=== PATIENT | female | born 1940 | race Caucasian/White ===

== ENCOUNTER 2021-05-15 14:46 | Inpatient (IN) | payer MEDICARE, OTHER ==
[~2021-05-15] VITALS: Ht 170.2 cm; Wt 70.4 kg
[2021-05-15] MEDS ORDERED: BISACODYL 10 MG SUPP (DULCOLAX) PR PRN (16:00)
[2021-05-15] MEDS ORDERED: LOPERAMIDE 2 MG (IMODIUM) TABLET PO PRN (16:00)
[2021-05-15] MEDS ORDERED: ACETAMINOPHEN 325 MG TABLET PO PRN ×2 (16:00→22:30)
[2021-05-15] MEDS ORDERED: LACTULOSE SYRUP 10GM/15ML (ENULOSE) 30ML UDC PO PRN (16:00)
[2021-05-15] MEDS ORDERED: guaiFENesin/CODEINE (ROBITUSSIN AC) 10ML UDC PO PRN (16:00)
[2021-05-15] MEDS ORDERED: DOCUSATE SODIUM 100 MG (COLACE) CAP PO PRN (16:00)
[2021-05-15] MEDS ORDERED: FLEET ENEMA ADULT 1 EA BTL PR PRN (16:00)
[2021-05-15] MEDS ORDERED: ONDANSETRON 4 MG (ZOFRAN) ORAL DISSOLVE TAB PO PRN (16:00)
[2021-05-15] MEDS ORDERED: CALCIUM CARBONATE 500 MG (TUMS) TAB.CHEW PO PRN (16:00)
[2021-05-15] MEDS ORDERED: diphenhydrAMINE 25 MG TAB (BENADRYL) PO PRN (16:00)
[2021-05-15] MEDS ORDERED: DIVA-21 PO (16:16)
[2021-05-15] MEDS ORDERED: PHEN30SP4 NS (16:16)
[2021-05-15] MEDS ORDERED: ASPI-1238 PO (16:16)
[2021-05-15] MEDS ORDERED: SODI30SP2 NSEACH (16:16)
[2021-05-15] MEDS ORDERED: HYDR100T27 PO (16:16)
[2021-05-15] MEDS ORDERED: BACI28.4 TP (16:16)
[2021-05-15] MEDS ORDERED: FOLI0.4T6 PO (16:16)
[2021-05-15] MEDS ORDERED: SODI1PAC NS (16:16)
[2021-05-15] MEDS ORDERED: OXYC-473 PO (16:16)
[2021-05-15] MEDS ORDERED: UBID100C17 PO (16:16)
[2021-05-15] MEDS ORDERED: ATOR20TA66 PO (16:16)
[2021-05-15] MEDS ORDERED: ACET325C7 PO (16:16)
[2021-05-15 20:00] VITALS: BP 149/68
--- OUTSIDE RECORDS SUMMARY | 2021-05-15 20:19 | XMS REPORT | Clinical Summary ---
Author Author [facility] Organization [facility] Address Unknown Phone Unavailable Care Team Providers Care Oncology Social Work Name Role Phone Ralf Moon MS PCP Unavailable Source Comments Some departments are not documenting in the electronic medical record. If you d o not see the information that you expected, contact Release of Information in [facility] [employer] Information Management department at [phone] for further assistan ce in locating additional records.[facility] Allergies No known active allergies Medications End Date Status Medication Sig Dispensed Refills Start Date Active aspirin EC 81 mg tablet Take 81 mg by 0 mouth daily. Active atorvastatin (LIPITOR) 20 Take 20 mg by 0 08/13 mg tablet mouth daily. 0 Active divalproex (DEPAKOTE ER) Take 500 mg 0 01/15 500 mg ER tablet by mouth 1 daily. Active folic acid 400 mcg tablet Take 400 mcg 0 01/13 by mouth 3 daily. Active hydrALAZINE (APRESOLINE) Take 100 mg 0 12/10 100 mg tablet by mouth 8 three times daily. Active coQ10 (ubiquinol) 100 mg Take 1 0 cap capsule by mouth daily. Active acetaminophen (TYLENOL) Take two 30 tablet 0 325 mg tablet tablets by 2 mouth every 4 hours as needed. Active sodium chloride (SEA Apply two 44 mL 05/15 MIST) 0.65 % nasal spray sprays to 2 each nostril as directed every 3 hours while awake. Active sinus rinse (NASAL RELIEF Apply one 1 each SINUS WASH-BOTTLE) kit packet into 2 nose as directed twice daily. Active oxyCODONE (ROXICODONE) 5 Take one 10 tablet 0 0 mg tablet tablet by 2 mouth every 4 hours as needed Active bacitracin 500 unit/g Apply 28 g 0 04/17 topical ointment topically to 2 affected area twice daily. 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 Encounters Care Team Description Date Type Specialty Reina Aguila MD SEPTOPLASTY 05/12/2021 Surgery Lucy Andersen MD Easum, Jamie L, INTERTYPE OPERATOR-PIPE INSULATOR 05/12/2021 Anesthesia Event Reina Aguila MD CSF leak 05/12/2021 Hospital - Encounter 05/15/2021 05/12/2021 Travel Reina Aguila MD Preop testing (Primary Dx) 05/08/2021 PAC Office Pre-Admission Testi ng Visit Jenna Sierra RN Navigation Assessment 05/08/2021 Telephone Oncology 05/08/2021 Stacy Turner RN Other (pre op COVID swab) 05/08/2021 Telephone Otolaryngology Stacy Clarke RN Other (pre op COVID test) 05/08/2021 Telephone Otolaryngology 04/06/2021 Hospital Radiology Encounter Reina Aguila MD 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 (Primary Dx); Seizure (HCC); Nasal septal deviation 03/31/2021 Office Visit Otolaryngology Reina Aguila MD 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 (Primary Dx); Encounter for screening laboratory testing for COVID-19 virus in asymptomatic patient 03/31/2021 Prep for Case Otolaryngology 03/31/2021 Stacy Turner, EDITH Appointment 03/24/2021 Telephone Otolaryngology Vlad Kenny MD Results 03/24/2021 Telephone Neurosurgery José Mead MD 03/23/2021 Hospital Radiology Encounter José Mead MD 03/23/2021 Emergency Emergency Medicine - 03/24/2021 Vlad Kenny MD Canceled (Patient-Rescheduled) 03/23/2021 Hospital Radiology Encounter Vlad Kenny MD Caylor, Jessica, RN Baltz, Hayder, RT(R)(),LRT Tony Rivers MD 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 OR SINUS ENDOSCOPY 05/12/2021 Nose/Left ENDOSCOPY NASA L/ SINUS WITH REPAIR CEREBROSPINAL FLUID LEAK - SPHENOID REGION performed by Reina Aguila MD at 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 Never 03/03/2021 How many drinks containing alcohol do you have on No t asked a typical day when you are drinking? How often do you have six or more drinks on one Not asked occasion? Comment: Not asked Sex Assigned at Date Recorded Female 04/28/2021 12:27 PM MULTIGRAPH OPERATOR Date Recorded COVID-19 Exposure Response 05/12/2021 9:01 AM MULTIGRAPH OPERATOR In the last month, have you been in contact with No / Unsure someone who was confirmed or suspected to have Coronavirus / COVID-19? Last Filed Vital Signs Reading Time Taken Comments Vital Sign 133/48 05/15/2021 2:01 PM MULTIGRAPH OPERATOR Blood Pressure 84 05/15/2021 2:01 PM MULTIGRAPH OPERATOR Pulse 37.4 C (99.4 F) 05/15/2021 2:01 PM MULTIGRAPH OPERATOR Temperature - - Respiratory Rate 97% 05/15/2021 2:01 PM MULTIGRAPH OPERATOR Oxygen Saturation - - Inhaled Oxygen Concentration 68.5 kg (151 lb) 05/12/2021 9:10 AM MULTIGRAPH OPERATOR Weight 170.2 cm (5' 7") 05/12/2021 9:10 AM MULTIGRAPH OPERATOR Height 23.65 05/12/2021 9:10 AM MULTIGRAPH OPERATOR Body Mass Index Plan of Treatment Health Maintenance Due Date Last Done Comments MEDICARE ANNUAL WELLNESS 1942 VISIT PNEUMONIA (PPSV23) 1948 VACCINE (1 of 2 - PPSV23) DTAP/TDAP VACCINES (1 - 1960 Tdap) HEPATITIS C SCREENING 1960 PHYSICAL (COMPREHENSIVE) 1960 EXAM SHINGLES RECOMBINANT 1992 VACCINE (1 of 2) OSTEOPOROSIS 2007 SCREENING/MONITORING INFLUENZA VACCINE 11/13/2020 04/01/2009 COVID-19 VACCINE Completed 02/08/2021, 06/09/2020, 05/09/2020 Goals Goal Patient Associated Recent Progress Patient-Stat Aut hor Goal Type Problems ed? Recover from illness Hospital On track (05/12/2021 Yes Yani Duarte, 3:01 PM MULTIGRAPH OPERATOR) RN Note: And be able to walk better Procedures Comments Procedure Name Priority Date/Time Associated Diag nosis POC GLUCOSE 05/15/2021 11:38 AM MULTIGRAPH OPERATOR BASIC METABOLIC PANEL Routine 05/15/2021 7:27 AM MULTIGRAPH OPERATOR POC GLUCOSE 05/15/2021 7:16 AM MULTIGRAPH OPERATOR POC GLUCOSE 05/14/2021 8:57 PM MULTIGRAPH OPERATOR POC GLUCOSE 05/14/2021 4:49 PM MULTIGRAPH OPERATOR POC GLUCOSE 05/14/2021 12:46 PM MULTIGRAPH OPERATOR POC GLUCOSE 05/14/2021 7:41 AM MULTIGRAPH OPERATOR POC GLUCOSE 05/14/2021 7:29 AM MULTIGRAPH OPERATOR POC GLUCOSE 05/13/2021 8:58 PM MULTIGRAPH OPERATOR POC GLUCOSE 05/13/2021 6:33 PM MULTIGRAPH OPERATOR POC GLUCOSE 05/13/2021 4:38 PM MULTIGRAPH OPERATOR HC TP/CR RATIO, RANDOM Routine 05/13/2021 3:44 PM MULTIGRAPH OPERATOR URINALYSIS, MICROSCOPIC Routine 05/13/2021 3:44 PM MULTIGRAPH OPERATOR HC URINALYSIS, AUTO W Routine 05/13/2021 MICRO 3:44 PM MULTIGRAPH OPERATOR POC GLUCOSE 05/13/2021 11:53 AM MULTIGRAPH OPERATOR POC GLUCOSE 05/13/2021 7:55 AM MULTIGRAPH OPERATOR HC CBC,AUTOMATED Routine 05/13/2021 7:21 AM MULTIGRAPH OPERATOR HC BASIC METABOLIC PANEL Routine 05/13/2021 7:21 AM MULTIGRAPH OPERATOR POC GLUCOSE 05/12/2021 10:44 PM MULTIGRAPH OPERATOR HC ANTI-NEUTROPHIL CYTO Routine 05/12/2021 CIRILO (ANCA 6:01 PM MULTIGRAPH OPERATOR HC ELECTROPHORESIS-SERUM Routine 05/12/2021 6:01 PM MULTIGRAPH OPERATOR HC KAPPA QNT FLC(KLFLC) Routine 05/12/2021 6:01 PM MULTIGRAPH OPERATOR HC IMMUNO FIX SERUM Routine 05/12/2021 (IFES) 6:01 PM MULTIGRAPH OPERATOR C4 COMPLEMENT 4 Routine 05/12/2021 6:01 PM MULTIGRAPH OPERATOR HC C3(COMPLEMENT 3) Routine 05/12/2021 6:01 PM MULTIGRAPH OPERATOR HC ANTI-DNA KOBUK Routine 05/12/2021 6:01 PM MULTIGRAPH OPERATOR HC SERINE PROTEASE 3 AB Routine 05/12/2021 6:01 PM MULTIGRAPH OPERATOR POC GLUCOSE 05/12/2021 5:10 PM MULTIGRAPH OPERATOR US RENAL BLADDER COMPLETE Routine 05/12/2021 4:48 PM MULTIGRAPH OPERATOR POC GLUCOSE 05/12/2021 12:19 PM MULTIGRAPH OPERATOR HC CBC W/ AUTOMATED DIFF STAT 05/12/2021 11:33 AM MULTIGRAPH OPERATOR STEREOTACTIC 05/12/2021 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 COMPUTER-ASSISTED CRANIAL 9:39 AM MULTIGRAPH OPERATOR PROCEDURE - EXTRADURAL Special Needs 12 Marked return to clinic, no open time available, [place] [address]/25 PCM: ALSO, MOVE 2ND ROOM CASE (ROSALIA) INTO ITS PLACE SO ALL HER CASES ARE IN ONE ROOM. THANKS. - BP 0938 ENDOSCOPY NASAL/ SINUS 05/12/2021 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 WITH REPAIR CEREBROSPINAL 9:39 AM MULTIGRAPH OPERATOR FLUID LEAK - SPHENOID REGION Special Needs 12 Marked return to clinic, no open time available, [place] [address]/25 PCM: ALSO, MOVE 2ND ROOM CASE (ROSALIA) INTO ITS PLACE SO ALL HER CASES ARE IN ONE ROOM. THANKS. - BP 0938 SEPTOPLASTY 05/12/2021 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 9:39 AM MULTIGRAPH OPERATOR Special Needs 12 Marked return to clinic, no open [place] available, [place] [address]/25 PCM: ALSO, MOVE 2ND ROOM CASE (ROSALIA) INTO ITS PLACE SO ALL HER CASES ARE IN ONE ROOM. THANKS. - BP 0938 HC BLOOD TYPING, ABO STAT 05/12/2021 CONFIRM 91 9:22 AM MULTIGRAPH OPERATOR TYPE & CROSSMATCH STAT 05/12/2021 Preop testin g 9:10 AM MULTIGRAPH OPERATOR HC VALPROIC ACID 05/12/2021 9:10 AM MULTIGRAPH OPERATOR HC BASIC METABOLIC PANEL STAT 05/12/2021 Preop testing 9:[address] CHEST EXTERNAL IMAGING Routine 04/06/2021 12:00 AM MULTIGRAPH OPERATOR COVID-19 (SARS-COV-2) PCR STAT 03/23/2021 7:[address] MAXIFACIAL/SINUS WO STAT 03/23/2021 CONTRAST 6:[address] HEAD WO CONTRAST STAT 03/23/2021 6:16 PM MULTIGRAPH OPERATOR HC TROPONIN I, POC 03/23/2021 2:38 PM MULTIGRAPH OPERATOR HC VALPROIC ACID STAT 03/23/2021 2:35 PM MULTIGRAPH OPERATOR HC COMPREHENSIVE STAT 03/23/2021 METABOLIC PANEL 2:35 PM MULTIGRAPH OPERATOR HC MAGNESIUM STAT 03/23/2021 2:35 PM MULTIGRAPH OPERATOR HC CBC W/ AUTOMATED DIFF STAT 03/23/2021 2:35 PM MULTIGRAPH OPERATOR CHEST SINGLE VIEW STAT 03/23/2021 2:05 PM MULTIGRAPH OPERATOR ECG 12-LEAD STAT 03/23/2021 1:47 PM MULTIGRAPH OPERATOR POC GLUCOSE 03/23/2021 12:19 PM MULTIGRAPH OPERATOR IR CISTERNOGRAM Routine 03/23/2021 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 12:17 PM MULTIGRAPH OPERATOR ECG-SCAN 03/23/2021 12:00 AM MULTIGRAPH OPERATOR ECG-SCAN 03/23/2021 12:00 AM MULTIGRAPH OPERATOR from Last 3 Months Results * (ABNORMAL) POC GLUCOSE (05/15/2021 11:38 AM MULTIGRAPH OPERATOR) Only the most recent of 16 results within the time period is included. Pathologist [facility] Glucose, POC 173 (H) 70 - 100 MG/DL [facility] Specimen Performing Organization Address City/State/ZIP Code P melissa Number [facility] [address] [place] [address] * (ABNORMAL) BASIC METABOLIC PANEL (05/15/2021 7:27 AM MULTIGRAPH OPERATOR) Only the most recent of 3 results within the time period is included. Pathologist [facility] Sodium 136 (L) 137 - 147 MMOL/L [facility] Potassium 4.7 3.5 - 5.1 MMOL/L [facility] Chloride 100 98 - 110 MMOL/L [facility] CO2 26 21 - 30 MMOL/L [facility] Anion Gap 10 3 - 12 [facility] Glucose 132 (H) 70 - 100 MG/DL [facility] Blood Urea 37 (H) 7 - 25 MG/DL [facility] Nitrogen Creatinine 2.05 (H) 0.4 - 1.00 MG/DL [facility] Calcium 9.5 8.5 - 10.6 MG/DL [facility] eGFR 24 (L)Comment: eGFR calculated >60 mL/min [facility] using the CKD-EPIcr_R equation Specimen Blood (substance) Performing Organization Address [facility] P melissa Number [facility] [address] [place] [phone] * PROTEIN/CR RATIO,UR RAN (05/13/2021 3:44 PM MULTIGRAPH OPERATOR) Protein, Random 40 MG/DL [facility] Creatinine, 70 MG/DL [facility] Random Protein/CR 0.6 [facility] ratio Specimen Urine - Urine specimen (specimen) Performing Organization Address [facility] P melissa Number [facility] [address] [place] [address] * URINALYSIS, MICROSCOPIC (05/13/2021 3:44 PM MULTIGRAPH OPERATOR) WBCs,UA 10-20 0 - 2 /HPF [facility] RBCs,UA 20-50 0 - 3 /HPF [facility] MucousUA TRACE [facility] Squamous 2-5 0 - 5 [facility] Epithelial Cells Specimen Urine - Urine specimen (specimen) Performing Organization Address [facility] P melissa Number [facility] [address] [place] [address] * (ABNORMAL) URINALYSIS DIPSTICK (05/13/2021 3:44 PM MULTIGRAPH OPERATOR) Color,UA YELLOW [facility] Turbidity,UA CLEAR CLEAR-CLEAR [facility] Specific 1.016Comment: NOTE NEW 1.005 - 1.030 [facility] [place]-Urine REFERENCE RANGES pH,UA 6.0 5.0 - 8.0 [facility] Protein,UA 1+ (A) NEG-NEG [facility] Glucose,UA NEG NEG-NEG [facility] Ketones,UA NEG NEG-NEG [facility] Bilirubin,UA NEG NEG-NEG [facility] Blood,UA 1+ (A) NEG-NEG [facility] Urobilinogen,UA NORMAL NORM-NORMAL [facility] Nitrite,UA NEG NEG-NEG [facility] Leukocytes,UA 1+ (A) NEG-NEG [facility] Urine Ascorbic NEG NEG-NEG [facility] Acid, UA Specimen Urine - Urine specimen (specimen) Performing Organization Address [facility] P melissa Number [facility] [address] [place] [address] * (ABNORMAL) CBC (05/13/2021 7:21 AM MULTIGRAPH OPERATOR) White Blood 3.5 (L) 4.5 - 11.0 K/UL [facility] Cells RBC 3.01 (L) 4.0 - 5.0 M/UL [facility] Hemoglobin 7.5 (L) 12.0 - 15.0 GM/DL [facility] Hematocrit 23.1 (L) 36 - 45 % [facility] MCV 76.7 (L) 80 - 100 FL [facility] MCH 24.8 (L) 26 - 34 PG [facility] MCHC 32.4 32.0 - 36.0 G/DL [facility] RDW 18.9 (H) 11 - 15 % [facility] Platelet Count 286 150 - 400 K/UL [facility] MPV 8.0 7 - 11 FL [facility] Specimen Blood (substance) Performing Organization Address [facility] P melissa Number [facility] [address] [place] [address] * (ABNORMAL) MPO/PR3 W REFLEX TO ANCA (05/12/2021 6:01 PM MULTIGRAPH OPERATOR) Myeloperoxidase 1.7 (H)Comment: <1.0 AI [facility] AB Interpretation: Positive Serine <0.2Comment: Interpretation: <1.0 AI [facility] Protease3 AB Negative Specimen Blood (substance) Performing Organization Address [facility]/ZIP Code P melissa Number [facility] [address] [place] [address] * IMMUNOFIXATION, SERUM (IFES) (05/12/2021 6:01 PM MULTIGRAPH OPERATOR) Immuno NO PARAPROTEIN SEEN [facility] Fix-Serum Pathologist INTERPRETED BY HALLIE MORALES M.D. [facility] Signature By the PATH SIGNATURE ABOVE , I attest that I have personally formulated the final interpretation expressed in this report and that the above diagnosis is based upon my examination of the slides and/or other material indicated in this report. Specimen Blood (substance) Performing Organization Address [facility] Code P melissa Number [facility] [address] [place] [address] * (ABNORMAL) KAPPA/LAMBDA FREE LIGHT CHAINS (05/12/2021 6:01 PM MULTIGRAPH OPERATOR) [place], FLC 7.84 (H) 0.33 - 1.94 MG/DL [facility] Lambda, FLC 9.44 (H) 0.57 - 2.63 MG/DL [facility] [place]/Lambda 0.83 0.26 - 1.65 [facility] FLC Specimen Blood (substance) Performing Organization Address [facility] P melissa Number [facility] [address] [place] [address] * ANTI-NEUT CYTO AB (ANCA/PANCA) (05/12/2021 6:01 PM MULTIGRAPH OPERATOR) C-ANCA <20,NEGATIVE TITER [facility] P-ANCA >AZ=[id number],POSITIVE TITER [facility] Specimen Performing Organization Address [facility] P melissa Number [facility] [address] [place] [address] * ANTI-DNA DOUBLE STRAND (05/12/2021 6:01 PM MULTIGRAPH OPERATOR) DNA Double <10 <10 TITER [facility] Strand AB Specimen Blood (substance) Performing Organization Address [facility] P emlissa Number [facility] [address] [place] [address] * C3 COMPLEMENT 3 (05/12/2021 6:01 PM MULTIGRAPH OPERATOR) Complemnt C3 109.0 88 - 200 MG/DL [facility] Specimen Blood (substance) Performing Organization Address [facility] P melissa Number [facility] [address] [place] [address] * C4 COMPLEMENT 4 (05/12/2021 6:01 PM MULTIGRAPH OPERATOR) Complemnt C4 21.0 10 - 49 MG/DL [facility] Specimen Blood (substance) Performing Organization Address [facility] P melissa Number [facility] [address] [place] [address] * (ABNORMAL) ELECTROPHORESIS-SERUM PROTEIN (05/12/2021 6:01 PM MULTIGRAPH OPERATOR) Total 7.2 6.0 - 8.0 G/DL [facility] Protein-SEP Albumin % 44.7 (L) 48 - 68 % [facility] Alpha 1 % 6.3 (H) 2 - 6 % [facility] Alpha 2 % 14.6 5 - 15 % [facility] Beta %,Serum 13.0 9 - 17 % [facility] Gamma % 21.4 (H) 9 - 21 % [facility] Interpretation Acute phase reaction. [facility] - SEP Pathologist INTERPRETED BY HALLIE MORALES M.D. [facility] Signature By the PATH SIGNATURE ABOVE , I attest that I have personally formulated the final interpretation expressed in this report and that the above diagnosis is based upon my examination of the slides and/or other material indicated in this report. Specimen Blood (substance) Performing Organization Address City/State/ZIP Code P melissa Number [facility] [address] [place] [address] * US RENAL BLADDER COMPLETE (05/12/2021 4:48 PM MULTIGRAPH OPERATOR) Modality Anatomical Region Laterality Ultrasound Pelvis Specimen Impressions [facility] RESULTS - 05/12/2021 4:54 PM MULTIGRAPH OPERATOR 1. The kidneys are normal in size. No hy dronephrosis. 2. 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 3. Small minimally complicated cyst in t he inferior pole of the right kidney with complexity likely related to intracystic hemorrhage. Finalized by Brigette Jones M.D. on 05/12/2021 4:54 PM. Dictated by Brigette Jones M.D. on 05/12/2021 4:48 PM. Narrative [facility] RESULTS - 05/12/2021 4:54 PM MULTIGRAPH OPERATOR RENAL ULTRASOUND CLINICAL INDICATION: Von Hippel-Lindau syndrome, CKD 3. Evaluate for renal masses. TECHNIQUE: Multiple grayscale ultrasound images were obtained through the kidneys and urinary bladder. COMPARISON: Outside CT abdomen 12/14/2020, outside MRI abdomen 11/18/2020 FINDINGS: Right kidney: Measures 10.5 x 4.3 cm. Hyperechoic lesion in the superior pole of the kidney measuring up to 1.0 cm corresponds to a benign angiomyolipoma on comparison imaging. Minimally complicated cyst in the inferior pole of the kidney measures up to 1.4 cm. No hydronephrosis. Left kidney: Measures 10.2 x 4.4 cm. Hyperechoic lesion in the superior pole of the kidney measuring up to 2.1 cm corresponds to a benign angiomyolipoma on comparison imaging. No hydronephrosis. Urinary bladder: Mildly distended and normal in appearance. Procedure Note Brigette Jones MD - 05/12/2021 RENAL ULTRASOUND CLINICAL INDICATION: Von Hippel-Lindau syndrome, CKD 3. Evaluate for renal masses. TECHNIQUE: Multiple grayscale ultrasound images were obtained through the kidneys and urinary bladder. COMPARISON: Outside CT abdomen 12/14/2020, outside MRI abdomen 11/18/2020 FINDINGS: Right kidney: Measures 10.5 x 4.3 cm. Hyperechoic lesion in the superior pole of the kidney measuring up to 1.0 cm corresponds to a benign angiomyolipoma on comparison imaging. Minimally complicated cyst in the inferior pole of the kidney measures up to 1.4 cm. No hydronephrosis. Left kidney: Measures 10.2 x 4.4 cm. Hyperechoic lesion in the superior pole of the kidney measuring up to 2.1 cm corresponds to a benign angiomyolipoma on comparison imaging. No hydronephrosis. Urinary bladder: Mildly distended and normal in appearance. IMPRESSION 1. The kidneys are normal in size. No hy dronephrosis. 2. 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 3. Small minimally complicated cyst in t he inferior pole of the right kidney with complexity likely related to intracystic hemorrhage. Finalized by Brigette Jones M.D. on 05/12/2021 4:54 PM. Dictated by Brigette Jones M.D. on 05/12/2021 4:48 PM. Performing Organization Address City/State/ZIP Code P melissa Number [facility] * (ABNORMAL) CBC AND DIFF (05/12/2021 11:33 AM MULTIGRAPH OPERATOR) Only the most recent of 2 results within the time period is included. White Blood 5.1 4.5 - 11.0 K/UL [facility] Cells RBC 2.86 (L) 4.0 - 5.0 M/UL [facility] Hemoglobin 7.2 (L) 12.0 - 15.0 GM/DL [facility] Hematocrit 21.9 (L) 36 - 45 % [facility] MCV 76.7 (L) 80 - 100 FL [facility] MCH 25.2 (L) 26 - 34 PG [facility] MCHC 32.8 32.0 - 36.0 G/DL [facility] RDW 18.6 (H) 11 - 15 % [facility] Platelet Count 239 150 - 400 K/UL [facility] MPV 8.2 7 - 11 FL [facility] Neutrophils 85 (H) 41 - 77 % [facility] Lymphocytes 8 (L) 24 - 44 % [facility] Monocytes 4 4 - 12 % [facility] Eosinophils 2 0 - 5 % [facility] Basophils 1 0 - 2 % [facility] Absolute 4.38 1.8 - 7.0 K/UL [facility] Neutrophil Count Absolute Lymph 0.39 (L) 1.0 - 4.8 K/UL [facility] Count Absolute 0.21 0 - 0.80 K/UL [facility] Monocyte Count Absolute 0.12 0 - 0.45 K/UL [facility] Eosinophil Count Absolute 0.03 0 - 0.20 K/UL [facility] Basophil Count Specimen Blood (substance) Performing Organization Address City/[facility] P melissa Number [facility] [address] [place] [address] * BLOOD TYPE CONFIRMATION - ORDER ONLY IF REQUESTED BY LAB (05/12/2021 9:22 AM MULTIGRAPH OPERATOR) ABO/RH(D) O POS [facility] LAB Specimen Performing Organization Address City/[facility] P melissa Number [facility] [address] [place] [phone] * TYPE & CROSSMATCH (05/12/2021 9:10 AM MULTIGRAPH OPERATOR) Units Ordered 0 [facility] Crossmatch 05/15/2021,2359 [facility] Expires Record Check 2ND TYPE REQUIRED [facility] ABO/RH(D) O POS [facility]IN LAB Antibody Screen NEG [facility] Electronic YES [facility] Crossmatch Specimen Blood (substance) Performing Organization Address [facility]/ZIP Code P melissa Number [facility] [address] [place] [phone] * (ABNORMAL) VALPROIC ACID LEVEL (05/12/2021 9:10 AM MULTIGRAPH OPERATOR) Only the most recent of 2 results within the time period is included. Valproic Acid <10.0 (L) 50.0 - 100.0 MCG/ML MAIN LA B Specimen Performing Organization Address City/[facility]/ZIP Code P melissa Number [facility] [address] [place] [address] * CT CHEST EXTERNAL IMAGING (04/06/2021 12:00 AM MULTIGRAPH OPERATOR) Modality Anatomical Region Laterality Computed Radiography Specimen Narrative Scheduling, Silent - 05/11/2021 10:08 AM MULTIGRAPH OPERATOR This order has been auto finalized and does not contain a result. * COVID-19 (SARS-COV-2) PCR (03/23/2021 7:48 PM MULTIGRAPH OPERATOR) COVID-19 FLOCKED SWAB [facility] (SARS-CoV-2) NASOPHARYNGEAL PCR Source COVID-19 NOT DETECTED DN-NOT DETECTED [facility] (SARS-CoV-2) Comment: PCR This assay is designed to detect the S and/or ORF1ab genes of SARS-CoV-2 using nucleic acid amplification. A "Not Detected" result does not preclude the possibility of SARS-CoV-2 infection since the adequacy of sample collection and/or low viral burden may result in the presence of viral nucleic acids below the analytical sensitivity of this test method. Test results should be used along with other clinical and laboratory data in making the diagnosis. Test parameters have not been validated for screening in asymptomatic patients.This test has not been FDA cleared or approved. This test is authorized for use under the FDA Emergency Use Authorization and performance characteristics have been verified by the [facility]. Fact sheet for providers: https://www.fda.gov/media/4122 85/download Fact sheet for patients: https://www.fda.gov/media/1659 87/download Specimen Flocked Swab - Nasopharyngeal structure (body structure) Performing Organization Address City/State/ZIP Code P melissa Number [facility] [address] [place] [address] * CT HEAD WO CONTRAST (03/23/2021 6:16 PM MULTIGRAPH OPERATOR) Modality Anatomical Region Laterality Computed Tomography Head Specimen Impressions [facility] RESULTS - 03/23/2021 8:05 PM MULTIGRAPH OPERATOR Head: 1. Evaluation of the parenchyma and celeste barachnoid spaces is mildly limited due to dense contrast material from prior cisternogram. 2. Prior bilateral occipital craniecto my with stable large area of right cerebellar encephalomalacia and more mild medial left occipital lobe encephalomalacia. 3. Small stable area of gliosis at the anterolateral right frontal lobe, likely corresponding to prior EVD tract. Additional very small area of encephalomalacia/gliosis at the superior left frontal lobe. 4. No extra-axial fluid collection lida ntified. 5. Persistent generalized cerebral vol ume loss with asymmetrically greater dilatation of the left temporal horn and some adjacent left temporal lobe encephalomalacia anteriorly redemonstrated. Maxillofacial: 1. CSF leak identified through the hea d defect at the lateral wall of the left sphenoid sinus, as described above. 2. Some additional minimal probable co ntrast accounts for high density material collecting within the hypopharyngeal mucosal surface. 3. No acute maxillofacial fracture lida ntified. By my electronic signature, I attest that I have personally reviewed the images for this examination and formulated the interpretations and opinions expressed in this report Finalized by Nilay Hayes M.D. on 03/23/2021 8:05 PM. Dictated by Tutu Johnson M.D. on 03/23/2021 7:16 PM. Narrative [facility] RESULTS - 03/23/2021 8:05 PM MULTIGRAPH OPERATOR EXAM: CT HEAD AND MAXILLOFACIAL HISTORY: SEIZURE, hx multiple resections TECHNIQUE: Multiple contiguous axial images were obtained of the brain and facial bones without intravenous contrast. Sagittal and coronal reformations were obtained of the facial bones, with coronal reformatted images of the head. The facial CT was obtained in supine and prone positions. Comparison: IR cisternogram March 23, 2021, external MRI head December 20, 2020 FINDINGS: Head: Dense contrast material fills the ventricles and subarachnoid spaces from cisternogram procedure earlier the same day. Evaluation of the parenchyma is mildly limited due to dense contrast material. Prior bilateral occipital craniectomy is redemonstrated along with large area of cystic encephalomalacia in the right cerebellum and mild encephalomalacia the posterior medial left cerebellum. Contrast fills these areas of bilateral cerebellar encephalomalacia. There is also contrast filling the asymmetric the asymmetrically dilated left temporal horn, with redemonstration of some encephalomalacia at the anterior left temporal lobe. 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 Stable, likely benign small hypodense lesion in the overlying calvarium. Stable small area of gliosis involving the white matter at the anterolateral right frontal lobe, with a small linear overlying right frontal calvarial defect, suggesting this is gliosis along a prior EVD tract. There is also very small focal area of encephalomalacia/gliosis at the superior left frontal lobe (series 303, image 58). Becker-white matter interfaces are otherwise maintained. Evaluation for subarachnoid hemorrhage is limited due to the presence of contrast within the subarachnoid spaces. No extra-axial fluid collection identified. Mild generalized cerebral volume loss with concordant prominence of the ventricles. There is no midline shift or mass effect. The basal cisterns are patent. Maxillofacial: Contrast is seen near completely filling the left sphenoid sinus, with additional minimal left sphenoid mucosal thickening. There is a focal bony defect in the lateral wall of the left sphenoid sinus with contrast extending through the defect (series 3, image 102). The contrast appears to extend from the medial aspect of the asymmetrically dilated temporal horn and the left sphenoid sinus. No significant contrast is present within the nasal cavity, nasopharynx, oral cavity or oropharynx. There is some minimal high density along the mucosal surface of the hypopharynx (series 3, image 254), suggestive of contrast. Moderate sized left maxillary sinus retention cyst or polyp. Remaining paranasal sinuses are clear (except for the left sphenoid sinus as previously described). There is a moderate left mastoid effusion without associated bone destruction or high density contrast. Right mastoid air cells are clear. The globes and orbits are normal in appearance without CT evidence of orbital hemorrhage. The extraocular muscles are intact. No acute facial, mandibular, or orbital wall fracture is identified. The left and right temporal mandibular joints are slightly displaced anteriorly on prior imaging, consistent with a transient finding as there is normal alignment at TMJ bilaterally on the supine imaging. Moderate degenerative changes in the visualized upper and mid cervical spine with areas of mild central canal and up to moderate neural foraminal narrowing, greatest at C4-5. Procedure Note Nilay Hayes MD - 03/23/2021 EXAM: CT HEAD AND MAXILLOFACIAL HISTORY: SEIZURE, hx multiple resections TECHNIQUE: Multiple contiguous axial images were obtained of the brain and facial bones without intravenous contrast. Sagittal and coronal reformations were obtained of the facial bones, with coronal reformatted images of the head. The facial CT was obtained in supine and prone positions. Comparison: IR cisternogram March 23, 2021, external MRI head December 20, 2020 FINDINGS: Head: Dense contrast material fills the ventricles and subarachnoid spaces from cisternogram procedure earlier the same day. Evaluation of the parenchyma is mildly limited due to dense contrast material. Prior bilateral occipital craniectomy is redemonstrated along with large area of cystic encephalomalacia in the right cerebellum and mild encephalomalacia the posterior medial left cerebellum. Contrast fills these areas of bilateral cerebellar encephalomalacia. There is also contrast filling the asymmetric the asymmetrically dilated left temporal horn, with redemonstration of some encephalomalacia at the anterior left temporal lobe. 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 Stable, likely benign small hypodense lesion in the overlying calvarium. Stable small area of gliosis involving the white matter at the anterolateral right frontal lobe, with a small linear overlying right frontal calvarial defect, suggesting this is gliosis along a prior EVD tract. There is also very small focal area of encephalomalacia/gliosis at the superior left frontal lobe (series 303, image 58). Becker-white matter interfaces are otherwise maintained. Evaluation for subarachnoid hemorrhage is limited due to the presence of contrast within the subarachnoid spaces. No extra-axial fluid collection identified. Mild generalized cerebral volume loss with concordant prominence of the ventricles. There is no midline shift or mass effect. The basal cisterns are patent. Maxillofacial: Contrast is seen near completely filling the left sphenoid sinus, with additional minimal left sphenoid mucosal thickening. There is a focal bony defect in the lateral wall of the left sphenoid sinus with contrast extending through the defect (series 3, image 102). The contrast appears to extend from the medial aspect of the asymmetrically dilated temporal horn and the left sphenoid sinus. No significant contrast is present within the nasal cavity, nasopharynx, oral cavity or oropharynx. There is some minimal high density along the mucosal surface of the hypopharynx (series 3, image 254), suggestive of contrast. Moderate sized left maxillary sinus retention cyst or polyp. Remaining paranasal sinuses are clear (except for the left sphenoid sinus as previously described). There is a moderate left mastoid effusion without associated bone destruction or high density contrast. Right mastoid air cells are clear. The globes and orbits are normal in appearance without CT evidence of orbital hemorrhage. The extraocular muscles are intact. No acute facial, mandibular, or orbital wall fracture is identified. The left and right temporal mandibular joints are slightly displaced anteriorly on prior imaging, consistent with a transient finding as there is normal alignment at TMJ bilaterally on the supine imaging. Moderate degenerative changes in the visualized upper and mid cervical spine with areas of mild central canal and up to moderate neural foraminal narrowing, greatest at C4-5. IMPRESSION Head: 1. Evaluation of the parenchyma and sub arachnoid spaces is mildly limited due to dense contrast material from prior cisternogram. 2. Prior bilateral occipital craniectom y with stable large area of right cerebellar encephalomalacia and more mild medial left occipital lobe encephalomalacia. 3. Small stable area of gliosis at the anterolateral right frontal lobe, likely corresponding to prior EVD tract. Additional very small area of encephalomalacia/gliosis at the superior left frontal lobe. 4. No extra-axial fluid collection iden tified. 5. Persistent generalized cerebral volu me loss with asymmetrically greater dilatation of the left temporal horn and some adjacent left temporal lobe encephalomalacia anteriorly redemonstrated. Maxillofacial: 1. CSF leak identified through the head defect at the lateral wall of the left sphenoid sinus, as described above. 2. Some additional minimal probable con trast accounts for high density material collecting within the hypopharyngeal mucosal surface. 3. No acute maxillofacial fracture iden tified. By my electronic signature, I attest that I have personally reviewed the images for this examination and formulated the interpretations and opinions expressed in this report Finalized by Nilay Hayes M.D. on 03/23/2021 8:05 PM. Dictated by Tutu Johnson M.D. on 03/23/2021 7:16 PM. Performing Organization Address City/State/ZIP Code P melissa Number [facility] * CT MAXIFACIAL/SINUS WO CONTRAST (03/23/2021 6:16 PM MULTIGRAPH OPERATOR) Modality Anatomical Region Laterality Computed Tomography Head Specimen Impressions [facility] RESULTS - 03/23/2021 8:05 PM MULTIGRAPH OPERATOR Head: 1. Evaluation of the parenchyma and celeste barachnoid spaces is mildly limited due to dense contrast material from prior cisternogram. 2. Prior bilateral occipital craniecto my with stable large area of right cerebellar encephalomalacia and more mild medial left occipital lobe encephalomalacia. 3. Small stable area of gliosis at the anterolateral right frontal lobe, likely corresponding to prior EVD tract. Additional very small area of encephalomalacia/gliosis at the superior left frontal lobe. 4. No extra-axial fluid collection lida ntified. 5. Persistent generalized cerebral vol ume loss with asymmetrically greater dilatation of the left temporal horn and some adjacent left temporal lobe encephalomalacia anteriorly redemonstrated. Maxillofacial: 1. CSF leak identified through the hea d defect at the lateral wall of the left sphenoid sinus, as described above. 2. Some additional minimal probable co ntrast accounts for high density material collecting within the hypopharyngeal mucosal surface. 3. No acute maxillofacial fracture lida ntified. By my electronic signature, I attest that I have personally reviewed the images for this examination and formulated the interpretations and opinions expressed in this report Finalized by Nilay Hayes M.D. on 03/23/2021 8:05 PM. Dictated by Tutu Johnson M.D. on 03/23/2021 7:16 PM. Narrative [facility] RESULTS - 03/23/2021 8:05 PM MULTIGRAPH OPERATOR EXAM: CT HEAD AND MAXILLOFACIAL HISTORY: SEIZURE, hx multiple resections TECHNIQUE: Multiple contiguous axial images were obtained of the brain and facial bones without intravenous contrast. Sagittal and coronal reformations were obtained of the facial bones, with coronal reformatted images of the head. The facial CT was obtained in supine and prone positions. Comparison: IR cisternogram March 23, 2021, external MRI head December 20, 2020 FINDINGS: Head: Dense contrast material fills the ventricles and subarachnoid spaces from cisternogram procedure earlier the same day. Evaluation of the parenchyma is mildly limited due to dense contrast material. Prior bilateral occipital craniectomy is redemonstrated along with large area of cystic encephalomalacia in the right cerebellum and mild encephalomalacia the posterior medial left cerebellum. Contrast fills these areas of bilateral cerebellar encephalomalacia. There is also contrast filling the asymmetric the asymmetrically dilated left temporal horn, with redemonstration of some encephalomalacia at the anterior left temporal lobe. 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 Stable, likely benign small hypodense lesion in the overlying calvarium. Stable small area of gliosis involving the white matter at the anterolateral right frontal lobe, with a small linear overlying right frontal calvarial defect, suggesting this is gliosis along a prior EVD tract. There is also very small focal area of encephalomalacia/gliosis at the superior left frontal lobe (series 303, image 58). Becker-white matter interfaces are otherwise maintained. Evaluation for subarachnoid hemorrhage is limited due to the presence of contrast within the subarachnoid spaces. No extra-axial fluid collection identified. Mild generalized cerebral volume loss with concordant prominence of the ventricles. There is no midline shift or mass effect. The basal cisterns are patent. Maxillofacial: Contrast is seen near completely filling the left sphenoid sinus, with additional minimal left sphenoid mucosal thickening. There is a focal bony defect in the lateral wall of the left sphenoid sinus with contrast extending through the defect (series 3, image 102). The contrast appears to extend from the medial aspect of the asymmetrically dilated temporal horn and the left sphenoid sinus. No significant contrast is present within the nasal cavity, nasopharynx, oral cavity or oropharynx. There is some minimal high density along the mucosal surface of the hypopharynx (series 3, image 254), suggestive of contrast. Moderate sized left maxillary sinus retention cyst or polyp. Remaining paranasal sinuses are clear (except for the left sphenoid sinus as previously described). There is a moderate left mastoid effusion without associated bone destruction or high density contrast. Right mastoid air cells are clear. The globes and orbits are normal in appearance without CT evidence of orbital hemorrhage. The extraocular muscles are intact. No acute facial, mandibular, or orbital wall fracture is identified. The left and right temporal mandibular joints are slightly displaced anteriorly on prior imaging, consistent with a transient finding as there is normal alignment at TMJ bilaterally on the supine imaging. Moderate degenerative changes in the visualized upper and mid cervical spine with areas of mild central canal and up to moderate neural foraminal narrowing, greatest at C4-5. Procedure Note Nilay Hayes MD - 03/23/2021 EXAM: CT HEAD AND MAXILLOFACIAL HISTORY: SEIZURE, hx multiple resections TECHNIQUE: Multiple contiguous axial images were obtained of the brain and facial bones without intravenous contrast. Sagittal and coronal reformations were obtained of the facial bones, with coronal reformatted images of the head. The facial CT was obtained in supine and prone positions. Comparison: IR cisternogram March 23, 2021, external MRI head December 20, 2020 FINDINGS: Head: Dense contrast material fills the ventricles and subarachnoid spaces from cisternogram procedure earlier the same day. Evaluation of the parenchyma is mildly limited due to dense contrast material. Prior bilateral occipital craniectomy is redemonstrated along with large area of cystic encephalomalacia in the right cerebellum and mild encephalomalacia the posterior medial left cerebellum. Contrast fills these areas of bilateral cerebellar encephalomalacia. There is also contrast filling the asymmetric the asymmetrically dilated left temporal horn, with redemonstration of some encephalomalacia at the anterior left temporal lobe. 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 Stable, likely benign small hypodense lesion in the overlying calvarium. Stable small area of gliosis involving the white matter at the anterolateral right frontal lobe, with a small linear overlying right frontal calvarial defect, suggesting this is gliosis along a prior EVD tract. There is also very small focal area of encephalomalacia/gliosis at the superior left frontal lobe (series 303, image 58). Becker-white matter interfaces are otherwise maintained. Evaluation for subarachnoid hemorrhage is limited due to the presence of contrast within the subarachnoid spaces. No extra-axial fluid collection identified. Mild generalized cerebral volume loss with concordant prominence of the ventricles. There is no midline shift or mass effect. The basal cisterns are patent. Maxillofacial: Contrast is seen near completely filling the left sphenoid sinus, with additional minimal left sphenoid mucosal thickening. There is a focal bony defect in the lateral wall of the left sphenoid sinus with contrast extending through the defect (series 3, image 102). The contrast appears to extend from the medial aspect of the asymmetrically dilated temporal horn and the left sphenoid sinus. No significant contrast is present within the nasal cavity, nasopharynx, oral cavity or oropharynx. There is some minimal high density along the mucosal surface of the hypopharynx (series 3, image 254), suggestive of contrast. Moderate sized left maxillary sinus retention cyst or polyp. Remaining paranasal sinuses are clear (except for the left sphenoid sinus as previously described). There is a moderate left mastoid effusion without associated bone destruction or high density contrast. Right mastoid air cells are clear. The globes and orbits are normal in appearance without CT evidence of orbital hemorrhage. The extraocular muscles are intact. No acute facial, mandibular, or orbital wall fracture is identified. The left and right temporal mandibular joints are slightly displaced anteriorly on prior imaging, consistent with a transient finding as there is normal alignment at TMJ bilaterally on the supine imaging. Moderate degenerative changes in the visualized upper and mid cervical spine with areas of mild central canal and up to moderate neural foraminal narrowing, greatest at C4-5. IMPRESSION Head: 1. Evaluation of the parenchyma and sub arachnoid spaces is mildly limited due to dense contrast material from prior cisternogram. 2. Prior bilateral occipital craniectom y with stable large area of right cerebellar encephalomalacia and more mild medial left occipital lobe encephalomalacia. 3. Small stable area of gliosis at the anterolateral right frontal lobe, likely corresponding to prior EVD tract. Additional very small area of encephalomalacia/gliosis at the superior left frontal lobe. 4. No extra-axial fluid collection iden tified. 5. Persistent generalized cerebral volu me loss with asymmetrically greater dilatation of the left temporal horn and some adjacent left temporal lobe encephalomalacia anteriorly redemonstrated. Maxillofacial: 1. CSF leak identified through the head defect at the lateral wall of the left sphenoid sinus, as described above. 2. Some additional minimal probable con trast accounts for high density material collecting within the hypopharyngeal mucosal surface. 3. No acute maxillofacial fracture iden tified. By my electronic signature, I attest that I have personally reviewed the images for this examination and formulated the interpretations and opinions expressed in this report Finalized by Nilay Hayes M.D. on 03/23/2021 8:05 PM. Dictated by Tutu Johnson M.D. on 03/23/2021 7:16 PM. Performing Organization Address City/State/ZIP Code P melissa Number RAD RESULTS * POC TROPONIN (03/23/2021 2:38 PM MULTIGRAPH OPERATOR) [facility] [id number] 0.01 0.00 - 0.05 NG/ML MAIN LAB Specimen Performing Organization Address City/State/ZIP Code P melissa Number MA[facility] LAB [address] [place] [address] * MAGNESIUM (03/23/2021 2:35 PM MULTIGRAPH OPERATOR) Pathologist [facility] Magnesium 2.0 1.6 - 2.6 mg/dL [facility] Specimen Blood (substance) Performing Organization Address City/[facility]/ZIP Code P melissa Number [facility] [address] [place] [address] * (ABNORMAL) COMPREHENSIVE METABOLIC PANEL (03/23/2021 2:35 PM MULTIGRAPH OPERATOR) Pathologist [facility] Sodium 135 (L) 137 - 147 MMOL/L [facility] Potassium 4.6 3.5 - 5.1 MMOL/L [facility] Chloride 100 98 - 110 MMOL/L [facility] Glucose 118 (H) 70 - 100 MG/DL [facility] Blood Urea 36 (H) 7 - 25 MG/DL [facility] Nitrogen Creatinine 1.51 (H) 0.4 - 1.00 MG/DL [facility] Calcium 9.0 8.5 - 10.6 MG/DL [facility] Total Protein 7.4 6.0 - 8.0 G/DL [facility] Total Bilirubin 0.3 0.3 - 1.2 MG/DL [facility] Albumin 3.3 (L) 3.5 - 5.0 G/DL [facility] Alk Phosphatase 56 25 - 110 U/L [facility] AST (SGOT) 10 7 - 40 U/L [facility] CO2 25 21 - 30 MMOL/L [facility] ALT (SGPT) 6 (L) 7 - 56 U/L [facility] Anion Gap 10 3 - 12 [facility] eGFR Non 33 (L) >60 mL/min [facility] Comment: [place] The eGFR is not validated f or use in drug dosing adjustments. Continue to use estimated creatinine clearance per dosing reference text. Please contact the Clinical Pharmacist for questions. eGFR 40 (L) >60 mL/min [facility] [place] Comment: The eGFR is not validated for use in drug dosing adjustments. Continue to use estimated creatinine clearance per dosing reference text. Please contact the Clinical Pharmacist for questions. Specimen Blood (substance) Performing Organization Address City/[facility] P melissa Number [facility] [address] [place] [address] * CHEST SINGLE VIEW (03/23/2021 2:05 PM MULTIGRAPH OPERATOR) Modality Anatomical Region Laterality Computed Radiography Chest Specimen Impressions [facility] RESULTS - 03/23/2021 2:45 PM MULTIGRAPH OPERATOR Mild cardiomegaly with mild interstitial prominence which may represent edema. Pneumonia or underlying fibrosis could also be present. Finalized by Bruno Rivers M.D. on 03/23/2021 2:45 PM. Dictated by Bruno Rivers M.D. on 03/23/2021 2:44 PM. Narrative [facility] RESULTS - 03/23/2021 2:45 PM MULTIGRAPH OPERATOR Single view INDICATION: Seizure COMPARISON CHEST FILM: None available FINDINGS: Devices: None Heart And Pulmonary Vasculature: The heart size is mildly enlarged without pulmonary vascular congestion. Lungs and Pleura: Mild interstitial prominence is seen in both lungs. There is no pleural effusion or pneumothorax. Procedure Note Bruno Rivers MD - 03/23/2021 Single view INDICATION: Seizure COMPARISON CHEST FILM: None available FINDINGS: Devices: None Heart And Pulmonary Vasculature: The heart size is mildly enlarged without pulmonary vascular congestion. Lungs and Pleura: Mild interstitial prominence is seen in both lungs. There is no pleural effusion or pneumothorax. IMPRESSION Mild cardiomegaly with mild interstitial prominence which may represent edema. Pneumonia or underlying fibrosis could also be present. Finalized by Bruno Rivers M.D. on 03/23/2021 2:45 PM. Dictated by Bruno Rivers M.D. on 03/23/2021 2:44 PM. Performing Organization Address City/State/ZIP Code P melissa Number [facility] RESULTS * IR CISTERNOGRAM (03/23/2021 12:17 PM MULTIGRAPH OPERATOR) Modality Anatomical Region Laterality X-Ray Angiography Specimen Impressions [facility] RESULTS - 03/23/2021 3:07 PM MULTIGRAPH OPERATOR 1. CSF/contrast was demonstrated leaking from the left nare on fluoroscopic imaging. We were unable to obtain a CT due to patient having seizures both times they were placed prone for the scan. 2. As we were able to confirm the CSF le ak arising from the left skull base with fluoroscopic imaging, we evaluated the prior head CT October 14, 2020. The most suspicious site for CSF leak appears to be from the left sphenoid sinus roof where there is bony thinning and fluid within the left sphenoid sinus. By my electronic signature, I attest that I have personally reviewed the images for this examination and formulated the interpretations and opinions expressed in this report Finalized by Tony Rivers M.D. on 03/23/2021 3:07 PM. Dictated by Librado Michaels M.D. on 03/23/2021 2:24 PM. Narrative [facility] - 03/23/2021 3:07 PM MULTIGRAPH OPERATOR Exam: Fluoroscopically guided intrathecal instillation of contrast and attempted maxillofacial CT scan. History: Headache. Possible CSF leak. Comparison studies: CT head October 14, 2020 Technique: After obtaining informed written consent the patient was placed prone on the procedure table. The lower back was prepped and draped in a sterile fashion. The L2-L3 space was localized with direct fluoroscopic visualization. Lidocaine was used for local anesthesia. A 25-gauge pencil tip spinal needle was advanced into the intrathecal space, and return of clear CSF was confirmed. Approximately 15 mL of Isovue-300 was instilled. The patient was then tilted in a head down position for several minutes. A fluoroscopic stored image series was obtained which demonstrated contrast dripping from the left nare. Spine imaging findings: Fluoroscopic stored image series were obtained which demonstrated contrast dripping from the left nare. Localization of leak site was unable to be done on fluoroscopic imaging. CT findings: Immediately after placing the patient prone for the CT scan the patient had a seizure and Ativan was administered. After stabilization we attempted to perform the scan again on the way to the emergency room in order to localize the CSF leak and the patient again seized when placed prone. The patient was taken to the emergency room at this time. Evaluation of the previous head CT October 14, 2020 in conjunction with the known left nare CSF leak the most suspicious site for a leak is the roof of the left sphenoid sinus as there is bony thinning (series 601 image 20) with debris/fluid in the left sphenoid sinus. Procedure Note Tony Rivers MD - 03/23/2021 Exam: Fluoroscopically guided intrathecal instillation of contrast and attempted maxillofacial CT scan. History: Headache. Possible CSF leak. Comparison studies: CT head October 14, 2020 Technique: After obtaining informed written consent the patient was placed prone on the procedure table. The lower back was prepped and draped in a sterile fashion. The L2-L3 space was localized with direct fluoroscopic visualization. Lidocaine was used for local anesthesia. A 25-gauge pencil tip spinal needle was advanced into the intrathecal space, and return of clear CSF was confirmed. Approximately 15 mL of Isovue-300 was instilled. The patient was then tilted in a head down position for several minutes. A fluoroscopic stored image series was obtained which demonstrated contrast dripping from the left nare. Spine imaging findings: Fluoroscopic stored image series were obtained which demonstrated contrast dripping from the left nare. Localization of leak site was unable to be done on fluoroscopic imaging. CT findings: Immediately after placing the patient prone for the CT scan the patient had a seizure and Ativan was administered. After stabilization we attempted to perform the scan again on the way to the emergency room in order to localize the CSF leak and the patient again seized when placed prone. The patient was taken to the emergency room at this time. Evaluation of the previous head CT October 14, 2020 in conjunction with the known left nare CSF leak the most suspicious site for a leak is the roof of the left sphenoid sinus as there is bony thinning (series 601 image 20) with debris/fluid in the left sphenoid sinus. IMPRESSION 1. CSF/contrast was demonstrated leaking from the left nare on fluoroscopic imaging. We were unable to obtain a CT due to patient having seizures both times they were placed prone for the scan. 2. As we were able to confirm the CSF le ak arising from the left skull base with fluoroscopic imaging, we evaluated the prior head CT October 14, 2020. The most suspicious site for CSF leak appears to be from the left sphenoid sinus roof where there is bony thinning and fluid within the left sphenoid sinus. By my electronic signature, I attest that I have personally reviewed the images for this examination and formulated the interpretations and opinions expressed in this report Finalized by Tony Rivers M.D. on 03/23/2021 3:07 PM. Dictated by Librado Michaels M.D. on 03/23/2021 2:24 PM. Performing Organization Address City/State/ZIP Code P melissa Number [facility] * ECG-SCAN (03/23/2021 12:00 AM MULTIGRAPH OPERATOR) Narrative 03/23/2021 12:00 AM MULTIGRAPH OPERATOR Ordered by an unspecified provider. * ECG-SCAN (03/23/2021 12:00 AM MULTIGRAPH OPERATOR) Narrative 03/23/2021 12:00 AM MULTIGRAPH OPERATOR Ordered by an unspecified provider. 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 necessary based on Dx Care Teams Start Date End Date Oncology Social Work Relationship Specialty 03/03/21 Ralf Moon, MS PCP - General
--- OUTSIDE RECORDS SUMMARY | 2021-05-15 20:20 | XMS REPORT | Encounter Summary ---
Author Author [facility] Organization [facility] Address Unknown Phone Unavailable Care Team Providers Care Retail Cosmetics Sales Counter Manager Name Role Phone Ralf Moon MS PCP Unavailable Encounter Details Care Team Description Date Type Department 03/31/2021 Travel Social History Date Tobacco Use Types Packs/Day [...] at Date Recorded Female 04/28/2021 12:27 PM REPAIR DEPARTMENT MANAGER Date Recorded COVID-19 Exposure Response 03/31/2021 12:03 PM REPAIR DEPARTMENT MANAGER In the last month, have you been in contact with No / Unsure someone who was confirmed or suspected to have Coronavirus / COVID-19? documented as of this encounter Functional Status Date of Assessment Functional Status Response 03/23/2021 Does the patient have a hearing impairment: No documented as of this encounter Plan of Treatment Not on filedocumented as of this encounter Visit Diagnoses Not on filedocumented in this encounter Additional Health Concerns Noted Time Assessment 03/23/2021 10:50 AM REPAIR DEPARTMENT MANAGER A fall risk assessment has been complet ed for the patient documented as of this encounter Care Teams Start Date End Date Retail Cosmetics Sales Counter Manager Relationship Specialty 03/03/21 Ralf Moon, MS PCP - General documented as of this encounter
--- OUTSIDE RECORDS SUMMARY | 2021-05-15 20:20 | XMS REPORT | Encounter Summary ---
Author Author [facility] Organization [facility] Address Unknown Phone Unavailable Care Team Providers Care Admitting Representative Name Role Phone Ralf Moon MS PCP Unavailable Reason for Referral * Consult, Test & Treat (Routine) - Authorized Diagnoses / Procedures Referred By Contact Referred To Conta ct Specialty Diagnoses 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 Vlad Kenny MD [address] [facility] [address] [place] [address] Reina Aguila MD [address] [place] [address] Otolaryngology Referral ID Status Reason Start Date Expiration Visits Vi sits Date Requested Authorized [id number] Authorized Specialty Services 03/24/2021 03/24/2022 1 1 Required Scheduling Instructions For scheduling, please fax requisition to the Otolaryngology (ENT) Department front end assistant at . Answer Question CSF leak from left lateral wall of sphenoid sinus Referral LIANCE CONSULTANT Reason for Visit * Reason Onset Date Comments Results 03/24/2021 Encounter Details Care Team Description Date Type Department Vlad Kenny MD [address] [facility] [address] [place] [address] Results 03/24/2021 Telephone Neurosurgery: [facility] [address] [place] [id number] Social History Date Tobacco Use Types Packs/Day [...] at Date Recorded Female 04/28/2021 12:27 PM COMPLIANCE CONSULTANT Date Recorded COVID-19 Exposure Response 03/23/2021 1:06 PM COMPLIANCE CONSULTANT In the last month, have you been in contact with Yes someone who was confirmed or suspected to have Coronavirus / COVID-19? documented as of this encounter Functional Status Date of Assessment Functional Status Response 03/23/2021 Does the patient have a hearing impairment: No documented as of this encounter Miscellaneous Notes * Telephone Encounter - Vlad Kenny MD - 03/24/2021 1:43 PM COMPLIANCE CONSULTANT Neurosurgery I have reviewed the cisternogram results. There appears to be drainage into the left sphenoid sinus from the lateral wall. I have reviewed this and recommend evaluation with Dr. Reina Aguila from ENT for possible repair. I discussed this with the patient via telephone. She understands. Vlad Kenny MD LIANCE CONSULTANT documented in this encounter Plan of Treatment Order Schedule Name Type Priority Associated Diag noses Ordered: 03/24/2021 AMB REFERRAL TO ENT Outpatient Routine CSF leak f rom nose Referral documented as of this encounter Visit Diagnoses Diagnosis 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 - Primary Cerebrospinal fluid rhinorrhea documented in this encounter Additional Health Concerns Noted Time Assessment 03/23/2021 10:50 AM COMPLIANCE CONSULTANT A fall risk assessment has been complet ed for the patient documented as of this encounter Care Teams Start Date End Date Admitting Representative Relationship Specialty 03/03/21 Ralf Moon MS PCP - General documented as of this encounter
--- OUTSIDE RECORDS SUMMARY | 2021-05-15 20:20 | XMS REPORT | Encounter Summary ---
Author Author [facility] Organization [facility] Address Unknown Phone Unavailable Care Team Providers Care Professional Volleyball Player Name Role Phone Ralf Moon MS PCP Unavailable Reason for Visit * Reason Comments New Patient Zoya ref * Consult, Test & Treat (Routine) - Authorized Diagnoses / Procedures Referred By Contact Referred To Conta ct Specialty Diagnoses 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 Vlad Kenny MD [address] [facility] [address] [place] [address] Reina Aguila MD [address] [place] [address] Otolaryngology Referral ID Status Reason Start Date Expiration Visits Vi sits Date Requested Authorized [id number] Authorized Specialty Services 03/24/2021 03/24/2022 1 1 Required Encounter Details Care Team Description Date Type Department Reina Aguila MD [address] [place] [address] 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 (Primary Dx); Seizure (HCC); Nasal septal deviation 03/31/2021 Office Visit Otolaryngology: [facility] [address] [place] [address] [address] [place] [address] Social History Date Tobacco Use Types Packs/Day [...] at Date Recorded Female 04/28/2021 12:27 PM MANAGER RETENTION Date Recorded COVID-19 Exposure Response 03/31/2021 12:03 PM MANAGER RETENTION In the last month, have you been in contact with No / Unsure someone who was confirmed or suspected to have Coronavirus / COVID-19? documented as of this encounter Last Filed Vital Signs Reading Time Taken Comments Vital Sign 155/79 03/31/2021 12:09 PM MANAGER RETENTION Blood Pressure 90 03/31/2021 12:09 PM MANAGER RETENTION Pulse - - Temperature - - Respiratory Rate - - Oxygen Saturation - - Inhaled Oxygen Concentration 70.3 kg (155 lb) 03/31/2021 12:09 PM MANAGER RETENTION Weight 170.2 cm (5' 7.01") 03/31/2021 12:09 PM MANAGER RETENTION Height 24.27 03/31/2021 12:09 PM MANAGER RETENTION Body Mass Index documented in this encounter Functional Status Date of Assessment Functional Status Response 03/23/2021 Does the patient have a hearing impairment: No documented as of this encounter Progress Notes * Reina Aguila MD - 03/31/2021 11:00 AM MANAGER RETENTION Chief Complaint: CSF Leak HPI: Nathaly is a 81 y.o. female who I was asked to see in consultation for evaluatio n of chronic CSF leak. This has been ongoing for the past 7 months. She has already been seen by my neurosurgical colleague Dr. Vlad Kenny, who ref ers her to me. Per his report, she has had previous beta-2 transferrin testing which is positive. She is also had CT cisternogram, which shows a leak and defi cit in the left sphenoid sinus. Of note, she had seizure at the time of this im aging/procedure. At that point in time, she was seen by neurology in the emerge ncy room and noted to be subtherapeutic on her Depakote. Her Depakote dose has since been increased. She continues to follow with neurology. In terms of the CSF leak, she does have chronic, intermittent, nasal drainage pr imarily from the left. No postural headache. Her nose has been less drippy today . She was recently at her local hospital for low oxygen saturations. They set her up with home oxygen and two new medications. They are not sure which. She and he r note that she has also been told her kidneys are not functioning well (they think they were told about 40% of normal). She takes a baby aspirin, repor tedly for her high blood pressure. No history of significant head trauma. No prior sinonasal surgery. She does hav e a significant history of prior neurosurgical intervention. 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 Additionally, for the last year, she is at significant balance impairment, walki ng difficulties, and feels the need to hold onto something all the time. Other medical comorbidities include: von Hippel-Lindau disease, type 2 diabetes, HTN, HLD. Review of Previous imaging: I did personally review her CT maxillofacial as well as CT cisternogram. I agree that there is fluid within the left sphenoid sinus, with defect of the lateral/superior sphenoid wall most likely site. There is no lateral recess present. Pertinent findings from the radiology report are also copied and pasted below: Contrast is seen near completely filling the [...] (series 3, image 254), suggestive of contrast. 1. CSF/contrast was demonstrated leaking from the left nare on fluoroscopic imaging. We were unable to obtain a CT due to patient having seizures both times they were placed prone for the scan. 2. As we were able to confirm the CSF leak arising from the left skull base with fluoroscopic imaging, we evaluated the prior head CT October 14, 2020. The most suspicious site for CSF leak appears to be from the left sphenoid sinus roof where there is bony thinning and fluid within the left sphenoid sinus. The following portions of the patient's history were reviewed and updated as thomas ropriate: allergies, current medications, past family history, past medical hist ory, past social history, past surgical history and problem list. Review of Systems Review of Systems Constitutional: Negative. HENT: Positive for rhinorrhea. Eyes: Negative. Respiratory: Negative. Cardiovascular: Negative. Gastrointestinal: Negative. Endocrine: Negative. Genitourinary: Negative. Musculoskeletal: Negative. Skin: Negative. Allergic/Immunologic: Negative. Neurological: Negative. Hematological: Negative. Psychiatric/Behavioral: Negative. All other systems reviewed and are negative. SNOT-22 Need to blow nose: 5 Nasal Blockage: 3 Sneezin Runny nose: 5 Cough: 2 Post-nasal discharge: 2 Thick nasal discharge: 2 Ear fullness: 3 Dizziness: 0 Ear pain: 0 Facial pain/pressure: 0 Decreased Sense of Smell/Taste: 0 Difficulty falling asleep: 0 Wake up at night: 3 Lack of a good night's sleep: 0 Wake up tired: 0 Fatigue: 2 Reduced productivity: 5 Reduced concentration: 0 Frustrated/restless/irritable: 3 Sad: 0 Embarrassed: 0 SNOT 22 Score Total Total Score: 35 General Vitals: 03/31/21 1209 BP: (!) 155/79 Pulse: 90 General: Well-developed, well-nourished Communication and Voice: Clear pitch and clarity, age appropriate Head and Face Inspection: Normocephalic and atraumatic without masses or lesions Palpation: Facial skeleton intact without bony stepoffs, no sinus tenderness Salivary Glands: No masses or tenderness Facial Strength: Facial motility symmetric and full bilaterally Left - House-Brackman Grade 1/6 Right - House-Brackman Grade 1/6 ENT External nose: No scar or anatomic deformity Internal Nose: Septum intact and midline. No edema, polyps, or rhinorrhea Lips, Teeth, and gums: Mucosa and teeth intact and viable Oral cavity/oropharynx: No erythema or exudate. Excess saliva. No oral incompet ence. Neck Neck and Trachea: Midline trachea without mass or lesion Respiratory Respiratory effort: Equal inspiration & expiration without use of accessory muscles. No stridor Cardiovascular Peripheral Vascular: Warm extremities with equal pulses Eyes Nystagmus: None EOM: Equal extraocular motion bilaterally Neuro/Psych/Balance Orientation: Patient oriented to person, place, and time Affect: Appropriate mood and affect Gait: Intact with no imbalance Cranial nerves: II-XII are intact Ear External canal: Left - Canal is patent with intact skin Right - Canal is patent with intact skin Tympanic Membranes: Left - Clear and mobile Right - Clear and mobile Middle Ears: Left - Aerated, no effusion, no masses Right - Aerated, no effusion, no masses Office Procedure Nasal Endoscopy Indications: Was performed due to history of left CSF leak After topical anesthesia and decongestion had been obtained using aerosolized 1% lidocaine and oxymetazoline, a 30 degree rigid endoscope was placed into both n renato with the patient in a sitting position. The following was observed: Left Nasal Cavity and Paranasal Sinuses: No significant inferior turbinate hype rtrophy. Middle turbinate vertical and upright, no purulence in the middle meatu s. Septum is significantly deviated. Septoplasty will be required. Unable to vis ualize SE recess. Other: Clear secretions within the nasal cavity. No evidence of active leak. The patient tolerated the procedure well. Impression/Plan: Thank you for allowing me to see your patient in consultation. Based on my exam and review of the patients records, the following is my impression and plan: Encounter Diagnoses Name Primary? 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 Yes Seizure (HCC) Nasal septal deviation Ms. Matos is a 81-year-old woman who presents for evaluation for chronic CSF le ak which is been present for 6-7 months. Leak is confirmed by beta-2 transferri n as well as imaging, with site from the lateral left sphenoid sinus. We discus sed that this is something that is amenable to transnasal endoscopic repair. Ri sks of the procedure would include persistent CSF leak and need for repeat proce dure, injury to the skull base, injury to the orbit, injury to nearby vascular s tructures such as an intracranial portion of the internal carotid artery. The b enefit would be to stop the leak and reduce risk of sequelae such as meningitis. Signs and symptoms of meningitis discussed. If they occur, she should report for evaluation at emergency room and notify providers of symptoms and the fact that she has a confirmed CSF leak. The procedure can be scheduled on an elective b asis with subsequent inpatient admission. We would also like to make sure that she is optimized from a seizure standpoint and we will touch base with her neuro logist and other health care team members to determine what may be needed to min imize perioperative seizure and other risks, especially given recent low oxygen saturations, new medications, and ongoing an existing health issues such as HTN, DM2, HLD, and kidney issues. Appreciate the help of [facility] pre-anesthesia testing in terms of optimization her for surgery. We will attempt to get surgery schedu led early in the new year. Ms. Matos is agreeable with this plan. GER RETENTION documented in this encounter Miscellaneous Notes * Patient Instructions - Stacy Clarke RN - 03/31/2021 11:00 AM MANAGER RETENTION Please call [phone] with the fax number to send the order for your pre-op C OVID-19 PCR test. It is highly recommended that you hand-carry a hard copy of yo ur results in with you on the day of surgery. General Instructions for Surgery Patients Your Surgery is scheduled for 05/12/[address] Reina Aguila Preparing for Surgery ? You will get a call from a member of our preregistration team to complete you r registration. If you have any insurance changes prior to your surgery please call [phone] to provide the updated insurance information. ? Hold Vitamin E, Vitamin A, Fish oil, multivitamin, and herbal supplements for 14 days prior to surgery. Hold Ibuprofen (Advil, Motrin), Naproxen (Aleve), and any other Non-Steroidal Anti-inflammatory medications for 7 days prior to surgery. If you take aspirin or any blood thinners, please contact the prescribing physici an for recommendation regarding holding these medications prior to surgery. Do not stop taking any heart medications or aspirin without seeking the Approval of your Telecommunications Analyst. ? Refrain from smoking two weeks before and two weeks after surgery. Nicotine and tobacco smoke delays healing and can result in scarring. This is the perfe ct time to give up the habit. ? Do not eat or drink anything, including water, after midnight the night befor e your surgery. ? Arrange for someone to take you home from the hospital. ? Surgery is scheduled at [facility]. The address is [address] [place] [address], [place] [address]. [facility] is on the main hospital campus at the northwest corner of [address] [place] [address] [address] Park in the P5 parking garage off of [facility]. Enter the [facility] through the 1st floor main entrance. Check in with admitting on 1st floor. (If you are pre-registered you will go directly to either 2nd floor if going to IR, or 3rd floor to surgery). Check in with surgical entry level receptionist center (Waiting Returns Clerk) after being registered. You will be escorted by staff up to OR. Family will need to expect to wait on 1st level in common areas except [facility] certain points in the visit when they can accompany you. You will be contacted between 2:30 and 4:00 on the last business day before your procedure. If you do not hear from the Preoperative Assessment Clinic to co nfirm your arrival time call [phone] before 4:30 p.m. The Day of Surgery ? Do not eat or drink anything, including water, after midnight the morning of surgery. Essential medication may be taken with a sip of water. ? Wear loose-fitting clothes that fasten in front or back. Avoid clothing that pulls over your head. ? Leave all valuables at home; do not wear jewelry. ? Do not wear any facial or eye make-up. Avoid nail japanese. ? You may wear glasses but do not wear contact lenses. ? If you wear dentures, keep them in. ? Bring ID and insurance card with you. Restrictions -- No strenuous activity or lifting over 10 pounds for two (2) wee ks following your Surgery. If you are concerned about anything you consider significant, call us at [phone] business hours, ask for your nurse, Satcy, or the on-call nurse . After hours ask to speak to the ENT doctor vocational ed instructor. Please call our office if the following should develop after surgery: a) Cold or sinus infection b) Foul smelling or excessive drainage from the incision site c) Temperature greater than 101 d) Excessive swelling or bleeding e) Persistent nausea or vomiting GER RETENTION documented in this encounter Plan of Treatment Not on filedocumented as of this encounter Visit Diagnoses Diagnosis 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 - Primary Cerebrospinal fluid rhinorrhea Seizure (HCC) Other convulsions Nasal septal deviation Deviated nasal septum documented in this encounter Orders First Ordered Date Nursing Count Last Ordered Date NURSE COMMUNICATION 1 03/31/2021 documented in this encounter Additional Health Concerns Noted Time Assessment 03/23/2021 10:50 AM MANAGER RETENTION A fall risk assessment has been complet ed for the patient documented as of this encounter Care Teams Start Date End Date Professional Volleyball Player Relationship Specialty 03/03/21 Ralf Moon MS PCP - General documented as of this encounter
--- OUTSIDE RECORDS SUMMARY | 2021-05-15 20:20 | XMS REPORT | Encounter Summary ---
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 [G96.01] Procedures SD SEPTOPLASTY/SUBMUCOUS RESECJ W/WO CARTILAGE GRF SD NASAL/SINUS NDSC RPR CEREBRSP FLUID LEAK ETHMOID SD STRTCTC CPTR ASSTD PX EXTRADURAL CRANIAL SEPTOPLASTY ENDOSCOPY NASAL/ SINUS WITH REPAIR CEREBROSPINAL FLUID LEAK - ETHMOID REGION STEREOTACTIC COMPUTER-ASSISTED CRANIAL PROCEDURE - EXTRADURAL Referral ID Status Reason Start Date Expiration Visits Vi sits Date Requested Authorized [id number] 1 1 Encounter Details Care Team Description Date Type Department Reina Aguila MD [address] [place] [address] SEPTOPLASTY 05/12/2021 Surgery Operating Room: [address] [place] [id number] Surgery Details Trauma Case? Date/Time Status Location OR Service Patient Class Case Class Case Type 05/12/21 Posted CA3 OR CA3 OR09 Otolaryngo Planned Electiv e - 10:20 AM logy Inpatient Treating conditions that are not life or limb threatenin g Panel 1 Procedure LRB Anes Op Region Wound Class Com ments SEPTOPLASTY N/A General Nose Clean 2 hrs Contaminated ENDOSCOPY NASAL/ SINUS Left General Nose Carlos an WITH REPAIR CEREBROSPINAL Contaminated FLUID LEAK - SPHENOID REGION STEREOTACTIC N/A Defer to Nose NA COMPUTER-ASSISTED CRANIAL Anesthesia PROCEDURE - EXTRADURAL Panel Surgeon Surgeon Role Service 1 Reina Aguila MD Primary Otolaryngolog y 1 Keith Lambert MD Resident - Assisting Otolaryngolog y Special Needs 04/03 Marked return to clinic, no open time available, [place] [address] PCM: ALSO, MOVE 2ND ROOM CASE (ROSALIA) INTO ITS PLACE SO ALL HER CASES ARE IN ONE ROOM. THANKS. - BP 0913 Social History Date Tobacco Use Types Packs/Day [...] at Date Recorded Female 04/28/2021 12:27 PM RED HAT ENGINEER Date Recorded COVID-19 Exposure Response 05/12/2021 9:01 AM RED HAT ENGINEER In the last month, have you been in contact with No / Unsure someone who was confirmed or suspected to have Coronavirus / COVID-19? documented as of this encounter Last Filed Vital Signs Reading Time Taken Comments Vital Sign 157/78 05/12/2021 1:00 PM RED HAT ENGINEER Blood Pressure 68 05/12/2021 1:00 PM RED HAT ENGINEER Pulse 36.8 C (98.2 F) 05/12/2021 1:00 PM RED HAT ENGINEER Temperature - - Respiratory Rate 99% 05/12/2021 1:00 PM RED HAT ENGINEER Oxygen Saturation - - Inhaled Oxygen Concentration 68.5 kg (151 lb) 05/12/2021 9:10 AM RED HAT ENGINEER Weight 170.2 cm (5' 7") 05/12/2021 9:10 AM RED HAT ENGINEER Height 23.65 05/12/2021 9:10 AM RED HAT ENGINEER Body Mass Index documented in this encounter Functional Status Date of Assessment Functional Status Response 05/12/2021 Does the patient have a hearing impairment: No documented as of this encounter Discharge Summaries * Jerrica Dimas LMSW - 05/15/2021 1:36 PM RED HAT ENGINEER Case Management Progress Note NAME:Nathaly Matos :[birth year] AGE: 81 y.o. ADMISSION DATE: 05/12/2021 DAYS ADMITTED: LOS: 3 days Todays Date: 05/15/2021 Plan [facility] in private vehicle on 05-15-21 Interventions Support Support: No needs identified Info or Referral Information or Referral to Community Resources: No Needs Identified Discharge Planning Discharge Planning: Inpatient Rehabilitation [facility] notified by team that pt is medically stable for d/c today. [facility] met with patient and her spouse to discuss inpt recs. Pt is agreeable t o referral to [facility]. [facility] sent referral to [facility] - they can accept and can take the pt t alban - 05-15. [facility] updated team and asked for orders to be completed. [facility] reached out to PT - pt is okay to be transported by private vehicle to [facility]. [facility] updated pt's bedside nurse on d/c plan - nurse report [phone] [facility] printed and delivered transfer packet and instructions for the pt and he r spouse to be admitted to [facility]. Pt's spouse to drive the pt directly to the [facility]. D/C orders faxed to [facility]. Medication Needs Medication Needs: No Needs Identified Financial Financial: No Needs Identified Legal Legal: No Needs Identified Other Other/None: No needs identified Disposition Expected Discharge Date 05/16/2021 2:00 PM Transportation Does the Patient Need Case Management to Arrange Discharge Transport? (ex: faci lity, ambulance, wheelchair/stretcher, Medicaid, cab, other): No Will the Patient Use Family Transport?: Yes Transportation Name, Phone and Availability #1: [facility] - [phone] Next Level of Care (Acute Psych discharges only) Discharge Disposition Selected Continued Care - Admitted Since 05/12/2021 No services have been selected for the patient. Jerrica Dimas LMSW [facility] - [phone] HAT ENGINEER * Jerrica Dimas LMSW - 05/15/2021 12:55 PM RED HAT ENGINEER Case Management Admission Assessment NAME:Nathaly Matos :1939 AGE: 81 y.o. ADMISSION DATE: 05/12/2021 DAYS ADMITTED: LOS: 3 days Todays Date: 05/15/2021 Source of Information: Patient and EMR and her spouse, [facility] Plan Plan: Assist PRN with SW/NCM Services Most recent therapy recommendations: PT: Inpatient OT: No recs at this time ST: not consulted CM needs are not fully known, but may include IP Placement. Pt is amenable t o placement if needed. Would like [facility] I[facility] if possible. NCM/SW team to continue to follow patient's plan of care via EMR and team hud dle; will assist with discharge planning needs as indicated. Assessment Notes Patient and spouse are agreeable to completing assessment at this time. SWCM provided contact information, explanation of CM roles, and general revie w of Preparing for Discharge, [facility] Preferred Provider Network handouts. Patient encouraged to contact case management with questions and jorge rns during hospitalization. Patient lives with her spouse in a one story home. The home accomodates [employer] living. The patient receives home care services five days per week - fou r hours per day. The patient receives assistance with her ADL's from her spouse and home health agency. Pt utilizes a walker at all times in her home. Home support is assessed to be intermittent. 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 Patient's previous HH, LTACH, SNF, IPR, DME, [facility]: HH through [facility] Patient Address/Phone [address] [phone] (home) Emergency Contact Extended Emergency Contact Information Primary Emergency Contact: [facility] Matos Mobile Relation: Spouse Secondary Emergency Contact: Juan Matos Mobile Relation: Son Healthcare Directive Healthcare Directive: No, patient does not have a healthcare directive Would patient like to fill out a (a new) Healthcare Directive?: No, patient decl ined Psych Advance Directive (Psych unit only): No, patient does not have a Psych Adv ance Directive Transportation Does the Patient Need Case Management to Arrange Discharge Transport? (ex: facil ity, ambulance, wheelchair/stretcher, Medicaid, cab, other): No Will the Patient Use Family Transport?: Yes Transportation Name, Phone and Availability #1: [facility] - [phone] Expected Discharge Date Expected discharge date, 05-15-21, pending patient's medical stability Living Situation Prior to Admission Living Arrangements Type of Residence: Home, with Home Health or other assistance Living Arrangements: Spouse/significant other Bathroom Shower / Tub: Walk-in Shower How many levels in the residence?: 1 Can patient live on one level if needed?: N/A Assistance needed prior to admit or anticipated on discharge: Yes Who provides assistance or could if needed?: Spouse - [facility] Are they in good health?: Yes Can support system provide 24/7 care if needed?: Yes Level of Function Prior level of function: Needs assist with ADLs Which ADLs require assistance?: bathing, house keeping, meals Who assists with ADLs?: spouse and [facility] Cognitive Abilities Cognitive Abilities: Continue to Assess (Pt appears to be confused at times) Financial Resources Coverage Primary Insurance: Medicare Secondary Insurance: [employer] Additional Coverage: RX Payor: MEDICARE / Plan: MEDICARE PART A AND B / Product Type: Medicare / Source of Income Source Of Income: Other usp income Financial Assistance Needed? Patient is affording her medications/healthcare at this time. Psychosocial Needs Mental Health Mental Health History: No Noted to be taking the following psychoactive medication/s: none Substance Use History Denies substance use issues. Current/Previous Services PCP Ralf Moon, None, None Patient is current with PCP; has been seen within the past year. [facility] [address] [address] [facility] [phone] Durable Medical Equipment Durable Medical Equipment at home: Walker, Shower Chair, Wheelchair (manual) Home Health Receiving home health: Yes Agency name: [facility] Would patient use this agency again?: Yes Hemodialysis or Peritoneal Dialysis Undergoing hemodialysis or peritoneal dialysis: No Tube/Enteral Feeds Receive tube/enteral feeds: No Infusion Receive infusions: No Private Duty Private duty help used: No Home and Community Based Services Home and community based services: No Jerry White Jerry White: No Hospice Hospice: No Outpatient Therapy PT: No OT: No DOUBLE BASS PLAYER: No [facility] Facility/Alf SNF: No NH: No Inpatient Rehab IPR: No Long-Term Acute [facility] Hospital LTACH: No Acute Hospital Stay Acute Hospital Stay: No Jerrica Dimas LMSW [facility] - [phone] HAT ENGINEER documented in this encounter Medications at Time of Discharge Start Date End Date Medication Sig Dispensed Refills 05/15/2021 acetaminophen (TYLENOL) Take two 30 tablet 0 325 mg tablet tablets by mouth every 4 hours as needed. aspirin EC 81 mg tablet Take 81 mg by 0 mouth daily. 08/25/2019 atorvastatin (LIPITOR) 20 Take 20 mg by 0 mg tablet mouth daily. 05/15/2021 bacitracin 500 unit/g Apply 28 g 0 topical ointment topically to affected area twice daily. coQ10 (ubiquinol) 100 mg Take 1 0 cap capsule by mouth daily. 01/15/2021 divalproex (DEPAKOTE ER) Take 500 mg 0 500 mg ER tablet by mouth daily. 01/27/2013 folic acid 400 mcg tablet Take 400 mcg 0 by mouth daily. 12/10/2017 hydrALAZINE (APRESOLINE) Take 100 mg 0 100 mg tablet by mouth three times daily. 05/15/2021 oxyCODONE (ROXICODONE) 5 Take one 10 tablet 0 mg tablet tablet by mouth every 4 hours as needed 05/15/2021 sinus rinse (NASAL RELIEF Apply one 1 each 1 SINUS WASH-BOTTLE) kit packet into nose as directed twice daily. 05/15/2021 sodium chloride (SEA Apply two 44 mL 1 MIST) 0.65 % nasal spray sprays to each nostril as directed every 3 hours while awake. documented as of this encounter Ordered Prescriptions Start Date End Date Prescription Sig Dispensed Refills 05/15/2021 bacitracin 500 unit/g Apply 28 g 0 topical ointment topically to affected area twice daily. 05/15/2021 oxyCODONE (ROXICODONE) 5 Take one 10 tablet 0 mg tablet tablet by mouth every 4 hours as needed 05/15/2021 sinus rinse (NASAL RELIEF Apply one 1 each 1 SINUS WASH-BOTTLE) kit packet into nose as directed twice daily. 05/15/2021 sodium chloride (SEA Apply two 44 mL 1 MIST) 0.65 % nasal spray sprays to each nostril as directed every 3 hours while awake. 05/15/2021 acetaminophen (TYLENOL) Take two 30 tablet 0 325 mg tablet tablets by mouth every 4 hours as needed. documented in this encounter Discharge Disposition Code Departure Means Destination Disposition Wheelchair Rehab Facility (Not [facility]) documented in this encounter Progress Notes * Reinaldo Ochoa MD - 05/15/2021 3:29 PM RED HAT ENGINEER Renal Progress Note Admission Date: 05/12/2021 LOS: 3 days Principal Problem: CSF leak ASSESSMENT Nathaly Matos is a 81 y.o. female with H CKD stage III baseline creatinine li sully 1.5-1.8, type 2 diabetes, hypertension, von Hippel-Lindau syndrome, Seizure disorder who was admitted for CSF leak status post repair on 05/12/2021. Renal consulted for possible JORJE on CKD. Acute kidney injury -Patient follows with outside buffing wheel former automatic Dr. Francisco with [facility] in [facility] -She has underlying CKD with concerns about rapid progression over the last one year -Proteinuria on UA since October 2020 -Main risk factor for CKD is long hx of diabetes. Pt reports poorly controlled d iabetes. -No NSAIDs. Use. -Possible prerenal etiology contributing to the current JORJE, The underlying CKD is possibly secondary to diabetic nephropathy but would rule out other possibili ties given rapid progression. Von Hippel-Lindau syndrome -Concrns about Type 2 diabetes Hypertension Seizure disorder CSF leak status post repair 05/12/2021 RECOMMENDATIONS -The etiology of rapidly progressing kidney disease over the last year is not cl ear but might be related to diabetic nephropathy. However the rate of decline in kidney function seems too fast. -Only low grade proteinuria -P-ANCA/MPO positive -We will examine urine sediment -It is reasonable to consider renal biopsy but patient and are eager to lore ve today. They will discuss the subject with her local buffing wheel former automatic in [place]. Reinaldo Ochoa MD Pager [phone] __ Interval History: No acute events, controlled pain. Medications: Vital Signs: Last Filed in 24 hours Vital Signs: 24 hour Range BP: 133/48 (05/15 1401) Temp: 37.4 C (99.4 F) (05/15 1401) Pulse: 84 (05/15 1401) Respirations: 16 PER MINUTE (05/15 1401) SpO2: 97 % (05/15 1401) BP: (133-160)/(48-73) Temp: [36.8 C (98.3 F)-37.4 C (99.4 F)] Pulse: [84-97] Respirations: [16 PER MINUTE-22 PER MINUTE] SpO2: [94 %-97 %] Intake/Output Summary (Last 24 hours) at 05/15/2021 1827 Last data filed at 05/14/2021 2104 Gross per 24 hour Intake 400 ml Output Net 400 ml Vitals: 05/12/21 0910 Weight: 68.5 kg (151 lb) Physical Exam: GENERAL: Not in pain or distress HEAD: Normocephalic, atraumatic OP: MMM, not icteric LUNGS: CTA carlitos CVP: RRR, no murmur ABD: Soft, NT, + BS LE: No edema SKIN: No rash Lab/Radiology/Other Diagnostic Tests: Results for orders placed or performed during the hospital encounter of 05/12/21 (from the past 48 hour(s)) POC GLUCOSE Collection Time: 05/13/21 6:33 PM # # Low-High Glucose, POC 159 (H) 70 - 100 MG/DL POC GLUCOSE Collection Time: 05/13/21 8:58 PM # # Low-High Glucose, POC 141 (H) 70 - 100 MG/DL POC GLUCOSE Collection Time: 05/14/21 7:29 AM # # Low-High Glucose, POC 119 (H) 70 - 100 MG/DL POC GLUCOSE Collection Time: 05/14/21 7:41 AM # # Low-High Glucose, POC 99 70 - 100 MG/DL POC GLUCOSE Collection Time: 05/14/21 12:46 PM # # Low-High Glucose, POC 97 70 - 100 MG/DL POC GLUCOSE Collection Time: 05/14/21 4:49 PM # # Low-High Glucose, POC 181 (H) 70 - 100 MG/DL POC GLUCOSE Collection Time: 05/14/21 8:57 PM # # Low-High Glucose, POC 151 (H) 70 - 100 MG/DL POC GLUCOSE Collection Time: 05/15/21 7:16 AM # # Low-High Glucose, POC 147 (H) 70 - 100 MG/DL BASIC METABOLIC PANEL Collection Time: 05/15/21 7:27 AM # # Low-High Sodium 136 (L) 137 - 147 MMOL/L Potassium 4.7 3.5 - 5.1 MMOL/L Chloride 100 98 - 110 MMOL/L CO2 26 21 - 30 MMOL/L Anion Gap 10 3 - 12 Glucose 132 (H) 70 - 100 MG/DL Blood Urea Nitrogen 37 (H) 7 - 25 MG/DL Creatinine 2.05 (H) 0.4 - 1.00 MG/DL Calcium 9.5 8.5 - 10.6 MG/DL eGFR 24 (L) >60 mL/min POC GLUCOSE Collection Time: 05/15/21 11:38 AM # # Low-High Glucose, POC 173 (H) 70 - 100 MG/DL HAT ENGINEER * Blanca Bueno OT - 05/15/2021 2:02 PM RED HAT ENGINEER OCCUPATIONAL THERAPY PROGRESS NOTE Name: Nathaly Matos : 1940 Age: 81 y.o. Admission Date: 05/12/2021 LOS: 3 days Mobility Patient Turn/Position: Weight shifted (Bed) Progressive Mobility Level: Walk in room Distance Walked (feet): 50 ft (30+20) Level of Assistance: Assist X1 Assistive Device: Walker Activity Limited By: Weakness Subjective Pertinent Dx per Physician: 81 y.o. female w/ hx of CSF leak now s/p CSF leak re pair on 05/12 Precautions: Standard;Falls (Sinus precautions) Pain / Complaints: Patient agrees to participate in therapy;Patient has no c/o p ain Comments: RN cleared patient for therapy. Patient supine upon OT arrival/departu re with alarm on, call light in reach and all needs met. Objective Psychosocial Status: Willing and Cooperative to Participate Persons Present: Spouse Home Living Type of Home: House Home Layout: One Level Bathroom Shower / Tub: Walk-in Shower Bathroom Toilet: Standard Bathroom Equipment: Shower Chair;Grab Bars in Shower Home Equipment: Walker;Wheelchair-manual Prior Function Level Of [place]: Needed assistance with ADLs;Needed assistance with homema diamond;Needed assistance with functional transfers Lives With: Spouse Receives Help From: Rd Lab Technician Other Function Comments: Patient's spouse reports that they have a HH RN come to the house for 4 hours 5x/week to assist with all I/ADLs, patient's spouse works on farm and is not available to help 05/11. Vision Comment: Appears patient has visual deficits in R visual field. ADL's Where Assessed: In Bathroom Toileting Assist: Minimal Assist Toileting Deficits: Supervision/Safety;Verbal Cueing Comment: Patient requiring multiple verbal cues for positioning of RW in bathroo m and to sequence clothing management after completing toileting. ADL Mobility Bed Mobility: Supine to Sit: Minimal assist Bed Mobility: Sit to Supine: Minimal assist Bed Mobility Comments: HOB elevated Transfer Type: Sit to/from stand Transfer: Assistance Level: To/from;Bed;Toilet;Moderate assist Transfer: Assistive Device: Roller walker Transfer: Type of Assistance: For safety considerations;For strength deficit;For balance;Verbal cues End of Activity Status: In bed;Instructed patient to request assist with mobilit y;Instructed patient to use call light;Nursing notified Sitting Balance: Minimal assist Standing Balance: Minimal assist Gait Distance: 50 feet (30+20) Gait: Assistance Level: Minimal assist Gait: Assistive Device: Roller walker Gait Comments: Patient requiring multiple verbal cues for safe positioning of RW , verbal cues to direct attention to objects in R visual field as patient often running into objects and requiring redirection. Activity Tolerance Endurance: 2/5 Tolerates 10-20 Minutes Exercise w/Multiple Rests Cognition Overall Cognitive Status: WFL to Adequately Complete Self Care Tasks Safely Problem Solving: Cueing to Sequence Task;Direction Following Assist Orientation: Alert & Oriented x4 Attention: Awake/Alert UE AROM Comment: BUE AROM WFL Sensory Overall Sensory: Pt Perceives Pressure in Both UEs in Gross Exam UE Strength / Tone Overall Strength / Tone: WFL Able to Perform ADL Tasks Education Persons Educated: Patient/Family Barriers To Learning: None Noted Interventions: Repetition of Instructions Teaching Methods: Verbal Instruction Patient Response: Verbalized and Demo Understanding Topics: Role of OT, Goals for Therapy;Home safety Goal Formulation: With Patient/Family Assessment Assessment: Decreased ADL Status;Decreased Endurance;Decreased Self-Care Trans;D ecreased High-Level ADLs Prognosis: Good;w/Cont OT s/p Acute Discharge Goal Formulation: Patient Comments: Patient limited this date by weakness and decreased endurance. Patient will benefit from skilled OT to increase safety and independence with ADLs and functional mobility. AM-PAC 6 Clicks Daily Activity Inpatient Putting on and taking off regular lower body clothes?: A Lot Bathing (Including washing, rinsing, drying): A Lot Toileting, which includes using toilet, bedpan, or urinal: A Little Putting on and taking off regular upper body clothing: A Little Taking care of personal grooming such as brushing teeth: A Little Eating meals?: None Daily Activity Raw Score: 17 Standardized (t-scale) score: 37.26 CMS 0-100% Score: 50.11 CMS G Code Modifier: CK Plan OT Frequency: 5x/week OT Plan for Next Visit: Progress mobility (chair follow), standing ADLs ADL Goals Patient Will Perform All ADL's: w/ Stand By Assist Functional Transfer Goals Pt Will Perform All Functional Transfers: w/ Stand By Assist OT Discharge Recommendations Recommendation: Inpatient setting Patient Currently Requires Physical Assist With: All mobility;All personal care ADLs;All home functioning ADLs Therapist: CARLINE [place] [id number] Date: 05/15/2021 HAT ENGINEER * JonnysandraJazmin acevedo, PT - 05/15/2021 11:19 AM RED HAT ENGINEER PHYSICAL THERAPY PROGRESS NOTE Name: Nathaly Matos : 1940 Age: 81 y.o. Admission Date: 05/12/2021 LOS: 3 days Mobility Patient Turn/Position: Chair Progressive Mobility Level: Walk in room Distance Walked (feet): 20 ft Level of Assistance: Assist X2 (2nd for chair follow only) Assistive Device: Walker Subjective Significant hospital events: 81 y.o. female w/ hx of CSF leak now s/p CSF leak r epair on 05/12 Persons Present: RehabTechnician Pain: Patient has no complaint of pain Pain Interventions: Patient agrees to participate in therapy;Patient assisted in to position of comfort Ambulation Assist: Assist Needed with Mobility-Related ADL's/Ambulation Patient Owned Equipment: Roller Walker;Manual Wheelchair (Reports primarily usin g RW + walking household distances) Home Situation: Lives with Family Type of Home: House Entry Stairs: 3-5 Stairs In-Home Stairs: Able to Live on One Level Comments: Previously needed assist with ADLs and functional mobility. [facility] house 4 hours per day, 5 days a week. Denies fall hi story, but does report a significant fear of falling. Does not have / assist secondary to spouse having to care for horses on their farm. Bed Mobility/Transfer Transfer Type: Stand Pivot Transfer: Assistance Level: From;Bed;To;Bed Side Chair;Maximal Assist Transfer: Assistive Device: Hand Hold Assist Other Transfer Type: Sit to/from Stand Other Transfer: Assistance Level: To/From;Bed Side Chair;Moderate Assist (3 atte mpts to achieve stance) Other Transfer: Assistive Device: Roller Walker Balance Sitting Balance: Standby Assist (Pt sitting on EOB upon arrival of PT) Gait Gait Distance: 20 feet Gait: Assistance Level: Moderate Assist Gait: Assistive Device: Roller Walker Assessment/Progress Impaired Mobility Due To: Decreased Strength;Impaired Balance;Safety Concerns;De creased Activity Tolerance;Medical Status Limitation Assessment/Progress: Should Improve w/ Continued PT Goals Goal Formulation: With Patient/Family Time For Goal Achievement: 5 days Patient Will Go Supine To/From Sit: Independently Patient Will Transfer Bed/Chair: w/ Stand By Assist Patient Will Transfer Sit to Stand: w/ Stand By Assist Patient Will Ambulate: Greater than 200 Feet, w/ Walker, w/ Stand By Assist Patient Will Go Up / Down Stairs: 3-5 Stairs, w/ Stand By Assist Plan Treatment Interventions: Mobility Training;Strengthening;Balance Activities;Endu gonzalo Training Plan Frequency: 5 Days per Week PT Plan for Next Visit: Gait distance/quality (uses RW at baseline). Work towar ds mod I PT Discharge Recommendations Recommendation: Inpatient setting Therapist: Jazmin Rojo, PT Date: 05/15/2021 HAT ENGINEER * Keith Lambert MD - 05/15/2021 6:42 AM RED HAT ENGINEER RICHARD/HNS PROGRESS NOTE Today's Date: 05/15/2021 Admission Date: 05/12/2021 LOS: 3 days Subjective No acute events overnight. Nephrology considering renal biopsy depending on the ability to coordinate care with nephrology at [place]. Required 2L O2 overnight, that she uses at home. We will switch her to humidified o2. No drainage from nos e, no metallic taste. Objective Vital Signs: Last Filed Vital Signs: 24 Stevenson r Range BP: 160/54 (05/15 551) Temp: 36.8 C (98.3 F) (05/15 551) Pulse: 97 (05/15 551) Respirations: 20 PER MINUTE (05/15 551) SpO2: 97 % (05/15 551) BP: (111-160)/(54-73) Temp: [36.6 C (97.9 F)-37.1 C (98.7 F)] Pulse: [69-97] Respirations: [18 PER MINUTE-22 PER MINUTE] SpO2: [94 %-100 %] Vitals: 05/12/21 0910 Weight: 68.5 kg (151 lb) Intake/Output Summary: (Last 24 hours) Intake/Output Summary (Last 24 hours) at 05/15/2021 0730 Last data filed at 05/14/2021 2104 Gross per 24 hour Intake 400 ml Output Net 400 ml Stool Occurrence: 0 Physical Exam Alert, NAD NC/AT EOM grossly I CNVII intact, symmetric Hearing grossly intact No stridor or stertor, voice strong Respirations regular and unlabored Lab Review Comprehensive Metabolic Profile Lab Results Component Value Date/Time NA 137 05/13/2021 07:21 AM K 4.1 05/13/2021 07:21 AM CL 102 05/13/2021 07:21 AM CO2 26 05/13/2021 07:21 AM GAP 9 05/13/2021 07:21 AM BUN 37 (H) 05/13/2021 07:21 AM CR 2.11 (H) 05/13/2021 07:21 AM GLU 141 (H) 05/13/2021 07:21 AM Lab Results Component Value Date/Time CA 8.9 05/13/2021 07:21 AM ALBUMIN 3.3 (L) 03/23/2021 02:35 PM TOTPROT 7.4 03/23/2021 02:35 PM ALKPHOS 56 03/23/2021 02:35 PM AST 10 03/23/2021 02:35 PM ALT 6 (L) 03/23/2021 02:35 PM TOTBILI 0.3 03/23/2021 02:35 PM GFR 33 (L) 03/23/2021 02:35 PM GFRAA 40 (L) 03/23/2021 02:35 PM CBC w/Diff Lab Results Component Value Date/Time WBC 3.5 (L) 05/13/2021 07:21 AM RBC 3.01 (L) 05/13/2021 07:21 AM HGB 7.5 (L) 05/13/2021 07:21 AM HCT 23.1 (L) 05/13/2021 07:21 AM MCV 76.7 (L) 05/13/2021 07:21 AM MCH 24.8 (L) 05/13/2021 07:21 AM MCHC 32.4 05/13/2021 07:21 AM RDW 18.9 (H) 05/13/2021 07:21 AM PLTCT 286 05/13/2021 07:21 AM MPV 8.0 05/13/2021 07:21 AM Lab Results Component Value Date/Time NEUT 85 (H) 05/12/2021 11:33 AM ANC 4.38 05/12/2021 11:33 AM LYMA 8 (L) 05/12/2021 11:33 AM ALC 0.39 (L) 05/12/2021 11:33 AM DANIEL 4 05/12/2021 11:33 AM AMC 0.21 05/12/2021 11:33 AM EOSA 2 05/12/2021 11:33 AM AEC 0.12 05/12/2021 11:33 AM BASA 1 05/12/2021 11:33 AM ABC 0.03 05/12/2021 11:33 AM Point of Care Testing (Last 24 hours) POC Glucose (Download): (!) 147 (05/15/21 0716) Radiology and other Diagnostics Review: Problem List: Patient Active Problem List Diagnosis Date Noted HTN (hypertension) 03/31/2021 CSF leak 03/03/2021 Meningioma (HCC) 03/03/2021 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 female w/ hx of CSF leak now s/p CSF leak repair on 05/12 - Will CTM, no signs of CSF leak on exam - Saline sprays and irrigations, Bactroban to nares - Urology team consulted, recommended out patient follow up - Nephrology team consult, appreciate recs, considering renal biopsy, coordinati ng care, patient currently NPO - Encourage pt to be OOB and walking around - PT consulted, may need H/H - Pain control adequate, continue current regimen - Dispo: continue inpt care, poss d/c today vs tomorrow pending consult recs and pt activity level Patient seen with staff. Keith Lambert M.D. Resident, Otolaryngology Head & Neck Surgery Available on Voalte Pager [phone] HAT ENGINEER * Bere Johnson MD - 05/14/2021 4:22 PM RED HAT ENGINEER Renal Progress Note Admission Date: 05/12/2021 LOS: 2 days Principal Problem: CSF leak ASSESSMENT Nathaly Matos is a 81 y.o. female with PMH CKD stage III baseline creatinine li sully 1.5-1.8, type 2 diabetes, hypertension, von Hippel-Lindau syndrome, Seizure disorder who was admitted for CSF leak status post repair on 05/12/2021. Renal consulted for possible JORJE on CKD. Acute kidney injury -Patient follows with outside buffing wheel former automatic [facility] -She has underlying CKD with concerns about rapid progression over the last one year -Proteinuria on UA since October 2020 -Main risk factor for CKD is long hx of diabetes. Pt reports poorly controlled d iabetes. -No NSAIDs. Use. -Possible prerenal etiology contributing to the current JORJE, The underlying CKD is possibly secondary to diabetic nephropathy but would rule out other possibili ties given rapid progression. Von Hippel-Lindau syndrome -Concrns about Type 2 diabetes Hypertension Seizure disorder CSF leak status post repair 05/12/2021 Recommendations -I had opportunity to discuss about kidney dysfunction with very delightful coup le Ms. Krause and her . We discussed that she does have history of diabe toyin which would explain some of the underlying chronicity of the kidney disease, however rapid progression of her kidney disease in last 3-6 months is not entir lai explained by either typical uncontrolled diabetes or the diagnosis of VHL sh e carries. 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 We further discussed that given borderline positive serologic work-up with MPO ANCA (and positive urine sediment exam for dysmorphic RBCs ) indicate alternative etiology and can potentially explain the recent worsening of kidney Dysfunction, she would need a kidney biopsy. She alr keo follows up with a local nephrology, and was hoping to seek a second nephrol ogy opinion. has stated yesterday, that he has some commitment for uphi andres Saturday and it would be preferable to be discharged prior to that. Mauro er after today's discussion he stated that his 's priority takes precedence over his commitment and if needed he would rather stay here. Acknowledging this discussion I have emphasized that she certainly would need a kidney biopsy to h ave a clear diagnosis and to further dictate plan of treatment, however this is not an urgent procedure to be performed on current admission. indicated that if she is able to get a kidney biopsy locally, they would rather prefer dariel t, however they do not want to delay the diagnosis if she is unable to get kidne y biopsy sooner (I.e couple of weeks as per ). since it is a holiday and he will not be able to contact her local nephrology, we have come to the conclu babatunde that he would try to get hold of the local nephrology tomorrow morning and try to determine that when it would be possible to get the earliest kidney biop sy, and depending on that he would decide if he would like to get a kidney biops y performed here at or locally. This needs to be determined tomorrow morning . I have suggested to stay n.p.o. past midnight, in case they decide to proceed with a kidney biopsy while admitted. They appreciated deeply our discussion to day. -Continue to hold ASA for now. Should they decide to proceed with kidney biopsy while on current admission, I marbella obrien discussed the risk, benefits, complication including bleeding requiring prol onged stay. They verbalized understanding of her discussion, plan to be finaliz ed tomorrow. Bere Johnson MD Nephrology fellow Pager #[phone] Available on Voalte/AMS __ Interval History: No acute events, controlled pain. I saw her this morning bedside. She has no complaints. Her is present bedside. Medications: atorvastatin, 20 mg, Oral, QDAY bacitracin, , Topical, BID divalproex, 500 mg, Oral, QDAY docusate sodium, 100 mg, Oral, BID heparin (porcine), 5,000 Units, Subcutaneous, Q8H hydrALAZINE, 100 mg, Oral, TID insulin aspart (U-100), 0-6 Units, Subcutaneous, ACHS (22) milk of magnesia (CONC), 10 mL, Oral, QHS sinus rinse, 1 packet, Nasal, BID sodium chloride, 2 spray, Each Nostril, Q3H while awake Vital Signs: Last Filed in 24 hours Vital Signs: 24 hour Range BP: 140/64 (05/14 1400) Temp: 36.6 C (97.9 F) (05/14 1048) Pulse: 69 (05/14 1048) Respirations: 18 PER MINUTE (05/14 1048) SpO2: 98 % (05/14 104) SpO2 Pulse: 65 (05/14 0329) BP: (111-171)/(55-71) Temp: [36.5 C (97.7 F)-36.8 C (98.3 F)] Pulse: [65-90] Respirations: [18 PER MINUTE-20 PER MINUTE] SpO2: [98 %-99 %] No intake or output data in the 24 hours ending 05/14/21 1622 Vitals: 05/12/21 0910 Weight: 68.5 kg (151 lb) Physical Exam: GENERAL: Not in pain or distress HEAD: Normocephalic, atraumatic OP: MMM, not icteric LUNGS: CTA carlitos CVP: RRR, no murmur ABD: Soft, NT, + BS LE: No edema SKIN: No rash on exposed skin. Lab/Radiology/Other Diagnostic Tests: Results for orders placed or performed during the hospital encounter of 05/12/21 (from the past 48 hour(s)) POC GLUCOSE Collection Time: 05/12/21 5:10 PM # # Low-High Glucose, POC 190 (H) 70 - 100 MG/DL MPO/PR3 W REFLEX TO ANCA Collection Time: 05/12/21 6:01 PM # # Low-High Myeloperoxidase AB 1.7 (H) <1.0 AI Serine Protease3 AB <0.2 <1.0 AI C3 COMPLEMENT 3 Collection Time: 05/12/21 6:01 PM # # Low-High Complemnt C3 109.0 88 - 200 MG/DL C4 COMPLEMENT 4 Collection Time: 05/12/21 6:01 PM # # Low-High Complemnt C4 21.0 10 - 49 MG/DL ELECTROPHORESIS-SERUM PROTEIN Collection Time: 05/12/21 6:01 PM # # Low-High Total Protein-SEP 7.2 6.0 - 8.0 G/DL Albumin % 48 - 68 % Alpha 1 % 2 - 6 % Alpha 2 % 5 - 15 % Beta %,Serum 9 - 17 % Gamma % 9 - 21 % Paraprotein G/DL Interpretation - SEP Pathologist Signature POC GLUCOSE Collection Time: 05/12/21 10:44 PM # # Low-High Glucose, POC 163 (H) 70 - 100 MG/DL BASIC METABOLIC PANEL Collection Time: 05/13/21 7:21 AM # # Low-High Sodium 137 137 - 147 MMOL/L Potassium 4.1 3.5 - 5.1 MMOL/L Chloride 102 98 - 110 MMOL/L CO2 26 21 - 30 MMOL/L Anion Gap 9 3 - 12 Glucose 141 (H) 70 - 100 MG/DL Blood Urea Nitrogen 37 (H) 7 - 25 MG/DL Creatinine 2.11 (H) 0.4 - 1.00 MG/DL Calcium 8.9 8.5 - 10.6 MG/DL eGFR 23 (L) >60 mL/min CBC Collection Time: 05/13/21 7:21 AM # # Low-High White Blood Cells 3.5 (L) 4.5 - 11.0 K/UL RBC 3.01 (L) 4.0 - 5.0 M/UL Hemoglobin 7.5 (L) 12.0 - 15.0 GM/DL Hematocrit 23.1 (L) 36 - 45 % MCV 76.7 (L) 80 - 100 FL MCH 24.8 (L) 26 - 34 PG MCHC 32.4 32.0 - 36.0 G/DL RDW 18.9 (H) 11 - 15 % Platelet Count 286 150 - 400 K/UL MPV 8.0 7 - 11 FL POC GLUCOSE Collection Time: 05/13/21 7:55 AM # # Low-High Glucose, POC 120 (H) 70 - 100 MG/DL POC GLUCOSE Collection Time: 05/13/21 11:53 AM # # Low-High Glucose, POC 138 (H) 70 - 100 MG/DL URINALYSIS DIPSTICK Collection Time: 05/13/21 3:44 PM # # Low-High Color,UA YELLOW Turbidity,UA CLEAR CLEAR-CLEAR Specific [place]-Urine 1.016 1.005 - 1.030 pH,UA 6.0 5.0 - 8.0 Protein,UA 1+ (A) NEG-NEG Glucose,UA NEG NEG-NEG Ketones,UA NEG NEG-NEG Bilirubin,UA NEG NEG-NEG Blood,UA 1+ (A) NEG-NEG Urobilinogen,UA NORMAL NORM-NORMAL Nitrite,UA NEG NEG-NEG Leukocytes,UA 1+ (A) NEG-NEG Urine Ascorbic Acid, UA NEG NEG-NEG URINALYSIS, MICROSCOPIC Collection Time: 05/13/21 3:44 PM # # Low-High WBCs,UA 10-20 0 - 2 /HPF RBCs,UA 20-50 0 - 3 /HPF MucousUA TRACE Squamous Epithelial Cells 2-5 0 - 5 PROTEIN/CR RATIO,UR RAN Collection Time: 05/13/21 3:44 PM # # Low-High Protein, Random 40 MG/DL Creatinine, Random 70 MG/DL Protein/CR ratio 0.6 POC GLUCOSE Collection Time: 05/13/21 4:38 PM # # Low-High Glucose, POC 141 (H) 70 - 100 MG/DL POC GLUCOSE Collection Time: 05/13/21 6:33 PM # # Low-High Glucose, POC 159 (H) 70 - 100 MG/DL POC GLUCOSE Collection Time: 05/13/21 8:58 PM # # Low-High Glucose, POC 141 (H) 70 - 100 MG/DL POC GLUCOSE Collection Time: 05/14/21 7:29 AM # # Low-High Glucose, POC 119 (H) 70 - 100 MG/DL POC GLUCOSE Collection Time: 05/14/21 7:41 AM # # Low-High Glucose, POC 99 70 - 100 MG/DL POC GLUCOSE Collection Time: 05/14/21 12:46 PM # # Low-High Glucose, POC 97 70 - 100 MG/DL HAT ENGINEER Associated attestation - Cari Pete MD - 05/14/2021 5:18 PM RED HAT ENGINEER ATTESTATION I personally performed the history and the physical examination of the patient a nd discussed his management with the fellow (resident). I reviewed the fellow's (residents) note and agree with the documented findings and plan of care. Staff name: Cari Pete Date: 05/14/2021 * Mehnaz Malloy PT - 05/14/2021 2:29 PM RED HAT ENGINEER PHYSICAL THERAPY ASSESSMENT Name: Nathaly Matos : 1940 Age: 81 y.o. Admission Date: 05/12/2021 LOS: 2 days Mobility Progressive Mobility Level: Active transfer to chair Level of Assistance: Assist X1 Assistive Device: Hand Held Activity Limited By: Weakness Subjective Significant hospital events: 81 y.o. female w/ hx of CSF leak now s/p CSF leak r epair on 05/12 Mental / Cognitive Status: Alert;Cooperative;Follows Commands Persons Present: Spouse Pain: Patient has no complaint of pain Pain Interventions: Patient agrees to participate in therapy;Patient assisted in to position of comfort Comments: 2L O2 via NC Ambulation Assist: Assist Needed with Mobility-Related ADL's/Ambulation Patient Owned Equipment: Roller Walker;Manual Wheelchair Home Situation: Lives with Family Type of Home: House Entry Stairs: 3-5 Stairs In-Home Stairs: Able to Live on One Level Comments: Previously needed assist with ADLs and functional mobility. Has home [facility] nursing that comes to house 4 hours per day, 5 days a week. Denies fall hi story, but does report a significant fear of falling. Does not have 05/11 assist secondary to spouse having to care for horses on their farm. ROM UE ROM: WFL LE ROM: WFL Strength Overall Strength: Generalized Weakness Posture/Neurological Head Control: Independent Posture: No Postural Deviations Bed Mobility/Transfer Bed Mobility: Supine to Sit: Minimal Assist Transfer Type: Sit to Stand Transfer: Assistance Level: From;Bed;To;Bed Side Chair;Moderate Assist Transfer: Assistive Device: Hand Hold Assist Transfers: Type Of Assistance: Verbal Cues;For Balance;For Strength Deficit;For Safety Considerations End Of Activity Status: Up in Chair;Nursing Notified;Instructed Patient to Reque st Assist with Mobility;Instructed Patient to Use Call Light (TABs alarm set) Balance Sitting Balance: Static Sitting Balance;Dynamic Sitting Balance;Standby Assist Standing Balance: Static Standing Balance;Dynamic Standing Balance;Minimal Chi t Gait Gait Distance: 3 feet Gait: Assistance Level: Moderate Assist Gait: Assistive Device: Hand Hold Assist Gait: Descriptors: Pace: Slow;Decreased foot clearance RLE;Decreased foot cleara nce LLE;Decreased step length Activity Limited By: Weakness;Complaint of Fatigue Education Persons Educated: Patient Patient Barriers To Learning: None Noted Teaching Methods: Verbal Instruction Patient Response: Verbalized Understanding Topics: Plan/Goals of PT Interventions;Mobility Progression;Safety Awareness;Up with Assist Only;Importance of Increasing Activity;Ambulate With Nursing;Recomme nd Continued Therapy Assessment/Progress Impaired Mobility Due To: Decreased Strength;Impaired Balance;Safety Concerns;De creased Activity Tolerance;Medical Status Limitation Assessment/Progress: Should Improve w/ Continued PT Goals Goal Formulation: With Patient/Family Time For Goal Achievement: 5 days Patient Will Go Supine To/From Sit: Independently Patient Will Transfer Bed/Chair: w/ Stand By Assist Patient Will Transfer Sit to Stand: w/ Stand By Assist Patient Will Ambulate: Greater than 200 Feet, w/ Walker, w/ Stand By Assist Patient Will Go Up / Down Stairs: 3-5 Stairs, w/ Stand By Assist Plan Treatment Interventions: Mobility Training;Strengthening;Balance Activities;Endu gonzalo Training Plan Frequency: 5 Days per Week PT Plan for Next Visit: Progress independence with bed mobility, sit to stand tr ansfer training, increase gait distance PT Discharge Recommendations Recommendation: Inpatient setting;Recommend rehab medicine consult vs. home with consistent assist and home health PT/OT Recommendation for Therapy Post Discharge: Home health PT Patient Currently Requires Equipment: Too early to be determined Unsure if patient is currently functioning at her baseline mobility. If this is her baseline, she could discharge home with continued assistance and the additio n of home health PT and OT. Would recommend 24/7 assist initially secondary to c urrent level of assistance needed for all out of bed mobility. If patient does n ot have this level of assistance available, would recommend patient discharge to an inpatient setting in order to address the above deficits and maximize safety with ADLs/mobility. PT will continue to follow and update recommendations as in dicated. Therapist Mehnaz Malloy PT, DPT Date 05/14/2021 HAT ENGINEER * Keith Lambert MD - 05/14/2021 6:41 AM RED HAT ENGINEER RICHARD/HNS PROGRESS NOTE Today's Date: 05/14/2021 Admission Date: 05/12/2021 LOS: 2 days Subjective No acute events overnight. Had very minimal drainage yesterday late afternoon af ter using nasal saline spray but no rhinorrhea or epistaxis otherwise. Pain is c ontrolled. Denies any changes in vision Objective Vital Signs: Last Filed Vital Signs: 24 Stevenson r Range BP: 161/59 (05/14 050) Temp: 36.7 C (98.1 F) (05/14 050) Pulse: 66 (05/14 050) Respirations: 20 PER MINUTE (05/14 050) SpO2: 99 % (05/14 050) SpO2 Pulse: 65 (05/14 0329) BP: (111-171)/(48-71) Temp: [36.3 C (97.3 F)-36.8 C (98.3 F)] Pulse: [57-90] Respirations: [18 PER MINUTE-20 PER MINUTE] SpO2: [97 %-100 %] Vitals: 05/12/21 0910 Weight: 68.5 kg (151 lb) Intake/Output Summary: (Last 24 hours) No intake or output data in the 24 hours ending 05/14/21 0641 Stool Occurrence: 0 Physical Exam Alert, NAD NC/AT PERRL, EOM grossly CNVII intact, symmetric Hearing grossly intact No rhinorrhea or epistaxis, some crusting along bilateral nasal ala No stridor or stertor, voice strong Respirations regular and unlabored Lab Review Comprehensive Metabolic Profile Lab Results Component Value Date/Time NA 137 05/13/2021 07:21 AM K 4.1 05/13/2021 07:21 AM CL 102 05/13/2021 07:21 AM CO2 26 05/13/2021 07:21 AM GAP 9 05/13/2021 07:21 AM BUN 37 (H) 05/13/2021 07:21 AM CR 2.11 (H) 05/13/2021 07:21 AM GLU 141 (H) 05/13/2021 07:21 AM Lab Results Component Value Date/Time CA 8.9 05/13/2021 07:21 AM ALBUMIN 3.3 (L) 03/23/2021 02:35 PM TOTPROT 7.4 03/23/2021 02:35 PM ALKPHOS 56 03/23/2021 02:35 PM AST 10 03/23/2021 02:35 PM ALT 6 (L) 03/23/2021 02:35 PM TOTBILI 0.3 03/23/2021 02:35 PM GFR 33 (L) 03/23/2021 02:35 PM GFRAA 40 (L) 03/23/2021 02:35 PM CBC w/Diff Lab Results Component Value Date/Time WBC 3.5 (L) 05/13/2021 07:21 AM RBC 3.01 (L) 05/13/2021 07:21 AM HGB 7.5 (L) 05/13/2021 07:21 AM HCT 23.1 (L) 05/13/2021 07:21 AM MCV 76.7 (L) 05/13/2021 07:21 AM MCH 24.8 (L) 05/13/2021 07:21 AM MCHC 32.4 05/13/2021 07:21 AM RDW 18.9 (H) 05/13/2021 07:21 AM PLTCT 286 05/13/2021 07:21 AM MPV 8.0 05/13/2021 07:21 AM Lab Results Component Value Date/Time NEUT 85 (H) 05/12/2021 11:33 AM ANC 4.38 05/12/2021 11:33 AM LYMA 8 (L) 05/12/2021 11:33 AM ALC 0.39 (L) 05/12/2021 11:33 AM DANIEL 4 05/12/2021 11:33 AM AMC 0.21 05/12/2021 11:33 AM EOSA 2 05/12/2021 11:33 AM AEC 0.12 05/12/2021 11:33 AM BASA 1 05/12/2021 11:33 AM ABC 0.03 05/12/2021 11:33 AM Point of Care Testing (Last 24 hours) Glucose: (!) 141 (05/13/21720) POC Glucose (Download): (!) 141 (05/13/212057) Radiology and other Diagnostics Review: Problem List: Patient Active Problem List Diagnosis Date Noted HTN (hypertension) 03/31/2021 CSF leak 03/03/2021 Meningioma (HCC) 03/03/2021 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 female w/ hx of CSF leak now s/p CSF leak repair on 05/12. With findings of CKD stage 4 - Will CTM, no signs of CSF leak on exam - Urology team consulted, rec outpatient follow up - Nephrology team consult, labs/work up still pending - appreciate recs - Encourage pt to be OOB and walking around - PT/OT consult placed for deconditi oning eval, pt/ report her having difficulty with ADLs - Will discuss starting saline irrigations today with Dr. Aguila - Pain control adequate, continue current regimen - Stable on RA, HDS - Tolerating PO - Afebrile, no leukocytosis - SCD's, SQH, PPI/pepcid - Dispo: continue inpt care. D/c pending PT/OT eval and nephrology work up Will discuss with Dr. Mingo Orellana MD Otolaryngology Resident [phone] HAT ENGINEER * Alice Rodriguez RN - 05/13/2021 2:41 PM RED HAT ENGINEER Rn talked with pt and at bedside in regards to pts unsteadiness. Per hus band, pt has been at a rehab facility many times and does great and then as soon as she gets back home she stops doing what she is supposed to and becomes way w eaker again. mentioned that for the past 11 years they have had a member ship for daily exercise at a place and she will no longer go. He said that he he lps her as much as he can but he isnt home 24-7. Pt said she needs a walker to g et around, agreed about not doing her exercises to maintain strength and said th e exercise classes do not work with her schedule. Both agreed that if they can g et a therapy type service to come to the house and work with her at couple times a week continuously and not just for a short period of time, that it would help a lot and they would gladly pay for it. RN notified team to possibly consult PT/OT for this matter. HAT ENGINEER * Cari Pete MD - 05/13/2021 12:36 PM RED HAT ENGINEER Renal Progress Note Admission Date: 05/12/2021 LOS: 1 day Principal Problem: CSF leak ASSESSMENT Nathaly Matos is a 81 y.o. female with H CKD stage III baseline creatinine opal virk 1.5-1.8, type 2 diabetes, hypertension, von Hippel-Lindau syndrome, Seizure disorder who was admitted for CSF leak status post repair on 05/12/2021. Renal consulted for possible JORJE on CKD. Acute kidney injury -Patient follows with outside buffing wheel former automatic [facility] -She has underlying CKD with concerns about rapid progression over the last one year -Proteinuria on UA since October 2020 -Main risk factor for CKD is long hx of diabetes. Pt reports poorly controlled d iabetes. -No NSAIDs. Use. -Possible prerenal etiology contributing to the current JORJE, The underlying CKD is possibly secondary to diabetic nephropathy but would rule out other possibili ties given rapid progression. Von Hippel-Lindau syndrome -Concrns about Type 2 diabetes Hypertension Seizure disorder CSF leak status post repair 05/12/2021 RECOMMENDATIONS -The etiology of rapidly progressing kidney disease over the last year is not cl ear but might be related to diabetic nephropathy. However the rate of decline in kidney function seems too fast. -Await UA and urine protein/Cr -Await immune serologies and dysproteinemia work up -We will examine urine sediment -Kidney biopsy might need to be considered based on the work up above. Continue to hold ASA for now. -Renal US reviewed. Small angiomyolipomas in the upper poles of both kidneys, th e larger measuring up to 2.1 cm along with small minimally complicated cyst in t he inferior pole of the right kidney. Cari Pete MD Pager [phone] Interval History: No acute events, controlled pain. Medications: atorvastatin, 20 mg, Oral, QDAY bacitracin, , Topical, BID divalproex, 500 mg, Oral, QDAY docusate sodium, 100 mg, Oral, BID heparin (porcine), 5,000 Units, Subcutaneous, Q8H hydrALAZINE, 100 mg, Oral, TID insulin aspart (U-100), 0-6 Units, Subcutaneous, ACHS (22) milk of magnesia (CONC), 10 mL, Oral, QHS sodium chloride, 2 spray, Each Nostril, Q3H while awake Vital Signs: Last Filed in 24 hours Vital Signs: 24 hour Range BP: 111/48 (05/13 941) Temp: 36.3 C (97.3 F) (05/13 941) Pulse: 57 (05/13 941) Respirations: 18 PER MINUTE (05/13 941) SpO2: 99 % (05/13 941) SpO2 Pulse: 68 (05/12 1300) BP: (111-157)/(48-78) Temp: [36.3 C (97.3 F)-36.9 C (98.5 F)] Pulse: [57-72] Respirations: [15 PER MINUTE-22 PER MINUTE] SpO2: [96 %-99 %] Intake/Output Summary (Last 24 hours) at 05/13/2021 1256 Last data filed at 05/12/20212000 Gross per 24 hour Intake 0 ml Output 0 ml Net 0 ml Vitals: 05/12/21 0910 Weight: 68.5 kg (151 lb) Physical Exam: GENERAL: Not in pain or distress HEAD: Normocephalic, atraumatic OP: MMM, not icteric LUNGS: CTA carlitos CVP: RRR, no murmur ABD: Soft, NT, + BS LE: No edema SKIN: No rash Lab/Radiology/Other Diagnostic Tests: Results for orders placed or performed during the hospital encounter of 05/12/21 (from the past 48 hour(s)) BASIC METABOLIC PANEL Collection Time: 05/12/21 9:10 AM # # Low-High Sodium 137 137 - 147 MMOL/L Potassium 4.9 3.5 - 5.1 MMOL/L Chloride 102 98 - 110 MMOL/L CO2 26 21 - 30 MMOL/L Anion Gap 9 3 - 12 Glucose 139 (H) 70 - 100 MG/DL Blood Urea Nitrogen 36 (H) 7 - 25 MG/DL Creatinine 2.12 (H) 0.4 - 1.00 MG/DL Calcium 9.5 8.5 - 10.6 MG/DL eGFR 23 (L) >60 mL/min TYPE & CROSSMATCH Collection Time: 05/12/21 9:10 AM # # Low-High Units Ordered 0 Crossmatch Expires 05/15/2021,2359 Record Check 2ND TYPE REQUIRED ABO/RH(D) O POS Antibody Screen NEG Electronic Crossmatch YES VALPROIC ACID LEVEL Collection Time: 05/12/21 9:10 AM # # Low-High Valproic Acid <10.0 (L) 50.0 - 100.0 MCG/ML BLOOD TYPE CONFIRMATION - ORDER ONLY IF REQUESTED BY LAB Collection Time: 05/12/21 9:22 AM # # Low-High ABO/RH(D) O POS CBC AND DIFF Collection Time: 05/12/21 11:33 AM # # Low-High White Blood Cells 5.1 4.5 - 11.0 K/UL RBC 2.86 (L) 4.0 - 5.0 M/UL Hemoglobin 7.2 (L) 12.0 - 15.0 GM/DL Hematocrit 21.9 (L) 36 - 45 % MCV 76.7 (L) 80 - 100 FL MCH 25.2 (L) 26 - 34 PG MCHC 32.8 32.0 - 36.0 G/DL RDW 18.6 (H) 11 - 15 % Platelet Count 239 150 - 400 K/UL MPV 8.2 7 - 11 FL Neutrophils 85 (H) 41 - 77 % Lymphocytes 8 (L) 24 - 44 % Monocytes 4 4 - 12 % Eosinophils 2 0 - 5 % Basophils 1 0 - 2 % Absolute Neutrophil Count 4.38 1.8 - 7.0 K/UL Absolute Lymph Count 0.39 (L) 1.0 - 4.8 K/UL Absolute Monocyte Count 0.21 0 - 0.80 K/UL Absolute Eosinophil Count 0.12 0 - 0.45 K/UL Absolute Basophil Count 0.03 0 - 0.20 K/UL POC GLUCOSE Collection Time: 05/12/21 12:19 PM # # Low-High Glucose, POC 179 (H) 70 - 100 MG/DL POC GLUCOSE Collection Time: 05/12/21 5:10 PM # # Low-High Glucose, POC 190 (H) 70 - 100 MG/DL MPO/PR3 W REFLEX TO ANCA Collection Time: 05/12/21 6:01 PM # # Low-High Myeloperoxidase AB 1.7 (H) <1.0 AI Serine Protease3 AB <0.2 <1.0 AI C3 COMPLEMENT 3 Collection Time: 05/12/21 6:01 PM # # Low-High Complemnt C3 109.0 88 - 200 MG/DL C4 COMPLEMENT 4 Collection Time: 05/12/21 6:01 PM # # Low-High Complemnt C4 21.0 10 - 49 MG/DL ELECTROPHORESIS-SERUM PROTEIN Collection Time: 05/12/21 6:01 PM # # Low-High Total Protein-SEP 7.2 6.0 - 8.0 G/DL Albumin % 48 - 68 % Alpha 1 % 2 - 6 % Alpha 2 % 5 - 15 % Beta %,Serum 9 - 17 % Gamma % 9 - 21 % Paraprotein G/DL Interpretation - SEP Pathologist Signature POC GLUCOSE Collection Time: 05/12/21 10:44 PM # # Low-High Glucose, POC 163 (H) 70 - 100 MG/DL BASIC METABOLIC PANEL Collection Time: 05/13/21 7:21 AM # # Low-High Sodium 137 137 - 147 MMOL/L Potassium 4.1 3.5 - 5.1 MMOL/L Chloride 102 98 - 110 MMOL/L CO2 26 21 - 30 MMOL/L Anion Gap 9 3 - 12 Glucose 141 (H) 70 - 100 MG/DL Blood Urea Nitrogen 37 (H) 7 - 25 MG/DL Creatinine 2.11 (H) 0.4 - 1.00 MG/DL Calcium 8.9 8.5 - 10.6 MG/DL eGFR 23 (L) >60 mL/min CBC Collection Time: 05/13/21 7:21 AM # # Low-High White Blood Cells 3.5 (L) 4.5 - 11.0 K/UL RBC 3.01 (L) 4.0 - 5.0 M/UL Hemoglobin 7.5 (L) 12.0 - 15.0 GM/DL Hematocrit 23.1 (L) 36 - 45 % MCV 76.7 (L) 80 - 100 FL MCH 24.8 (L) 26 - 34 PG MCHC 32.4 32.0 - 36.0 G/DL RDW 18.9 (H) 11 - 15 % Platelet Count 286 150 - 400 K/UL MPV 8.0 7 - 11 FL POC GLUCOSE Collection Time: 05/13/21 7:55 AM # # Low-High Glucose, POC 120 (H) 70 - 100 MG/DL POC GLUCOSE Collection Time: 05/13/21 11:53 AM # # Low-High Glucose, POC 138 (H) 70 - 100 MG/DL HAT ENGINEER * Maranda Orellana MD - 05/13/2021 9:12 AM RED HAT ENGINEER RICHARD/HNS PROGRESS NOTE Today's Date: 05/13/2021 Admission Date: 05/12/2021 LOS: 1 day Subjective No acute events overnight. Has some very mild right nasal drainage where packing is but not consistent drainage out of nose or in the back of her throat. Pain is controlled. Objective Vital Signs: Last Filed Vital Signs: 24 Stevenson r Range BP: 134/55 (05/13 451) Temp: 36.9 C (98.5 F) (05/13 045) Pulse: 70 (05/13 829) Respirations: 18 PER MINUTE (05/13 08) SpO2: 97 % (05/13 829) SpO2 Pulse: 68 (05/12 1300) BP: (133-157)/(55-83) Temp: [36.4 C (97.6 F)-37.1 C (98.8 F)] Pulse: [62-77] Respirations: [15 PER MINUTE-24 PER MINUTE] SpO2: [96 %-100 %] Vitals: 01/28/22 0910 Weight: 68.5 kg (151 lb) Intake/Output Summary: (Last 24 hours) Intake/Output Summary (Last 24 hours) at 05/13/2021 0912 Last data filed at 05/12/20212000 Gross per 24 hour Intake 905 ml Output 0 ml Net 905 ml Physical Exam Alert, NAD NC/AT PERRL, EOMI CNVII intact, symmetric Hearing grossly intact Mild intermittent right sided thicker clear drainage likely due to nasal packing breaking down, no left sided rhinorrhea No stridor or stertor, voice strong Respirations regular and unlabored Lab Review Comprehensive Metabolic Profile Lab Results Component Value Date/Time NA 137 05/13/2021 07:21 AM K 4.1 05/13/2021 07:21 AM CL 102 05/13/2021 07:21 AM CO2 26 05/13/2021 07:21 AM GAP 9 05/13/2021 07:21 AM BUN 37 (H) 05/13/2021 07:21 AM CR 2.11 (H) 05/13/2021 07:21 AM GLU 141 (H) 05/13/2021 07:21 AM Lab Results Component Value Date/Time CA 8.9 05/13/2021 07:21 AM ALBUMIN 3.3 (L) 03/23/2021 02:35 PM TOTPROT 7.4 03/23/2021 02:35 PM ALKPHOS 56 03/23/2021 02:35 PM AST 10 03/23/2021 02:35 PM ALT 6 (L) 03/23/2021 02:35 PM TOTBILI 0.3 03/23/2021 02:35 PM GFR 33 (L) 03/23/2021 02:35 PM GFRAA 40 (L) 03/23/2021 02:35 PM CBC w/Diff Lab Results Component Value Date/Time WBC 3.5 (L) 05/13/2021 07:21 AM RBC 3.01 (L) 05/13/2021 07:21 AM HGB 7.5 (L) 05/13/2021 07:21 AM HCT 23.1 (L) 05/13/2021 07:21 AM MCV 76.7 (L) 05/13/2021 07:21 AM MCH 24.8 (L) 05/13/2021 07:21 AM MCHC 32.4 05/13/2021 07:21 AM RDW 18.9 (H) 05/13/2021 07:21 AM PLTCT 286 05/13/2021 07:21 AM MPV 8.0 05/13/2021 07:21 AM Lab Results Component Value Date/Time NEUT 85 (H) 05/12/2021 11:33 AM ANC 4.38 05/12/2021 11:33 AM LYMA 8 (L) 05/12/2021 11:33 AM ALC 0.39 (L) 05/12/2021 11:33 AM DANIEL 4 05/12/2021 11:33 AM AMC 0.21 05/12/2021 11:33 AM EOSA 2 05/12/2021 11:33 AM AEC 0.12 05/12/2021 11:33 AM BASA 1 05/12/2021 11:33 AM ABC 0.03 05/12/2021 11:33 AM Point of Care Testing (Last 24 hours) Glucose: (!) 141 (05/13/21 0721) POC Glucose (Download): (!) 120 (05/13/21 6845) Radiology and other Diagnostics Review: Problem List: Patient Active Problem List Diagnosis Date Noted HTN (hypertension) 03/31/2021 CSF leak 03/03/2021 Meningioma (HCC) 03/03/2021 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 female w/ hx of CSF leak now s/p CSF leak repair on 05/12 - Will CTM, no signs of CSF leak on exam - Urology team consulted, appreciate recs - Nephrology team consult, appreciate recs - Encourage pt to be OOB and walking around - Pain control adequate, continue current regimen - Stable on RA, HDS - Tolerating PO - Afebrile, no leukocytosis - SCD's, SQH, PPI/pepcid - Dispo: continue inpt care, poss d/c today vs tomorrow pending consult recs and pt activity level Patient seen with staff. Maranda Orellana MD Otolaryngology Resident [phone] HAT ENGINEER Associated attestation - Reina Aguila MD - 05/13/2021 8:08 PM RED HAT ENGINEER ATTESTATION Mild right-sided nasal drainage, likely capillary action from nasal mucous and p acking in inferior meatus. No pain issues. thinks her chronic cough is i mproved. No active anterior nasal drainage or subjective posterior drainage duri ng the 5-10 minutes of our talk this am. Agree with other recommendations and pl an in Dr. Orellana's note. Staff name: Reina Aguila MD Date: 05/13/2021 * Leonora Kim SRNA - 05/13/2021 9:10 AM RED HAT ENGINEER Anesthesia Follow-Up Evaluation: Post-Procedure Day One Name: Nathaly Matos : 1940 Age: 81 y.o. S ex: female Procedure Date: 05/12/2021 Procedure: Procedure(s) with comments: SEPTOPLASTY - 2 hrs ENDOSCOPY NASAL/ SINUS WITH REPAIR CEREBROSPINAL FLUID LEAK - SPHENOID REGION STEREOTACTIC COMPUTER-ASSISTED CRANIAL PROCEDURE - EXTRADURAL Physical Assessment Height: 170.2 cm (67") Weight: 68.5 kg (151 lb) Vital Signs (Last Filed in 24 hours) BP: 111/48 (05/13 941) Temp: 36.3 C (97.3 F) (05/13 941) Pulse: 57 (05/13 941) Respirations: 18 PER MINUTE (05/13 941) SpO2: 99 % (05/13 941) SpO2 Pulse: 68 (05/12 1300) Patient History Allergies No Known Allergies Medications Scheduled Meds:atorvastatin (LIPITOR) tablet 20 mg, 20 mg, Oral, QDAY bacitracin topical ointment, , Topical, BID divalproex (DEPAKOTE ER) ER tablet 500 mg, 500 mg, Oral, QDAY docusate sodium (COLACE) oral solution 100 mg, 100 mg, Oral, BID heparin (porcine) PF syringe 5,000 Units, 5,000 Units, Subcutaneous, Q8H hydrALAZINE (APRESOLINE) tablet 100 mg, 100 mg, Oral, TID insulin aspart (U-100) (NOVOLOG FLEXPEN U-100 INSULIN) injection PEN 0-6 Units, 0-6 Units, Subcutaneous, ACHS (22) milk of magnesia (CONC) oral suspension 10 mL, 10 mL, Oral, QHS sodium chloride (SEA MIST) 0.65 % nasal spray 2 spray, 2 spray, Each Nostril, Q3 H while awake Continuous Infusions: PRN and Respiratory Meds:acetaminophen Q4H PRN, ondansetron (ZOFRAN) IV Q6H PRN, oxyCODONE Q4H PRN Diagnostic Tests Hematology: Lab Results Component Value Date HGB 7.5 05/13/2021 HCT 23.1 05/13/2021 PLTCT 286 05/13/2021 WBC 3.5 05/13/2021 NEUT 85 05/12/2021 ANC 4.38 05/12/2021 ALC 0.39 05/12/2021 DANIEL 4 05/12/2021 AMC 0.21 05/12/2021 EOSA 2 05/12/2021 ABC 0.03 05/12/2021 MCV 76.7 05/13/2021 MCH 24.8 05/13/2021 MCHC 32.4 05/13/2021 MPV 8.0 05/13/2021 RDW 18.9 05/13/2021 General Chemistry: Lab Results Component Value Date NA 137 05/13/2021 K 4.1 05/13/2021 CL 102 05/13/2021 CO2 26 05/13/2021 GAP 9 05/13/2021 BUN 37 05/13/2021 CR 2.11 05/13/2021 GLU 141 05/13/2021 CA 8.9 05/13/2021 ALBUMIN 3.3 03/23/2021 MG 2.0 03/23/2021 TOTBILI 0.3 03/23/2021 Coagulation: No results found for: PT, PTT, INR Follow-Up Assessment Patient location during evaluation: floor Anesthetic Complications: Anesthetic complications: The patient did not experience any anesthestic complic ations. Pain: Score: 0 Management:adequate Level of Consciousness: awake and alert Hydration:acceptable Airway Patency: patent Respiratory Status: acceptable, room air and spontaneous ventilation Cardiovascular Status:acceptable Regional/Neuroaxial: HAT ENGINEER * Leonid Hilton RT - 05/12/2021 2:54 PM RED HAT ENGINEER RT Adult Assessment Note NAME:Nathaly Matos :1940 AGE: 81 y.o. ADMISSION DATE: 05/12/2021 DAYS ADMITTED: LOS: 0 days RT Treatment Plan: Protocol Plan: Procedures Oxygen/Humidity: O2 to keep SpO2 > 92%, if not on any RT modality, D/C protocol if greater than 24 hours on room air SpO2: BID & PRN Comment: Pt wears 2 lpm at baseline Additional Comments: Impressions of the patient: Intervention(s)/outcome(s): Patient education that was completed: Recommendations to the care team: Vital Signs: Pulse: 72 RR: 22 PER MINUTE SpO2: 98 % O2 Device: Liter Flow: 2 Lpm O2%: Breath Sounds: Clear (Implies normal) Respiratory Effort: Non-Labored HAT ENGINEER * Lilly Stephens RN - 05/12/2021 9:23 AM RED HAT ENGINEER Dr. Aguila is at pre-op bedside with pt. HAT ENGINEER * Ashley Reno RN - 05/05/2021 9:56 AM RED HAT ENGINEER After discussion with Dr Boyd, ok to proceed with telephone visit. PAC phone visit 0800 on 05/08/21. she was having procedure in IR here 03/23 and ended up transfer ED for rapdi resp ond for seziure upon contrast for scan. 81-year-old female with past medical his tory of von Hippel-Lindau disease, diabetes, hypertension, hyperlipidemia, seizu res on Depakote, meningioma status post resection. During this time she desat in to [address] place on oxygen. She was recently at her local hospital for low oxygen sa turations. They set her up with home oxygen and two new medications. They are no t sure which. She and her note that she has also been told her kidneys a re not functioning well (they think they were told about 40% of normal). They li ve 2-3 hours away and arent able to come to . They dont have camera or anythin g to do a telehealth visit. HAT ENGINEER documented in this encounter H&P Notes * Keith Lambert MD - 05/12/2021 9:26 AM RED HAT ENGINEER Admission History and Physical Examination Name: Nathaly Matos Admission Date: 05/12/2021 Assessment/Plan: Active Problems: * No active hospital problems. * Patient presents for surgery with Dr. Aguila. Plan to proceed with surgery. Co nsent signed at bedside. R/B/A discussed. All questions answered. Nutrition: No Dietitian Consult Wound: No Wound Consult __ Primary Care Physician: Ralf Moon Verified Chief Complaint: surgery History of Present Illness: Nathaly Matos is a 81 y.o. female who was seen by Kaila Aguila for evaluation for chronic CSF leak which is been present for 6-7 mo nths. Leak is confirmed by beta-2 transferrin as well as imaging, with site fro m the lateral left sphenoid sinus. Risks of the procedure would include persist ent CSF leak and need for repeat procedure, injury to the skull base, injury to the orbit, injury to nearby vascular structures such as an intracranial portion of the internal carotid artery. The benefit would be to stop the leak and reduc e risk of sequelae such as meningitis. Denies any new changes since last clinic visit. Medical History: Diagnosis Date Cerebrospinal fluid leak 03/2021 DM (diabetes mellitus) (HCC) T2 High cholesterol Hypertension On home oxygen therapy Seizure (HCC) 03/23/2021 Von Hippel-Lindau syndrome (HCC) Surgical History: Procedure Laterality Date BRAIN MENINGIOMA EXCISION 1992 HX BRAIN SURGERY 2010 hemiangioblastoma History reviewed. No pertinent family history. Social History Socioeconomic History Marital status: Spouse name: Not on file Number of children: Not on file Years of education: Not on file Highest education level: Not on file Occupational History Not on file Tobacco Use Smoking status: Never Smoker Smokeless tobacco: Never Used Vaping Use Vaping Use: Never used Substance and Sexual Activity Alcohol use: Never Drug use: Never Sexual activity: Not on file Other Topics Concern Not on file Social History Narrative Not on file Social Determinants of Health Financial Resource Strain: Not on file Food Insecurity: Not on file Transportation Needs: Not on file Physical Activity: Not on file Stress: Not on file Social Connections: Not on file Intimate Partner Violence: Not on file Vaping/E-liquid Use Vaping Use Never User Immunizations (includes history and patient reported): Immunization History Administered Date(s) Administered COVID-19 (MODERNA), mRNA vacc, 100 mcg/0.5 mL (PF) 05/09/2020, 06/09/2020, 1 Allergies: Patient has no known allergies. Medications: Medications Prior to Admission Medication Sig aspirin EC 81 mg tablet Take 81 mg by mouth daily. atorvastatin (LIPITOR) 20 mg tablet Take 20 mg by mouth daily. coQ10 (ubiquinol) 100 mg cap Take 1 capsule by mouth daily. divalproex (DEPAKOTE ER) 500 mg ER tablet Take 500 mg by mouth daily. folic acid 400 mcg tablet Take 400 mcg by mouth daily. hydrALAZINE (APRESOLINE) 100 mg tablet Take 100 mg by mouth three times kavin y. Review of Systems: noted in HPI Physical Exam: Vital Signs: Last Filed In 24 Hours Vital Signs: 24 Hour Range BP: 154/67 (05/12 909) Temp: 37.1 C (98.7 F) (05/12 909) Pulse: 74 (05/12 909) Respirations: 24 PER MINUTE (05/12 909) SpO2: 96 % (05/12 909) Height: 170.2 cm (67") (05/12 909) BP: (154)/(67) Temp: [37.1 C (98.7 F)] Pulse: [74] Respirations: [24 PER MINUTE] SpO2: [96 %] General: Awake, alert, NAD Head: Normocephalic, atraumatic Eyes: EOM intact bilaterally, vision grossly intact, conjunctivae clear Ears: Auricles without lesions, hearing grossly intact Nose: Nares patent, no drainage, Oral Cavity/Oropharynx: MMM, pink and clear, no masses or lesions visualized or palpated Neck: Supple, flat, trachea midline, Neuro: materials and processes manager II-XII grossly intact bilaterally, voice strong Lab/Radiology/Other Diagnostic Tests: 24-hour labs: No results found for this visit on 05/12/21 (from the past 24 stevenson r(s)). Pertinent radiology reviewed. Keith Lambert MD Pager HAT ENGINEER documented in this encounter Procedure Notes * Keith Lambert MD - 05/12/2021 12:16 PM RED HAT ENGINEER Brief Operative Note Name: Nathaly Matos is a 81 y.o. female : 1940 MRN#: [id number] DATE OF OPERATION: 05/12/2021 Date: 05/12/2021 Preoperative Dx: 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 [G96.01] Post-op Diagnosis * 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 [G96.01] Procedure(s) (LRB): SEPTOPLASTY ENDOSCOPY NASAL/ SINUS WITH REPAIR CEREBROSPINAL FLUID LEAK - ETHMOID REGION (Bi lateral) STEREOTACTIC COMPUTER-ASSISTED CRANIAL PROCEDURE - EXTRADURAL Surgeon(s) and Role: * Reina Aguila MD - Primary * Keith Lambert MD - Resident - Assisting Findings: Left sided sphenoid sinus CSF leak, repaired with free mucosal graft harvested from right sided nasal floor, dura seal applied, floseal, and nasopore . Estimated Blood Loss: No blood loss documented. Specimen(s) Removed/Disposition: * No specimens in log * Complications: None Implants: See operative report Drains: None Disposition: PACU - stable Keith Lambert MD Pager [phone] HAT ENGINEER documented in this encounter Consult Notes * Haily Lyle MD - 05/13/2021 3:12 PM RED HAT ENGINEER Associated Order(s): CONSULT UROLOGY PHYSICIAN [facility] Urology Consult 05/13/2021 Patient: Nathaly Matos Admission Date: 05/12/2021, LOS: 1 day Admission Diagnosis: 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 [G96.01] CSF leak [G96.00] Date of Service: May 13, 2021 Reason for Consult: "Renal Mass, VHL" Referring Provider: Reina Aguila MD Attending Surgeon: Dr. Nilay Reed MD Consult Performed by: Haily Lyle MD ASSESSMENT: 81 y.o. female with history of CKD (baseline Cr 1.8), type 2 DM, HTN , possible von-Hippel Lindau syndrome who presented for repair of a CSK leak (). Urology is consulted for renal masses in the setting of VHL. The patient has bilateral AML's and a 2 cm bosniak 4 cystic mass. Per her , the mandeep ent's renal mass has been stable, and continues to be less than <3cm. Considering her age, co-morbidities, and size of her renal mass, active debra veillance is an appropriate strategy. We will schedule the patient to be seen as an outpatient to further discuss her renal masses. PLAN: - No acute urological intervention - Will schedule the patient to be seen in clinic to further discuss active surve illance vs other treatment options - All else per primary team Urology will sign off. Please page with any questions Discussed plan of care with staff surgeon, Dr. Reed, who directed plan of care . Haily Lyle MD PGY-2 Resident Please page Urology data processing systems consultant with questions. __ HPI: Nathaly Matos is a 81 y.o. female with history of CKD (baseline Cr 1.8), t ype 2 DM, HTN, possible von-Hippel Lindau syndrome with previous meningioma and hemiangioblastoma excisions who presented for repair of a CSK leak (05/12/21). Ur ology is consulted for concern of renal masses in the setting of VHL. According to the patient and her , the patient was doing well until in the late she began having seizures and was noted to have a brain tumor that needed t o be excised. This again occurred in 2010. During her imaging for her brain mass , the patient was noted to have renal masses. Her most recent CT scan from 1 demonstrates a 2 cm Bosniak 4 cystic mass at the inferior pole of the right ki dney and small bilateral angiomyolipomas. Per the patient's , this mass has remained stable. The patient denies any other urological history. She denies any fevers, chills, nausea, vomiting, hematuria, flank pain. She has had a 15 p ound weight loss over the last few months. She recently saw Dr. Burton at [facility], who felt that active surveillance was appropriate for this patient. The patient today voices interest in transitioning her urological care to [facility] f or continued active surveillance of her cystic mass. ROS: 14 point ROS performed. Pertinent items listed in HPI and PMH. Otherwise negativ e. Medical History: Diagnosis Date Cerebrospinal fluid leak 03/2021 DM (diabetes mellitus) (HCC) T2 High cholesterol Hypertension On home oxygen therapy Seizure (HCC) 03/23/2021 Von Hippel-Lindau syndrome (HCC) Surgical History: Procedure Laterality Date BRAIN MENINGIOMA EXCISION 1992 HX BRAIN SURGERY 2010 hemiangioblastoma Medications: No current facility-administered medications on file prior to encounter. Current Outpatient Medications on File Prior to Encounter Medication Sig Dispense Refill aspirin EC 81 mg tablet Take 81 mg by mouth daily. atorvastatin (LIPITOR) 20 mg tablet Take 20 mg by mouth daily. coQ10 (ubiquinol) 100 mg cap Take 1 capsule by mouth daily. divalproex (DEPAKOTE ER) 500 mg ER tablet Take 500 mg by mouth daily. folic acid 400 mcg tablet Take 400 mcg by mouth daily. hydrALAZINE (APRESOLINE) 100 mg tablet Take 100 mg by mouth three times kavin y. Allergies: Patient has no known allergies. Social History Socioeconomic History Marital status: Spouse name: Not on file Number of children: Not on file Years of education: Not on file Highest education level: Not on file Occupational History Not on file Tobacco Use Smoking status: Never Smoker Smokeless tobacco: Never Used Vaping Use Vaping Use: Never used Substance and Sexual Activity Alcohol use: Never Drug use: Never Sexual activity: Not on file Other Topics Concern Not on file Social History Narrative Not on file History reviewed. No pertinent family history. Vitals: Vital Signs: Last Filed In 24 Hours Vital Signs: 24 Hour Range BP: 137/57 (05/13 1423) Temp: 36.3 C (97.4 F) (05/13 142) Pulse: 59 (05/13 142) Respirations: 18 PER MINUTE (05/13 142) SpO2: 100 % (05/13 1422) BP: (111-146)/(48-62) Temp: [36.3 C (97.3 F)-36.9 C (98.5 F)] Pulse: [57-70] Respirations: [15 PER MINUTE-20 PER MINUTE] SpO2: [96 %-100 %] Physical Exam: General: well nourished, alert and oriented, no acute distress Chest: non-labored on RA Cardiovascular: regular rate/rhythm, palpable symmetric radial pulses Abdomen: soft, nontender, nondistended. Genito-urinary: Voiding volitionally Extremities: no clubbing, cyanosis, edema Neuro: cranial nerves III-XII grossly intact, no focal deficits, moves all extre mities Psych: normal mood, affect, and thought process Intake/Output: Intake/Output Summary (Last 24 hours) at 05/13/2021 1512 Last data filed at 05/12/20212000 Gross per 24 hour Intake 0 ml Output 0 ml Net 0 ml Lab/Radiology/Other Diagnostic Tests: Recent Labs 05/12/21 0910 05/12/21 1133 05/13/21 0721 HGB -- 7.2* 7.5* HCT -- 21.9* 23.1* WBC -- 5.1 3.5* PLTCT -- 239 286 NA 137 -- 137 K 4.9 -- 4.1 CL 102 -- 102 CO2 26 -- 26 BUN 36* -- 37* CR 2.12* -- 2.11* GLU 139* -- 141* CA 9.5 -- 8.9 Glucose: (!) 141 (05/13/21 0721) POC Glucose (Download): (!) 138 (05/13/21 1153) HAT ENGINEER Associated attestation - Nilay Reed III, MD - 05/14/2021 1:40 PM RED HAT ENGINEER I have seen and reviewed all relevant records. I agree with findings and plans as noted. * Stan Hall DO - 05/12/2021 2:51 PM RED HAT ENGINEER Associated Order(s): CONSULT NEPHROLOGY PHYSICIAN Renal Consult Note Name: Nathaly Matos Today's Date: 05/12/2021 Admission Date: 05/12/2021 LOS: 0 days Reason for consult: hx of von hippel lindau, post op from csf leak repair, eleva vinnie cr from baseline. Appreciate assitance in management and work up Assessment and Plan Principal Problem: CSF leak Nathaly Matos is a 81 y.o. female with H CKD stage III baseline creatinine li sully 1.5-1.8, type 2 diabetes, hypertension, von Hippel-Lindau syndrome, Seizure disorder who was admitted for CSF leak status post repair on 05/12/2021. Renal consulted for possible JOREJ on CKD. Acute kidney injury -Patient follows with outside buffing wheel former automatic [facility] -She has underlying CKD with concerns about rapid progression over the last one year -Proteinuria on UA since October 2020 -Main risk factor for CKD is long hx of diabetes. Pt reports poorly controlled d iabetes. -No NSAIDs. Use. -Possible prerenal etiology contributing to the current JORJE, The underlying CKD is possibly secondary to diabetic nephropathy but would rule out other possibili ties given rapid progression. Von Hippel-Lindau syndrome -Concrns about Type 2 diabetes Hypertension Seizure disorder CSF leak status post repair 05/12/2021 Plan -Check UA, urine Na, urine Cr and urine protein/Cr -Obtain MPO/PR3, C3, C4, DsDNA -Check SPEP, free light chain and serum immunofixation. -Obtain renal US. -We will need to obtain outside images including CT abdomen done in Dec 2020 -Urology input will likely be needed for further evaluation of renal masses. -Would obtain UA as well as a urine protein to creatinine ratio random -Plan IVF with NS 100 ml/hr for total of 500 ml. -Diabetic management per primary team -Obtain daily BMPs. -Renal will continue to follow -Please page with questions The patient was assessed and the appropriate management was discussed with Dr. Nito Hall D.O. Nephrology Fellow Pager #: Available on Voalte or AMS This note was composed with Dragon Dictation. As such, there may be transcriptio nal errors. For questions, please contact Dr. Hall. HPI Nathaly Matos is a 81 y.o. female with PMH of type 2 diabetes, hypertension, vo n Hippel-Lindau syndrome, Seizure disorder and CKD who was admitted for CSF leak status post repair on 05/12/2021. Renal consulted for possible JORJE on CKD. Unf ortunately, most of the history is obtained by family member at bedside. Accord ing to family member, patient has had type 2 diabetes for approximately 30 years now. He reports this has been uncontrolled. Never requiring insulin therapy. Does see an outside buffing wheel former automatic Dr. Hull at [facility] in [facility]. Reports her baseline kidney function is 30 to 40% by GFR. Addit ionally, family member reports patient has a questionable kidney mass although I cannot find any imaging in care everywhere regarding a kidney mass. Denies use of NSAIDs prior to admission. Has been n.p.o. for procedure today. ROS: General: Denies fever, chills Neuro: Reports headache E/N: Denies lightheadness Cardio: Denies CP, SOB Resp: Denies cough GI: Denies abd pain : Denies hematuria, dysuria, MSK: Denies arthralgia, myalgia Medications Medications MEDSatorvastatin, 20 mg, Oral, QDAY bacitracin, , Topical, BID divalproex, 500 mg, Oral, QDAY docusate sodium, 100 mg, Oral, BID [START ON 05/13/2021] heparin (porcine), 5,000 Units, Subcutaneous, Q8H hydrALAZINE, 100 mg, Oral, TID insulin aspart (U-100), 0-6 Units, Subcutaneous, ACHS (22) milk of magnesia (CONC), 10 mL, Oral, QHS sodium chloride, 2 spray, Each Nostril, Q3H while awake IV MEDS Prn acetaminophen Q4H PRN, ondansetron (ZOFRAN) IV Q6H PRN, oxyCODONE Q4H PRN Family History: Multiple family members with stroke at an early age No reported FHx of kidney disease Surgical History: Procedure Laterality Date BRAIN MENINGIOMA EXCISION 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6 F) (05/12 1335) Pulse: 68 (05/12 1335) Respirations: 20 PER MINUTE (05/12 1335) SpO2: 96 % (05/12 1335) SpO2 Pulse: 68 (05/12 1300) Height: 170.2 cm (67") (05/12 0910) BP: (142-157)/(67-83) Temp: [36.4 C (97.6 F)-37.1 C (98.8 F)] Pulse: [68-77] Respirations: [20 PER MINUTE-24 PER MINUTE] SpO2: [96 %-100 %] Intake/Output Summary (Last 24 hours) at 05/12/2021 1451 Last data filed at 05/12/2021 1207 Gross per 24 hour Intake 905 ml Output -- Net 905 ml Vitals: 05/12/21 0910 Weight: 68.5 kg (151 lb) Gen: Alert and Oriented, No Acute Distress HEENT: Sclera normal; MMM CV: no JVD, S1 and S2 normal, no rubs, murmurs or gallops Pulm: Clear to Auscultation bilateral GI: BS+ x4, non-tender to palpation Neuro: Grossly normal, moving all extremities, speech intact Psych: appropriate affect Ext: no edema, clubbing or cyanosis MSK: Atraumatic, no joint deformity Skin: no rash Labs: Recent Labs 05/12/21 0910 NA 137 K 4.9 CL 102 CO2 26 GAP 9 BUN 36* CR 2.12* GLU 139* CA 9.5 Recent Labs 05/12/21 1133 WBC 5.1 HGB 7.2* HCT 21.9* PLTCT 239 Estimated Creatinine Clearance: 23.3 mL/min (A) (based on SCr of 2.12 mg/dL (H)) . Vitals: 05/12/21 0910 Weight: 68.5 kg (151 lb) No results for input(s): PHART, PO2ART in the last 72 hours. Invalid input(s): PC02A HAT ENGINEER Associated attestation - Cari Pete MD - 05/12/2021 4:57 PM RED HAT ENGINEER ATTESTATION I personally performed the history and the physical examination of the patient a nd discussed his management with the fellow (resident). I reviewed the fellow's (residents) note and agree with the documented findings and plan of care. 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 She has no history of diabetes. She reportedly has been noted to have a moe al mass with concern about RCC. She likely has underlying CKD in the setting of diabetic nephropathy. Would rul e out other possibilities in the setting of progressive decline in kidney functi on. Plan to obtain immune serologies and dysproteinemia work-up. We will revie w outside records including prior imaging. Would consider urology evaluation du e to concerns about renal mass and RCC. Plan IV fluid with 500 ml of normal laureano ine today. Staff name: Cari Pete Date: 05/12/2021 documented in this encounter OR Notes * Operative Report (Direct Entry) - Reina Aguila MD - 05/12/2021 10:15 AM RED HAT ENGINEER OPERATIVE REPORT Name: Nathaly Matos is a 81 y.o. 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 Left sphenoid sinus leak with leak originating from the central region infer iorly. 2. Following bipolaring the overlying mucosa, there was no active leak 3. Sphenoid sinus leak with free mucosal graft harvested from the right nasal f kyleigh. It was further bolstered in place with a layer of DuraSeal followed by na laureano pore packing. The patient was identified in the pre-operative holding area. Risks, benefits, a nd alternatives of the procedure were again reviewed and the patient did wish to proceed. The consent was signed. The patient was then taken electively to the o perating room where anesthesia was induced. The table was turned appropriately f or sinus surgery. Due to prior surgery and altered landmarks, image navigation w as needed. The [employer] system was placed, registered, and verified to be accur ate. A timeout was then performed and all who were present did agree. Bilateral pledgets were placed into the nose for decongestion. We proceeded with bilateral nasal endoscopy. Introducing the scope on the left- hand side, her septal deviation with significant and precluded access to the sph enoid region. As such we will proceed with septoplasty. The caudal edge of the septum was injected with approximately 2 mL of 1% lidocaine with 1 100,000 conc entration epinephrine. After allowing adequate monitoring pneumostasis, during which time pledgets were placed medial to the middle turbinates bilaterally, a h emitransfixion incision was made and carried down to the cartilage. The edward elevator was then used to elevate anteriorly a submucoperichondrial flap. We th en introduced the 0 degree scope and proceeded to dissect off the mucoperichondr ial/ostial layer from the underlying bone and cartilage of the nasal septum. Th e bony cartilaginous junction was identified and fractured. An anterior incisio n was made with a 15 blade through the cartilaginous septum. We then dissected on the other side releasing the contralateral mucoperichondrial layer. The inte rvening cartilage was then removed. A combination of cutting instruments includ ing the Mendoza forceps were used to remove posterior bony deviation. We then confirmed that we had adequate visualization intranasally to proceed wit h the procedure. This did conclude the septoplasty. Of note, there was a linea r horizontally oriented tear of the flap on the left-hand side. There is no opp osing tear. We then proceeded with a left-sided sphenoidotomy. Using the 0 degree endoscope , the middle turbinate axillary injection was then done using approximately 1 cc of local. The middle turbinate was then gently manipulated laterally. The sup erior turbinate was then visualized. The inferior one third was removed with th rough-cutting forcep. I was unable to easily introduce the edward elevator to t he natural sphenoid os. A combination of through-cutting instruments including the mushroom punch as well as a 2 mm Kerrisons was used to circumferentially wid en the sphenoid office and remove the intervening tissue. We did encounter also the intrasinus septum and this was removed with a straight through cut. Immedi ately upon entering into the sphenoid sinus, we saw a egress of clear fluid cons istent with cerebrospinal fluid. Once we were satisfied with the extent of our sphenoidotomy, we turned our attention to finding the CSF leak. Inferiorly with in the sinus there is a bubble of mucosa with fluid underneath consistent with C SF. This area was bipolared to reduce the mucosa and expose the bone underneath . We did identify an active CSF leak. We carefully examined the rest of the sp henoid cavity and did not note any other areas of active leak. As such, we deci ded to proceed with our repair of the CSF leak. The surrounding mucosa was agai n bipolared and/or removed with the grasping instruments in order to provide a n ice denuded area to lay our eventual graft. Some blood pooled clotted in this a jasvir there was no further CSF leak at that time a pledget was placed. We then proceeded with harvesting our right free mucosal graft from the nasal fl oor. The nasal floor itself was injected with 2 cc of 1% lidocaine with 100,000 epinephrine. After allowing some time for adequate hemostasis, a needle tip Abbe vie was then used to incise along all 4 edges of the free mucosal graft. The Co ttle elevator was then used to elevate of the mucosa was then grasped with a Alexys kesley and removed from the nose. The mucosal side was marked with a marking pe n. FloSeal was then placed as well as a nasal pore to help with hemostasis of t he harvest site. The previously placed pledget within the sphenoid was removed. We still did not see any residual active leak. The mucosal graft was then placed into the sphen oid sinus. It was maneuvered and manipulated such that it was flush against the bony backwall of the sphenoid. Again no leak was seen. Once we were satisfied positioning, we proceeded with placing a layer of DuraSeal glue. Subsequent to this, additional nasal pore packing was placed within the sphenoid to further o f this in place. This did conclude the procedure. All sponge and instrument counts were correct a t the end of the case. The patient was then turned back over to the care of tenzin umana, who did successfully awaken and extubate the patient in the OR. The mandeep ent was then transferred to the PACU in stable condition. Estimated Blood Loss: 20 mL Specimen(s) Removed/Disposition: * No specimens in log * Attestation: I performed this procedure with a resident., I was present for the entire procedure. and I personally performaned all critical potions of this case . Complications: None Implants: None Drains: None Disposition: PACU - stable Reina Aguila MD Pager HAT ENGINEER documented in this encounter Miscellaneous Notes * Care Plan - Ashley Dailey RN - 05/15/2021 3:06 PM RED HAT ENGINEER Problem: Discharge Planning Goal: Participation in plan of care Outcome: Goal Achieved Goal: Knowledge regarding plan of care Outcome: Goal Achieved Goal: Prepared for discharge Outcome: Goal Achieved Problem: High Fall Risk Goal: High Fall Risk Outcome: Goal Achieved Problem: Mobility/Activity Intolerance Goal: Maximize functional ADL's and mobility outcomes Outcome: Goal Achieved Problem: Self-Care Deficit Goal: Maximize ADL functioning Outcome: Goal Achieved HAT ENGINEER * Care Plan - Florin Aguilar RN - 05/12/2021 6:49 PM RED HAT ENGINEER Problem: Discharge Planning Goal: Participation in plan of care Flowsheets (Taken 05/12/20211847) Participation in Plan of Care: Involve patient/caregiver in care planning decisi on making Goal: Knowledge regarding plan of care Flowsheets (Taken 05/12/20211847) Knowledge regarding plan of care: Provide admission education to parent/caregiver Provide plan of care education Provide procedural and treatment education Provide fall prevention education Provide infection prevention education Provide medication management education Provide VTE signs and symptoms education Provide pre-operative teaching Goal: Prepared for discharge Flowsheets (Taken 05/12/20211847) Prepared for discharge: Complete ADL ability assessment Collaborate with multidisciplinary team for hospital discharge coordination Provide safe use medical equipment education Provide diet and oral health education Provide discharge activity restrictions education Provide discharge materials appropriate to patient condition Problem: High Fall Risk Goal: High Fall Risk Flowsheets (Taken 05/12/20211847) High Fall Risk: All patients will receive: High fall risk sign, yellow wristband, yellow socks, gait belt, and shower shoes Engage bed alarm - middle setting Engage chair alarm Stay with the patient while toileting/showering PT/OT consult for fall prevention assessment if scoring in Unsteady Gait or Vis ual or Auditory impairment Move patient near RN station if confused (if possible) Remove excess equipment/supplies Use shower shoes Educate patient to use call-light if tethered Use safe patient handling equipment as appropriate Maximize bed functionality (optimize bed height, firm/flat surface) Assess need for bedside commode with drop arm to be available in room Assess need for: quick release belt, PSM (video monitoring), assist x2 using cl inical staff/equipment HAT ENGINEER documented in this encounter Plan of Treatment Not on filedocumented as of this encounter Goals Goal Patient Associated Recent Progress Patient-Stat Aut hor Goal Type Problems ed? Recover from illness Hospital On track (05/12/2021 Yes Duarte, Yani, 3:01 PM RED HAT ENGINEER) RN Note: And be able to walk better documented as of this encounter Procedures Comments Procedure Name Priority Date/Time Associated Diag nosis POC GLUCOSE 05/15/2021 11:38 AM RED HAT ENGINEER BASIC METABOLIC PANEL Routine 05/15/2021 7:27 AM RED HAT ENGINEER POC GLUCOSE 05/15/2021 7:16 AM RED HAT ENGINEER POC GLUCOSE 05/14/2021 8:57 PM RED HAT ENGINEER POC GLUCOSE 05/14/2021 4:49 PM RED HAT ENGINEER POC GLUCOSE 05/14/2021 12:46 PM RED HAT ENGINEER POC GLUCOSE 05/14/2021 7:41 AM RED HAT ENGINEER POC GLUCOSE 05/14/2021 7:29 AM RED HAT ENGINEER POC GLUCOSE 05/13/2021 8:58 PM RED HAT ENGINEER POC GLUCOSE 05/13/2021 6:33 PM RED HAT ENGINEER POC GLUCOSE 05/13/2021 4:38 PM RED HAT ENGINEER HC TP/CR RATIO, RANDOM Routine 05/13/2021 3:44 PM RED HAT ENGINEER URINALYSIS, MICROSCOPIC Routine 05/13/2021 3:44 PM RED HAT ENGINEER HC URINALYSIS, AUTO W Routine 05/13/2021 MICRO 3:44 PM RED HAT ENGINEER POC GLUCOSE 05/13/2021 11:53 AM RED HAT ENGINEER POC GLUCOSE 05/13/2021 7:55 AM RED HAT ENGINEER HC CBC,AUTOMATED Routine 05/13/2021 7:21 AM RED HAT ENGINEER HC BASIC METABOLIC PANEL Routine 05/13/2021 7:21 AM RED HAT ENGINEER POC GLUCOSE 05/12/2021 10:44 PM RED HAT ENGINEER HC SERINE PROTEASE 3 AB Routine 05/12/2021 6:01 PM RED HAT ENGINEER HC IMMUNO FIX SERUM Routine 05/12/2021 (IFES) 6:01 PM RED HAT ENGINEER HC KAPPA QNT FLC(KLFLC) Routine 05/12/2021 6:01 PM RED HAT ENGINEER HC ANTI-NEUTROPHIL CYTO Routine 05/12/2021 CIRILO (ANCA 6:01 PM RED HAT ENGINEER HC ANTI-DNA KARLUK Routine 05/12/2021 6:01 PM RED HAT ENGINEER HC C3(COMPLEMENT 3) Routine 05/12/2021 6:01 PM RED HAT ENGINEER C4 COMPLEMENT 4 Routine 05/12/2021 6:01 PM RED HAT ENGINEER HC ELECTROPHORESIS-SERUM Routine 05/12/2021 6:01 PM RED HAT ENGINEER POC GLUCOSE 05/12/2021 5:10 PM RED HAT ENGINEER US RENAL BLADDER COMPLETE Routine 05/12/2021 4:48 PM RED HAT ENGINEER POC GLUCOSE 05/12/2021 12:19 PM RED HAT ENGINEER HC CBC W/ AUTOMATED DIFF STAT 05/12/2021 11:33 AM RED HAT ENGINEER STEREOTACTIC 05/12/2021 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 COMPUTER-ASSISTED CRANIAL 9:39 AM RED HAT ENGINEER PROCEDURE - EXTRADURAL Special Needs 04/03 Marked return to clinic, no [place] time available, [place] [address]/25 PCM: ALSO, MOVE 2ND ROOM CASE (ROSALIA) INTO ITS PLACE SO ALL HER CASES ARE IN ONE ROOM. THANKS. - BP 0997 ENDOSCOPY NASAL/ SINUS 05/12/2021 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 WITH REPAIR CEREBROSPINAL 9:39 AM RED HAT ENGINEER FLUID LEAK - SPHENOID REGION Special Needs 04/03 Marked return to clinic, no open time available, case message sent - BP PCM: ALSO, MOVE 2ND ROOM CASE (ROSALIA) INTO ITS PLACE SO ALL HER CASES ARE IN ONE ROOM. THANKS. - BP 0938 SEPTOPLASTY 05/12/2021 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 9:39 AM RED HAT ENGINEER Special Needs 04/03 Marked return to clinic, no open time available, case message sent - BP PCM: ALSO, MOVE 2ND ROOM CASE (ROSALIA) INTO ITS PLACE SO ALL HER CASES ARE IN ONE ROOM. THANKS. - BP 0938 HC BLOOD TYPING, ABO STAT 05/12/2021 CONFIRM 91 9:22 AM RED HAT ENGINEER TYPE & CROSSMATCH STAT 05/12/2021 Preop testin g 9:10 AM RED HAT ENGINEER HC VALPROIC ACID 05/12/2021 9:10 AM RED HAT ENGINEER HC BASIC METABOLIC PANEL STAT 05/12/2021 Preop testing 9:10 AM RED HAT ENGINEER documented in this encounter Results * (ABNORMAL) POC GLUCOSE (05/15/2021 11:38 AM RED HAT ENGINEER) Glucose, POC 173 (H) 70 - 100 MG/DL [facility] Specimen Performing Organization Address City/State/ZIP Code P melissa Number [facility] [address] [place] [address] * (ABNORMAL) BASIC METABOLIC PANEL (05/15/2021 7:27 AM RED HAT ENGINEER) Sodium 136 (L) 137 - 147 MMOL/L [...] eGFR 24 (L)Comment: eGFR calculated >60 mL/min MAIN LAB using the CKD-EPIcr_R equation Specimen Blood (substance) Performing Organization Address City/[facility] Code P melissa Number MAIN LAB [address] [place] [address] * (ABNORMAL) POC GLUCOSE (05/15/2021 7:16 AM RED HAT ENGINEER) Glucose, POC 147 (H) 70 - 100 MG/DL MAIN LAB Specimen Performing Organization Address [facility] Code P melissa Number [facility] [address] [place] [address] * (ABNORMAL) POC GLUCOSE (05/14/2021 8:57 PM RED HAT ENGINEER) Glucose, POC 151 (H) 70 - 100 MG/DL MAIN LAB Specimen Performing Organization Address [facility] P melissa Number MAIN LAB [address] [place] [id number] * (ABNORMAL) POC GLUCOSE (05/14/2021 4:49 PM RED HAT ENGINEER) Glucose, POC 181 (H) 70 - 100 MG/DL MAIN LAB Specimen Performing Organization Address [facility] P melissa Number MAIN LAB [address] [place] [id number] * POC GLUCOSE (05/14/2021 12:46 PM RED HAT ENGINEER) Glucose, POC 97 70 - 100 MG/DL MAIN LAB Specimen Performing Organization Address [facility] P melissa Number MAIN LAB [address] [place] [address] * POC GLUCOSE (05/14/2021 7:41 AM RED HAT ENGINEER) Glucose, POC 99 70 - 100 MG/DL MAIN LAB Specimen Performing Organization Address [facility] P melissa Number MAIN LAB [address] [place] [address] * (ABNORMAL) POC GLUCOSE (05/14/2021 7:29 AM RED HAT ENGINEER) Glucose, POC 119 (H) 70 - 100 MG/DL MAIN LAB Specimen Performing Organization Address [facility] Code P melissa Number MAIN LAB [address] [place] [address] * (ABNORMAL) POC GLUCOSE (05/13/2021 8:58 PM RED HAT ENGINEER) Glucose, POC 141 (H) 70 - 100 MG/DL [facility] Specimen Performing Organization Address [facility] Code P melissa Number [facility] [address] [place] [address] * (ABNORMAL) POC GLUCOSE (05/13/2021 6:33 PM RED HAT ENGINEER) Glucose, POC 159 (H) 70 - 100 MG/DL [facility] Specimen Performing Organization Address [facility] P melissa Number [facility] [address] [place] [address] * (ABNORMAL) POC GLUCOSE (05/13/2021 4:38 PM RED HAT ENGINEER) Glucose, POC 141 (H) 70 - 100 MG/DL [facility] Specimen Performing Organization Address [facility] P melissa Number [facility] [address] [place] [address] * PROTEIN/CR RATIO,UR RAN (05/13/2021 3:44 PM RED HAT ENGINEER) Protein, Random 40 MG/DL [facility] Creatinine, 70 MG/DL [facility] Random Protein/CR 0.6 [facility] ratio Specimen Urine - Urine specimen (specimen) Performing Organization Address [facility] P melissa Number [facility] [address] [place] [address] * URINALYSIS, MICROSCOPIC (05/13/2021 3:44 PM RED HAT ENGINEER) WBCs,UA 10-20 0 - 2 /HPF [facility] RBCs,UA 20-50 0 - 3 /HPF [facility] MucousUA TRACE [facility] Squamous 2-5 0 - 5 [facility] Epithelial Cells Specimen Urine - Urine specimen (specimen) Performing Organization Address [facility] Code P melissa Number [facility] [address] [place] [address] * (ABNORMAL) URINALYSIS DIPSTICK (05/13/2021 3:44 PM RED HAT ENGINEER) Color,UA YELLOW [facility] Turbidity,UA CLEAR CLEAR-CLEAR [facility] Specific 1.016Comment: NOTE NEW 1.005 - 1.030 [facility] [place]-Urine REFERENCE RANGES pH,UA 6.0 5.0 - 8.0 MAIN LAB Protein,UA 1+ (A) NEG-NEG [facility] Glucose,UA NEG NEG-NEG [facility] Ketones,UA NEG NEG-NEG [facility] Bilirubin,UA NEG NEG-NEG MAIN LAB Blood,UA 1+ (A) NEG-NEG MAIN LAB Urobilinogen,UA NORMAL NORM-NORMAL MAIN LAB Nitrite,UA NEG NEG-NEG [facility] Leukocytes,UA 1+ (A) NEG-NEG [facility] Urine Ascorbic NEG NEG-NEG MAIN LAB Acid, UA Specimen Urine - Urine specimen (specimen) Performing Organization Address [facility]/ZIP Code P melissa Number MAIN LAB [address] [place] [address] * (ABNORMAL) POC GLUCOSE (05/13/2021 11:53 AM RED HAT ENGINEER) Glucose, POC 138 (H) 70 - 100 MG/DL MAIN LAB Specimen Performing Organization Address [facility] P melissa Number MAIN LAB [address] [place] [address] * (ABNORMAL) POC GLUCOSE (05/13/2021 7:55 AM RED HAT ENGINEER) Glucose, POC 120 (H) 70 - 100 MG/DL MAIN LAB Specimen Performing Organization Address [facility] P melissa Number MAIN LAB [address] [place] [address] * (ABNORMAL) CBC (05/13/2021 7:21 AM RED HAT ENGINEER) White Blood 3.5 (L) 4.5 - 11.0 K/UL MAIN LAB Cells RBC 3.01 (L) 4.0 - 5.0 M/UL MAIN LAB Hemoglobin 7.5 (L) 12.0 - 15.0 GM/DL MAIN LAB Hematocrit 23.1 (L) 36 - 45 % MAIN LAB MCV 76.7 (L) 80 - 100 FL MAIN LAB MCH 24.8 (L) 26 - 34 PG MAIN LAB MCHC 32.4 32.0 - 36.0 G/DL MAIN LAB RDW 18.9 (H) 11 - 15 % MAIN LAB Platelet Count 286 150 - 400 K/UL MAIN LAB MPV 8.0 7 - 11 FL [facility] Specimen Blood (substance) Performing Organization Address [facility] P melissa Number [facility] [address] [place] [id number] * (ABNORMAL) BASIC METABOLIC PANEL (05/13/2021 7:21 AM RED HAT ENGINEER) Sodium 137 137 - 147 MMOL/L [facility] Potassium 4.1 3.5 - 5.1 MMOL/L [facility] Chloride 102 98 - 110 MMOL/L [facility] CO2 26 21 - 30 MMOL/L [facility] Anion Gap 9 3 - 12 [facility] Glucose 141 (H) 70 - 100 MG/DL [facility] Blood Urea 37 (H) 7 - 25 MG/DL [facility] Nitrogen Creatinine 2.11 (H) 0.4 - 1.00 MG/DL [facility] Calcium 8.9 8.5 - 10.6 MG/DL [facility] eGFR 23 (L)Comment: eGFR calculated >60 mL/min [facility] using the CKD-EPIcr_R equation Specimen Blood (substance) Performing Organization Address [facility] P melissa Number [facility] [address] [id number] * (ABNORMAL) POC GLUCOSE (05/12/2021 10:44 PM RED HAT ENGINEER) Pathologist [facility] Glucose, POC 163 (H) 70 - 100 MG/DL [facility] Specimen Performing Organization Address [facility] P melissa Number [facility] [address] [id number] * ANTI-NEUT CYTO AB (ANCA/PANCA) (05/12/2021 6:01 PM RED HAT ENGINEER) Pathologist [facility] C-ANCA <20,NEGATIVE TITER [facility] P-ANCA >XO=[id number],POSITIVE TITER [facility] Specimen Performing Organization Address [facility] P melissa Number [facility] [address] [id number] * (ABNORMAL) ELECTROPHORESIS-SERUM PROTEIN (05/12/2021 6:01 PM RED HAT ENGINEER) Pathologist [facility] Total 7.2 6.0 - 8.0 G/DL K[facility] [...] [facility] Interpretation Acute phase reaction. [facility] - SEP Pathologist INTERPRETED BY HALLIE MORALES M.D. [facility] Signature By the PATH SIGNATURE ABOVE , I attest that I have personally formulated the final interpretation expressed in this report and that the above diagnosis is based upon my examination of the slides and/or other material indicated in this report. Specimen Blood (substance) Performing Organization Address [facility] Code P melissa Number MAIN LAB [address] [place] [address] * (ABNORMAL) KAPPA/LAMBDA FREE LIGHT CHAINS (05/12/2021 6:01 PM RED HAT ENGINEER) Persia, FLC 7.84 (H) 0.33 - 1.94 MG/DL [facility] Lambda, FLC 9.44 (H) 0.57 - 2.63 MG/DL [facility] Persia/Lambda 0.83 0.26 - 1.65 [facility] FLC Specimen Blood (substance) Performing Organization Address [facility] P melissa Number MAIN LAB [address] [place] [address] * IMMUNOFIXATION, SERUM (IFES) (05/12/2021 6:01 PM RED HAT ENGINEER) Immuno NO PARAPROTEIN SEEN [facility] Fix-Serum Pathologist INTERPRETED BY HALLIE MORALES M.D. [facility] Signature By the PATH SIGNATURE ABOVE , I attest that I have personally formulated the final interpretation expressed in this report and that the above diagnosis is based upon my examination of the slides and/or other material indicated in this report. Specimen Blood (substance) Performing Organization Address [facility] Code P melissa Number MAIN LAB [address] [place] [address] * C4 COMPLEMENT 4 (05/12/2021 6:01 PM RED HAT ENGINEER) Complemnt C4 21.0 10 - 49 MG/DL [facility] Specimen Blood (substance) Performing Organization Address [facility] P melissa Number MAIN LAB [address] [place] [address] * C3 COMPLEMENT 3 (05/12/2021 6:01 PM RED HAT ENGINEER) Complemnt C3 109.0 88 - 200 MG/DL [facility] Specimen Blood (substance) Performing Organization Address [facility] P melissa Number [facility] [address] [place] [address] * ANTI-DNA DOUBLE STRAND (05/12/2021 6:01 PM RED HAT ENGINEER) DNA Double <10 <10 TITER [facility] Strand AB Specimen Blood (substance) Performing Organization Address [facility] P melissa Number [facility] [address] [place] [address] * (ABNORMAL) MPO/PR3 W REFLEX TO ANCA (05/12/2021 6:01 PM RED HAT ENGINEER) Myeloperoxidase 1.7 (H)Comment: <1.0 AI [facility] AB Interpretation: Positive Serine <0.2Comment: Interpretation: <1.0 AI [facility] Protease3 AB Negative Specimen Blood (substance) Performing Organization Address [facility] P melissa Number [facility] [address] [place] [address] * (ABNORMAL) POC GLUCOSE (05/12/2021 5:10 PM RED HAT ENGINEER) Glucose, POC 190 (H) 70 - 100 MG/DL [facility] Specimen Performing Organization Address [facility] P melissa Number [facility] [address] [place] [address] * US RENAL BLADDER COMPLETE (05/12/2021 4:48 PM RED HAT ENGINEER) Modality Anatomical Region Laterality Ultrasound Pelvis Specimen Impressions [facility] RESULTS - 05/12/2021 4:54 PM RED HAT ENGINEER 1. The kidneys are normal in size. [...] [facility] RESULTS - 05/12/2021 4:54 PM RED HAT ENGINEER RENAL ULTRASOUND CLINICAL INDICATION: Von Hippel-Lindau syndrome, [...] on 05/12/2021 4:48 PM. Performing Organization Address [facility] Code P melissa Number [facility] RAD RESULTS * (ABNORMAL) POC GLUCOSE (05/12/2021 12:19 PM RED HAT ENGINEER) [facility] Glucose, POC 179 (H) 70 - 100 MG/DL [facility] Specimen Performing Organization Address [facility] P melissa Number [facility] [address] [place] [address] * (ABNORMAL) CBC AND DIFF (05/12/2021 11:33 AM RED HAT ENGINEER) [facility] White Blood 5.1 4.5 - 11.0 K/UL [...] Count Specimen Blood (substance) Performing Organization Address [facility] P melissa Number [facility] [address] [place] [address] * BLOOD TYPE CONFIRMATION - ORDER ONLY IF REQUESTED BY LAB (05/12/2021 9:22 AM RED HAT ENGINEER) [facility] ABO/RH(D) O POS [facility] Specimen Performing Organization Address [facility] P melissa Number [facility] [address] [place] [address] * (ABNORMAL) VALPROIC ACID LEVEL (05/12/2021 9:10 AM RED HAT ENGINEER) Valproic Acid <10.0 (L) 50.0 - 100.0 MCG/ML [facility] B Specimen Performing Organization Address [facility] P melissa Number [facility] [address] [place] [address] * TYPE & CROSSMATCH (05/12/2021 9:10 AM RED HAT ENGINEER) Units Ordered 0 [facility] Crossmatch 05/15/2021,2359 [facility] Expires Record Check 2ND TYPE REQUIRED MAIN LAB ABO/RH(D) O POS [facility] Antibody Screen NEG [facility] Electronic YES [facility] Crossmatch Specimen Blood (substance) Performing Organization Address [facility] Code P melissa Number [facility] [address] [place] [address] * (ABNORMAL) BASIC METABOLIC PANEL (05/12/2021 9:10 AM RED HAT ENGINEER) Sodium 137 137 - 147 MMOL/L [facility] Potassium 4.9 3.5 - 5.1 MMOL/L [facility] Chloride 102 98 - 110 MMOL/L [facility] CO2 26 21 - 30 MMOL/L [facility] Anion Gap 9 3 - 12 [facility] Glucose 139 (H) 70 - 100 MG/DL [facility] Blood Urea 36 (H) 7 - 25 MG/DL [facility] Nitrogen Creatinine 2.12 (H) 0.4 - 1.00 MG/DL [facility] Calcium 9.5 8.5 - 10.6 MG/DL [facility] eGFR 23 (L)Comment: eGFR calculated >60 mL/min MAIN LAB using the CKD-EPIcr_R equation Specimen Blood (substance) Performing Organization Address [facility] P melissa Number MAIN LAB [address] [place] [address] documented in this encounter Visit Diagnoses Diagnosis CSF leak - Primary Other specified disorder of nervous sys tem Preop testing Preoperative examination, unspecified 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 Cerebrospinal fluid rhinorrhea documented in this encounter Admitting Diagnoses Diagnosis CSF leak Other specified disorder of nervous sys tem documented in this encounter Administered Medications Action Date Dose Rate Site Medication Order MAR Action 05/15/2021 10:07 AM RED HAT ENGINEER 20 mg atorvastatin (LIPITOR) tablet 20 mg Given 20 mg, Oral, DAILY, First dose on Sat05/12/21 at 1345, Until Discontinued 20 mg Given 05/14/2021 8:27 AM RED HAT ENGINEER 20 mg Given 05/13/2021 8:15 AM RED HAT ENGINEER 20 mg Given 05/12/2021 2:39 PM RED HAT ENGINEER 05/15/2021 10:08 AM RED HAT ENGINEER bacitracin topical ointment Given Topical, TWICE DAILY, First dose on Sat05/12/21 at 1345, Until Discontinued, Apply to bilateral nares. Given 05/14/2021 8:54 PM RED HAT ENGINEER Given 05/14/2021 8:28 AM RED HAT ENGINEER Given 05/13/2021 8:48 PM RED HAT ENGINEER Given 05/13/2021 8:17 AM RED HAT ENGINEER Given 05/12/2021 10:49 PM RED HAT ENGINEER Given 05/12/2021 2:40 PM RED HAT ENGINEER 05/15/2021 10:07 AM RED HAT ENGINEER 500 mg divalproex (DEPAKOTE ER) ER tablet 500 Given mg 500 mg, Oral, DAILY, First dose on Sat05/12/21 at 1345, Until Discontinued, Do NOT break or crush tablet 500 mg Given 05/14/2021 8:27 AM RED HAT ENGINEER 500 mg Given 05/13/2021 8:15 AM RED HAT ENGINEER 500 mg Given 05/12/2021 2:39 PM RED HAT ENGINEER 05/15/2021 10:08 AM RED HAT ENGINEER 100 mg docusate sodium (COLACE) oral solution Given 100 mg 100 mg, Oral, TWICE DAILY, First dose o n Sat05/12/21 at 1345, Until Discontinued , Hold for loose stools 100 mg Given 05/14/2021 8:52 PM RED HAT ENGINEER 100 mg Given 05/12/2021 10:44 PM RED HAT ENGINEER 100 mg Given 05/12/2021 2:40 PM RED HAT ENGINEER 05/12/2021 10:53 AM RED HAT ENGINEER 2 mL Other EPINEPHrine (ADRENALIN) injection Given INTRA-PROCEDURE MED, Starting on Sat05/12/21 at 1024, Until Sat05/12/21 at 1215, Intra-op 2 mL Other Given 05/12/2021 10:24 AM RED HAT ENGINEER 05/14/2021 9:01 PM RED HAT ENGINEER 5,000 Units Abdomina l Tissue heparin (porcine) PF syringe 5,000 Units Given 5,000 Units, Subcutaneous, EVERY 8 HOURS, First dose on Sat05/13/21 at 0600, Until Discontinued, NOTE: This is a HIGH ALERT Medication. 5,000 Units Abdominal Tissue Given 05/14/2021 2:56 PM RED HAT ENGINEER 5,000 Units Abdominal Tissue Given 05/14/2021 5:31 AM RED HAT ENGINEER 5,000 Units Abdominal Tissue Given 05/13/2021 9:01 PM RED HAT ENGINEER 5,000 Units Abdominal Tissue Given 05/13/2021 2:26 PM RED HAT ENGINEER 5,000 Units Arm, Left Given 05/13/2021 6:43 AM RED HAT ENGINEER 05/15/2021 3:23 PM RED HAT ENGINEER 100 mg hydrALAZINE (APRESOLINE) tablet 100 mg Given 100 mg, Oral, THREE TIMES DAILY, First dose on Sat05/12/21 at 1500, Until Discontinued 100 mg Given 05/15/2021 10:07 AM RED HAT ENGINEER 100 mg Given 05/14/2021 8:52 PM RED HAT ENGINEER 100 mg Given 05/14/2021 2:56 PM RED HAT ENGINEER 100 mg Given 05/14/2021 8:27 AM RED HAT ENGINEER 100 mg Given 05/13/2021 8:48 PM RED HAT ENGINEER 100 mg Given 05/13/2021 2:26 PM RED HAT ENGINEER 100 mg Given 05/13/2021 8:16 AM RED HAT ENGINEER 100 mg Given 05/12/2021 10:45 PM RED HAT ENGINEER 100 mg Given 05/12/2021 2:41 PM RED HAT ENGINEER 05/14/2021 6:08 PM RED HAT ENGINEER 1 Units Abdomina l Tissue insulin aspart (U-100) (NOVOLOG FLEXPEN Given U-100 INSULIN) injection PEN 0-6 Units 0-6 Units, Subcutaneous, BEFORE MEALS AND 2200, First dose on Sat05/12/21 at 1245, Until Discontinued, -POC glucose 181-220mg/dL at , , administer 1 unit insulin, at 22, 03* administer 0 units. -POC glucose 221-260mg/dL at , , administer 2 units insulin, at 22, 03* administer 1 unit. -POC glucose 261-300mg/dL at , , administer 3 units insulin, at 22, 03* administer 2 units. -POC glucose 301-350mg/dL at , administer 4 units insulin, at 22, 03* administer 3 units. -POC glucos e 351-400mg/dL at , , administer 5 units insulin, at 22, 03* administer 4 units. -POC glucose >400mg/dL at , , administer 6 units insulin, at 22, 03* administer 5 units. *only if ordered 5x's daily For POCT glucose >350mg/dL give correction bolus and recheck POCT glucose in 2 hours. If POC T glucose at 2 hours >300mg/dL call physician for further orders. For patients who are not eating meals, continue to administer the appropriate correction factor. NOTE: This is a HIGH ALERT Medication., Dispense pens manually with initial order and then upon request. DO NOT uncheck "Do not dispense" 1 Units Arm, Left Given 05/12/2021 5:16 PM RED HAT ENGINEER 05/12/2021 10:24 AM RED HAT ENGINEER 2.5 mL Other lidocaine 1%/EPINEPHrine 1:100,000 Given injection INTRA-PROCEDURE MED, Starting on Sat05/12/21 at 1024, Until Sat05/12/21 at 1215, Intra-op 05/14/2021 8:53 PM RED HAT ENGINEER 10 mL milk of magnesia (CONC) oral suspension Given 10 mL 10 mL, Oral, AT BEDTIME DAILY, First dose on Sat05/12/21 at 2100, Until Discontinued, Give until first BM. 10 mL Given 05/12/2021 10:44 PM RED HAT ENGINEER 05/12/2021 10:24 AM RED HAT ENGINEER 3 sprays Other oxymetazoline (AFRIN) 0.05 % nasal spray Given INTRA-PROCEDURE MED, Starting on Sat05/12/21 at 1024, Until Sat05/12/21 at 1215, Intra-op 05/15/2021 10:09 AM RED HAT ENGINEER 1 packet sinus rinse (NASAL RELIEF SINUS Given WASH-BOTTLE) kit 1 packet 1 packet, Nasal, TWICE DAILY, First dos e on Sat05/14/21 at 1000, Until Discontinued, Mix 1 packet with 240 mL of sterile water 1 packet Given 05/14/2021 1:24 PM RED HAT ENGINEER 05/15/2021 10:08 AM RED HAT ENGINEER 2 sprays sodium chloride (SEA MIST) 0.65 % nasal Given spray 2 spray 2 spray, Each Nostril, EVERY 3 HOURS WHILE AWAKE, First dose on Sat05/12/21 at 1800, Until Discontinued 2 sprays Given 05/15/2021 8:00 AM RED HAT ENGINEER 2 sprays Given 05/14/2021 6:08 PM RED HAT ENGINEER 2 sprays Given 05/14/2021 1:25 PM RED HAT ENGINEER 2 sprays Given 05/14/2021 10:30 AM RED HAT ENGINEER 2 sprays Given 05/14/2021 8:28 AM RED HAT ENGINEER 2 sprays Given 05/13/2021 8:48 PM RED HAT ENGINEER 2 sprays Given 05/13/2021 7:30 PM RED HAT ENGINEER 2 sprays Given 05/13/2021 2:26 PM RED HAT ENGINEER 2 sprays Given 05/13/2021 11:54 AM RED HAT ENGINEER 2 sprays Given 05/13/2021 8:16 AM RED HAT ENGINEER 2 sprays Given 05/12/2021 10:48 PM RED HAT ENGINEER 2 sprays Given 05/12/2021 5:10 PM RED HAT ENGINEER 05/12/2021 10:25 AM RED HAT ENGINEER 20 mL Other thrombin 5,000 unit 5,000 Units in Given sodium chloride PF 0.9% 20 mL irrigatio n 20 mL, INTRA-PROCEDURE MED, Starting on Sat05/12/21 at 1025, Until Sat05/12/21 at 1215, Intra-op documented in this encounter Active and Recently Administered Medications Times are shown in RED HAT ENGINEER. 05/14/2021 05/15/2021 Medication Order 05/13/2021 0827 (Given - Provider: Alice Rodriguez RN) 1007 (Given - Provider: Ashley Dailey RN ) atorvastatin (LIPITOR) tablet 20 mg 0815 (Given - 20 mg, Oral, DAILY, First dose on Sat Provider: Paul meléndez 05/12/21 at 1345, Until Discontinued EDITH Rodriguez) 0828 (Given - Provider: Alice Rodriguez RN)2053 (Given - Provider: Arabella Alexander RN) 100 (Given - Provider: Ashley Dailey RN ) bacitracin topical ointment 0817 (Given - Topical, TWICE DAILY, First dose on Sat Provider: Mackenzie tejeda 05/12/21 at 1345, Until Discontinued, EDITH Rodriguez)2047 ( Given Apply to bilateral nares. - Provider: Mora Hastings RN) 0827 (Given - Provider: Alice Rodriguez RN) 1007 (Given - Provider: Ashley Dailey RN ) divalproex (DEPAKOTE ER) ER tablet 500 0815 (Given - mg Provider: Alice 500 mg, Oral, DAILY, First dose on Sat EDITH Rodriguez) 05/12/21 at 1345, Until Discontinued, Do NOT break or crush tablet 0828 (Med Not Given - Provider: Brinda Rodriguez RN - Reason: Patient Refused)2051 (Given - Provider: Arabella Alexander RN) 1008 (Given - Provider: Ashley Dailey RN ) docusate sodium (COLACE) oral solution 0816 (Med Not Given 100 mg - Provider: 100 mg, Oral, TWICE DAILY, First dose on Alice lugo RN - Sat05/12/21 at 1345, Until Discontinued, Reason: Pat ient Hold for loose stools Refused)2214 (Med Not Given - Provider: Mora Hastings RN - Reason: Patient Refused) 0531 (Given - Provider: Mora Hastings RN)1 456 (Given - Provider: Alice Rodriguez RN)210 (Given - Provider: Arabella Alexander RN) 0557 (Planned Hold - Provider: Arabella butt RN - Comment: Procedure scheduled)1400 (Due) heparin (porcine) PF syringe 5,000 Units 0643 (Given - 5,000 Units, Subcutaneous, EVERY 8 Provider: Jenn BALBUENA, First dose on Sat05/13/21 at EDITH De León)1426 0600, Until Discontinued, NOTE: This is (Given - Pro vider: a HIGH ALERT Medication. Alice Rodriguez RN)210 (Given - Provider: Mora Hastings RN) 0827 (Given - Provider: Alice Rodriguez RN)1456 (Given - Provider: Alice Rodriguez RN)205 (Given - Provider: Arabella Alexander RN) 1007 (Given - Provider: Ashley Dailey, EDITH )1523 (Given - Provider: Ashley Dailey RN) hydrALAZINE (APRESOLINE) tablet 100 mg 0816 (Given - 100 mg, Oral, THREE TIMES DAILY, First Provider: Gallito adam dose on Sat05/12/21 at 1500, Until EDITH Rodriguez)1426 (Gi rusty Discontinued - Provider: Alice Rodriguez RN)2048 (Given - Provider: Mora Hastings RN) 0828 (Med Not Given - Provider: Brinda Rodriguez RN - Reason: Order parameters not met - Comment: 99)1300 (Med Not Given - Provider: Alice Rodriguez RN - Reason: Order parameters not met - Comment: 97)1808 (Given - Provider: Alice Rodriguez RN)2101 (Med Not Given - Provider: Arbaella Alexander RN - Reason: Order parameters not met - Comment: BG 151) 1008 (Med Not Given - Provider: Ashley scruggs RN - Reason: Order parameters not met)1203 (Med Not Given - Provider: Ashley Dailey RN - Reason: Order parameters not met) insulin aspart (U-100) (NOVOLOG FLEXPEN 0816 (Med No t Given U-100 INSULIN) injection PEN 0-6 Units - Provider: 0-6 Units, Subcutaneous, BEFORE MEALS Alice Rodriguez RN - AND 2200, First dose on Sat05/12/21 at Reason: Order 1245, Until Discontinued, -POC glucose parameters no t met - 181-220mg/dL at , , administer 1 Comment: 120 )1153 unit insulin, at , * administer 0 (Med Not Given - units. -POC glucose 221-260mg/dL at , Provider: Mackenzie tejeda administer 2 units insulin, at EDITH Rodriguez - Ettrick son: * administer 1 unit. -POC glucose Order parame ters not 261-300mg/dL at , , administer 3 met - Commen t: units insulin, at , * administer 2 138)1640 (Med Not units. -POC glucose 301-350mg/dL at , Given - Prov ider: administer 4 units insulin, at Alice Rodriguez RN - * administer 3 units. -POC glucose Reason: Ord er 351-400mg/dL at , , administer 5 parameters n ot met - units insulin, at , * administer 4 Comment: 141) 2101 units. -POC glucose >400mg/dL at , , (Med Not Gi rusty - administer 6 units insulin, at , Provider: Bouchra amezquita 03* administer 5 units. *only if EDITH Hastings - Reason: ordered 5x's daily For POCT glucose Order parameter s not >350mg/dL give correction bolus and met - Comment: 1 41) recheck POCT glucose in 2 hours. If POC T glucose at 2 hours >300mg/dL call physician for further orders. For patients who are not eating meals, continue to administer the appropriate correction factor. NOTE: This is a HIGH ALERT Medication., Dispense pens manually with initial order and then upon request. DO NOT uncheck "Do not dispense" 2052 (Given - Provider: Arabella Alexander RN) milk of magnesia (CONC) oral suspension 2215 (Med No t Given 10 mL - Provider: Mora 10 mL, Oral, AT BEDTIME DAILY, First Darling RN - Reas on: dose on Sat05/12/21 at 2100, Until Loose stools) Discontinued, Give until first BM. 1324 (Given - Provider: Alice Rodriguez RN)2143 (Planned Hold - Provider: Arabella Alexander RN - Comment: Pt with nasal packing in) 1009 (Given - Provider: Ashley Dailey RN ) sinus rinse (NASAL RELIEF SINUS WASH-BOTTLE) kit 1 packet 1 packet, Nasal, TWICE DAILY, First dos e on Sat05/14/21 at 1000, Until Discontinued, Mix 1 packet with 240 mL of sterile water 0828 (Given - Provider: Alice Rodriguez RN)1030 (Given - Provider: Alice Rodriguez RN)1325 (Given - Provider: Alice Rodriguez RN)1808 (Given - Provider: Alice Rodriguez RN)1937 (Planned Hold - Provider: Arabella Alexander RN - Comment: Pt has nasal packing) 0800 (Given - Provider: Ashley Dailey RN )1008 (Given - Provider: Ashley Dailey RN)1400 (Due) sodium chloride (SEA MIST) 0.65 % nasal 0816 (Given - spray 2 spray Provider: Alice 2 spray, Each Nostril, EVERY 3 HOURS EDITH Rodriguez)1154 (Given WHILE AWAKE, First dose on Sat05/12/21 - Provider: at 1800, Until Discontinued Alice Rodriguez RN)1426 (Given - Provider: Alice Rodriguez RN)1930 (Given - Provider: Alice Rodriguez RN)2048 (Given - Provider: oMra Hastings RN) 05/14/2021 05/15/2021 Medication Order 05/13/2021 acetaminophen (TYLENOL) tablet 650 mg 650 mg, Oral, EVERY 4 HOURS PRN, Starting on Sat05/12/21 at 1344, Until Sat05/15/21 at 1755, Pain non-opioid: may be used alone or in combination wit h opioid analgesia, TOTAL ACETAMINOPHEN DOSE NOT TO EXCEED 4GM DAILY ondansetron (ZOFRAN) injection 4 mg 4 mg, Intravenous, EVERY 6 HOURS PRN, Starting on Sat05/12/21 at 1344, Until Sat05/15/21 at 1755, Nausea/Vomiting Injectable oxyCODONE (ROXICODONE) tablet 5 mg 5 mg, Oral, EVERY 4 HOURS PRN, Startin g on Sat05/12/21 at 1344, Until Sat05/15/21 at 1755, Pain PO documented in this encounter Orders First Ordered Date Medications Ordered That Might Not Have Count Last Ordered Date Been Administered sinus rinse (NASAL RELIEF SINUS 1 2021 WASH-BOTTLE) kit 1 packet acetaminophen (TYLENOL) tablet 650 mg 1 05/12/2021 atorvastatin (LIPITOR) tablet 20 mg 1 bacitracin topical ointment 1 05/12/2021 divalproex (DEPAKOTE ER) ER tablet 500 1 05/12/2021 mg docusate sodium (COLACE) oral solution 1 05/12/2021 100 mg fentaNYL citrate PF (SUBLIMAZE) 1 2021 injection 25-50 mcg heparin (porcine) PF syringe 5,000 Units 1 05/12/2021 hydrALAZINE (APRESOLINE) tablet 100 mg 1 05/12/2021 HYDROmorphone injection (DILAUDID) 0.5 1 05/12/2021 mg insulin aspart (U-100) (NOVOLOG FLEXPEN 05/12/2021 U-100 INSULIN) injection PEN 0-6 Units lidocaine PF 1% (10 mg/mL) injection 0.2 1 05/12/2021 mL milk of magnesia (CONC) oral suspension 1 05/12/2021 10 mL ondansetron (ZOFRAN) injection 4 mg 1 oxyCODONE (ROXICODONE) tablet 5 mg 2 sodium chloride (SEA MIST) 0.65 % nasal 1 05/12/2021 spray 2 spray sodium chloride 0.9 % infusion 2 05/12 SODIUM CHLORIDE 0.9 % IV SOLP (Cabinet 1 05/12/2021 Override) valproic acid (DEPACON) 500 mg in sodium 1 05/12/2021 chloride 0.9% (NS) IVPB First Ordered Date Diet Count Last Ordered Date DISCHARGE DIET REGULAR 1 05/15/2021 First Ordered Date Nursing Count Last Ordered Date DISCHARGE ACTIVITY LIFTING 1 05/15/2021 DISCHARGE ACTIVITY STRENUOUS 1 2 DISCHARGE CONTACT 1 05/15/2021 DISCHARGE EDUCATION 1 05/15/2021 DISCHARGE SIGNS/SYMPTOMS 1 05/15/2021 First Ordered Date Consult Count Last Ordered Date CONSULT NEPHROLOGY PHYSICIAN 1 2 CONSULT UROLOGY PHYSICIAN 1 05/12/2021 First Ordered Date OT Count Last Ordered Date OT CONSULT OCCUPATIONAL THERAPY 1 2021 First Ordered Date PT Count Last Ordered Date PT CONSULT PHYSICAL THERAPY 1 05/13/2021 First Ordered Date Admission Count Last Ordered Date PLACE PATIENT OBSERVATION CLASS 1 CLARIFICATION ORDER - FOR ADT ADMIN USE 1 05/11/2021 ONLY First Ordered Date Discharge Count Last Ordered Date DISCHARGE PATIENT NOW 1 05/15/2021 First Ordered Date Equipment Count Last Ordered Date COMPRESSION DEVICE, LEG 1 05/12/2021 PUMP IV CONTROL UNIT W/MODULES 1 022 First Ordered Date Vital Signs Count Last Ordered Date VITAL SIGNS 1 05/12/2021 First Ordered Date Activity Count Last Ordered Date MOBILITY 1 05/12/2021 First Ordered Date SPECIALITY EQUIPMENT Count Last Ordered Date COMMODE STANDARD 300LBS MAX 1 05/13/[address] & Maintain Count Last Ordered Date PLACE AND MAINTAIN SCD 1 05/12/2021 First Ordered Date ADT Patient Update Count Last Ordered Date CHANGE PATIENT CLASS 1 05/12/2021 documented in this encounter Additional Health Concerns Noted Time Assessment 05/15/2021 10:07 AM RED HAT ENGINEER A fall risk assessment has been complet ed for the patient documented as of this encounter Care Teams Start Date End Date Plumber Cub Relationship Specialty 03/03/21 Ralf Moon MS PCP - General documented as of this encounter
--- OUTSIDE RECORDS SUMMARY | 2021-05-15 20:20 | XMS REPORT | Encounter Summary ---
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] Procedures MO SEPTOPLASTY/SUBMUCOUS RESECJ W/WO CARTILAGE GRF MO NASAL/SINUS NDSC RPR CEREBRSP FLUID LEAK ETHMOID MO STRTCTC CPTR ASSTD PX EXTRADURAL CRANIAL SEPTOPLASTY ENDOSCOPY NASAL/ SINUS WITH REPAIR CEREBROSPINAL FLUID LEAK - ETHMOID REGION STEREOTACTIC COMPUTER-ASSISTED CRANIAL PROCEDURE - EXTRADURAL Referral ID Status Reason Start Date Expiration Visits Vi sits Date Requested Authorized [id number] 1 1 Encounter Details Care Team Description Date Type Department Reina Aguila MD [address] [place] [address] CSF leak 05/12/2021 Hospital Patient Care Unit C A6: - Encounter [facility] A 05/15/2021 [address] [facility] [address] [place] [address] Social History Date Tobacco Use Types Packs/Day [...] at Date Recorded Female 04/28/2021 12:27 PM DEVELOPMENT ADMINISTRATOR Date Recorded COVID-19 Exposure Response 05/12/2021 9:01 AM DEVELOPMENT ADMINISTRATOR In the last month, have you been in contact with No / Unsure someone who was confirmed or suspected to have Coronavirus / COVID-19? documented as of this encounter Last Filed Vital Signs Reading Time Taken Comments Vital Sign 133/48 05/15/2021 2:01 PM DEVELOPMENT ADMINISTRATOR Blood Pressure 84 05/15/2021 2:01 PM DEVELOPMENT ADMINISTRATOR Pulse 37.4 C (99.4 F) 05/15/2021 2:01 PM DEVELOPMENT ADMINISTRATOR Temperature - - Respiratory Rate 97% 05/15/2021 2:01 PM DEVELOPMENT ADMINISTRATOR Oxygen Saturation - - Inhaled Oxygen Concentration 68.5 kg (151 lb) 05/12/2021 9:10 AM DEVELOPMENT ADMINISTRATOR Weight 170.2 cm (5' 7") 05/12/2021 9:10 AM DEVELOPMENT ADMINISTRATOR Height 23.65 05/12/2021 9:10 AM DEVELOPMENT ADMINISTRATOR Body Mass Index documented in this encounter Functional Status Date of Assessment Functional Status Response 05/12/2021 Does the patient have a hearing impairment: No documented as of this encounter Discharge Summaries * Jerrica Dimas LMSW - 05/15/2021 1:36 PM DEVELOPMENT ADMINISTRATOR Case Management Progress Note NAME:Nathaly Matos :[birth year] AGE: 81 y.o. ADMISSION DATE: 05/12/2021 DAYS ADMITTED: LOS: 3 days Todays Date: 05/15/2021 Plan [facility] in private vehicle on 05-15-21 Interventions Support Support: No needs identified Info or Referral Information or Referral to Community Resources: No Needs Identified Discharge Planning Discharge Planning: Inpatient Rehabilitation [facility] notified by team that pt is medically stable for d/c today. [facility] met with patient and her spouse to discuss inpt recs. Pt is agreeable t o referral to [facility]. [facility] sent referral to [facility] - they can accept and can take the pt t [place] - 05-15. [facility] updated team and asked for orders to be completed. [facility] reached out to PT - pt is okay to be transported by private vehicle to [place]. [facility] updated pt's bedside nurse on d/c plan - nurse report [phone] [facility] printed and delivered transfer packet and instructions for the pt and he r spouse to be admitted to [facility]. Pt's spouse to drive the pt directly to the [facility]. D/C orders faxed to [facility]. Medication Needs Medication Needs: No Needs [...] Name, Phone and Availability #1: [place] - [phone] Next Level of Care (Acute Psych discharges only) Discharge Disposition Selected Continued Care - Admitted Since 05/12/2021 No services have been selected for the patient. Jerrica Dimas LMSW [facility] - [phone] LOPMENT ADMINISTRATOR * Jerrica Dimas LMSW - 05/15/2021 12:55 PM DEVELOPMENT ADMINISTRATOR Case Management Admission Assessment NAME:Nathaly Matos :1939 [...] o placement if needed. Would like [facility] if possible. NCM/SW team to continue to follow patient's plan of care via EMR and team hud dle; will assist with discharge planning needs as indicated. Assessment Notes Patient and spouse are agreeable to completing assessment at this time. [facility] provided contact information, explanation of CM roles, and general revie w of Preparing for Discharge, [facility] Preferred Provider Network handouts. Patient encouraged to contact case management with questions and jorge rns during hospitalization. Patient lives with her spouse in a one story home. The home accomodates Amigos y Amigos e-level living. The patient receives home care services five days per week - fou r hours per day. The patient receives assistance with her ADL's from her spouse and home health agency. Pt utilizes a walker at all times in her home. Home support is assessed to be intermittent. 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 Patient's previous HH, LTACH, SNF, IPR, DME, outpatient therapy experience in [facility]: HH through [place] Patient Address/Phone [address] [address] (home) Emergency Contact Extended Emergency Contact Information Primary Emergency Contact: Matos,Tutu Mobile Relation: Spouse Secondary Emergency Contact: Juan [...] Name, Phone and Availability #1: [place] - [phone] Expected Discharge Date Expected discharge date, 05-15-21, [...] meals Who assists with ADLs?: spouse and [facility] Cognitive Abilities Cognitive Abilities: Continue to Assess (Pt appears to be confused at times) Financial Resources Coverage Primary Insurance: Medicare Secondary Insurance: [facility] Additional Coverage: RX Payor: MEDICARE / Plan: MEDICARE PART A AND B / Product Type: Medicare / Source of Income Source Of Income: Other longterm income Financial Assistance Needed? Patient is affording her medications/healthcare at this time. Psychosocial Needs Mental Health Mental Health History: No Noted to be taking the following psychoactive medication/s: none Substance Use History Denies substance use issues. Current/Previous Services PCP Ralf Moon, None, None Patient is current with PCP; has been seen within the past year. [facility] [address] [address] [facility] [phone] Durable Medical Equipment Durable Medical Equipment at home: Walker, Shower Chair, Wheelchair (manual) Home Health Receiving home health: Yes Agency name: [facility] Would patient use this agency again?: Yes Hemodialysis or Peritoneal Dialysis Undergoing hemodialysis or peritoneal dialysis: No Tube/Enteral Feeds Receive tube/enteral feeds: No Infusion Receive infusions: No Private Duty Private duty help used: No Home and Community Based Services Home and community based services: No Jerry White Jerry White: No Hospice Hospice: No Outpatient Therapy PT: No OT: No PROFESSOR OF FLORICULTURE: No Senior Care Facility/Custodial SNF: No NH: No Inpatient Rehab IPR: No Long-Term Acute Care Hospital LTACH: No Acute Hospital Stay Acute Hospital Stay: No Jerrica Dimas LMSW [facility] - [phone] LOPMENT ADMINISTRATOR documented in this encounter Medications at Time [...] Means Destination Disposition Wheelchair Rehab Facility (Not [facility]) documented in this encounter Progress Notes * Reinaldo Ochoa MD - 05/15/2021 3:29 PM DEVELOPMENT ADMINISTRATOR Renal Progress Note Admission Date: 05/12/2021 LOS: [...] Acute kidney injury -Patient follows with outside wind turbine blade repair technician Dr. Francisco with [facility] in [facility] -She has underlying CKD with [...] will discuss the subject with her local wind turbine blade repair technician in [place]. Reinaldo Ochoa MD Pager [phone] __ Interval History: No acute events, controlled pain. Medications: Vital Signs: Last Filed in 24 hours Vital Signs: 24 hour Range BP: 133/48 (01/31 1401) Temp: 37.4 C (99.4 F) (05/15 1400) Pulse: 84 (05/15 1400) Respirations: 16 PER MINUTE (05/15 1400) SpO2: 97 % (05/15 1400) BP: (133-160)/(48-73) Temp: [36.8 C (98.3 F)-37.4 C (99.4 F)] Pulse: [84-97] Respirations: [16 PER MINUTE-22 PER MINUTE] SpO2: [94 %-97 %] Intake/Output Summary (Last 24 hours) at 05/15/2021 182 Last data filed at 05/14/2021 2104 Gross [...] POC 173 (H) 70 - 100 MG/DL LOPMENT ADMINISTRATOR * Blanca Bueno, MAJOR - 05/15/2021 2:02 PM DEVELOPMENT ADMINISTRATOR OCCUPATIONAL THERAPY PROGRESS NOTE Name: Nathaly Matos [...] Home Equipment: Walker;Wheelchair-manual Prior Function Level Of [place]: Needed assistance with ADLs;Needed assistance with homema diamond;Needed assistance with functional transfers Lives With: Spouse Receives Help From: Manager Product Design Other Function Comments: Patient's spouse reports that [...] home functioning ADLs Therapist: CARLINE [place] [id number] Date: 05/15/2021 LOPMENT ADMINISTRATOR * Jazmin Rojo, PT - 05/15/2021 11:19 AM DEVELOPMENT ADMINISTRATOR PHYSICAL THERAPY PROGRESS NOTE Name: Nathaly Matos [...] ADLs and functional mobility. [facility] [...] setting Therapist: Jazmin Rojo, PT Date: 05/15/2021 LOPMENT ADMINISTRATOR * Keith Lambert MD - 05/15/2021 6:42 AM DEVELOPMENT ADMINISTRATOR RICHARD/HNS PROGRESS NOTE Today's Date: 05/15/2021 Admission Date: 05/12/2021 LOS: 3 days Subjective No acute events overnight. Nephrology considering renal biopsy depending on the ability to coordinate care with nephrology at [place]. Required 2L O2 overnight, that she uses [...] Otolaryngology Head & Neck Surgery Available on [employer] Pager [phone] LOPMENT ADMINISTRATOR * Bere Johnson MD - 05/14/2021 4:22 PM DEVELOPMENT ADMINISTRATOR Renal Progress Note Admission Date: 05/12/2021 LOS: [...] Acute kidney injury -Patient follows with outside wind turbine blade repair technician Dr. Francisco [facility] in [facility] -She has underlying CKD with [...] yesterday, that he has some commitment for upks andres Saturday and it would be preferable to be discharged prior to that. Howev er after today's discussion he stated that [...] a kidney biops y performed here at [facility] or locally. This needs to be determined [...] tomorrow. Bere Johnson MD Nephrology fellow Pager #[phone] Available on Voalte/AMS __ Interval History: No [...] MINUTE (05/14 1048) SpO2: 98 % (05/14 1048) SpO2 Pulse: 65 (05/14 0329) BP: (111-171)/(55-71) [...] Low-High Color,UA YELLOW Turbidity,UA CLEAR CLEAR-CLEAR Specific Mcleod-Urine 1.016 1.005 - 1.030 pH,UA 6.0 5.0 [...] Glucose, POC 97 70 - 100 MG/DL LOPMENT ADMINISTRATOR Associated attestation - Cari Pete MD - 05/14/2021 5:18 PM DEVELOPMENT ADMINISTRATOR ATTESTATION I personally performed the history and the physical examination of the patient a nd discussed his management with the fellow (resident). I reviewed the fellow's (residents) note and agree with the documented findings and plan of care. Staff name: Cari Pete Date: 05/14/2021 * Mehnaz Malloy PT - 05/14/2021 2:29 PM DEVELOPMENT ADMINISTRATOR PHYSICAL THERAPY ASSESSMENT Name: Nathaly Matos : [...] ADLs and functional mobility. Has home h ealth nursing that comes to house 4 hours [...] Therapist Mehnaz Malloy PT, DPT Date 05/14/2021 LOPMENT ADMINISTRATOR * Keith Lmabert MD - 05/14/2021 6:41 AM DEVELOPMENT ADMINISTRATOR RICHARD/HNS PROGRESS NOTE Today's Date: 05/14/2021 Admission Date: 05/12/2021 LOS: 2 days Subjective No acute events overnight. Had very minimal drainage yesterday late afternoon af ter using nasal saline spray but no rhinorrhea or epistaxis otherwise. Pain is c ontrolled. Denies any changes in vision Objective Vital Signs: Last Filed Vital Signs: 24 Stevenson r Range BP: 161/59 (05/14 0508) Temp: 36.7 C (98.1 F) (05/14 0508) Pulse: 66 (05/14 0508) Respirations: 20 PER MINUTE (05/14 0508) SpO2: 99 % (05/14 0508) SpO2 Pulse: 65 (05/14 0329) BP: (111-171)/(48-71) [...] with Dr. Mingo Orellana MD Otolaryngology Resident [phone] LOPMENT ADMINISTRATOR * Alice Rodriguez RN - 05/13/2021 2:41 PM DEVELOPMENT ADMINISTRATOR Rn talked with pt and at bedside in regards to pts unsteadiness. Per andrew westbrook, pt has been at a rehab facility [...] to possibly consult PT/OT for this matter. LOPMENT ADMINISTRATOR * Cari Pete MD - 05/13/2021 12:36 PM DEVELOPMENT ADMINISTRATOR Renal Progress Note Admission Date: 05/12/2021 LOS: [...] Acute kidney injury -Patient follows with outside wind turbine blade repair technician Dr. Francisco [facility] in [facility] -She has underlying CKD with [...] the right kidney. Cari Pete MD Pager [phone] __ Interval History: No acute events, controlled [...] (97.3 F) (05/13 941) Pulse: 57 (05/13 09) Respirations: 18 PER MINUTE (05/13 941) SpO2: [...] # Low-High Units Ordered 0 Crossmatch Expires 05/15/2021,8218 Record Check 2ND TYPE REQUIRED ABO/RH(D) O [...] POC 138 (H) 70 - 100 MG/DL LOPMENT ADMINISTRATOR * Maranda Orellana MD - 05/13/2021 9:12 AM DEVELOPMENT ADMINISTRATOR RICHARD/HNS PROGRESS NOTE Today's Date: 05/13/2021 Admission [...] 451) Temp: 36.9 C (98.5 F) (05/13 451) Pulse: 70 (05/13 08) Respirations: 18 PER MINUTE (05/13 829) SpO2: 97 % (05/13 08) SpO2 Pulse: 68 (05/12 1300) BP: (133-157)/(55-83) Temp: [36.4 C (97.6 F)-37.1 C (98.8 F)] Pulse: [62-77] Respirations: [15 PER MINUTE-24 PER MINUTE] SpO2: [96 %-100 %] Vitals: 05/12/21 0910 Weight: 68.5 [...] (Last 24 hours) Glucose: (!) 141 (05/13/21 0768) POC Glucose (Download): (!) 120 (05/13/21 1798) Radiology and other Diagnostics Review: Problem List: [...] with staff. Maranda Orellana MD Otolaryngology Resident [phone] LOPMENT ADMINISTRATOR Associated attestation - Reina Aguila MD - 05/13/2021 8:08 PM DEVELOPMENT ADMINISTRATOR ATTESTATION Mild right-sided nasal drainage, likely capillary [...] Leonora Kim SRNA - 05/13/2021 9:10 AM DEVELOPMENT ADMINISTRATOR Anesthesia Follow-Up Evaluation: Post-Procedure Day One Name: [...] air and spontaneous ventilation Cardiovascular Status:acceptable Regional/Neuroaxial: LOPMENT ADMINISTRATOR * Leonid Hilton RT - 05/12/2021 2:54 PM DEVELOPMENT ADMINISTRATOR RT Adult Assessment Note NAME:Nathaly Matos :1940 [...] Sounds: Clear (Implies normal) Respiratory Effort: Non-Labored LOPMENT ADMINISTRATOR * Lilly Stephens RN - 05/12/2021 9:[address]. Aguila is at pre-op bedside with pt. LOPMENT ADMINISTRATOR * Ashley Reno RN - 05/05/2021 9:56 AM DEVELOPMENT ADMINISTRATOR After discussion with Dr Boyd, ok to [...] anythin g to do a telehealth visit. LOPMENT ADMINISTRATOR documented in this encounter H&P Notes * Keith Lambert MD - 05/12/2021 9:26 AM DEVELOPMENT ADMINISTRATOR Admission History and Physical Examination Name: Nathlay Matos Admission Date: 05/12/2021 Assessment/Plan: Active Problems: * No active hospital problems. * Patient presents for surgery with Dr. Aguila. Plan to proceed with surgery. Co nsent signed at bedside. R/B/A discussed. All questions answered. 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 Pertinent radiology reviewed. Pompeyo Petra, MD Pager LOPMENT ADMINISTRATOR documented in this encounter Procedure Notes * Keith Lambert MD - 05/12/2021 12:16 PM DEVELOPMENT ADMINISTRATOR Brief Operative Note Name: Nathaly Matos is a 81 y.o. female : 1940 MRN#: [id number] DATE OF OPERATION: 05/12/2021 Date: 05/12/2021 Preoperative [...] PACU - stable Keith Lambert MD Pager [phone] LOPMENT ADMINISTRATOR documented in this encounter Consult Notes * Haily Lyle MD - 05/13/2021 3:12 PM DEVELOPMENT ADMINISTRATOR Associated Order(s): CONSULT UROLOGY PHYSICIAN [facility] [...] Lyle MD PGY-2 Resident Please page Urology correctional supervisor with questions. __ HPI: Nathaly Matos is [...] months. She recently saw Dr. Burton at [facility], who felt that active surveillance was appropriate for this patient. 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 I agree with findings and plans as noted. * Stan Hall DO - 05/12/2021 2:51 PM DEVELOPMENT ADMINISTRATOR Associated Order(s): CONSULT NEPHROLOGY PHYSICIAN Renal Consult [...] Acute kidney injury -Patient follows with outside wind turbine blade repair technician Dr. Francisco [facility] in [facility] -She has underlying CKD with [...] requiring insulin therapy. Does see an outside wind turbine blade repair technician Dr. Hull at [facility] in [facility]. Reports her baseline kidney function is 30 [...] the last 72 hours. Invalid input(s): PC02A LOPMENT ADMINISTRATOR Associated attestation - Cari Pete MD - 05/12/2021 4:57 PM DEVELOPMENT ADMINISTRATOR ATTESTATION I personally performed the history and [...] Reina Aguila MD - 05/12/2021 10:15 AM DEVELOPMENT ADMINISTRATOR OPERATIVE REPORT Name: Nathaly Matos is a 81 y.o. female : 1940 MRN#: [id number] DATE OF OPERATION: 05/12/2021 Surgeon(s) and Role: * Reina Aguila MD - Primary * Keith Labmert MD - Resident - Assisting Preoperative Diagnosis: [...] landmarks, image navigation w as needed. The Sales Rabbit system was placed, registered, and verified to [...] combination of cutting instruments includ ing the Navjot-Vasu forceps were used to remove posterior bony [...] Some blood pooled clotted in this a bridgette there was no further CSF leak at [...] mucosa was then grasped with a Alexys rogerssley and removed from the nose. The mucosal [...] None Drains: None Disposition: PACU - stable Reian Aguila MD Pager LOPMENT ADMINISTRATOR documented in this encounter Miscellaneous Notes * Care Plan - Ashley Dailey RN - 05/15/2021 3:06 PM DEVELOPMENT ADMINISTRATOR Problem: Discharge Planning Goal: Participation in plan of care Outcome: Goal Achieved Goal: Knowledge regarding plan of care Outcome: Goal Achieved Goal: Prepared for discharge Outcome: Goal Achieved Problem: High Fall Risk Goal: High Fall Risk Outcome: Goal Achieved Problem: Mobility/Activity Intolerance Goal: Maximize functional ADL's and mobility outcomes Outcome: Goal Achieved Problem: Self-Care Deficit Goal: Maximize ADL functioning Outcome: Goal Achieved LOPMENT ADMINISTRATOR * Care Plan - Florin Aguilar RN - 05/12/2021 6:49 PM DEVELOPMENT ADMINISTRATOR Problem: Discharge Planning Goal: Participation in plan of care Flowsheets (Taken 05/12/2021 7451) Participation in Plan of Care: Involve patient/caregiver in care planning decisi on making Goal: Knowledge regarding plan of care Flowsheets (Taken 05/12/2021 1848) Knowledge regarding plan of care: Provide admission education to parent/caregiver Provide plan of care education Provide procedural and treatment education Provide fall prevention education Provide infection prevention education Provide medication management education Provide VTE signs and symptoms education Provide pre-operative teaching Goal: Prepared for discharge Flowsheets (Taken 05/12/2021 1848) Prepared for discharge: Complete ADL ability assessment Collaborate with multidisciplinary team for hospital discharge coordination Provide safe use medical equipment education Provide diet and oral health education Provide discharge activity restrictions education Provide discharge materials appropriate to patient condition Problem: High Fall Risk Goal: High Fall Risk Flowsheets (Taken 05/12/2021 1848) High Fall Risk: All patients will receive: [...] monitoring), assist x2 using cl inical staff/equipment LOPMENT ADMINISTRATOR documented in this encounter Plan of Treatment Not on filedocumented as of this encounter Goals Goal Patient Associated Recent Progress Patient-Stat Aut hor Goal Type Problems ed? Recover from illness Hospital On track (05/12/2021 Yes Yani Duarte, 3:01 PM DEVELOPMENT ADMINISTRATOR) RN Note: And be able to walk better documented as of this encounter Procedures Comments Procedure Name Priority Date/Time Associated Diag nosis POC GLUCOSE 05/15/2021 11:38 AM DEVELOPMENT ADMINISTRATOR BASIC METABOLIC PANEL Routine 05/15/2021 7:27 AM DEVELOPMENT ADMINISTRATOR POC GLUCOSE 05/15/2021 7:16 AM DEVELOPMENT ADMINISTRATOR POC GLUCOSE 05/14/2021 8:57 PM DEVELOPMENT ADMINISTRATOR POC GLUCOSE 05/14/2021 4:49 PM DEVELOPMENT ADMINISTRATOR POC GLUCOSE 05/14/2021 12:46 PM DEVELOPMENT ADMINISTRATOR POC GLUCOSE 05/14/2021 7:41 AM DEVELOPMENT ADMINISTRATOR POC GLUCOSE 05/14/2021 7:29 AM DEVELOPMENT ADMINISTRATOR POC GLUCOSE 05/13/2021 8:58 PM DEVELOPMENT ADMINISTRATOR POC GLUCOSE 05/13/2021 6:33 PM DEVELOPMENT ADMINISTRATOR POC GLUCOSE 05/13/2021 4:38 PM DEVELOPMENT ADMINISTRATOR HC TP/CR RATIO, RANDOM Routine 05/13/2021 3:44 PM DEVELOPMENT ADMINISTRATOR URINALYSIS, MICROSCOPIC Routine 05/13/2021 3:44 PM DEVELOPMENT ADMINISTRATOR HC URINALYSIS, AUTO W Routine 05/13/2021 MICRO 3:44 PM DEVELOPMENT ADMINISTRATOR POC GLUCOSE 05/13/2021 11:53 AM DEVELOPMENT ADMINISTRATOR POC GLUCOSE 05/13/2021 7:55 AM DEVELOPMENT ADMINISTRATOR HC CBC,AUTOMATED Routine 05/13/2021 7:21 AM DEVELOPMENT ADMINISTRATOR HC BASIC METABOLIC PANEL Routine 05/13/2021 7:21 AM DEVELOPMENT ADMINISTRATOR POC GLUCOSE 05/12/2021 10:44 PM DEVELOPMENT ADMINISTRATOR HC SERINE PROTEASE 3 AB Routine 05/12/2021 6:01 PM DEVELOPMENT ADMINISTRATOR HC IMMUNO FIX SERUM Routine 05/12/2021 (IFES) 6:01 PM DEVELOPMENT ADMINISTRATOR HC KAPPA QNT FLC(KLFLC) Routine 05/12/2021 6:01 PM DEVELOPMENT ADMINISTRATOR HC ANTI-NEUTROPHIL CYTO Routine 05/12/2021 CIRILO (ANCA 6:01 PM DEVELOPMENT ADMINISTRATOR HC ANTI-DNA INUPIAT Routine 05/12/2021 6:01 PM DEVELOPMENT ADMINISTRATOR HC C3(COMPLEMENT 3) Routine 05/12/2021 6:01 PM DEVELOPMENT ADMINISTRATOR C4 COMPLEMENT 4 Routine 05/12/2021 6:01 PM DEVELOPMENT ADMINISTRATOR HC ELECTROPHORESIS-SERUM Routine 05/12/2021 6:01 PM DEVELOPMENT ADMINISTRATOR POC GLUCOSE 05/12/2021 5:10 PM DEVELOPMENT ADMINISTRATOR US RENAL BLADDER COMPLETE Routine 05/12/2021 4:48 PM DEVELOPMENT ADMINISTRATOR POC GLUCOSE 05/12/2021 12:19 PM DEVELOPMENT ADMINISTRATOR HC CBC W/ AUTOMATED DIFF STAT 05/12/2021 11:33 AM DEVELOPMENT ADMINISTRATOR STEREOTACTIC 05/12/2021 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 COMPUTER-ASSISTED CRANIAL 9:39 AM DEVELOPMENT ADMINISTRATOR PROCEDURE - EXTRADURAL Special Needs 12 Marked return to clinic, no open time available, [place] [address]/25 PCM: ALSO, MOVE 2ND ROOM CASE (ROSALIA) INTO ITS PLACE SO ALL HER CASES ARE IN ONE ROOM. THANKS. - BP 0938 ENDOSCOPY NASAL/ SINUS 05/12/2021 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 WITH REPAIR CEREBROSPINAL 9:39 AM DEVELOPMENT ADMINISTRATOR FLUID LEAK - SPHENOID REGION Special Needs 1220 Marked return to clinic, no open time available, [place] [address]/25 PCM: ALSO, MOVE 2ND ROOM CASE (ROSALIA) INTO ITS PLACE SO ALL HER CASES ARE IN ONE ROOM. THANKS. - BP 0938 SEPTOPLASTY 05/12/2021 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 9:39 AM DEVELOPMENT ADMINISTRATOR Special Needs 1220 Marked return to clinic, no open time available, [place] [address]/25 PCM: ALSO, MOVE 2ND ROOM CASE (ROSALIA) INTO ITS PLACE SO ALL HER CASES ARE IN ONE ROOM. THANKS. - BP 0938 HC BLOOD TYPING, ABO STAT 05/12/2021 CONFIRM 91 9:22 AM DEVELOPMENT ADMINISTRATOR TYPE & CROSSMATCH STAT 05/12/2021 Preop testin g 9:10 AM DEVELOPMENT ADMINISTRATOR HC VALPROIC ACID 05/12/2021 9:10 AM DEVELOPMENT ADMINISTRATOR HC BASIC METABOLIC PANEL STAT 05/12/2021 Preop testing 9:10 AM DEVELOPMENT ADMINISTRATOR documented in this encounter Results * (ABNORMAL) POC GLUCOSE (05/15/2021 11:38 AM DEVELOPMENT ADMINISTRATOR) Glucose, POC 173 (H) 70 - 100 MG/DL [facility] Specimen Performing Organization Address [facility] P melissa Number [facility] MAIN [facility] [address] [place] [address] * (ABNORMAL) BASIC METABOLIC PANEL (05/15/2021 7:27 AM DEVELOPMENT ADMINISTRATOR) Sodium 136 (L) 137 - 147 MMOL/L [...] LAB Calcium 9.5 8.5 - 10.6 MG/DL MAIN LAB eGFR 24 (L)Comment: eGFR calculated >60 mL/min MAIN LAB using the CKD-EPIcr_R equation Specimen Blood (substance) Performing Organization Address [facility] P melissa Number [facility] MAIN [facility] [address] [place] [address] * (ABNORMAL) POC GLUCOSE (05/15/2021 7:16 AM DEVELOPMENT ADMINISTRATOR) Glucose, POC 147 (H) 70 - 100 MG/DL [facility] Specimen Performing Organization Address [facility] P melissa Number [facility] [address] [place] [address] * (ABNORMAL) POC GLUCOSE (05/14/2021 8:57 PM DEVELOPMENT ADMINISTRATOR) Glucose, POC 151 (H) 70 - 100 MG/DL [facility] Specimen Performing Organization Address [facility] P melissa Number [facility] [address] [place] [address] * (ABNORMAL) POC GLUCOSE (05/14/2021 4:49 PM DEVELOPMENT ADMINISTRATOR) Glucose, POC 181 (H) 70 - 100 MG/DL MAIN LAB Specimen Performing Organization Address City/[facility]/ZIP Code P melissa Number MAIN LAB [address] [place] [address] * POC GLUCOSE (05/14/2021 12:46 PM DEVELOPMENT ADMINISTRATOR) Glucose, POC 97 70 - 100 MG/DL MAIN LAB Specimen Performing Organization Address City/[facility]/ZIP Code P melissa Number MAIN LAB [address] [place] [address] * POC GLUCOSE (05/14/2021 7:41 AM DEVELOPMENT ADMINISTRATOR) Glucose, POC 99 70 - 100 MG/DL MAIN LAB Specimen Performing Organization Address [facility]/ZIP Code P melissa Number MAIN LAB [address] [place] [address] * (ABNORMAL) POC GLUCOSE (05/14/2021 7:29 AM DEVELOPMENT ADMINISTRATOR) Glucose, POC 119 (H) 70 - 100 MG/DL MAIN LAB Specimen Performing Organization Address [facility]/ZIP Code P melissa Number MAIN LAB [address] [place] [address] * (ABNORMAL) POC GLUCOSE (05/13/2021 8:58 PM DEVELOPMENT ADMINISTRATOR) Glucose, POC 141 (H) 70 - 100 MG/DL MAIN LAB Specimen Performing Organization Address [facility]/ZIP Code P melissa Number MAIN LAB [address] [place] [address] * (ABNORMAL) POC GLUCOSE (05/13/2021 6:33 PM DEVELOPMENT ADMINISTRATOR) Glucose, POC 159 (H) 70 - 100 MG/DL MAIN LAB Specimen Performing Organization Address [facility]/ZIP Code P melissa Number MAIN LAB [address] [place] [address] * (ABNORMAL) POC GLUCOSE (05/13/2021 4:38 PM DEVELOPMENT ADMINISTRATOR) Glucose, POC 141 (H) 70 - 100 MG/DL MAIN LAB Specimen Performing Organization Address City/[facility]/ZIP Code P melissa Number [facility] MAIN [facility] [address] [place] [address] * PROTEIN/CR RATIO,UR RAN (05/13/2021 3:44 PM DEVELOPMENT ADMINISTRATOR) Protein, Random 40 MG/DL [facility] Creatinine, 70 MG/DL [facility] Random Protein/CR 0.6 [facility] ratio Specimen Urine - Urine specimen (specimen) Performing Organization Address [facility] P melissa Number [facility] [address] [place] [address] * URINALYSIS, MICROSCOPIC (05/13/2021 3:44 PM DEVELOPMENT ADMINISTRATOR) WBCs,UA 10-20 0 - 2 /HPF [facility]IN [facility] RBCs,UA 20-50 0 - 3 /HPF [facility] MucousUA TRACE [facility] Squamous 2-5 0 - 5 [facility] Epithelial Cells Specimen Urine - Urine specimen (specimen) Performing Organization Address [facility] P melissa Number [facility] MAIN [facility] [address] [place] [address] * (ABNORMAL) URINALYSIS DIPSTICK (05/13/2021 3:44 PM DEVELOPMENT ADMINISTRATOR) Color,UA YELLOW [facility] Turbidity,UA CLEAR CLEAR-CLEAR [facility] Specific 1.016Comment: NOTE NEW 1.005 - 1.030 [facility] MAIN [facility] Mcleod-Urine REFERENCE RANGES pH,UA 6.0 5.0 - 8.0 [...] - Urine specimen (specimen) Performing Organization Address [facility] Code P melissa Number [facility] MAIN [facility] [address] [place] [address] * (ABNORMAL) POC GLUCOSE (05/13/2021 11:53 AM DEVELOPMENT ADMINISTRATOR) Glucose, POC 138 (H) 70 - 100 MG/DL [facility] Specimen Performing Organization Address [facility] Code P melissa Number [facility] MAIN [facility] [address] [place] [address] * (ABNORMAL) POC GLUCOSE (05/13/2021 7:55 AM DEVELOPMENT ADMINISTRATOR) Pathologist [facility] Glucose, POC 120 (H) 70 - 100 MG/DL [facility]IN [facility] Specimen Performing Organization Address [facility] P melissa Number [facility] [address] [place] [address] * (ABNORMAL) CBC (05/13/2021 7:21 AM DEVELOPMENT ADMINISTRATOR) Pathologist [facility] White Blood 3.5 (L) 4.5 - 11.0 [...] LAB Specimen Blood (substance) Performing Organization Address [facility] Code P melissa Number [facility]IN [facility] [address] [place] [address] * (ABNORMAL) BASIC METABOLIC PANEL (05/13/2021 7:21 AM DEVELOPMENT ADMINISTRATOR) Pathologist [facility] Sodium 137 137 - 147 MMOL/L KU [...] equation Specimen Blood (substance) Performing Organization Address [facility] P melissa Number [facility] [address] [place] [address] * (ABNORMAL) POC GLUCOSE (05/12/2021 10:44 PM DEVELOPMENT ADMINISTRATOR) Pathologist [facility] Glucose, POC 163 (H) 70 - 100 MG/DL [facility] Specimen Performing Organization Address [facility] P melissa Number [facility] [address] [place] [address] * ANTI-NEUT CYTO AB (ANCA/PANCA) (05/12/2021 6:01 PM DEVELOPMENT ADMINISTRATOR) Pathologist [facility] C-ANCA <20,NEGATIVE TITER [facility] P-ANCA >VH=4153,POSITIVE TITER [facility] Specimen Performing Organization Address [facility] P melissa Number [facility] [address] [place] [address] * (ABNORMAL) ELECTROPHORESIS-SERUM PROTEIN (05/12/2021 6:01 PM DEVELOPMENT ADMINISTRATOR) Pathologist [facility] Total 7.2 6.0 - 8.0 G/DL KU [...] [facility] MAIN LAB Interpretation Acute phase reaction. MAIN LAB - SEP Pathologist INTERPRETED BY HALLIE MORALES M.D. [facility] N LAB Signature By the PATH SIGNATURE ABOVE , I attest that I have personally formulated the final interpretation expressed in this report and that the above diagnosis is based upon my examination of the slides and/or other material indicated in this report. Specimen Blood (substance) Performing Organization Address [facility] Code P melissa Number MAIN LAB [address] [place] [address] * (ABNORMAL) KAPPA/LAMBDA FREE LIGHT CHAINS (05/12/2021 6:01 PM DEVELOPMENT ADMINISTRATOR) [place], FLC 7.84 (H) 0.33 - 1.94 MG/DL [facility] Lambda, FLC 9.44 (H) 0.57 - 2.63 MG/DL [facility] [place]/Lambda 0.83 0.26 - 1.65 [facility] FLC Specimen Blood (substance) Performing Organization Address [facility] Code P melissa Number [facility] [address] [place] [address] * IMMUNOFIXATION, SERUM (IFES) (05/12/2021 6:01 PM DEVELOPMENT ADMINISTRATOR) Immuno NO PARAPROTEIN SEEN [facility] Fix-Serum Pathologist INTERPRETED BY HALLIE MORALES M.D. [facility] N LAB Signature By the PATH SIGNATURE ABOVE , I attest that I have personally formulated the final interpretation expressed in this report and that the above diagnosis is based upon my examination of the slides and/or other material indicated in this report. Specimen Blood (substance) Performing Organization Address [facility] P melissa Number [facility] [address] [place] [address] * C4 COMPLEMENT 4 (05/12/2021 6:01 PM DEVELOPMENT ADMINISTRATOR) Pathologist [facility] Complemnt C4 21.0 10 - 49 MG/DL [facility] Specimen Blood (substance) Performing Organization Address [facility] P melissa Number [facility] [address] [place] [address] * C3 COMPLEMENT 3 (05/12/2021 6:01 PM DEVELOPMENT ADMINISTRATOR) Pathologist [facility] Complemnt C3 109.0 88 - 200 MG/DL [facility] Specimen Blood (substance) Performing Organization Address [facility] P melissa Number [facility] [address] [place] [address] * ANTI-DNA DOUBLE STRAND (05/12/2021 6:01 PM DEVELOPMENT ADMINISTRATOR) Pathologist [facility] DNA Double <10 <10 TITER [facility] Strand AB Specimen Blood (substance) Performing Organization Address [facility] P melissa Number [facility] [address] [place] [id number] * (ABNORMAL) MPO/PR3 W REFLEX TO ANCA (05/12/2021 6:01 PM DEVELOPMENT ADMINISTRATOR) Pathologist [facility] Myeloperoxidase 1.7 (H)Comment: <1.0 AI [facility] AB Interpretation: Positive Serine <0.2Comment: Interpretation: <1.0 AI K [facility] MAIN LAB Protease3 AB Negative Specimen Blood (substance) Performing Organization Address City/State/ZIP Code P melissa Number [facility] MAIN [facility] [address] [place] [address] * (ABNORMAL) POC GLUCOSE (05/12/2021 5:10 PM DEVELOPMENT ADMINISTRATOR) Glucose, POC 190 (H) 70 - 100 MG/DL [facility] Specimen Performing Organization Address City/[facility]/ZIP Code P melissa Number MAIN LAB [address] [place] [address] * US RENAL BLADDER COMPLETE (05/12/2021 4:48 PM DEVELOPMENT ADMINISTRATOR) Modality Anatomical Region Laterality Ultrasound Pelvis Specimen Impressions [facility] RAD RESULTS - 05/12/2021 4:54 PM DEVELOPMENT ADMINISTRATOR 1. The kidneys are normal in size. [...] [facility] RAD RESULTS - 05/12/2021 4:54 PM DEVELOPMENT ADMINISTRATOR RENAL ULTRASOUND CLINICAL INDICATION: Von Hippel-Lindau syndrome, [...] * (ABNORMAL) POC GLUCOSE (05/12/2021 12:19 PM DEVELOPMENT ADMINISTRATOR) Pathologist [facility] Glucose, POC 179 (H) 70 - 100 MG/DL MAIN LAB Specimen Performing Organization Address City/State/ZIP Code P melissa Number [facility] MAIN [facility] [address] [place] [address] * (ABNORMAL) CBC AND DIFF (05/12/2021 11:33 AM DEVELOPMENT ADMINISTRATOR) [facility] White Blood 5.1 4.5 - 11.0 [...] LAB MCHC 32.8 32.0 - 36.0 G/DL MAIN LAB RDW 18.6 (H) 11 - [...] Count Specimen Blood (substance) Performing Organization Address City/[facility]/ZIP Code P melissa Number MAIN LAB [address] [place] [address] * BLOOD TYPE CONFIRMATION - ORDER ONLY IF REQUESTED BY LAB (05/12/2021 9:22 AM DEVELOPMENT ADMINISTRATOR) ABO/RH(D) O POS MAIN LAB Specimen Performing Organization Address City/[facility] P melissa Number MAIN LAB [address] [place] [address] * (ABNORMAL) VALPROIC ACID LEVEL (05/12/2021 9:10 AM DEVELOPMENT ADMINISTRATOR) Valproic Acid <10.0 (L) 50.0 - 100.0 MCG/ML MAIN LA B Specimen Performing Organization Address City/[facility]/ZIP [facility] P melissa Number MAIN LAB [address] [place] [address] * TYPE & CROSSMATCH (05/12/2021 9:10 AM DEVELOPMENT ADMINISTRATOR) Units Ordered 0 [facility] MAIN [facility] Crossmatch 05/15/2021,2359 [facility] MA[facility] Expires Record Check 2ND TYPE REQUIRED [facility] MAIN [facility] ABO/RH(D) O POS [facility] Antibody Screen NEG MAIN LAB Electronic YES [facility]IN [facility] Crossmatch Specimen Blood (substance) Performing Organization Address City/[facility]/ZIP Code P melissa Number [facility] MAIN [facility] [address] [place] [address] * (ABNORMAL) BASIC METABOLIC PANEL (05/12/2021 9:10 AM DEVELOPMENT ADMINISTRATOR) Sodium 137 137 - 147 MMOL/L KU [...] equation Specimen Blood (substance) Performing Organization Address [facility] P melissa Number [facility]IN [facility] [address] [place] [address] documented in this encounter Visit Diagnoses Diagnosis CSF leak - Primary Other specified disorder of nervous sys tem Preop testing Preoperative examination, unspecified documented in this encounter Admitting Diagnoses Diagnosis CSF leak Other specified disorder of nervous sys tem documented in this encounter Administered Medications Action Date Dose Rate Site Medication Order MAR Action 05/15/2021 10:07 AM DEVELOPMENT ADMINISTRATOR 20 mg atorvastatin (LIPITOR) tablet 20 mg Given 20 mg, Oral, DAILY, First dose on Sat05/12/21 at 1345, Until Discontinued 20 mg Given 05/14/2021 8:27 AM DEVELOPMENT ADMINISTRATOR 20 mg Given 05/13/2021 8:15 AM DEVELOPMENT ADMINISTRATOR 20 mg Given 05/12/2021 2:39 PM DEVELOPMENT ADMINISTRATOR 05/15/2021 10:08 AM DEVELOPMENT ADMINISTRATOR bacitracin topical ointment Given Topical, TWICE DAILY, First dose on Sat05/12/21 at 1345, Until Discontinued, Apply to bilateral nares. Given 05/14/2021 8:54 PM DEVELOPMENT ADMINISTRATOR Given 05/14/2021 8:28 AM DEVELOPMENT ADMINISTRATOR Given 05/13/2021 8:48 PM DEVELOPMENT ADMINISTRATOR Given 05/13/2021 8:17 AM DEVELOPMENT ADMINISTRATOR Given 05/12/2021 10:49 PM DEVELOPMENT ADMINISTRATOR Given 05/12/2021 2:40 PM DEVELOPMENT ADMINISTRATOR 05/15/2021 10:07 AM DEVELOPMENT ADMINISTRATOR 500 mg divalproex (DEPAKOTE ER) ER tablet 500 Given mg 500 mg, Oral, DAILY, First dose on Sat05/12/21 at 1345, Until Discontinued, Do NOT break or crush tablet 500 mg Given 05/14/2021 8:27 AM DEVELOPMENT ADMINISTRATOR 500 mg Given 05/13/2021 8:15 AM DEVELOPMENT ADMINISTRATOR 500 mg Given 05/12/2021 2:39 PM DEVELOPMENT ADMINISTRATOR 05/15/2021 10:08 AM DEVELOPMENT ADMINISTRATOR 100 mg docusate sodium (COLACE) oral solution Given 100 mg 100 mg, Oral, TWICE DAILY, First dose o n Sat05/12/21 at 1345, Until Discontinued , Hold for loose stools 100 mg Given 05/14/2021 8:52 PM DEVELOPMENT ADMINISTRATOR 100 mg Given 05/12/2021 10:44 PM DEVELOPMENT ADMINISTRATOR 100 mg Given 05/12/2021 2:40 PM DEVELOPMENT ADMINISTRATOR 05/14/2021 9:01 PM DEVELOPMENT ADMINISTRATOR 5,000 Units Abdomina l Tissue heparin (porcine) PF syringe 5,000 Units Given 5,000 Units, Subcutaneous, EVERY 8 HOURS, First dose on Sat05/13/21 at 0600, Until Discontinued, NOTE: This is a HIGH ALERT Medication. 5,000 Units Abdominal Tissue Given 05/14/2021 2:56 PM DEVELOPMENT ADMINISTRATOR 5,000 Units Abdominal Tissue Given 05/14/2021 5:31 AM DEVELOPMENT ADMINISTRATOR 5,000 Units Abdominal Tissue Given 05/13/2021 9:01 PM DEVELOPMENT ADMINISTRATOR 5,000 Units Abdominal Tissue Given 05/13/2021 2:26 PM DEVELOPMENT ADMINISTRATOR 5,000 Units Arm, Left Given 05/13/2021 6:43 AM DEVELOPMENT ADMINISTRATOR 05/15/2021 3:23 PM DEVELOPMENT ADMINISTRATOR 100 mg hydrALAZINE (APRESOLINE) tablet 100 mg Given 100 mg, Oral, THREE TIMES DAILY, First dose on Sat05/12/21 at 1500, Until Discontinued 100 mg Given 05/15/2021 10:07 AM DEVELOPMENT ADMINISTRATOR 100 mg Given 05/14/2021 8:52 PM DEVELOPMENT ADMINISTRATOR 100 mg Given 05/14/2021 2:56 PM DEVELOPMENT ADMINISTRATOR 100 mg Given 05/14/2021 8:27 AM DEVELOPMENT ADMINISTRATOR 100 mg Given 05/13/2021 8:48 PM DEVELOPMENT ADMINISTRATOR 100 mg Given 05/13/2021 2:26 PM DEVELOPMENT ADMINISTRATOR 100 mg Given 05/13/2021 8:16 AM DEVELOPMENT ADMINISTRATOR 100 mg Given 05/12/2021 10:45 PM DEVELOPMENT ADMINISTRATOR 100 mg Given 05/12/2021 2:41 PM DEVELOPMENT ADMINISTRATOR 05/14/2021 6:08 PM DEVELOPMENT ADMINISTRATOR 1 Units Abdomina l Tissue insulin aspart [...] 2 units. -POC glucose 301-350mg/dL at , , administer 4 units insulin, at , 03* administer 3 units. -POC glucos e [...] Units Arm, Left Given 05/12/2021 5:16 PM DEVELOPMENT ADMINISTRATOR 05/14/2021 8:53 PM DEVELOPMENT ADMINISTRATOR 10 mL milk of magnesia (CONC) oral suspension Given 10 mL 10 mL, Oral, AT BEDTIME DAILY, First dose on Sat05/12/21 at 2100, Until Discontinued, Give until first BM. 10 mL Given 05/12/2021 10:44 PM DEVELOPMENT ADMINISTRATOR 05/15/2021 10:09 AM DEVELOPMENT ADMINISTRATOR 1 packet sinus rinse (NASAL RELIEF SINUS Given WASH-BOTTLE) kit 1 packet 1 packet, Nasal, TWICE DAILY, First dos e on 05/14/21 at 1000, Until Discontinued, Mix 1 packet with 240 mL of sterile water 1 packet Given 05/14/2021 1:24 PM DEVELOPMENT ADMINISTRATOR 05/15/2021 10:08 AM DEVELOPMENT ADMINISTRATOR 2 sprays sodium chloride (SEA MIST) 0.65 % nasal Given spray 2 spray 2 spray, Each Nostril, EVERY 3 HOURS WHILE AWAKE, First dose on Sat05/12/21 at 1800, Until Discontinued 2 sprays Given 05/15/2021 8:00 AM DEVELOPMENT ADMINISTRATOR 2 sprays Given 05/14/2021 6:08 PM DEVELOPMENT ADMINISTRATOR 2 sprays Given 05/14/2021 1:25 PM DEVELOPMENT ADMINISTRATOR 2 sprays Given 05/14/2021 10:30 AM DEVELOPMENT ADMINISTRATOR 2 sprays Given 05/14/2021 8:28 AM DEVELOPMENT ADMINISTRATOR 2 sprays Given 05/13/2021 8:48 PM DEVELOPMENT ADMINISTRATOR 2 sprays Given 05/13/2021 7:30 PM DEVELOPMENT ADMINISTRATOR 2 sprays Given 05/13/2021 2:26 PM DEVELOPMENT ADMINISTRATOR 2 sprays Given 05/13/2021 11:54 AM DEVELOPMENT ADMINISTRATOR 2 sprays Given 05/13/2021 8:16 AM DEVELOPMENT ADMINISTRATOR 2 sprays Given 05/12/2021 10:48 PM DEVELOPMENT ADMINISTRATOR 2 sprays Given 05/12/2021 5:10 PM DEVELOPMENT ADMINISTRATOR 05/12/2021 9:17 AM DEVELOPMENT ADMINISTRATOR 1,000 mL 20 mL/hr sodium chloride 0.9 % infusion Given - New 1,000 mL, 1,000 mL, Intravenous, at 20 Bag mL/hr, ONCE, 1 dose, On Sat05/12/21 at 0930, Pre-Op 05/12/2021 5:17 PM DEVELOPMENT ADMINISTRATOR 500 mL 100 mL/hr sodium chloride 0.9 % infusion Given - New 500 mL, 500 mL, Intravenous, at 100 Bag mL/hr, CONTINUOUS, Starting on Sat05/12/21 at 1715, Until Sat05/12/21 at 2214 documented in this encounter Active and Recently Administered Medications Times are shown in DEVELOPMENT ADMINISTRATOR. 05/14/2021 05/15/2021 Medication Order 05/13/2021 0827 (Given - Provider: Alice Rodriguez RN) 1007 (Given - Provider: Ashley Dailey RN ) atorvastatin (LIPITOR) tablet 20 mg 0815 (Given - 20 mg, Oral, DAILY, First dose on Sat Provider: Paul meléndez 05/12/21 at 1345, Until Discontinued EDITH Rodriguez) 0828 (Given - Provider: Alice Rodriguez RN)2053 (Given - Provider: Arabella Alexander RN) 1008 (Given - Provider: Ashley Dailey RN ) bacitracin topical ointment 0817 (Given - Topical, TWICE DAILY, First dose on Sat Provider: Mackenzie tejeda 05/12/21 at 1345, Until Discontinued, EDITH Rodriguez)2047 ( Given Apply to bilateral nares. - Provider: Mora Hastings RN) 08 (Given - Provider: Alice Rodriguez RN) 1007 [...] Refused)2051 (Given - Provider: Arabella Alexander RN) 100 [...] RN)1 456 (Given - Provider: Alice Rodriguez RN)2100 (Given - Provider: Arabella Alexander RN) 0557 (Planned Hold - Provider: Arabella butt RN - Comment: Procedure scheduled)1400 (Due) heparin (porcine) PF syringe 5,000 Units 0643 (Given - 5,000 Units, Subcutaneous, EVERY 8 Provider: Jenn BALBUENA, First dose on 05/13/21 at EDITH De León)1426 0600, Until Discontinued, NOTE: This is (Given - Pro vider: a HIGH ALERT Medication. Alice Rodriguez RN)2100 (Given - Provider: Mora Hastings RN) 0827 (Given - Provider: Alice Rodriguez RN)1456 (Given - Provider: Alice Rodriguez RN)2052 (Given - Provider: Arabella Alexander RN) 1007 (Given - Provider: Ashley Dailey RN )1523 (Given - Provider: Ashley Dailey RN) [...] Rodriguez RN)2101 (Med Not Given - Provider: Arabella Alexander RN - Reason: Order parameters not [...] Comment: 120 )1153 unit insulin, at , 03* administer 0 (Med Not Given - units. -POC glucose 221-260mg/dL at , Provider: Mackenzie tejeda administer 2 units insulin, at EDITH Rodriguez - Bridgette son: * administer 1 unit. -POC glucose Order parame ters not 261-300mg/dL at , , administer 3 met - Commen t: units insulin, at , 03* administer 2 138)1640 (Med Not units. -POC glucose 301-350mg/dL at , Given - Prov ider: 11, 17 administer 4 units insulin, at Alice Rodriguez RN - * administer 3 units. -POC glucose Reason: Ord er 351-400mg/dL at 07, , 17 administer 5 parameters n ot met - units insulin, at , 03* administer 4 Comment: 141) 2101 units. -POC glucose >400mg/dL at 07, 11, (Med Not Gi rusty - 17 administer 6 units insulin, at 22, Provider: Bouchra amezquita 03* administer 5 units. [...] RN) milk of magnesia (CONC) oral suspension 2214 (Med No t Given 10 mL - Provider: Mora 10 mL, Oral, AT BEDTIME DAILY, First EDITH Hastings - Reas on: dose on Sat05/12/21 at 2100, Until Loose stools) Discontinued, Give until first BM. 1324 (Given - Provider: Alice Rodriguez RN)2143 (Planned Hold - Provider: Arabella Alexander RN - Comment: Pt with nasal packing in) 1009 (Given - Provider: Ashley Dailey RN ) sinus rinse (NASAL RELIEF SINUS WASH-BOTTLE) kit 1 packet 1 packet, Nasal, TWICE DAILY, First dos e on 05/14/21 at 1000, Until Discontinued, Mix 1 packet [...] RN)2048 (Given - Provider: Mora Hastings RN) 05/14/2021 05/15/2021 Medication Order 05/13/2021 [...] Have Count Last Ordered Date Been Administered acetaminophen (TYLENOL) tablet 650 mg 1 05/12/2021 EPINEPHrine (ADRENALIN) injection 1 04/16 fentaNYL citrate PF (SUBLIMAZE) 1 2021 injection 25-50 mcg HYDROmorphone injection (DILAUDID) 0.5 1 05/12/2021 mg lidocaine 1%/EPINEPHrine 1:100,000 1 injection lidocaine PF 1% (10 mg/mL) injection 0.2 1 05/12/2021 mL ondansetron (ZOFRAN) injection 4 mg 1 oxyCODONE (ROXICODONE) tablet 5 mg 2 oxymetazoline (AFRIN) 0.05 % nasal spray 1 05/12/2021 SODIUM CHLORIDE 0.9 % IV SOLP (Cabinet 1 05/12/2021 Override) thrombin 5,000 unit 5,000 Units in 1 sodium chloride PF 0.9% 20 mL irrigatio n valproic acid (DEPACON) 500 mg in sodium [...] Concerns Noted Time Assessment 05/15/2021 10:07 AM DEVELOPMENT ADMINISTRATOR A fall risk assessment has been complet ed for the patient documented as of this encounter Care Teams Start Date End Date Chiller Operator Relationship Specialty 03/03/21 Ralf oMon MS PCP - General documented as of this encounter
--- OUTSIDE RECORDS SUMMARY | 2021-05-15 20:20 | XMS REPORT | Encounter Summary ---
Author Author [facility] Organization [facility] Address Unknown Phone Unavailable Care Team Providers Care Core Java Engineer Name Role Phone Ralf Moon MS PCP Unavailable Encounter Details Care Team Description Date Type Department 05/12/2021 Travel Social History Date Tobacco Use Types [...] at Date Recorded Female 04/28/2021 12:27 PM ERP CONSULTANT Date Recorded COVID-19 Exposure Response 05/12/2021 9:01 AM ERP CONSULTANT In the last month, have you [...] illness Hospital On track (05/12/2021 Yes Yani uDarte, 3:01 PM ERP CONSULTANT) RN Note: And be able to walk better documented as of this encounter Visit Diagnoses Not on filedocumented in this encounter Additional Health Concerns Noted Time Assessment 05/12/2021 8:01 PM ERP CONSULTANT A fall risk assessment has been complet ed for the patient documented as of this encounter Care Teams Start Date End Date Core Java Engineer Relationship Specialty 03/03/21 Ralf Moon, MS PCP - General documented as of this encounter
--- OUTSIDE RECORDS SUMMARY | 2021-05-15 20:20 | XMS REPORT | Encounter Summary ---
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] Procedures MN SEPTOPLASTY/SUBMUCOUS RESECJ W/WO CARTILAGE GRF MN NASAL/SINUS NDSC RPR CEREBRSP FLUID LEAK ETHMOID MN STRTCTC CPTR ASSTD PX EXTRADURAL CRANIAL SEPTOPLASTY ENDOSCOPY NASAL/ SINUS WITH REPAIR CEREBROSPINAL FLUID LEAK - ETHMOID REGION STEREOTACTIC COMPUTER-ASSISTED CRANIAL PROCEDURE - EXTRADURAL Referral ID Status Reason Start Date Expiration Visits Vi sits Date Requested Authorized [id number] 1 1 Encounter Details Care Team Description Date Type Department Lucy Andersen MD [address] [place], [place] [id number] August Boyd MD [id number] [place] [address] 05/12/2021 Anesthesia Operating Room: Cam bridge Event [place] A [address] [facility] Level [address] [place] [address] Anesthesia Record Responsible Anesthesiologist Anesthesia Start Time Anesthesi a Stop Time Procedure Name Lucy Andersen MD 05/12/21 0939 05/12/21 1217 SEPTOPLASTY (N/A Nose) Date Time Event Comment 901 AN Equip Check 2021 09 0937 Out of Pre Procedure 0939 Anes Start 0939 An Start Data 0939 In Room 0943 An Induction The patient was ree valuated immediately before moderate or deep sedation use and before anesthesia induction. 0945 An Intubation 0950 Anesthesia Ready 0956 Antibiotic Given 1015 Proc Start 1212 An Extubation 1214 an stop data 1217 Handoff to RN I completed my SBAR handoff to the receiving nurse. 1217 An Stop Meds Name Total fentaNYL PF (SUBLIMAZE) injection 100 mcg lidocaine (2%) 200 mg/10mL Injection 80 mg syringe propofol (DIPRIVAN) 200 mg/ 20 mL 150 mg injection (VIAL) succinylcholine (ANECTINE) injection 120 mg (VIAL) ondansetron (ZOFRAN) injection 4 mg dexamethasone (DECADRON) 4 mg/mL 4 mg injection phenylephrine (JUDI-SYNEPHRINE) 0.1 mg/mL 300 mcg injection syr artificial tears (dextran 2 drop 70/hypromellose) ophthalmic drops propofol (DIPRIVAN) infusion 1,045.31 mg remifentaniL (ULTIVA) 1 mg/3 mL 1,000 676.1 mcg mcg in sodium chloride 0.9% (NS) 20 mL Injection ePHEDrine 50 mg/mL 50 mg in sodium 10 mg chloride PF 0.9% 5 mL IV syringe phenylephrine (JUDI-SYNEPHRINE) 10 mg in 0.23 mg sodium chloride 0.9% (NS) 250 mL IV dri p (std conc) acetaminophen (OFIRMEV) 1000mg injection 1,000 mg valproic acid (DEPACON) 500 mg in sodium 500 mg chloride 0.9% (NS) IVPB lactated ringers (1000mL) 700 mL * Name O2 N2O Inspired Sevoflurane Inspired Sevoflurane * No blood administrations on file. Removal Type Details Placement Peripheral 05/12/21; 0916; RN; R; Inner; Wrist; 20 05/12/21 0916 by Self, IV G; No; 1 EDITH Carr Peripheral 05/12/21; 1100; Provider; Forearm; 20 G 05/12/21 1100 by IV Rahul Khan RN 05/12/21 1212 by Agusto Braswell CRNA ETT 05/12/21; 0945; Mask ventilation not 0 05/12/21 0945 by Latoya attempted (0); Direct laryngoscopy; PALLAVI Scott Single-Lumen, Cuffed; ETT Size: 7mm; Mac; Blade Size: 3; Cricoid Pressure: Yes; Oral; 1-Full view of the glottis; 1 insertion attempt; Auscultation, ETCO2 Detector; Vol of Air in Cuff: 8 mL; Taped at Gums: 21 centimeters; atraumatic intubation; 05/12/21; 1212 05/15/21 1555 by Freddy, Water Resource Project Manager Wounds 05/12/21; 1045; Surgical incision; 1045 by Dk Salter; Nose; 05/15/21; 1555 EDITH Rojas documented in this encounter Social History Date Tobacco Use Types Packs/Day [...] at Date Recorded Female 04/28/2021 12:27 PM USED CAR SALES MANAGER Date Recorded COVID-19 Exposure Response 05/12/2021 9:01 AM USED CAR SALES MANAGER In the last month, have you been in contact with No / Unsure someone who was confirmed or suspected to have Coronavirus / COVID-19? documented as of this encounter Functional Status Date of Assessment Functional Status Response 03/23/2021 Does the patient have a hearing impairment: No documented as of this encounter OR Notes * Anesthesia Postprocedure Evaluation - Alton Jeronimo MD - 05/12/2021 1:44 PM USED CAR SALES MANAGER Post-Anesthesia Evaluation Name: Nathaly Matos : 1940 Age: 81 y.o. Sex: female Procedure Information Anesthesia Start Date/Time: 05/12/21938 Procedures: SEPTOPLASTY (N/A Nose) - 2 hrs ENDOSCOPY NASAL/ SINUS WITH REPAIR CEREBROSPINAL FLUID LEAK - SPHENOID REGIO N (Left Nose) STEREOTACTIC COMPUTER-ASSISTED CRANIAL PROCEDURE - EXTRADURAL (N/A Nose) Location: [facility] / [facility] OR/Periop Surgeons: Reina Aguila MD Post-Anesthesia Vitals BP: 157/78 (05/12 1300) Temp: 36.8 C (98.2 F) (05/12 1300) Pulse: 68 (05/12 1300) Respirations: 21 PER MINUTE (05/12 1300) SpO2: 99 % (05/12 1300) SpO2 Pulse: 68 (05/12 1300) Vitals Value Taken Time BP 157/78 05/12/21 1300 Temp 36.8 C (98.2 F) 05/12/21 1300 Pulse 68 05/12/21 1300 Respirations 21 PER MINUTE 05/12/21 1300 SpO2 99 % 05/12/21 1300 ABP ART BP Post Anesthesia Evaluation Note Evaluation location: pre/post Patient participation: recovered; patient participated in evaluation Level of consciousness: sleepy but conscious Pain management: adequate Hydration: normovolemia Temperature: 36.0C - 38.4C Airway patency: adequate Perioperative Events Post-op nausea and vomiting: no PONV Postoperative Status Cardiovascular status: hemodynamically stable Respiratory status: spontaneous ventilation Perioperative Events Perioperative Event: No Emergency Case Activation: No CAR SALES MANAGER * Anesthesia Preprocedure Evaluation - Lucy Andersen MD - 05/12/2021 9:20 AM USED CAR SALES MANAGER Anesthesia Pre-Procedure Evaluation Name: Nathaly Matos : 1940 Age: 81 y.o. Sex: female Procedure Info: Procedure Information Date/Time: 05/12/21 1020 Procedures: SEPTOPLASTY (N/A ) - 2 hrs ENDOSCOPY NASAL/ SINUS WITH REPAIR CEREBROSPINAL FLUID LEAK - ETHMOID REGION (Bilateral ) STEREOTACTIC COMPUTER-ASSISTED CRANIAL PROCEDURE - EXTRADURAL (N/A ) Location: [facility] / [facility] OR/Periop Surgeons: Reina Aguila MD Physical Assessment Vital Signs (last filed in past 24 hours): BP: 154/67 (05/12 909) Temp: 37.1 C (98.7 F) (05/12 909) Pulse: 74 (05/12 909) Respirations: 24 PER MINUTE (05/12 909) SpO2: 96 % (05/12 909) Height: 170.2 cm (67") (05/12 909) Weight: 68.5 kg (151 lb) (05/12 909) Patient History No Known Allergies Current Medications Medication Directions aspirin EC 81 mg tablet Take 81 [...] Take 100 mg by mouth three times daily. Review of Systems/Medical History Patient summary reviewed Nursing notes reviewed Pertinent labs reviewed PONV Screening: Female gender and Non-smoker No history of anesthetic complications No family history of anesthetic complications Airway - negative Pulmonary Not a current smoker No pulmonary embolus No recent URI Home oxygen use (since 10/2020- unsure of exact reason per patient and her sp ouse; 2L when sat < 90; intermittently uses, difficulty qualifying when) No sleep apnea Cardiovascular Exercise tolerance: <4 METS Beta Joce therapy: No Beta blockers within 24 hours: n/a Hypertension (< 150, has clonodine if > 150), Valvular problems/murmurs (ECHO 06/2020: mild aortic sclerosis) No past WI, Coronary artery disease (incidental coronary calcification on CT 10/2020) No PTCA No palpitations No angina No DVT CHF (ECHO 06/2020: asymmetric septal hypertrophy with evidence of mild hypert rophic cardiomyopathy findings; normal EF of 60%) Hyperlipidemia No orthopnea (patient can't really articulate this, sleeps in a bed) No indications/hx of PND Dyspnea on exertion ("sort of" with a shower or ADLs) No syncope ASA 81mg GI/Hepatic/Renal No GERD, No hx of liver disease Renal disease (creatinine 1.88 03/30/21): CRI No electrolyte problems No nausea No vomiting No hepatitis Neuro/Psych Seizures (seizure 03/23, low-depakote levels noted at that time) No CVA Weakness No indications/hx of sensory deficit No psychiatric history Meningioma - 1992 resected 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 Musculoskeletal No neck pain Endocrine/Other Diabetes (5.4% 10/2020; doesn't take meds, doesn't check blood sugars, patien t largely unaware), type 2 No hypothyroidism Anemia No blood dyscrasia No history of blood transfusion No autoimmune disease No malignancy (renal mass - pending full evaluation- imaging 12/2020, followi ng with nephrology per PCP; biopsy pending scheduling ([place])) Von-Hippel Lindau syndrome Constitution - negative Physical Exam Airway Findings Mallampati: III TM distance: >3 FB Neck ROM: full Mouth opening: good Airway patency: adequate Dental Findings: Negative Cardiovascular Findings: Rhythm: regular Rate: normal No murmur Pulmonary Findings: Breath sounds clear to auscultation. Abdominal Findings: Abdominal exam deferred Neurological Findings: Alert and oriented x 3 Constitutional findings: No acute distress Diagnostic Tests Hematology: Lab Results Component Value Date HGB 8.4 03/23/2021 HCT 26.3 03/23/2021 PLTCT 252 03/23/2021 WBC 3.3 03/23/2021 NEUT 73 03/23/2021 ANC 2.41 03/23/2021 ALC 0.54 03/23/2021 DANIEL 5 03/23/2021 AMC 0.18 03/23/2021 EOSA 5 03/23/2021 ABC 0.03 03/23/2021 MCV 74.8 03/23/2021 MCH 24.0 03/23/2021 MCHC 32.1 03/23/2021 MPV 7.1 03/23/2021 RDW 17.8 03/23/2021 General Chemistry: Lab Results Component Value Date NA 135 03/23/2021 K 4.6 03/23/2021 CL 100 03/23/2021 CO2 25 03/23/2021 GAP 10 03/23/2021 BUN 36 03/23/2021 CR 1.51 03/23/2021 GLU 118 03/23/2021 CA 9.0 03/23/2021 ALBUMIN 3.3 03/23/2021 MG 2.0 03/23/2021 TOTBILI 0.3 03/23/2021 Coagulation: No results found for: PT, PTT, INR EKG 03/23/2021: SR, NICD, anteroseptal t-wave inversion CT 03/23/2021: Head: 1. Evaluation of the parenchyma and subarachnoid spaces is mildly limited due to dense contrast material from prior cisternogram. 2. Prior bilateral occipital craniectomy with stable large area of right cerebellar encephalomalacia and more mild medial left occipital lobe encephalomalacia. 3. Small stable area of gliosis at the anterolateral right frontal lobe, likely corresponding to prior EVD tract. Additional very small area of encephalomalacia/gliosis at the superior left frontal lobe. 4. No extra-axial fluid collection identified. 5. Persistent generalized cerebral volume loss with asymmetrically greater dilatation of the left temporal horn and some adjacent left temporal lobe encephalomalacia anteriorly redemonstrated. Maxillofacial: 1. CSF leak identified through the head defect at the lateral wall of the left sphenoid sinus, as described above. 2. Some additional minimal probable contrast accounts for high density material collecting within the hypopharyngeal mucosal surface. 3. No acute maxillofacial fracture identified. CXR 03/23/2021 Mild cardiomegaly with mild interstitial prominence which may represent edema. Pneumonia or underlying fibrosis could also be present. CXR 03/30/2021 ([facility], different location) COMPARISON: 10/14/2020 -increased bilateral interstitial opacities -Increased bilateral interstitial opacities which may be developing interstitial pneumonia, pneumonitis or fluid overload. ECHO 06/2020 - Normal LV function, EF 60% - Concentric LVH, asymmetric septal hypertrophy - Normal RV size & function - No significant valvular abnormality CT Chest 10/24/2020: 1. No hilar adenopathy. 2. Stigmata of previous granulomatous disease. 3. Mild bilateral dependent atelectasis. 4. Otherwise normal CT of the thorax. No mediastinal adenopathy, pulmonary sancho s or pleural effusions. CT Abdomen (12/14/20) - right renal cystic mass, hepatomegaly, splenomegaly, bibas ilar bronchiectasis with bilateral infiltrate R > L, cardiomegaly with trace pericardial effusion. Nephrology (04/27/21) - Two suspicious renal lesions. Recommend watching for nguyen ges and referral to urology for second opinion/biopsy. Anesthesia Plan ASA score: 3 Plan: general Induction method: intravenous and inhalational NPO status: acceptable Informed Consent Anesthetic plan and risks discussed with patient. Use of blood products discussed with patient Plan discussed with: anesthesiologist, PLANT MAINTENANCE TECHNICIAN and SRNA. Comments: (I have seen the patient and agree with the history, physical and anes thesia plan as above. Risks, benefits and alternatives of general anesthesia inc luding, but not limited to sore throat, oral/dental injury, allergic reactions, PONV, aspiration, respiratory failure, WI, CVA discussed with patient who report s understanding. Patient agrees to proceed with planned anesthetic after risks/b enefits/alternatives explained. Lucy Andersen MD Cell Preparer, Anesthesiology and Pain Medicine Available by Voalte or Pager: [phone] ) Patient difficult historian, very difficult to elucidate details; and wi fe talking over one another. Labs: CBC, BMP, T&C DOS (most recent labs 03/30/21 in [facility]- Hgb 8.5 (relatively consistent, drop from 9.1 10/2020, creatinine up to 1.88 with BUN of 40) ANGELY: CT A/P from 12/2020 (identified renal mass per PCP), nephrology note Consults: seeing loop tender week following surgery for a "routine check" per h er (PCP confirms it was an eval scheduled for a workup but not due to a particular symptom or concern). Partial history obtained from PCP via phone 05/08/2021 SaO2 98% at last OV with him week of April 24. He confirmed she is following with nephrology for pending renal mass biopsy and creatinine rise ([place]). [place] obtain nephrology note and imaging (CT A/P). He was not able to clarify as to why she was on O2, cited normal O2 sat with recent office visit on RA. Obtained patient's verbal consent to treat them and their agreement to [facility] policy and NPP via this telehealth visit during the Coronavirus [facility]. Visit done via phone per their need/request. CAR SALES MANAGER documented in this encounter Plan of Treatment Not on filedocumented as of this encounter Goals Goal Patient Associated Recent Progress Patient-Stat Aut hor Goal Type Problems ed? Recover from illness Hospital On track (05/12/2021 Yes Yani Duarte, 3:01 PM USED CAR SALES MANAGER) RN Note: And be able to walk better documented as of this encounter Visit Diagnoses Not on filedocumented in this encounter Administered Medications Action Date Dose Rate Site Medication Order MAR Action 05/12/2021 11:04 AM USED CAR SALES MANAGER 1,000 mg acetaminophen (OFIRMEV) injection Given Intravenous, Administer over 15 Minutes , INTRA-PROCEDURE MED, Starting on Sat05/12/21 at 1104, Until Sat05/12/21 at 1221, Anesthesia Intra-op 05/12/2021 9:45 AM USED CAR SALES MANAGER 2 drops artificial tears single dose ophthalmic Given solution Both Eyes, INTRA-PROCEDURE MED, Startin g on Sat05/12/21 at 0945, Until Sat05/12/21 at 1221, Anesthesia Intra-op 05/12/2021 10:01 AM USED CAR SALES MANAGER 4 mg dexamethasone (DECADRON) injection Given Intravenous, INTRA-PROCEDURE MED, Starting on Sat05/12/21 at 1001, Until Sat05/12/21 at 1221, Anesthesia Intra-o p 05/12/2021 10:16 AM USED CAR SALES MANAGER 10 mg ePHEDrine 50 mg/mL 50 mg in sodium Given - New chloride PF 0.9% 5 mL IV syringe Bag 5 mL, Intravenous, INTRA-PROCEDURE MED(CONT), Starting on Sat05/12/21 at 1016, Until Sat05/12/21 at 1221, Anesthesia Intra-op 05/12/2021 9:43 AM USED CAR SALES MANAGER 100 mcg fentaNYL citrate PF (SUBLIMAZE) Given injection Intravenous, INTRA-PROCEDURE MED, Starting on Sat05/12/21 at 0943, Until Sat05/12/21 at 1221, Anesthesia Intra-o p 05/12/2021 9:30 AM USED CAR SALES MANAGER lactated ringers infusion Given - New Intravenous, INTRA-PROCEDURE MED(CONT), Bag Starting on Sat05/12/21 at 0930, Until Sat05/12/21 at 1221, Anesthesia Intra-o p 05/12/2021 9:43 AM USED CAR SALES MANAGER 80 mg lidocaine (PF) injection Given Intravenous, INTRA-PROCEDURE MED, Starting on Sat05/12/21 at 0943, Until Sat05/12/21 at 1221, Anesthesia Intra-o p 05/12/2021 12:06 PM USED CAR SALES MANAGER 4 mg ondansetron (ZOFRAN) injection Given Intravenous, INTRA-PROCEDURE MED, Starting on Sat05/12/21 at 1206, Until Sat05/12/21 at 1221, Anesthesia Intra-o p 05/12/2021 10:21 AM USED CAR SALES MANAGER 0.3 mcg/kg/min 30.825 mL/hr phenylephrine (JUDI-SYNEPHRINE) 10 mg in Given - New sodium chloride 0.9% (NS) 250 mL IV drip Bag (std conc) 250 mL, Intravenous, INTRA-PROCEDURE MED(CONT), Starting on Sat05/12/21 at 1021, Until Sat05/12/21 at 1221, Anesthesia Intra-op 05/12/2021 10:00 AM USED CAR SALES MANAGER 100 mcg phenylephrine (JUDI-SYNEPHRINE) injection Given syringe Intravenous, INTRA-PROCEDURE MED, Starting on Sat05/12/21 at 0949, Until Sat05/12/21 at 1221, Anesthesia Intra-o p 100 mcg Given 05/12/2021 9:56 AM USED CAR SALES MANAGER 100 mcg Given 05/12/2021 9:49 AM USED CAR SALES MANAGER 05/12/2021 11:45 AM USED CAR SALES MANAGER 80 mcg/kg/min 32.88 mL/hr propofol (DIPRIVAN) infusion Dose/Rate 100 mL, Intravenous, INTRA-PROCEDURE Change MED(CONT), Starting on Sat05/12/21 at 0947, Until Sat05/12/21 at 1221, Anesthesia Intra-op 125 mcg/kg/min 51.375 mL/hr Dose/Rate Change 05/12/2021 10:43 AM USED CAR SALES MANAGER 110 mcg/kg/min 45.21 mL/hr Dose/Rate Change 05/12/2021 10:38 AM USED CAR SALES MANAGER 100 mcg/kg/min 41.1 mL/hr Dose/Rate Change 05/12/2021 10:01 AM USED CAR SALES MANAGER 130 mcg/kg/min 53.43 mL/hr Given - New Bag 05/12/2021 9:47 AM USED CAR SALES MANAGER 05/12/2021 9:43 AM USED CAR SALES MANAGER 150 mg propofol (DIPRIVAN) injection Given Intravenous, INTRA-PROCEDURE MED, Starting on Sat05/12/21 at 0943, Until Sat05/12/21 at 1221, Anesthesia Intra-o p 05/12/2021 11:45 AM USED CAR SALES MANAGER 0.08 mcg/kg/min 6.576 mL/hr remifentaniL (ULTIVA) 1 mg/3 mL 1,000 Dose/Rate mcg in sodium chloride 0.9% (NS) 20 mL Change Injection Intravenous, INTRA-PROCEDURE MED(CONT), Starting on Sat05/12/21 at 0947, Until Sat05/12/21 at 1221, Anesthesia Intra-o p 0.07 mcg/kg/min 5.754 mL/hr Dose/Rate Change 05/12/2021 10:38 AM USED CAR SALES MANAGER 0.06 mcg/kg/min 4.932 mL/hr Dose/Rate Change 05/12/2021 10:21 AM USED CAR SALES MANAGER 0.08 mcg/kg/min 6.576 mL/hr Given - New Bag 05/12/2021 9:47 AM USED CAR SALES MANAGER 05/12/2021 9:43 AM USED CAR SALES MANAGER 120 mg succinylcholine (ANECTINE) injection Given Intravenous, INTRA-PROCEDURE MED, Starting on Sat05/12/21 at 0943, Until Sat05/12/21 at 1221, Anesthesia Intra-o p 05/12/2021 11:08 AM USED CAR SALES MANAGER 500 mg valproic acid (DEPACON) 500 mg in sodium Given - New chloride 0.9% (NS) IVPB Bag 500 mg, Intravenous, 105 mL, Administer over 60 Minutes, ONCE IN OR, 1 dose, On Sat05/12/21 at 1100 documented in this encounter Additional Health Concerns Noted Time Assessment 05/12/2021 8:01 PM USED CAR SALES MANAGER A fall risk assessment has been complet ed for the patient documented as of this encounter Care Teams Start Date End Date Register In Chancery Relationship Specialty 03/03/21 Ralf Moon MS PCP - General documented as of this encounter
--- OUTSIDE RECORDS SUMMARY | 2021-05-15 20:20 | XMS REPORT | Encounter Summary ---
Author Author [facility] Organization [facility] Address Unknown Phone Unavailable Care Team Providers Care Test Grader Name Role Phone Ralf Moon MS PCP Unavailable Encounter Details Care Team Description Date Type Department 03/23/2021 Travel Social History Date Tobacco Use Types [...] at Date Recorded Female 04/28/2021 12:27 PM SOLAR SALES REP Date Recorded COVID-19 Exposure Response 03/23/2021 1:06 PM SOLAR SALES REP In the last month, have you been [...] Concerns Noted Time Assessment 03/23/2021 10:50 AM SOLAR SALES REP A fall risk assessment has been complet ed for the patient documented as of this encounter Care Teams Start Date End Date Test Grader Relationship Specialty 03/03/21 Ralf Moon MS PCP - General documented as of this encounter
--- OUTSIDE RECORDS SUMMARY | 2021-05-15 20:20 | XMS REPORT | Encounter Summary ---
Author Author [facility] Organization [facility] Address Unknown Phone Unavailable Care Team Providers Care Wall To Wall Carpet Installer Name Role Phone Ralf Moon MS PCP Unavailable Encounter Details Care Team Description Date Type Department Reina Aguila MD [address] [place], [place] [id number] Preop testing (Primary Dx) 05/08/2021 PAC Office Pre-anesthesia: Radha kramer [address], [address] [place] [address] Anesthesia Record Responsible Anesthesiologist Anesthesia Start Time Anesthesi a Stop Time Procedure Name Lucy Andersen MD 05/12/21 0939 05/12/21 1217 SEPTOPLASTY (N/A Nose) Date Time Event Comment 901 AN Equip Check 2021 0922 0937 Out of Pre Procedure 0939 Anes [...] the receiving nurse. 1217 An Stop Meds * No agents on file. * No blood administrations on file. Removal Type Details Placement Peripheral 05/12/21; 0916; RN; R; Inner; Wrist; 20 05/12/21 0916 by Self, IV G; No; 1 EDITH Carr Peripheral 05/12/21; 1100; Provider; Forearm; 20 G 05/12/21 1100 by Rahul Monterroso RN 05/12/21 1212 by Agusto Braswell CRNA ETT 05/12/21; 0945; Mask ventilation not 0 05/12/21 0945 by christopher Klein (0); Direct laryngoscopy; PALLAVI Scott Single-Lumen, Cuffed; ETT Size: 7mm; Mac; Blade Size: 3; Cricoid Pressure: Yes; Oral; 1-Full view of the glottis; 1 insertion attempt; Auscultation, ETCO2 Detector; Vol of Air in Cuff: 8 mL; Taped at Gums: 21 centimeters; atraumatic intubation; 05/12/21; 1212 05/15/21 1555 by Freddy, Sampling Expert Wounds 05/12/21; 1045; Surgical incision; 1045 by [...] at Date Recorded Female 04/28/2021 12:27 PM TEAMCENTER CONSULTANT Date Recorded COVID-19 Exposure Response 05/08/2021 11:01 AM TEAMCENTER CONSULTANT In the last month, have you been in contact with Olga ble to assess someone who was confirmed or suspected to have Coronavirus / COVID-19? documented as of this encounter Functional Status Date of Assessment Functional Status Response 03/23/2021 Does the patient have a hearing impairment: No documented as of this encounter Miscellaneous Notes * Pre-Anesthesia Patient Instructions - Charlene Kennedy RN - 05/08/2021 8:05 AM TEAMCENTER CONSULTANT GENERAL INFORMATION Before you come to the hospital If you are having outpatient surgery, make arrangements for a responsible adult to drive you home and stay with you for 24 hours following surgery. Bath/Shower Instructions Take a bath or shower with antibacterial soap the night before or the morning of your procedure. Use clean towels. Put on clean clothes after bath or shower. Avoid using lotion and oils. If you are having surgery above the waist, wear a shirt that fastens up the fron t. Sleep on clean sheets if bath or shower is done the night before procedure. Leave money, credit cards, jewelry, and any other valuables at home. [facility] is not responsible for the loss or breakage of personal i tems. Remove nail french, makeup and all jewelry (including piercings) before coming t o the hospital. The morning of your procedure: brush your teeth and tongue do not smoke do not shave the area where you will have surgery What to bring to the hospital ID/ Insurance Card Hitting Coach card Official documents for legal guardianship Copy of your Living Will, Advanced Directives, and/or Durable Power of Chemistry Research Assistant Small bag with a few personal belongings CPAP/BiPAP machine (including all supplies) Walker,cane, or motorized scooter Cases for glasses/hearing aids/contact lens (bring solutions for contacts) Dress in clean, loose, comfortable clothing Eating or drinking before surgery Do not eat or drink anything after 11:00 p.m. the day before your procedure (inc luding gum, mints, candy, or chewing tobacco) OR follow the specific instruction s you were given by your Surgeon. You may have WATER ONLY up to 2 hours before arriving at the hospital. Other instructions Notify your surgeon if: you become ill with a cough, fever, sore throat, nausea, vomiting or flu-like sy mptoms you develop a rash or have any open wounds/sores that are red, painful, draining , or are new since you last saw the doctor you need to cancel your procedure You will receive a call with your surgery arrival time from between 2:30pm and 4 :30pm the last business day before your procedure. If you do not receive a call , please call [phone] before 4:30pm or [phone] after 4:30pm. Notify us at [place]: if you need to cancel your procedure if you are going to be late Arrival at the hospital Kellie Matute A [address] [place] [address] in the P5 parking garage located at [address] [facility], [place] [address]. Tooth Grinder parking is available in front of [facility] between the hours of 7: 00 am and 4:00 pm Saturday through Saturday. If parking in the P5 garage, take the east elevators in the parking garage to [facility] second level and walk to the entrance of the [facility]. Enter through the 1st floor main entrance and check in with Information Desk. Coronavirus (COVID19) Information If you get sick with fever (100.4F/38C or higher), cough, or have trouble breath ing: Call your primary care physician for questions or health needs. Tell your doctor about any recent travel and your symptoms. Check your MyChart for your COVID swab results. (MyChart notifications are immed iate and patients are often know their test result before their surgeon is notif ied). Notify your surgeon if you are COVID+ positive. If you are COVID+ positive DO NOT come to the hospital for your surgery until yo ur surgeon has instructed you on what to do. Wait for instructions to find out i f you should stay home or if you should still have surgery. Avoid contact with others. For up to date information on the Coronavirus, visit the CDC website at CDC.gov. For the safety of all patients, visitors and staff as we work to contain COVID-1 9, we must restrict patient visitors. Current Visitor Policy (04/18/21): Our current, and ongoing, visitor rules in surgery and procedural areas are: 1 visitor per patient will be allowed to accompany the patient and wait in the W aiting Room No visitors will be allowed into the pre/post areas Patients in inpatient and pediatric units, Emergency Department, ambulatory clin ics and lab appointments may only have two visitors. For inpatient stays, only two visitors may visit per day. The policy applies to [facility], [facility] and [facility] and clinics. Exceptions include: No visitors allowed for patients with active COVID-19 infections. No visitors under the age of 12 for inpatients. Parents or guardians may bring their children to their clinic appointments or br ing siblings to their children's clinic appointment. One visitor allowed during a patients cancer exam appointment; however, no vi sitors allowed during their cancer treatment/infusion appointment; check with st clive for exceptions. One visitor allowed in perioperative and procedural waiting rooms; no visitors a llowed in pre/post areas unless a patient becomes an overnight boarder. Two parents/guardians are allowed for surgical or procedural patients younger th an 18 years old. Adult inpatients in semiprivate rooms may have visitors, but visits should be co ordinated so only two total visitors are in a room at a time due to space limita tions. Visitors must be free of fever and symptoms to be in our facilities. We ask visi tors to follow these guidelines: Wear a mask at all times, unless under the age of 2, have trouble breathing or a re unconscious, incapacitated or otherwise unable to remove the cover without as sistance. Go directly to the nursing station in the unit you are visiting and do not linge r in public areas. Check in at the nursing station before going to the patient's room. Maintain a physical distance of six feet from all others. Follow elevator restrictions to four riding at a time - peak times are 6:30-7:30 a.m., noon and 6:30-7:30 p.m. Be aware cafeteria peak times are 11 a.m. - 1 p.m. Wash your hands frequently and cover your coughs and sneezes. Pre-Surgery Shower Bathe with an antibacterial soap such as Dial Antibacterial (Dial Gold antibacte rial bar soap - can be purchased at a pharmacy or [employer]). Shower with this soap the DAY BEFORE and the MORNING OF your surgery. This mild soap reduces the amount of germs on your skin that could cause an infe ction. 1) Shampoo your hair and wash your face with the soap you normally use. 2) From the neck down, apply the antibacterial bar soap with a clean washcloth. 3) Do not shave surgical area. 4) Turn water off to prevent rinsing the antibacterial soap off too soon. Wash your body gently for 2 minutes. Pay special attention to the area where you livia l have your surgery. Do not wash with your regular soap after the antibacterial soap is used. 5) After this soap has been on your skin for 2 minutes, rinse your body thorough ly. 6) Pat yourself dry with a clean, soft towel. 7) Do not put products such as lotion, deodorant, powder, or perfume/aftershave on your hair, face or skin after your shower. 8) Put on freshly laundered clothes and sleep on freshly laundered linens. 9) Wear freshly laundered clothes to the hospital the day of surgery. CENTER CONSULTANT * Pre-Anesthesia Medication Instructions - Oswaldo Ro, PHARMD - 05/05/2021 2:24 PM TEAMCENTER CONSULTANT YOUR MEDICATION LIST aspirin EC 81 mg tablet Take 81 [...] 100 mg by mouth three times daily. YOUR MEDICATION INSTRUCTIONS FOR SURGERY Please continue taking your medications as your doctor has told you to UNLESS it is listed to stop below. 14 DAYS BEFORE SURGERY Do not take the following vitamins, herbals, and supplements: CoQ10 Do not start any new vitamins, herbals, or natural supplements before surgery. 7 DAYS BEFORE SURGERY DO NOT TAKE the following anti-inflammatory medications such as ibuprofen (Advil , Motrin) and naproxen (Aleve) You may use acetaminophen (Tylenol) BLOOD THINNER instructions: Aspirin (for heart health): Start holding now prior to surgery. Your last dose w as on 05/08/21. Per Stacy Clarke RN with Dr. Aguila, this hold will be acceptable prior to th is procedure. - CC DAY BEFORE SURGERY TAKE your medications the day before surgery as usual unless told differently. MORNING OF SURGERY DO NOT take these medications: Remaining vitamins/supplements Ointments/creams/lotions Folic acid TAKE these medications with a sip (1-2 ounces) of water: Atorvastatin Divalproex Hydralazine Please contact the clinic pharmacist with any changes to your medication list or medication questions before surgery. E-mail: [email or web address] Before going home from the hospital, please ask your doctor when you should re-s tart any medicine that was stopped for surgery. CENTER CONSULTANT documented in this encounter Plan of Treatment Not on filedocumented as of this encounter Visit Diagnoses Diagnosis Preop testing - Primary Preoperative examination, unspecified documented in this encounter Care Teams Start Date End Date Wall To Wall Carpet Installer Relationship Specialty 03/03/21 Ralf Moon MS PCP - General documented as of this encounter
--- OUTSIDE RECORDS SUMMARY | 2021-05-15 20:20 | XMS REPORT | Encounter Summary ---
Author Author [facility] Organization [facility] Address Unknown Phone Unavailable Care Team Providers Care Drying Room Supervisor Name Role Phone Rafl Moon MS PCP Unavailable Reason for Visit * Reason Onset Date Comments Other 05/08/2021 pre op COVID test Encounter Details Care Team Description Date Type Department Stacy Clarke RN Other (pre op COVID test) 05/08/2021 Telephone Otolaryngology: [facility], [facility] [address] [place] [address]. 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 Advised this toyin t needs to be done 3 days prior to surgery with results hand-carried in. Provide d callback number. L FITTER documented in this encounter Plan of Treatment Not on filedocumented as of this encounter Visit Diagnoses Not on filedocumented in this encounter Care Teams Start Date End Date Drying Room Supervisor Relationship Specialty 03/03/21 Ralf Moon MS PCP - General documented as of this encounter
--- OUTSIDE RECORDS SUMMARY | 2021-05-15 20:20 | XMS REPORT | Encounter Summary ---
Author Author [facility] Organization [facility] Address Unknown Phone Unavailable Care Team Providers Care Fermentation Engineer Name Role Phone Ralf Moon MS PCP Unavailable Encounter Details Care Team Description Date Type Department 04/06/2021 Hospital Imaging: [facility], Encounter [facility] [address], [address] [place] [address] Social History Date Tobacco Use Types Packs/Day [...] at Date Recorded Female 04/28/2021 12:27 PM BUDDHIST MONK Date Recorded COVID-19 Exposure Response 03/31/2021 12:03 PM BUDDHIST MONK In the last month, have you been in contact with No / Unsure someone who was confirmed or suspected to have Coronavirus / COVID-19? documented as of this encounter Functional Status Date of Assessment Functional Status Response 03/23/2021 Does the patient have a hearing impairment: No documented as of this encounter Medications at Time of Discharge [...] while awake. documented as of this encounter Discharge Disposition Code Departure Means Destination Disposition Home Home or Self Care documented in this encounter Plan of Treatment Not on filedocumented as of this encounter Procedures Comments Procedure Name Priority Date/Time Associated Diag nosis CT CHEST EXTERNAL IMAGING Routine 04/06/2021 12:00 AM BUDDHIST MONK documented in this encounter Results * CT CHEST EXTERNAL IMAGING (04/06/2021 12:00 AM BUDDHIST MONK) Modality Anatomical Region Laterality Computed Radiography Specimen Narrative Scheduling, Silent - 05/11/2021 10:08 AM BUDDHIST MONK This order has been auto finalized and does not contain a result. documented in this encounter Visit Diagnoses Not on filedocumented in this encounter Additional Health Concerns Noted Time Assessment 03/23/2021 10:50 AM BUDDHIST MONK A fall risk assessment has been complet ed for the patient documented as of this encounter Care Teams Start Date End Date Fermentation Engineer Relationship Specialty 03/03/21 Ralf Moon MS PCP - General documented as of this encounter
--- OUTSIDE RECORDS SUMMARY | 2021-05-15 20:20 | XMS REPORT | Encounter Summary ---
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 Procedures CT MAXIFACIAL/SINUS W CONTRAST CT MAXIFACIAL/SINUS WO CONTRAST Vlad Kenny MD [address] [facility] [address] [place] [address] [facility] [address] [place] [address] Radiology Referral ID Status Reason Start Date Expiration Visits Vi sits Date Requested Authorized [id number] Canceled 03/03/2021 03/03/2022 1 1 Encounter Details Care Team Description Date Type Department Vlad Kenny MD [address] [facility] [address] [place] [address] Canceled (Patient-Rescheduled) 03/23/2021 Hospital Imaging, CT: Main [facility], Encounter Main Hospital [address] [facility] [address], [address] [place] [address] Social History Date Tobacco Use [...] at Date Recorded Female 04/28/2021 12:27 PM TEENAGE BABYSITTER Date Recorded COVID-19 Exposure Response 03/23/2021 1:06 PM TEENAGE BABYSITTER In the last month, have you been in contact with Yes someone who was confirmed or suspected to have Coronavirus / COVID-19? documented as of this encounter Functional Status Date of Assessment Functional Status Response 03/23/2021 Does the patient have a hearing impairment: No documented as of this encounter Medications at Time of Discharge Start Date End Date Medication Sig Dispensed Refills aspirin EC 81 mg tablet Take 81 mg by 0 mouth daily. 08/25/2019 atorvastatin (LIPITOR) 20 Take 20 mg by 0 mg tablet mouth daily. coQ10 (ubiquinol) 100 mg Take 1 0 cap capsule by mouth daily. 01/15/2021 divalproex (DEPAKOTE ER) Take 500 mg 0 500 mg ER tablet by mouth daily. 01/27/2013 folic acid 400 mcg tablet Take 400 mcg 0 by mouth daily. 12/10/2017 hydrALAZINE (APRESOLINE) Take 100 mg 0 100 mg tablet by mouth three times daily. 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
--- OUTSIDE RECORDS SUMMARY | 2021-05-15 20:20 | XMS REPORT | Encounter Summary ---
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 Procedures IR CISTERNOGRAM Vlad Kenny MD [address] [facility] [address] [place] [address] Ca[address] [place] [id number] Radiology Referral ID Status Reason Start Date Expiration Visits Vi sits Date Requested Authorized [id number] Authorized 03/03/2021 03/03/2022 1 1 DCAST DIRECTOR OPERATIONS Reason for Visit * Radiology Services (Routine) - Authorized Diagnoses / Procedures Referred By Contact Referred To Conta ct Specialty Diagnoses 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 Procedures IR CISTERNOGRAM Vlad Kenny MD [address] [facility] [address] [place] [address] Ca2 Ir [facility] [address] [phone] Radiology Referral ID Status Reason Start Date Expiration Visits Vi sits Date Requested Authorized [id number] Authorized 03/03/2021 03/03/2022 1 1 Encounter Details Care Team Description Date Type Department Vlad Kenny MD [address] [facility] [address] [place] [address] Charissa Holley, Hayder Smith, RT(R)(),LRT Tony Rivers MD [address] [id number] 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 documented as of this encounter Last Filed Vital Signs Reading Time Taken Comments Vital Sign 156/98 03/23/2021 12:30 PM BROADCAST DIRECTOR OPERATIONS Blood Pressure 101 03/23/2021 12:30 PM BROADCAST DIRECTOR OPERATIONS Pulse 36.8 C (98.2 F) 03/23/2021 10:45 AM BROADCAST DIRECTOR OPERATIONS Temperature - - Respiratory Rate 94% 03/23/2021 12:25 PM BROADCAST DIRECTOR OPERATIONS Oxygen Saturation - - Inhaled Oxygen Concentration - - Weight - - Height - - Body Mass Index documented in this encounter [...] Disposition Code Departure Means Destination Disposition Wheelchair Home or Self Care documented in this encounter Progress Notes * Charissa Holley, EDITH - 03/23/2021 12:34 PM BROADCAST DIRECTOR OPERATIONS 1212: Pt was transporting between MPR and CT while prone post intrathecal contra st injection for cisternogram. Pt abruptly stopped speaking, began exhibiting fu ll body rhythmic movements, jaw clenching with sputtering tachypnic respirations , and spO2 dropped from ~93% RA to observed low of 72% with stabilization at 78% . No bradycardia noted and pt remained in prior RBBB with PACs. Rapid response called with immediate assistance provided from CT staff and CA I R RNs and IR physicians prior to WEB SERVICES MANAGER arrival. Pt assisted into right side lying rescue position, NRB at 15L initiated, oral celeste ction provided with immediate relief of oral gurgling. Failed IV attempt x1 foll owed successful placement of 20ga in right ac at 1217 and 1mg IV ativan given pe r Dr Tony Joshi's verbal order. Relief of motor symptoms observed post ativan ad ministration and pt began to exhibit purposeful movement and jaw relaxation. HOB elevated to 40 degrees related the concern of airway safety. Care assumed by WEB SERVICES MANAGER with predicted disposition of ER with CT; pt transported on monitor via cart, and was alert, oriented, and verbal post ictal. ADDENDUM: 1mg ativan given IM and not IV by EDITH Reyes. No IV ativan administer ed. DCAST DIRECTOR OPERATIONS * Nils Garcia RN - 03/23/2021 11:00 AM BROADCAST DIRECTOR OPERATIONS Interventional Radiology Outpatient Scheduling Checklist 1. Name of Procedure(s): Cisternogram 2. Date of Procedure: 03/23/21 3. Arrival Time: 1000 4. Procedure Time: 1100 5. Correct Procedural Room Assignment: CA MPR 6. Blood Thinners Triaged and instructed per protocol: Y/N/NA: NA Confirmed accurate instructions sent to patient: Y/N: NA 7. Procedure Order Verified: Y/N: Yes 9. Patient instructed to have a yard driver: Y/N/NA: Yes 10. Patient instructed on NPO status: Y/N/NA: na Confirmed accurate instructions sent to patient: Y/N: Yes 11. Specimen needed: Y/N/NA: na Verified Order placed: Y/N: Yes 12. Allergies Verified: Y/N: Yes 13. Is there an Iodine Allergy: Y/N: No Does the Procedure Require contrast: Y/N: Yes If so, was the IR- Contrast Allergy Pre-Procedure Medication protocol ordered: Y /NA: NA 14. Does the patient have labs according to IR Pre-procedure Laboratory Paramet er policy: Y/N/NA: na If No, was the patient instructed to obtain labs prior to procedure: Y/N/NA: NA 15. Will the patient need to be admitted or have a possible admission: Y/N: No If yes, confirmed accurate instructions sent to patient: Y/N/NA: NA 16. Patient States Understanding: Y/N: Yes 17. History of SOFIA: Y/N: No If yes, confirm request to bring CPAP sent to patient: Y/N/NA: NA 18. Patient declines electronic procedure instructions: Y/N: No email. DCAST DIRECTOR OPERATIONS * Ernesto Zaldivar MD - 03/23/2021 2:00 AM BROADCAST DIRECTOR OPERATIONS Neurology Consultation Name: Nathaly Matos Admission Date: 03/23/2021 LOS: 0 days CA2 IR RM/CA2 IR BD ASSESSMENT: Active Problems: * No active hospital problems. * Consult type: Opinion with orders Nathaly Matos is a 81 y.o. female with PMH of von Hippel-Lindau disease, T2DM, HTN, HLD, epilepsy (follows with Dr. Millan in [place], [place]), meningioma s/p res ection, hemangioblastoma s/p resection that presented to the ED on 03/23/2021 aft er a generalized tonic-clonic seizure during IR cisternogram to evaluate possibl e chronic CSF leak. Neurology is consulted to evaluate for breakthrough seizure. Neuro exam reveals an alert, oriented woman in no acute distress. No focal neur ologic deficits identified. Imaging/Diagnostic Studies: - Depakote level: 43 - CXR negative - CT head/maxillofacial and IR cistulogram demonstrated left sphenoid skull defe ct with identified CSF leak Impression: Patient experienced 1 breakthrough GTC seizure during IR cisternogra m. Interestingly, this seems to have been triggered by her turning prone which could potentially be the result of cortical irritability, or it may be coinciden kimmy. She is currently back to her prior baseline according to the patient and he r . Subtherapeutic Depakote level on labs, with patient reporting full c ompliance. We will increase her STEAM METER READER Depakote ER to 1500 mg QHS and recommend sh e follow-up with her outpatient neurologist Dr. Millan in [place], [place]. Per neur osurgery documentation, they will call patient with results of cisternogram elisabeth rrow to discuss further management cisternogram tomorrow to discuss further fabrizio gement. RECOMMENDATIONS: > No barrier to discharge from ED from neurology standpoint > Increase Depakote ER to 1500 mg QHS given subtherapeutic depakote level > Advised patient to follow-up with her outpatient neurologist Dr. Millan in [place], [place] > Seizure precautions Thank you for allowing us to participate in the care of this patient. Please pag e neurology consulting sales manager with any further questions or concerns. Patient discussed with Dr. Temple and communicated to primary team. Ernesto Zaldivar MD Neurology, PGY-2 Available on Voalte Pager: __ History of Present Illness: Nathaly Matos is a 81 y.o. female being seen for ne urologic evaluation regarding breakthrough seizures. The patient was initially admitted on 03/23/2021 for IR cisternogram for possible CSF leak. She was rapid responded due to GTC seizure while in IR and brought to the ED for further evaluation. History obtained from patient and patient's at bedside. Patient reports she has a longstanding history of epilepsy and follows with Dr. Millan in [facility] in [place]. She has generalized tonic-clonic seizures approximately once every 2 to 3 months. Her last seizure was 4 months ago. Per documentation, patient was in IR for cisternogram and upon turning the patient prone she abruptly stopp ed speaking and had a generalized tonic-clonic seizure and subsequently received IM Ativan 1 mg with cessation of event. While in the ER, stated patient may have had a second event as she was more encephalopathic after briefly leav ing the room. She takes Depakote 1000 mg ER at night. She has been compliant w ith her medications as prescribed. She was previously trialed on Keppra but was discontinued due to experiencing side effects. She reports she is currently fe eling back to baseline and is comfortable with discharge home No complaints of fever, chills, headache, vision changes, chest pain, dyspnea, m uscle weakness, sensory deficits, nausea, vomiting. Medical History: Diagnosis Date DM (diabetes mellitus) (HCC) High cholesterol Hypertension Seizure (HCC) Surgical History: Procedure Laterality Date BRAIN [...] file Social History Narrative Not on file No family history on file. Immunizations (includes history and patient reported): There is no immunization history on file for this patient. Allergies: Patient has no known allergies. Medications: No medications prior to admission. No current facility-administered medications on file prior to encounter. Current Outpatient Medications on File Prior to Encounter Medication Sig Dispense Refill aspirin EC 81 mg tablet every 24 hours. atorvastatin (LIPITOR) 20 mg tablet every 24 hours. coQ10 (ubiquinol) 100 mg cap Take by mouth. divalproex (DEPAKOTE ER) 500 mg ER tablet folic acid 400 mcg tablet every 24 hours. hydrALAZINE (APRESOLINE) 100 mg tablet every 8 hours. Review of Systems: Constitutional: negative Eyes: negative Ears, nose, mouth, throat, and face: negative Respiratory: negative Cardiovascular: negative Gastrointestinal: negative Genitourinary: negative Integument/breast: negative Hematologic/lymphatic: negative Musculoskeletal: negative Neurological: negative Behavioral/Psych: negative Endocrine: negative Allergic/Immunologic: negative Physical Exam: Vital Signs: Last Filed In 24 Hours Vital Signs: 24 Hour Range BP: 142/75 (03/23 2000) Temp: 37.1 C (98.8 F) (03/23 1306) Pulse: 70 (03/24 132) Respirations: 20 PER MINUTE (03/24 132) SpO2: 96 % (03/24 132) SpO2 Pulse: 70 (03/24 132) BP: (121-166)/(64-138) Temp: [36.8 C (98.2 F)-37.1 C (98.8 F)] Pulse: [70-101] Respirations: [11 PER MINUTE-27 PER MINUTE] SpO2: [92 %-100 %] HEENT: normocephalic, eyes open with no discharge Chest: normal configuration, non labored breathing, chest rise equal b/l Skin: no rashes or lesions Psych: normal Neuro: Mental status: Oriented to person/place/time/situation Memory: Recent and remote memory intact Attention: Good span, follows conversation. (distractible, or limited). Fund of knowledge: Appropriate, (good, low) Level of consciousness: Alert, somnolent, lethargic, stuporous, comatose. Speech: Fluency: Normal/paraphasias/stuttering/decreased output Comprehension: Normal/some difficulty/unable to follow along Articulation: Normal or dysarthria Repetition: Normal or impaired Naming: Normal or impaired CN II-XII: Fundoscopic exam without obvious abnormalities. Visual aguilera intact in all aguilera, PERRL, EOMI, facial sensation intact. Symmetrical facial movement . Hearing grossly intact to conversation. Strong cough, elevates palate b/l, uvu la midline. Strong shoulder shrug. Tongue midline. Motor: Normal tone and bulk. No abnormal movement, fasciculation or pronator dri ft. R L R L Neck flexors Hip flexors 5 5 Neck extensors Hip abductors Shoulder Abductors 5 5 Hip extensors Elbow flexors 5 5 Hip adductors Elbow extensors 5 5 Knee flexors 5 5 Wrist flexors Knee extensors 5 5 Wrist extensors Ankle dorsiflexors 5 5 Finger flexors 5 5 Ankle plantar flexors 5 5 Finger abductors Ankle inversion Ankle eversion Toe flexors Toe extensors Sensory: Light touch: intact Reflexes: deferred Cerebellar Function/fine movement: normal finger to nose, heel to king Gait: not assessed Lab/Radiology/Other Diagnostic Tests: 24-hour labs: Results for orders placed or performed during the hospital encounter of 03/23/21 (from the past 24 hour(s)) POC GLUCOSE Collection Time: 03/23/21 12:19 PM Result Value Ref Range Glucose, POC 83 70 - 100 MG/DL POC Glucose (Download): 83 (03/23/21 1219) Pertinent radiology reviewed. Ernesto Zaldivar MD Neurology Resident Consult pager [phone] DCAST DIRECTOR OPERATIONS Associated attestation - Good Temple MD - 03/24/2021 9:21 AM BROADCAST DIRECTOR OPERATIONS I have discussed the care of this patient over the phone with Dr. Zaldivar but have not seen the patient. I agree with the assessment and plan. documented in this encounter H&P Notes * Heraclio Berman P, LANDSCAPE CONTRACTOR-ACTIVITIES COORDINATOR - 03/23/2021 10:41 AM BROADCAST DIRECTOR OPERATIONS IR Pre-Procedure History and Physical/Sedation Plan Procedure Date: 03/23/2021 Planned Procedure(s): CT cisternogram Indication: Evaluate for CSF leak Chief Complaint: CSF leak History of Present Illness: Nathaly Matos is a 81 y.o. female with a history as listed below who presents today for procedure. Patient Active Problem List Diagnosis Date Noted CSF leak 03/03/2021 Meningioma (HCC) 03/03/2021 Hemangioblastoma of brain (HCC) 03/03/2021 Medical History: Diagnosis Date DM (diabetes mellitus) (HCC) High cholesterol Hypertension Seizure (HCC) Surgical History: Procedure Laterality Date BRAIN MENINGIOMA EXCISION 1992 HX BRAIN SURGERY 2010 hemiangioblastoma Social History Tobacco Use Smoking status: Never Smoker Smokeless tobacco: Never Used Substance Use Topics Alcohol use: Never No family history on file. Medications Prior to Admission Medication Sig Dispense Refill Last Dose aspirin EC 81 mg tablet every 24 hours. atorvastatin (LIPITOR) 20 mg tablet every 24 hours. coQ10 (ubiquinol) 100 mg cap Take by mouth. divalproex (DEPAKOTE ER) 500 mg ER tablet folic acid 400 mcg tablet every 24 hours. hydrALAZINE (APRESOLINE) 100 mg tablet every 8 hours. No Known Allergies Review of Systems A comprehensive review of systems was negative. Physical Exam: Vital Signs: Last Filed In 24 Hours Vital Signs: 24 Hour Range General appearance: Alert and no distress noted. Neurologic: Grossly normal. Lungs: Non labored at rest Heart: Regular rate and rhythm Abdomen: Non-distended Pre-procedure anxiolysis plan: N/A Sedation/Medication Plan: Local anesthetic Personal history of sedation complications: Denies adverse event. Family history of sedation complications: Denies adverse event. Medications for Reversal: NA Discussion/Reviews: Physician has discussed risks and alternatives of this type of sedation and above planned procedures with patient NPO Status: NA Airway: NA Head and Neck: NA Mouth: NA Anesthesia Classification: ASA III (A patient with a severe systemic disease th at limits activity, but is not incapacitating) Status: Not Lab/Radiology/Other Diagnostic Tests: Labs: Pertinent labs reviewed Heraclio Berman APRN-ACTIVITIES COORDINATOR Pager [phone] DCAST DIRECTOR OPERATIONS documented in this encounter Procedure Notes * Librado Michaels MD - 03/23/2021 11:53 AM BROADCAST DIRECTOR OPERATIONS Immediate Post Procedure Note Date: 03/23/2021 Attending Physician: Tita Performing Provider: Librado Michaels MD Consent: Consent obtained from patient. Time out performed: Consent obtained, correct patient verified, correct procedur e verified, correct site verified, patient marked as necessary. Pre/Post Procedure Diagnosis: CSF leak Indications: As above Procedure(s): LP with cisternogram Findings: Clear csf with pressure less than 5cm water. Contrast administered. D ynamic and CT images with be obtained Estimated Blood Loss: None/Negligible Specimen(s) Removed/Disposition: None Complications: None Patient Tolerated Procedure: Well Post-Procedure Condition: stable Librado Michaels MD Pager [phone] DCAST DIRECTOR OPERATIONS documented in this encounter Miscellaneous Notes * Response Teams - Asya Knowles RN - 03/23/2021 12:33 PM BROADCAST DIRECTOR OPERATIONS Rapid Response Team Progress Note Date: 03/23/2021 Time: 12:33 PM Patient: Nathaly Matos Attending: Vlad Kenny MD Service: Interventional Radiology Admission Date: 03/23/2021 LOS: 0 days A Code/Rapid Response Timeline Event Report has been created for this patient on 03/23 at 1213. Pt was in CT post intrathecal contrast administration and proned when patient was observed by staff to have seizure like activity. Pt initially w / desaturations in oxygen per report. Given 1mg ativan prior to WEB SERVICES MANAGER arrival. VS on WEB SERVICES MANAGER arrival. BS WNL. Plan to take pt to ED for further work up. The Attending physician, Dr. Rivers, was notified by EDITH Lombardi, of this event. Asya Knowles RN DCAST DIRECTOR OPERATIONS * Patient Education - Nils Garcia RN - 03/23/2021 11:00 AM BROADCAST DIRECTOR OPERATIONS Dear Ms. Matos, Thank you for choosing [facility] Interventional Rad iology for your procedure. Your appointment information is listed below: Appointment Date: 03/23/21 Appointment Time: 11:00am Arrival Time: 10:00am Location: ? [facility]: [address] [place] [address] Parking: [address] Parking Garage Please check into Admissions on the ground level of the [facility]. Then pr oceed to Interventional Radiology which [facility]. Per our discussion this procedure is completed in two parts and is expected to t brody approximately 3.5 hours and end with a CT scan. You will receive a text message notification regarding your post-procedure CT scan. Please disregard the arrival time and procedure time in the text message. You will need to arrive at the time and location provided in these instructions. INTERVENTIONAL RADIOLOGY PRE-PROCEDURE INSTRUCTIONS SEDATION You are scheduled for a procedure in Interventional Radiology with procedural se dation. Please follow these instructions and any direction from your Primary Ca re/Managing Physician. If you have questions about your procedure or need to re schedule please call [phone]. Medication Instructions: You may take the following medications with a small sip of water: < ALL MEDICATIONS SCHEDULED > Diet Instructions: Maintain a regular diet with no restrictions. Day of Exam Instructions: 1. Bathe or shower with an antibacterial soap prior to your appointment. 2. If you have a history of Obstructive Sleep Apnea (SOFIA) bring your CPAP/BIPAP. 3. Bring a list of your current medications and the dosages. 4. Wear comfortable clothing and leave valuables at home. 5. Arrive (1) hour prior to your appointment. This time will be spent registeri ng, interviewing, assessing, educating and preparing you for the test. You will be with us anywhere from 30 minutes to 6 hours after your exam depe nding on your procedure. 6. You may be sedated for the procedure. A responsible adult must drive you home (no Uber, taxis or buses are allowed) and stay with you overnight. If you do not have a yard driver we will be unable to perform your procedure. 7. You will not be able to return to work or drive the same day if receiving sed ation. DCAST DIRECTOR OPERATIONS * Patient Instructions - Flavia Ivey BSN - 03/23/2021 10:41 AM BROADCAST DIRECTOR OPERATIONS Images from the original note were not included. INTERVENTIONAL RADIOLOGY DISCHARGE INSTRUCTIONS at [facility], [place], [place] CISTERNOGRAM A cisternogram is performed to detect problems with spinal fluid circulation and cerebrospinal fluid (CSF) leaks. Itis astudy that can be completed in 3 dif ferent ways: either using CT, MRI, or nuclear medicine scans. A radionuclide cis ternogram is a procedure which involves injecting a radionuclideinto the spina l canal to determine if there is abnormal CSF flow within the brain and/orspin al canal. It may also evaluate a suspected leak (also known as a CSFfistula) f rom the CSF cavity into the nasal cavity. [facility] the injection, and again in [address] or MRI cisternogram, [facility] CT or MRI contrast will be injected via lumbar puncture. For these types of cisternogram, you will not have to return after 48 hours for an additional scan. POST-PROCEDURE PAIN: Pain control following your procedure is a priority for both you and your Phy sicians. Some soreness or tenderness at the site is to be expected for several days. W e recommend taking over the counter analgesics to help relieve this pain. Alternative methods for pain relief include but not limited to heat or cold c ompress, relaxation techniques, rest, and changing of positions. If pain continues after 5-7 days or you have severe pain not relieved by medi cation, please contact us as directed below. POST-PROCEDURE ACTIVITY: A responsible adult must drive you home. You should not drive after the cis ternogram until the following morning. If you receive sedation, narcotic pain medication or anesthesia for the proce dure, you should not drive or operate heavy machinery or do anything that requir es concentration for at least 24 hours after procedure completion. It is recommended that a responsible adult be with you until morning. You should rest for 6-8 hours after the procedure with your head at a 30-45? angle (1-2 pillows). If you develop a spinal headache, lie flat for 24 hours. A spinal headache is caused by a CSF leak; a typical symptom is when your headache is worse when you are up that improves when lying flat. You should rest today and avoid lifting or straining for 24 hours. You may resume normal activity in 24 hours, only limited by residual pain. Some residu al pain is to be expected for a couple of days post procedure. POST-PROCEDURE SITE CARE: You will have a small bandage over the procedure site. Keep this dry. You may remove it in 24 hours. You may shower in 24 hours, after removing the bandage. Do not submerge the procedure site for 1 week (no bathtub, swimming, hot tub, etc.) Do not use ointments, creams or powders on the puncture site. Be sure your hands are clean when touching near the site. DIET/MEDICATIONS: You may resume your previous diet after the procedure. If you receive sedation or narcotic pain medications, avoid any foods or beve rages containing alcohol for at least 24 hours after the procedure. Please see the Medication Reconciliation sheet for instructions regarding res uming your home medications. Keep well hydrated; you are encouraged to drink plenty of caffeinated fluids as this can help to prevent a spinal headache. CALL THE DOCTOR IF: You develop a severe headache or new onset neck stiffness. Bright red blood soaks the bandage. You have pain not relieved by medication. Some soreness at the site is to b e expected. You have signs of infection such as: fever greater than 101F, chills, redness , warmth, swelling, drainage or pus from the puncture site. For any of the above symptoms or for problems or concerns related to the procedu re, [phone] Saturday-Saturday from 7-5p. After-hours and weekends, constanza guerrero [phone] and ask for the Interventional [employer] Farmworker on-call. You or your caregiver should call [phone] for any severe symptoms such as excessive bleeding, severe dizziness, trouble breathing or loss of consciousness. 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 CSF/contrast was demonstrated leaking from the [...] [facility] RESULTS - 03/23/2021 3:07 PM BROADCAST DIRECTOR OPERATIONS Exam: Fluoroscopically guided intrathecal instillation of contrast [...] Code P melissa Number [facility] RESULTS documented in this encounter Visit Diagnoses Diagnosis 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 Cerebrospinal fluid rhinorrhea documented in this encounter Administered Medications Action Date Dose Rate Site Medication Order MAR Action 03/23/2021 12:19 PM BROADCAST DIRECTOR OPERATIONS 15 mL iopamidol IT 300 (ISOVUE-M 300) Given injection 15 mL 15 mL, Intrathecal, ONCE, 1 dose, On Th u 03/23/21 at 1230, NOTE: This is a HIGH ALERT Medication. 03/23/2021 12:17 PM BROADCAST DIRECTOR OPERATIONS 1 mg Gluteal, Left LORazepam (ATIVAN) injection 1 mg Given 1 mg, Intramuscular, ONCE, 1 dose, On Tamara 03/23/21 at 1315, PROTECT FROM LIGHT documented in this encounter Active and Recently Administered Medications Times are shown in BROADCAST DIRECTOR OPERATIONS. 03/22/2021 03/23/2021 Medication Order 03/21/2021 1219 (Given - Provider: Hayder Bagley, RT(R) (),LRT) iopamidol IT 300 (ISOVUE-M 300) injection 15 mL (COMPLETED) 15 mL, Intrathecal, ONCE, 1 dose, On Th u 03/23/21 at 1230, NOTE: This is a HIGH ALERT Medication. 1217 (Given - Provider: Harjit Moraes, EDITH - Comment: Given in CT during seizure) LORazepam (ATIVAN) injection 1 mg (COMPLETED) 1 mg, Intramuscular, ONCE, 1 dose, On Tamara 03/23/21 at 1315, PROTECT FROM LIGHT documented in this encounter Additional Health Concerns Noted Time Assessment 03/23/2021 10:50 AM BROADCAST DIRECTOR OPERATIONS A fall risk assessment has been complet ed for the patient documented as of this encounter Care Teams Start Date End Date Fuel System Maintenance Worker Relationship Specialty 03/03/21 Ralf Moon MS PCP - General documented as of this encounter
--- OUTSIDE RECORDS SUMMARY | 2021-05-15 20:20 | XMS REPORT | Encounter Summary ---
Author Author [facility] Organization [facility] Address Unknown Phone Unavailable Care Team Providers Care Tooling Supervisor Name Role Phone Ralf Moon MS PCP Unavailable Encounter Details Care Team Description Date Type Department Reina Aguila MD [address] [place] [address] 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 (Primary Dx); Encounter for screening laboratory testing for COVID-19 virus in asymptomatic patient 03/31/2021 Prep for Case Otolaryngology: [facility] [address] [facility] [address] [place] [address] Social History Date Tobacco Use [...] at Date Recorded 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 documented as of this encounter Functional Status Date of Assessment Functional Status Response 03/23/2021 Does the patient have a hearing impairment: No documented as of this encounter Plan of Treatment Order Schedule Name Type Priority Associated Diag noses Expected: 05/09/2021 (Approximate), Expi res: 03/31/2022 COVID-19 (SARS-COV-2) PCR Microbiology Routine Enco unter for screening laboratory testing for COVID-19 virus in asymptomatic patient documented as of this encounter Visit Diagnoses Diagnosis 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 - Primary Cerebrospinal fluid rhinorrhea Encounter for screening laboratory test ing for COVID-19 virus in asymptomatic patient documented in this encounter Orders First Ordered Date Case Request Count Last Ordered Date CASE REQUEST 1 03/31/2021 documented in this encounter Additional Health Concerns Noted Time Assessment 03/23/2021 10:50 AM MERCHANDISE DELIVERER A fall risk assessment has been complet ed for the patient documented as of this encounter Care Teams Start Date End Date Tooling Supervisor Relationship Specialty 03/03/21 Ralf Moon, PCP - General documented as of this encounter
--- OUTSIDE RECORDS SUMMARY | 2021-05-15 20:20 | XMS REPORT | Encounter Summary ---
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 Evaluation of the parenchyma and [...] [facility] RESULTS - 03/23/2021 8:05 PM PHYSICIAN OPHTHALMOLOGIST EXAM: CT HEAD AND MAXILLOFACIAL HISTORY: SEIZURE, [...] melissa Number KU RAD RESULTS * CT HEAD WO CONTRAST (03/23/2021 6:16 PM PHYSICIAN OPHTHALMOLOGIST) Modality Anatomical Region Laterality Computed Tomography Head Specimen Impressions [facility] RAD RESULTS - 03/23/2021 8:05 PM PHYSICIAN OPHTHALMOLOGIST Head: 1. Evaluation of the parenchyma and [...] [facility] RAD RESULTS - 03/23/2021 8:05 PM PHYSICIAN OPHTHALMOLOGIST EXAM: CT HEAD AND MAXILLOFACIAL HISTORY: SEIZURE, [...] RESULTS documented in this encounter Visit Diagnoses Not on filedocumented in this encounter Additional Health Concerns Noted Time Assessment 03/23/2021 10:50 AM PHYSICIAN OPHTHALMOLOGIST A fall risk assessment has been complet ed for the patient documented as of this encounter Care Teams Start Date End Date Kettle Chipper Relationship Specialty 03/03/21 Ralf Moon MS PCP - General documented as of this encounter
--- OUTSIDE RECORDS SUMMARY | 2021-05-15 20:20 | XMS REPORT | Encounter Summary ---
Author Author [facility] Organization [facility] Address Unknown Phone Unavailable Care Team Providers Care Circus Agent Name Role Phone Ralf Moon MS PCP Unavailable Reason for Visit * Reason Comments Seizure rapided at IR, sz like acti vitchristy was noticed upon getting contrast for scan. Known sz hx. Encounter Details Care Team Description Date Type Department José Mead MD [address] [place] [address] 03/23/2021 Emergency Emergency Departmen t: - [facility], [facility] 03/24/2021 Hospital [address] [facility] Level [address] [place] [address] Social History Date Tobacco Use [...] at Date Recorded Female 04/28/2021 12:27 PM SLURRY MIXER Date Recorded COVID-19 Exposure Response 03/23/2021 1:06 PM SLURRY MIXER In the last month, have you been in contact with Yes someone who was confirmed or suspected to have Coronavirus / COVID-19? documented as of this encounter Last Filed Vital Signs Reading Time Taken Comments Vital Sign 142/75 03/23/2021 8:00 PM SLURRY MIXER Blood Pressure 70 03/24/2021 1:32 AM SLURRY MIXER Pulse 37.1 C (98.8 F) 03/23/2021 1:06 PM SLURRY MIXER Temperature - - Respiratory Rate 96% 03/24/2021 1:32 AM SLURRY MIXER Oxygen Saturation - - Inhaled Oxygen Concentration - - Weight - - Height - - Body Mass Index documented in this encounter Functional Status Date of Assessment Functional Status Response 03/23/2021 Does the patient have a hearing impairment: No documented as of this encounter Discharge Instructions * Instructions* Nilay Meredith DO - 03/24/2021 You were seen today in the emergency department for seizure. Your work-up was st able and reassuring, no emergent cause of your symptoms was identified at this [facility]. While you are in the emergency department you were seen by emergency physi cians, neurosurgery, and neurology. As discussed, please follow-up with your [facility] care doctor after discharge for continuity of care. Our neurologist also wanted you to follow-up with your neurologist in [place]. Our neurology team rec ommended increasing your Depakote at night to 1500 mg. If you experience any ne w or worsening symptoms such as multiple seizures within a day, seizures lasting longer than 5 minutes, or other concerning symptoms please return to the emerge ncy department for reevaluation. Thank you for letting us be part of your care. documented in this encounter Medications at Time [...] Disposition Code Departure Means Destination Disposition Home or Self Care documented in this encounter Progress Notes * Nilay Meredith DO - 03/24/2021 1:34 AM SLURRY MIXER Care received from Dr. Silverman. Neurology evaluated the patient and recommended discharge. They recommended she follow-up with her neurologist in [place]. They recommended increasing Depakote to 1500 mg in the evening. This was discussed with the patient. RY MIXER documented in this encounter Consult Notes * Ernesto Zaldivar MD - 03/23/2021 11:40 PM SLURRY MIXER Associated Order(s): CONSULT NEUROLOGY PHYSICIAN Neurology Consultation Name: Nathaly Matos Admission Date: 03/23/2021 LOS: 0 days ASSESSMENT: Active Problems: * No active hospital problems. * Consult type: Opinion with orders Nathaly Matos is a 81 y.o. female with PMH of von Hippel-Lindau disease, T2DM, HTN, HLD, epilepsy (follows with Dr. 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 We will increase her CERTIFIED SURGICAL TECH/FIRST ASSISTANT Depakote ER to 1500 mg QHS and recommend sh e follow-up with her outpatient neurologist Dr. Millan in [place], [place]. Per neur osurgery documentation, they will call patient with results of cisternogram elisabeth rrow to discuss further management cisternogram tomorrow to discuss further fabrizio gement. RECOMMENDATIONS: > No barrier to discharge from ED from neurology standpoint > Increase Depakote ER to 1500 mg QHS given subtherapeutic depakote level > Advised patient to follow-up with her outpatient neurologist Dr. Millan in [place], [place] > Seizure precautions Thank you for allowing us to participate in the care of this patient. Please pag e neurology operations manager assistant with any further questions or concerns. Patient [...] epilepsy and follows with Dr. Millan in [facility] in [place]. She has generalized tonic-clonic seizures approximately once [...] Ernesto Zaldivar MD Neurology Resident Consult pager [phone] RY MIXER Associated attestation - Good Temple MD - 03/24/2021 9:21 AM SLURRY MIXER I have discussed the care of this patient over the phone with Dr. Zaldivar but have not seen the patient. I agree with the assessment and plan. * Cullen Holden MD - 03/23/2021 8:31 PM SLURRY MIXER Neurosurgery Consult History and Physical Note Admission Date: 03/23/2021 LOS: 0 days Reason for Consult: seizure Consult type: Opinion Consulting Physician: Neurosurgery Attendings: Vlad Kenny MD Requesting Physician: ED Assessment/Plan: Nathaly Matos is a 81 y.o. 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 She was in interventional radiology today for an outpatien t cisternogram to evaluate for the site of the leakage. During the procedure sh zack had a seizure which was typical for her previous seizures. Cisternogram was c ompleted and post procedure CT does identify the source of the leak through the left sphenoid sinus. There is no obvious intracranial hemorrhage or acute neuro surgical issue identified on CT scan. This CSF leak can be treated in an outpat ient manner. It is possible that the cisternogram contrast was irritating to he r cortex triggering a seizure, or the timing may have been coincidental. Patien t has returned to nearly her neurologic baseline with exception of some mild dys arthria which may be either postictal versus secondary to the Ativan she has rec eived. -No acute neurosurgical intervention indicated -Dr. Kenny will call the patient tomorrow to discuss results of the cisternogram in detail and plans for further management -Okay to discharge from a neurosurgical perspective, defer to the emergency depa rtment need for further observation Patient and plan discussed with Dr. Zoya Holden MD Please page [phone] with questions. History of Present Illness: Nathaly Matos is a 81 y.o. 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 She was in interventional radiology today for an outpat ient cisternogram to evaluate for the site of the leakage. During the procedure she had a seizure which was typical for her previous seizures. Her seizures in volve involuntary contractions of the bilateral upper and lower extremities. Debbi dixon currently takes Depakote for seizure prophylaxis. She states that she feels a s though she has returned to her normal self with the exception of some mild dys arthria. She otherwise feels well. Past Medical History: Medical History: Diagnosis Date DM (diabetes mellitus) (HCC) High cholesterol Hypertension Seizure (HCC) Past Surgical History: Surgical History: Procedure Laterality Date BRAIN MENINGIOMA EXCISION 1992 HX BRAIN SURGERY 2010 hemiangioblastoma Social History: Social History Tobacco Use Smoking status: Never Smoker Smokeless tobacco: Never Used Vaping Use Vaping Use: Never used Substance Use Topics Alcohol use: Never Drug use: Never Family History: No family history on file. Allergies: Patient has no known allergies. Medications: CERTIFIED SURGICAL TECH/FIRST ASSISTANT: Current Outpatient Medications Medication Instructions aspirin EC 81 mg tablet EVERY 24 HOURS atorvastatin (LIPITOR) 20 mg tablet EVERY 24 HOURS coQ10 (ubiquinol) 100 mg cap Oral divalproex (DEPAKOTE ER) 500 mg ER tablet No dose, route, or frequency recor ded. folic acid 400 mcg tablet EVERY 24 HOURS hydrALAZINE (APRESOLINE) 100 mg tablet EVERY 8 HOURS Inpatient: Scheduled Meds:Continuous Infusions: PRN and Respiratory Meds: Review of Systems: Full 10 point review of systems negative except for HPI Physical Exam: Vital Signs: Last Filed in 24 hours Vital Signs: 24 hour Range BP: 142/75 (03/23 2000) Temp: 37.1 C (98.8 F) (03/23 1306) Pulse: 79 (03/23 2026) Respirations: 17 PER MINUTE (03/23 2026) SpO2: 96 % (03/23 2026) SpO2 Pulse: 89 (03/23 2026) BP: (121-166)/(64-138) Temp: [36.8 C (98.2 F)-37.1 C (98.8 F)] Pulse: [76-101] Respirations: [11 PER MINUTE-27 PER MINUTE] SpO2: [92 %-100 %] General appearance: No acute distress Lungs: breathing comfortably on room air, equal bilateral chest rise Heart: extremities warm and well perfused Gastrointestinal: non-distended Musculoskeletal: No edema, redness or tenderness in the calves or thighs Skin: Integument intact without major lesion. Psychiatric: Normal affect Neurologic Exam: Mental Status: Awake, alert and oriented x 4, fluent speech, normal cognition Pupils: Pupils equal round and reactive to light Cranial Nerves: CN II-XII individually tested, patient with mild dysarthria and right facial droop at rest that is symmetric with smiling, cranial nerves otherw ise found to be intact, gag not tested Motor: AA EF EE WE FA G HF KE DF PF EHL Left 5 5 5 5 5 5 5 5 5 5 5 Right 5 5 5 5 5 5 5 5 5 5 5 Normal muscle bulk and tone No pronator drift Sensation: Sensation intact to light touch throughout Deep Tendon Reflexes: Bi Br Pa Ac Left 2 2 2 2 Right 2 2 2 2 Plantar responses toes downgoing bilaterally No clonus bilaterally No ku's sign bilaterally LabTests: Hematology: Lab Results Component Value Date HGB 8.4 03/23/2021 HCT 26.3 03/23/2021 PLTCT 252 03/23/2021 WBC 3.3 03/23/2021 NEUT 73 03/23/2021 ANC 2.41 03/23/2021 ALC 0.54 03/23/2021 DANIEL 5 03/23/2021 AMC 0.18 03/23/2021 ABC 0.03 03/23/2021 MCV 74.8 03/23/2021 MCHC 32.1 03/23/2021 MPV 7.1 03/23/2021 RDW 17.8 03/23/2021 General Chemistry: Lab Results Component Value Date NA 135 03/23/2021 K 4.6 03/23/2021 CL 100 03/23/2021 CO2 25 03/23/2021 BUN 36 03/23/2021 CR 1.51 03/23/2021 GLU 118 03/23/2021 CA 9.0 03/23/2021 MG 2.0 03/23/2021 General Chemistry: Lab Results Component Value Date GAP 10 03/23/2021 ALBUMIN 3.3 03/23/2021 TOTBILI 0.3 03/23/2021 TOTPROT 7.4 03/23/2021 AST 10 03/23/2021 ALT 6 03/23/2021 ALKPHOS 56 03/23/2021 Radiology and other Diagnostics Review: Post cisternogram CT with stable ventriculomegaly. Cisternogram demonstrating c ontrast extravasation into the left sphenoid sinus. No visible intracranial hem orrhage. Cullen Holden MD 03/23/2021 Pager [phone] RY MIXER documented in this encounter ED Notes * Bebo Hartman RN - 03/24/2021 2:25 AM SLURRY MIXER This RN provides discharge teaching and instructions. Pt AAOx4, verbalizes under standing and denies further questions. Pt off unit in wheelchair with tech in no acute distress. All belongings and paperwork in pts possession upon departure. RY MIXER * Shanice Cisneros RN - 03/23/2021 4:29 PM SLURRY MIXER 1627-Called into room by spouse - spouse states he thinks pt had a sz - pt unres ponsive /post ictal , airway paten t, monitor SR-ST no sz activity at this time. On 2l NC Dr Mead and Marina notified sz pads applied to bed 1630- pt becoming more responsive, answers to name with tactile stimuli VSS RY MIXER * José Mead MD - 03/23/2021 2:08 PM SLURRY MIXER Images from the original note were not included. Nathaly Matos is a 81 y.o. female. Chief Complaint: Chief Complaint Patient presents with Seizure rapided at IR, sz like activity was noticed upon getting contrast for scan. Kn own sz hx. History of Present Illness: Patient is a 81-year-old female with past medical history of von Hippel-Lindau d isease, diabetes, hypertension, hyperlipidemia, seizures on Depakote, meningioma status post resection, hemangioblastoma status post resection who is rapid resp onded from IR for seizure. Patient was undergoing a LP with cisternogram for co ncerns of chronic CSF leak when she had a 3-minute tonic-clonic seizure terminat ed by 1 mg IM Ativan. During this time she desaturated to 72%, placed on oxygen . Supine and prone head CT was requested during transport prior to getting to E D, while patient was prone she had an unresponsive episode, however her vitals a re stable. Patient does not recall these episodes. She exhibits mild slurred s peech, however patient's states this is normal for her. Denies tongue b iting or bowel or bladder incontinence. Denies recent AED dose changes or misse d doses of Depakote. Currently denies headache, fatigue, vision changes, focal neurologic deficits, chest pain or shortness of breath, nausea/vomiting, dysuria , fevers or chills. Review of Systems: Review of Systems Constitutional: Negative for chills, fatigue and fever. HENT: Negative. Negative for sore throat. Eyes: Negative for photophobia, pain, redness and visual disturbance. Respiratory: Negative for cough and shortness of breath. Cardiovascular: Negative for chest pain and leg swelling. Gastrointestinal: Negative for abdominal pain, diarrhea, nausea and vomiting. Genitourinary: Negative for dysuria. Musculoskeletal: Negative for back pain and neck pain. Skin: Negative for rash. Neurological: Positive for seizures. Negative for numbness and headaches. Hematological: Does not bruise/bleed easily. Allergies: Patient has no known allergies. Past Medical History: Medical History: Diagnosis Date DM (diabetes mellitus) (HCC) High cholesterol Hypertension Seizure (HCC) Past Surgical History: Surgical History: Procedure Laterality Date BRAIN MENINGIOMA EXCISION 1992 HX BRAIN SURGERY 2010 hemiangioblastoma Pertinent medical and surgical history reviewed Social History: Social History Tobacco Use Smoking status: Never Smoker Smokeless tobacco: Never Used Vaping Use Vaping Use: Never used Substance Use Topics Alcohol use: Never Drug use: Never Social History Substance and Sexual Activity Drug Use Never Family History: No family history on file. Vitals: ED Vitals Date and Time T BP P RR SPO2P SPO2 User 03/23/21 1630 -- 147/102 89 25 PER MINUTE 82 -- BF 03/23/21 1600 -- 166/80 91 24 PER MINUTE 89 100 % ES 03/23/21 1430 -- 157/78 89 -- -- 100 % BF 03/23/21 1306 37.1 C (98.8 F) 133/93 85 21 PER MINUTE -- 94 % SH Physical Exam: Physical Exam Vitals and nursing note reviewed. Constitutional: Appearance: Normal appearance. She is normal weight. HENT: Head: Normocephalic and atraumatic. Right Ear: External ear normal. Left Ear: External ear normal. Nose: Nose normal. Mouth/Throat: Mouth: Mucous membranes are moist. Pharynx: Oropharynx is clear. No oropharyngeal exudate or posterior oropharyn geal erythema. Comments: No tongue lacerations Eyes: General: No scleral icterus. Right eye: No discharge. Left eye: No discharge. Extraocular Movements: Extraocular movements intact. Conjunctiva/sclera: Conjunctivae normal. Pupils: Pupils are equal, round, and reactive to light. Cardiovascular: Rate and Rhythm: Normal rate and regular rhythm. Heart sounds: Normal heart sounds. Pulmonary: Effort: Pulmonary effort is normal. No respiratory distress. Breath sounds: Normal breath sounds. No stridor. No wheezing or rales. Abdominal: General: Bowel sounds are normal. There is no distension. Palpations: Abdomen is soft. There is no mass. Tenderness: There is no abdominal tenderness. There is no right CVA tendernes s, left CVA tenderness, guarding or rebound. Hernia: No hernia is present. Musculoskeletal: General: Normal range of motion. Cervical back: Normal range of motion and neck supple. Right lower leg: No edema. Left lower leg: No edema. Skin: General: Skin is warm and dry. Neurological: General: No focal deficit present. Mental Status: She is oriented to person, place, and time. Mental status is a t baseline. Cranial Nerves: No cranial nerve deficit. Sensory: No sensory deficit. Motor: No weakness. Coordination: Coordination normal. Comments: Slurred speech Psychiatric: Mood and Affect: Mood normal. Behavior: Behavior normal. Thought Content: Thought content normal. Judgment: Judgment normal. Laboratory Results: Labs Reviewed CBC AND DIFF - Abnormal Result Value Ref Range Status White Blood Cells 3.3 (*) 4.5 - 11.0 K/UL Final RBC 3.52 (*) 4.0 - 5.0 M/UL Final Hemoglobin 8.4 (*) 12.0 - 15.0 GM/DL Final Hematocrit 26.3 (*) 36 - 45 % Final MCV 74.8 (*) 80 - 100 FL Final MCH 24.0 (*) 26 - 34 PG Final MCHC 32.1 32.0 - 36.0 G/DL Final RDW 17.8 (*) 11 - 15 % Final Platelet Count 252 150 - 400 K/UL Final MPV 7.1 7 - 11 FL Final Neutrophils 73 41 - 77 % Final Lymphocytes 16 (*) 24 - 44 % Final Monocytes 5 4 - 12 % Final Eosinophils 5 0 - 5 % Final Basophils 1 0 - 2 % Final Absolute Neutrophil Count 2.41 1.8 - 7.0 K/UL Final Absolute Lymph Count 0.54 (*) 1.0 - 4.8 K/UL Final Absolute Monocyte Count 0.18 0 - 0.80 K/UL Final Absolute Eosinophil Count 0.17 0 - 0.45 K/UL Final Absolute Basophil Count 0.03 0 - 0.20 K/UL Final MDW (Monocyte Distribution Width) 16.6 <20.7 Final COMPREHENSIVE METABOLIC PANEL - Abnormal Sodium 135 (*) 137 - 147 MMOL/L Final Potassium 4.6 3.5 - 5.1 MMOL/L Final Chloride 100 98 - 110 MMOL/L Final Glucose 118 (*) 70 - 100 MG/DL Final Blood Urea Nitrogen 36 (*) 7 - 25 MG/DL Final Creatinine 1.51 (*) 0.4 - 1.00 MG/DL Final Calcium 9.0 8.5 - 10.6 MG/DL Final Total Protein 7.4 6.0 - 8.0 G/DL Final Total Bilirubin 0.3 0.3 - 1.2 MG/DL Final Albumin 3.3 (*) 3.5 - 5.0 G/DL Final Alk Phosphatase 56 25 - 110 U/L Final AST (SGOT) 10 7 - 40 U/L Final CO2 25 21 - 30 MMOL/L Final ALT (SGPT) 6 (*) 7 - 56 U/L Final Anion Gap 10 3 - 12 Final eGFR Non 33 (*) >60 mL/min Final eGFR 40 (*) >60 mL/min Final VALPROIC ACID LEVEL - Abnormal Valproic Acid 43.0 (*) 50.0 - 100.0 MCG/ML Final MAGNESIUM Magnesium 2.0 1.6 - 2.6 mg/dL Final POC TROPONIN [id number] 0.01 0.00 - 0.05 NG/ML Final POC TROPONIN Radiology Interpretation: CHEST SINGLE VIEW Final Result Mild cardiomegaly with mild interstitial prominence which may represent edema. P neumonia or underlying fibrosis could also be present. Finalized by Bruno Rivers M.D. on 03/23/2021 2:45 PM. Dictated by Adilene Francis on 03/23/2021 2:[address] HEAD WO CONTRAST (Results Pending) CT MAXIFACIAL/SINUS WO CONTRAST (Results Pending) EKG: Rate 90, regular. KS, QRS, QTc within normal limits. Normal axis. No ST segme nt depression or elevation. RSR pattern in lead III and V1. Sinus rhythm. ED Course: 81 y.o. female presented to the ED for seizure, rapid responded from IR. - Patient was evaluated by resident and attending physicians. - Vitals within normal limits, afebrile - Initial concern was for subtherapeutic Depakote, electrolyte derangement, infe ction, intracranial bleed or mass, dysrhythmia. -IR contacted ED resident requesting completion of prior requested imaging while in departmentrequested CT head without contrast and CT max/face with contrast (supine and prone) - Labs and imaging obtained and reviewed, as noted above, pertinent findings inc lude -hemoglobin 8.4 and leukopenia of 3.3 with a known prior labs. Creatinine 1.5 with unknown baseline, treated with 1 L IV fluids. Depakote level subtherap eutic at 43. - On re-evaluation, patient had additional tonic-clonic seizure without evidence of oxygen desaturation while on 2 L NC. Seizure activity lasted 1 to 2 minutes and began to spontaneously resolve, given additional 1 mg IV Ativan for additio nal seizure control. Given 500 mg IV Depacon load as recommended by ED pharmacy due to subtherapeutic Depakote levels. -Patient care report was turned over to Dr. Silverman at end of shift. CT head and max/face pending. Plan to consult neurosurgery and possibly neurology after re turn of imaging for recommendations, likely admit due to multiple seizures in th e setting of concern for chronic CSF leak, multiple mass resections and unknown severity/frequency of seizure history. ED Scoring: Coding Facility Administered Meds: Medications LORAZEPAM 2 MG/ML IJ SOLN (Cabinet Override) (has no administration in time rang e) lactated ringers infusion (1,000 mL Intravenous Given - New Bag 03/23/21 9772) LORazepam (ATIVAN) injection 1 mg (1 mg Intravenous Given 03/23/21 1630) valproic acid (DEPACON) 500 mg in sodium chloride 0.9% (NS) IVPB (500 mg Intrave nous Given - New Bag 03/23/21 1657) Clinical Impression: Clinical Impression Seizure (HCC) Leukopenia, unspecified type JORJE (acute kidney injury) (HCC) Anemia, unspecified type Disposition/Follow up ED Disposition None No follow-up provider specified. Medications: New Prescriptions No medications on file Procedure Notes: Procedures Attestation / Supervision: Soraya Gray DO Emergency Medicine, PGY-2 Pager #[phone], also available on Voalte [phone] Soraya Gray DO ED ATTENDING ATTESTATION Attestation / Supervision Note concerning Nathaly Matos: I personally performed the nowak portions of the E/M visit, discussed case with resident and concur with resident documentation of history, physical exam, assessment, and treatment plan unless otherwise noted. José Mead MD RY MIXER * Blaise Castaneda RN - 03/23/2021 1:45 PM SLURRY MIXER Pt arrived as rapid response from IR for seizure. Per RR RN, pt was in IR and re ceived intrathecal contrast for a cisternogram due to pt having CSF leaking from left nare. Pt has Hx of seizures and is currently taking Depakote. Pt had a 3 m inute tonic clonic seizure per IR staff. Pt was given 1 mg ativan IM per RR RN. RN reported VS remained stable through out. RN states pt was taken to CT for sup ine and prone post procedure head CT. While in prone position, RN states that pt became "unresponsive", but that VS remained stable though out. Pt arrives to ro om sleepy, but A&O X 3 when aroused. Pt placed on monitor. RY MIXER documented in this encounter Miscellaneous Notes * Response Teams - Silvia Butterfield RN - 03/23/2021 1:05 PM SLURRY MIXER Patient in [place] CT scanner as an outpatient for CSF leak from left nare and received intrathecal contrast. After receiving intrathecal contrast patient had witnessed seizure lasting approximately 3 minutes. 1mg ativan given as ordered by Dr. Rivers. Patient transferred to cart and transferred to IR pre/post for mo nitoring and rapid response initiated. Upon FRONT OFFICE ASSOCIATE arrival patient lethargic but or iented x4. Denies any headache at this time. Dr. Rivers instructed FRONT OFFICE ASSOCIATE RN to jacoby e patient to VCT scanner en route to ED for further imaging. Patient transferred from cart to CT table and placed in prone position for scan. After patient plac ed in prone position patient unresponsive with eyes open and unable to answer an y questions or follow commands, vitals remained stable and pulse present. No sei zure-like activity noted at this time. Patient transferred back to cart without completion of CT scan. VS remained stable throughout. After patient supine on ca rt, patient responsive and able to answer questions appropriately. Patient trans ferred to ED 36 and report given to ED RN. RY MIXER documented in this encounter Plan of Treatment Not on filedocumented as of this encounter Procedures Comments Procedure Name Priority Date/Time Associated Diag nosis COVID-19 (SARS-COV-2) PCR STAT 03/23/2021 7:[address] HEAD WO CONTRAST STAT 03/23/2021 6:[address] MAXIFACIAL/SINUS WO STAT 03/23/2021 CONTRAST 6:16 PM SLURRY MIXER HC TROPONIN I, POC 03/23/2021 2:38 PM SLURRY MIXER HC CBC W/ AUTOMATED DIFF STAT 03/23/2021 2:35 PM SLURRY MIXER HC MAGNESIUM STAT 03/23/2021 2:35 PM SLURRY MIXER HC VALPROIC ACID STAT 03/23/2021 2:35 PM SLURRY MIXER HC COMPREHENSIVE STAT 03/23/2021 METABOLIC PANEL 2:35 PM SLURRY MIXER CHEST SINGLE VIEW STAT 03/23/2021 2:05 PM SLURRY MIXER ECG 12-LEAD STAT 03/23/2021 1:47 PM SLURRY MIXER ECG-SCAN 03/23/2021 12:00 AM SLURRY MIXER ECG-SCAN 03/23/2021 12:00 AM SLURRY MIXER documented in this encounter Results * COVID-19 (SARS-COV-2) PCR (03/23/2021 7:48 PM SLURRY MIXER) COVID-19 FLOCKED [facility] (SARS-CoV-2) NASOPHARYNGEAL PCR Source COVID-19 NOT DETECTED DN-NOT DETECTED [facility]3] LAB (SARS-CoV-2) Comment: PCR This assay is [...] performance characteristics have been verified by the [facility] Clinical Laboratories. Fact sheet for providers: https://www.fda.gov/media/5238 85/download Fact sheet for patients: https://www.fda.gov/media/9319 87/download Specimen Flocked Swab - Nasopharyngeal structure (body structure) Performing Organization Address City/State/ZIP Code P melissa Number MAIN LAB [address] [place] [address] * CT MAXIFACIAL/SINUS WO CONTRAST (03/23/2021 6:16 PM SLURRY MIXER) Modality Anatomical Region Laterality Computed Tomography Head Specimen Impressions [facility] RESULTS - 03/23/2021 8:05 PM SLURRY MIXER Head: 1. Evaluation of the parenchyma and [...] [facility] RAD RESULTS - 03/23/2021 8:05 PM SLURRY MIXER EXAM: CT HEAD AND MAXILLOFACIAL HISTORY: SEIZURE, [...] CT HEAD WO CONTRAST (03/23/2021 6:16 PM SLURRY MIXER) Modality Anatomical Region Laterality Computed Tomography Head Specimen Impressions [facility] RAD RESULTS - 03/23/2021 8:05 PM SLURRY MIXER Head: 1. Evaluation of the parenchyma and [...] [facility] RAD RESULTS - 03/23/2021 8:05 PM SLURRY MIXER EXAM: CT HEAD AND MAXILLOFACIAL HISTORY: SEIZURE, [...] on 03/23/2021 7:16 PM. Performing Organization Address City/[facility] Code P melissa Number KU RAD RESULTS * POC TROPONIN (03/23/2021 2:38 PM SLURRY MIXER) Pathologist [facility] Awtgzlzs-P-MBG 0.01 0.00 - 0.05 NG/ML MAIN LAB Specimen Performing Organization Address [facility] P melissa Number [facility] MAIN LAB [address] [place] [address] * (ABNORMAL) VALPROIC ACID LEVEL (03/23/2021 2:35 PM SLURRY MIXER) Pathologist [facility] Valproic Acid 43.0 (L) 50.0 - 100.0 MCG/ML MAIN LA B Specimen Blood (substance) Performing Organization Address [facility] P melissa Number [facility] MAIN [facility] [address] [place] [address] * (ABNORMAL) COMPREHENSIVE METABOLIC PANEL (03/23/2021 2:35 PM SLURRY MIXER) Sodium 135 (L) 137 - 147 MMOL/L [...] (L) >60 mL/min [facility] MAIN [facility] Comment: [place] The eGFR is not validated f or use in drug dosing adjustments. Continue to use estimated creatinine clearance per dosing reference text. Please contact the Clinical Pharmacist for questions. eGFR 40 (L) >60 mL/min [facility] [place] Comment: The eGFR is not validated for use in drug dosing adjustments. Continue to use estimated creatinine clearance per dosing reference text. Please contact the Clinical Pharmacist for questions. Specimen Blood (substance) Performing Organization Address City/State/ZIP Code P melissa Number [facility] MAIN [facility] [address] [place] [address] * MAGNESIUM (03/23/2021 2:35 PM SLURRY MIXER) Magnesium 2.0 1.6 - 2.6 mg/dL [facility] MAIN [facility] Specimen Blood (substance) Performing Organization Address City/State/ZIP Code P melissa Number [facility] MAIN [facility] [address] [place] [address] * (ABNORMAL) CBC AND DIFF (03/23/2021 2:35 PM SLURRY MIXER) White Blood 3.3 (L) 4.5 - 11.0 K/UL [facility] MAIN [facility] Cells RBC 3.52 (L) 4.0 - 5.0 M/UL [facility] Hemoglobin 8.4 (L) 12.0 - 15.0 GM/DL [facility] Hematocrit 26.3 (L) 36 - 45 % [facility] MCV 74.8 (L) 80 - 100 FL [facility] MAIN [facility] MCH 24.0 (L) 26 - 34 PG [facility] MCHC 32.1 32.0 - 36.0 G/DL [facility] RDW 17.8 (H) 11 - 15 % [facility] Platelet Count 252 150 - 400 K/UL [facility] MPV 7.1 7 - 11 FL [facility] Neutrophils 73 41 - 77 % [facility] Lymphocytes 16 (L) 24 - 44 % [facility] Monocytes 5 4 - 12 % [facility] Eosinophils 5 0 - 5 % [facility] Basophils 1 0 - 2 % [facility] Absolute 2.41 1.8 - 7.0 K/UL [facility] Neutrophil Count Absolute Lymph 0.54 (L) 1.0 - 4.8 K/UL [facility] Count Absolute 0.18 0 - 0.80 K/UL [facility] Monocyte Count Absolute 0.17 0 - 0.45 K/UL [facility] Eosinophil Count Absolute 0.03 0 - 0.20 K/UL [facility] Basophil Count MDW (Monocyte 16.6 <20.7 [facility] MAIN [facility] Distribution Comment: Width) MDW greater than 20.0, together with other laboratory and clinical information, aids in the diagnosis of sepsis or increased risk of sepsis within the first 12 hours of presenting to the emergency department. MDW should not be used as a sole test to determine the absence of sepsis. Clinical performance of the MDW has not been determined in patients receiving immune stimulants, patients with alcoholism, or patients with hematologic abnormalities such as blast cells. Specimen Blood (substance) Performing Organization Address City/State/ZIP Code P melissa Number [facility] [address] [place] [address] * CHEST SINGLE VIEW (03/23/2021 2:05 PM SLURRY MIXER) Modality Anatomical Region Laterality Computed Radiography Chest Specimen Impressions [facility] RAD RESULTS - 03/23/2021 2:45 PM SLURRY MIXER Mild cardiomegaly with mild interstitial prominence which may represent edema. Pneumonia or underlying fibrosis could also be present. Finalized by Bruno Rivers M.D. on 03/23/2021 2:45 PM. Dictated by Bruno Rivers M.D. on 03/23/2021 2:44 PM. Narrative [facility] RAD RESULTS - 03/23/2021 2:45 PM SLURRY MIXER Single view INDICATION: Seizure COMPARISON CHEST FILM: [...] RAD RESULTS * ECG-SCAN (03/23/2021 12:00 AM SLURRY MIXER) Narrative 03/23/2021 12:00 AM SLURRY MIXER Ordered by an unspecified provider. * ECG-SCAN (03/23/2021 12:00 AM SLURRY MIXER) Narrative 03/23/2021 12:00 AM SLURRY MIXER Ordered by an unspecified provider. documented in this encounter Visit Diagnoses Diagnosis Seizure (HCC) - Primary Other convulsions Leukopenia, unspecified type JORJE (acute kidney injury) (HCC) Acute kidney failure, unspecified Anemia, unspecified type documented in this encounter Administered Medications Action Date Dose Rate Site Medication Order MAR Action 03/23/2021 4:32 PM SLURRY MIXER 1,000 mL 999 mL/hr lactated ringers infusion Given - New 1,000 mL, 1,000 mL, Intravenous, at 999 Bag mL/hr, ONCE, 1 dose, On Tamara 03/23/21 at 1630 03/23/2021 4:30 PM SLURRY MIXER 1 mg LORazepam (ATIVAN) injection 1 mg Given 1 mg, Intravenous, ONCE, 1 dose, On Tamara 03/23/21 at 1715, PROTECT FROM LIGHT LORAZEPAM 2 MG/ML IJ SOLN (Cabinet Override) NOW, 1 dose, On Tamara 03/23/21 at 1630, Created by cabinet override, Created by cabinet override 03/23/2021 4:57 PM SLURRY MIXER 500 mg 105 mL/hr valproic acid (DEPACON) 500 mg in sodium Given - New chloride 0.9% (NS) IVPB Bag 500 mg, Intravenous, 105 mL, Administer over 60 Minutes, ONCE, 1 dose, On Tamara 03/23/21 at 1730 documented in this encounter Active and Recently Administered Medications Times are shown in SLURRY MIXER. 03/23/2021 03/24/2021 Medication Order 03/22/2021 1632 (Given - New Bag - Provider: Tono Couch RN)1820 (Infusion Stopped - Provider: Mikki Couch RN) lactated ringers infusion (COMPLETED) 1,000 mL, 1,000 mL, Intravenous, at 999 mL/hr, ONCE, 1 dose, On Tamara 03/23/21 at 1630 1630 (Given - Provider: Mikki Couch RN) LORazepam (ATIVAN) injection 1 mg (COMPLETED) 1 mg, Intravenous, ONCE, 1 dose, On Tamara 03/23/21 at 1715, PROTECT FROM LIGHT 1657 (Given - New Bag - Provider: Tono Couch RN)1820 (Infusion Stopped - Provider: Mikki Couch RN) valproic acid (DEPACON) 500 mg in sodiu m chloride 0.9% (NS) IVPB (COMPLETED) 500 mg, Intravenous, 105 mL, Administer over 60 Minutes, ONCE, 1 dose, On Tamara 03/23/21 at 1730 documented in this encounter Orders First Ordered Date Medications Ordered That Might Not Have Count Last Ordered Date Been Administered LORAZEPAM 2 MG/ML IJ SOLN (Cabinet 1 12/2020 Override) First Ordered Date EKG Orders Without Results Count Last Ordere d Date ECG 12-LEAD 1 03/23/2021 First Ordered Date Consult Count Last Ordered Date CONSULT NEUROLOGY PHYSICIAN 1 03/23/2021 documented in this encounter Additional Health Concerns Noted Time Assessment 03/23/2021 10:50 AM SLURRY MIXER A fall risk assessment has been complet ed for the patient documented as of this encounter Care Teams Start Date End Date Circus Agent Relationship Specialty 03/03/21 Ralf Moon, PCP - General documented as of this encounter
--- OUTSIDE RECORDS SUMMARY | 2021-05-15 20:20 | XMS REPORT | Encounter Summary ---
Author Author [facility] Organization [facility] Address Unknown Phone Unavailable Care Team Providers Care Wire Harness Assembler Name Role Phone Ralf Moon MS PCP Unavailable Reason for Visit * Reason Onset Date Comments Other 05/08/2021 pre op COVID swab Encounter Details Care Team Description Date Type Department Stacy Clarke RN Other (pre op COVID swab) 05/08/2021 Telephone Otolaryngology: [facility], [facility] [id number] [place] [address]. [address], [address] [place] [address] Social History Date Tobacco Use [...] at Date Recorded Female 04/28/2021 12:27 PM INSPECTOR TIMERS documented as of this encounter Functional Status Date of Assessment Functional Status Response 03/23/2021 Does the patient have a hearing impairment: No documented as of this encounter Miscellaneous Notes * Telephone Encounter - Stacy Clarke RN - 05/08/2021 9:17 AM INSPECTOR TIMERS Pt's spouse calls and requests pre op COVID-19 swab order be faxed to [phone] . Faxed as requested. Pt aware to hand carry results in on DOS. ECTOR TIMERS documented in this encounter Plan of Treatment Not on filedocumented as of this encounter Visit Diagnoses Not on filedocumented in this encounter Care Teams Start Date End Date Wire Harness Assembler Relationship Specialty 03/03/21 Ralf Moon MS PCP - General documented as of this encounter
--- OUTSIDE RECORDS SUMMARY | 2021-05-15 20:20 | XMS REPORT | Encounter Summary ---
Author Author [facility] Organization [facility] Address Unknown Phone Unavailable Care Team Providers Care Pleating Machine Operator Name Role Phone Ralf Moon MS PCP Unavailable Encounter Details Care Team Description Date Type Department 05/08/2021 Travel Social History Date Tobacco Use Types [...] at Date Recorded Female 04/28/2021 12:27 PM LEARNING ANALYST Date Recorded COVID-19 Exposure Response 05/08/2021 11:01 AM LEARNING ANALYST In the last month, have you been [...] encounter Care Teams Start Date End Date Pleating Machine Operator Relationship Specialty 03/03/21 Ralf Moon MS PCP - General documented as of this encounter
--- OUTSIDE RECORDS SUMMARY | 2021-05-15 20:20 | XMS REPORT | Encounter Summary ---
Author Author [facility] Organization [facility] Address Unknown Phone Unavailable Care Team Providers Care Automotive Service Director Name Role Phone Ralf Moon MS PCP Unavailable Reason for Visit * Reason Onset Date Comments Appointment 03/24/2021 Encounter Details Care Team Description Date Type Department Stacy Clarke, RN Appointment 03/24/2021 [facility] [address] [place] [address] [address] [place] [address] Social History Date Tobacco Use [...] at Date Recorded Female 04/28/2021 12:27 PM EDGER HAND Date Recorded COVID-19 Exposure Response 03/23/2021 1:06 PM EDGER HAND In the last month, have you been in contact with Yes someone who was confirmed or suspected to have Coronavirus / COVID-19? documented as of this encounter Functional Status Date of Assessment Functional Status Response 03/23/2021 Does the patient have a hearing impairment: No documented as of this encounter Miscellaneous Notes * Telephone Encounter - Stacy Clarke, RN - 03/24/2021 3:10 PM EDGER HAND Pt scheduled for 03/31/[address] Aguila. Let pt know of time of appt and add ress to [facility]. Pt v/u. R HAND documented in this encounter Plan of Treatment Not on filedocumented as of this encounter Visit Diagnoses Not on filedocumented in this encounter Additional Health Concerns Noted Time Assessment 03/23/2021 10:50 AM EDGER HAND A fall risk assessment has been complet ed for the patient documented as of this encounter Care Teams Start Date End Date Automotive Service Director Relationship Specialty 03/03/21 Ralf Moon, MS PCP - General documented as of this encounter
[2021-05-15] MEDS: SENNA W/DOCUSATE (SENOKOT S) TABLET PO SCH (21:00)
[2021-05-15] MEDS ORDERED: SODIUM BICARB NS SCH (21:00)
[2021-05-15] MEDS ORDERED: BACITRACIN OINTMENT 28 GM TUBE TP SCH (21:00)
[2021-05-15] MEDS ORDERED: SODIUM CHLORIDE NS SCH (21:00)
[2021-05-15] MEDS: DOCUSATE SODIUM 100 MG (COLACE) CAP PO SCH (21:00)
[2021-05-15] MEDS ORDERED: SALINE NASAL SPRAY (OCEAN) 45 ML BTL SCH (21:00)
[2021-05-15] MEDS ORDERED: [UNRECOGNIZED DRUG - OTHER] NS SCH (21:00)
[2021-05-15] MEDS: polyethylene glycoL POWDER 17 GM (MIRALAX) PACK PO SCH (21:00)
[2021-05-15] MEDS: SALINE NASAL SPRAY (OCEAN) 45 ML BTL SCH (23:47)
[2021-05-16 05:57] LABS: BASOPHILS % (AUTO) 0 % (0-10); EOSINOPHILS # (AUTO) 0.2 10^3/uL (0.0-0.3); EOSINOPHILS % (AUTO) 3 % (0-10); HEMATOCRIT 24 % (35-52); HEMOGLOBIN 7.3 g/dL (11.5-16.0); LYMPHOCYTES # (AUTO) 0.6 10^3/uL (1.0-4.0); LYMPHOCYTES % (AUTO) 8 % (12-44); MEAN CORPUSCULAR HEMOGLOBIN 25 pg (25-34); MEAN CORPUSCULAR HGB CONC 30 g/dL (32-36); MEAN CORPUSCULAR VOLUME 82 fL (80-99); MEAN PLATELET VOLUME 9.8 fL (9.0-12.2); MONOCYTES # (AUTO) 0.3 10^3/uL (0.0-1.0); MONOCYTES % (AUTO) 4 % (0-12); NEUTROPHILS # (AUTO) 5.7 10^3/uL (1.8-7.8); NEUTROPHILS % (AUTO) 84 % (42-75); PLATELET COUNT 293 10^3/uL (130-400); WHITE BLOOD COUNT 6.9 10^3/uL (4.3-11.0)
[2021-05-16 06:04] LABS: ALBUMIN 3.3 GM/DL (3.2-4.5); POTASSIUM 4.5 MMOL/L (3.6-5.0)
[2021-05-16 06:05] LABS: CALCIUM 9.3 MG/DL (8.5-10.1)
[2021-05-16 06:07] LABS: TOTAL PROTEIN 7.2 GM/DL (6.4-8.2)
[2021-05-16 06:08] LABS: BILIRUBIN,TOTAL 0.6 MG/DL (0.1-1.0)
--- NOTE | 2021-05-16 06:08 | PM&R Post Admission Assessment ---
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 She has a history of von Hippel-Lindau syndrome. During her stay there nephrology was consulted for chronic kidney disease rapid progression of the last year with creatinine of 2.05 on 05/15/2021 who has been managed by [facility] sustainable agriculture specialist and she did undergo a kidney biopsy while hospitalized at this visit. Prior level of functioning was assistance with ADLs and mobility and currently has in- home assistance for 4 hours a day 5 days a week. She lives with her but he cares for horses on their farm. Current level of functioning is moderate to max for transfers and moderate assistance for gait 20 feet. Past Fvuogqv-Ctniug-Bqmqae Hx Past Med/Social Hx: Reviewed Nursing Past Med/Soc Hx, Reviewed and Corrections made Patient Social History Marrital Status: Employed/Student: unemployed Alcohol Use: Denies Use Smoking Status: Never a Smoker Recent Foreign Travel: No Contact w/other who traveled: No Immunizations Up To Date Date of Influenza Vaccine: Jan 13, 2021 Past Medical History Cardiac: High Cholesterol, Hypertension Von Hippel-Lindau disease Genitourinary: Bladder Infection, Renal Failure Gastrointestinal: Gastroesophageal Reflux Musculoskeletal: Arthritis PM&R Allergy/Meds/Data Review Allergies Coded Allergies: No Known Allergies (Verified Allergy, Unknown, 05/15/21) Home Medications Scheduled Aspirin (Aspirin EC), 81 MG PO DAILY, (Reported) Atorvastatin Calcium (Atorvastatin Calcium), 20 MG PO DAILY, (Reported) Bacitracin (Bacitracin), 1 APPLIC TP BID, (Reported) Divalproex Sodium (Depakote ER), 500 MG PO DAILY, (Reported) Folic Acid (Folic Acid), 0.4 MG PO DAILY, (Reported) Hydralazine HCl (Hydralazine HCl), 100 MG PO TID, (Reported) Sodium Chloride (Saline Nasal Hazard), 2 SPRAY NSEACH Q3H WHILE AWAKE, (Reported) Sodium Chloride/Sodium Bicarb (Sinus Wash Saline Packet), 1 EACH NS BID, (Reported) Ubidecarenone (Coq-10), 100 MG PO DAILY, (Reported) Scheduled PRN Acetaminophen (Tylenol), 650 MG PO Q4H PRN for PAIN-MILD (1-4), (Reported) Oxycodone HCl (Roxicodone), 5 MG PO Q4H PRN for PAIN-SEVERE (8-10), (Reported) Discontinued Medications Phenylephrine HCl (Nasal Hazard), 30 ML NS, (Reported) Discontinued Reason: No Longer Taking Current Medications Current Medications Reviewed Laboratory Data Laboratory Tests 05/15/21 21:08: Glucometer 169H 05/16/21 05:25: Glucometer 135H 05/16/21 05:44: White Blood Count 6.9, Red Blood Count 2.96L, Hemoglobin 7.3L, Hematocrit 24L, Mean Corpuscular Volume 82, Mean Corpuscular Hemoglobin 25, Mean Corpuscular Hemoglobin Concent 30L, Red Cell Distribution Width 17.4H, Platelet Count 293, Mean Platelet Volume 9.8, Immature Granulocyte % (Auto) 0, Neutrophils (%) (Auto) 84H, Lymphocytes (%) (Auto) 8L, Monocytes (%) (Auto) 4, Eosinophils (%) (Auto) 3, Basophils (%) (Auto) 0, Neutrophils # (Auto) 5.7, Lymphocytes # (Auto) 0.6L, Monocytes # (Auto) 0.3, Eosinophils # (Auto) 0.2, Basophils # (Auto) 0.0, Immature Granulocyte # (Auto) 0.0 Review of Systems Constitutional: see HPI, malaise, weakness EENTM: nose congestion, nose pain Respiratory: no symptoms reported Cardiovascular: no symptoms reported Gastrointestinal: no symptoms reported Genitourinary: no symptoms reported Musculoskeletal: back pain, joint pain Skin: no symptoms reported Psychiatric/Neurological: Anxiety All Other Systems Reviewed Negative Unless Noted: Yes Physical Exam Physical Exam Vital Signs Vital Signs - First Documented 05/15/21 20:00 Temp 37.5 Pulse 101 Resp 20 B/P (MAP) 149/68 (95) Pulse Ox 97 O2 Delivery Nasal Cannula O2 Flow Rate 2.00 Capillary Refill : Height, Weight, BMI Height: '" Weight: lbs. oz. kg; 23.64 BMI Method: General Appearance: No Apparent Distress, WD/WN, Chronically ill Eyes: Bilateral Eye Normal Inspection, Bilateral Eye PERRL HEENT: PERRL/EOMI, Normal ENT Inspection, Pharynx Normal Neck: Full Range of Motion, Normal Inspection, Non Tender, Supple, Carotid Bruit Respiratory: Chest Non Tender, Lungs Clear, No Accessory Muscle Use, No Respiratory Distress, Decreased Breath Sounds Cardiovascular: Regular Rate, Rhythm, No Edema, No Gallop, No JVD, No Murmur, Normal Peripheral Pulses Gastrointestinal: Normal Bowel Sounds, No Organomegaly, No Pulsatile Mass, Non Tender, Soft Back: Normal Inspection, No CVA Tenderness, No Vertebral Tenderness Extremity: Normal Capillary Refill, Normal Inspection, Normal Range of Motion, Non Tender, No Calf Tenderness, No Pedal Edema Neurologic/Psychiatric: Alert, Oriented x3, No Motor/Sensory Deficits, Abnormal Gait, Depressed Affect, Motor Weakness (Generalized) Skin: Normal Color, Warm/Dry Lymphatic: No Adenopathy PM&R Medical Assessment & Plan REHAB/MEDICAL ASSESSMENT AND PLAN: REHAB IMPAIRMENT GROUP: Debility following septoplasty with history of von Hippel-Lindau Lindau syndrome ETIOLOGIC DIAGNOSIS: Debility following septoplasty with history of von Hippel-Lindau Lindau syndrome The comorbidities that impact the patients function and/or functional outcome by: Chronically debilitated, severe weakness, chronic kidney disease, prior level of functioning requiring assistance REHAB PLAN: The patient is being admitted to our comprehensive inpatient rehabilitation facility and can tolerate the intensity of service consisting of at least: 180 minutes of therapy a day, 5 out of 7 days a week Rehab treatment will consist of: PT and OT will focus on regaining function in order to ambulate further with assistive devices and increase independence in ADLs in order to return back home to independent living The patient/family has a good understanding of our discharge process and will benefit from an interdisciplinary inpatient rehabilitation program. The patient has potential to make improvement and is in need of at least two of the following multidisciplinary therapies including but not limited to physical, occupational, speech, and prosthetics and orthotics. Additionally the patient will need services from respiratory, nutritional services, wound care, psychology, etc. (Customize this to each patient). Given the patients complex condition and risk of further medical complications, rehabilitation services cannot be safely or effectively provided at a lower level of care such as a half-way facility. BARRIERS TO DISCHARGE: Acute on chronic debility ESTIMATED LOS: 7 days DISPOSITION: Home with RELEVANT CHANGES SINCE PREADMISSION SCREENING: I have compared the patients medical and functional status at the time of the preadmission screening and there are: No changes PROGNOSIS: Fair REHABILITATION GOALS: 1. PT and OT will focus on regaining function in order to ambulate further with assistive devices and increase independence in ADLs in order to return back home to independent living All the above goals were reviewed with the patient and he/she is in agreement. By signing this document, I acknowledge that I have personally performed a full physical examination on this patient within 24 hours of admission to this inpatient rehabilitation facility and have determined the patient to be able to tolerate the above course of treatment at an intensive level for a reasonable period of time. I will be completing a detailed individualized Plan of Care for this patient by day #4 of the patients stay based upon the Preadmission Screen, the Post-Admission Evaluation, and the therapy evaluations. Admission Dx/Comorbidities: (1) S/P nasal septoplasty ICD Codes: Z98.890 - Other specified postprocedural states (2) Von Hippel-Lindau disease ICD Codes: Q85.8 - Other phakomatoses, not elsewhere classified (3) CSF leak ICD Codes: G96.00 - Cerebrospinal fluid leak, unspecified (4) Hypertension ICD Codes: I10 - Essential (primary) hypertension (5) Hyperlipidemia ICD Codes: E78.5 - Hyperlipidemia, unspecified (6) Physical debility ICD Codes: R53.81 - Other malaise (7) Debility ICD Codes: R53.81 - Other malaise Assessment/Plan Assessment and Plan Assess & Plan/Chief Complaint Assessment: Acute on chronic debility Status post septoplasty at on 05/12/2021 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
[2021-05-16 06:10] LABS: CREATININE SERUM 2.19 MG/DL (0.60-1.30)
[2021-05-16 07:31] VITALS: BP 127/62
--- NOTE | 2021-05-16 08:44 | Physical Therapy Evaluation ---
PT Evaluation-General Medical Diagnosis Admission Date May 15, 2021 at 20:15 Medical Diagnosis: septoplasty Onset Date: May 12, 2021 Therapy Diagnosis Therapy Diagnosis: impaired mobility, strength, endurance Precautions Precautions/Isolations: Fall Prevention, Standard Precautions Referral Physician: Isabel Queen DO Reason for Referral: Evaluation/Treatment Medical History Additional Medical History Past Medical History Cardiac: High Cholesterol, Hypertension Von Hippel-Lindau disease Genitourinary: Bladder Infection, Renal Failure Gastrointestinal: Gastroesophageal Reflux Musculoskeletal: Arthritis Reviewed History: Yes Social History Current Living Status: Spouse Entry Into Home: Level Entry Prior Prior Level of Function SCALE: Activities may be completed with or without assistive devices. 0-Zaxrwjftdl-ujtwywp completes the activity by him/herself with no assistance from a helper. 5-Set-up or Clean-up Assistance-helper sets up or cleans up; patient completes activity. [place] assists only prior to or following the activity. 4-Supervision or Touching Assistance-helper provides verbal cues and/or touching/steadying and/or contact guard assistance as patient completes activity. Assistance may be provided throughout the activity or intermittently. 3-Partial/Moderate Assistance-helper does LESS THAN HALF the effort. [place] lifts, holds or supports trunk or limbs, but provides less than half the effort. 2-Substantial/Maximal Assistance-helper does MORE THAN HALF the effort. [place] lifts or holds trunk or limbs and provides more than half the effort. 8-Eevdvgplb-etfgbp does ALL the effort. Patient does none of the effort to complete the activity. Or, the assistance of 2 or more helpers is required for the patient to complete the activity. If activity was not attempted, code reason: 7-Patient Refused. 9-Not Applicable-not attempted and the patient did not perform the activity before the current illness, exacerbation or injury. 10-Not Attempted due to Environmental Limitations-(lack of equipment, weather restraints, etc.). 88-Not Attempted due to Medical Conditions or Safety Concerns. Bed Mobility: 6 Transfers (B,C,W/C): 6 Gait: 6 Indoor Mobility (Ambulation): Independent Prior Devices Use: Walker PT Evaluation-Current Subjective Patient in bed pre tx, agrees to PT, has no complaints of pain. Pt/Family Goals to be independent at home Objective Patient Orientation: Person, Place, Situation Attachments: Oxygen ROM/Strength ROM Lower Extremities WNL Strength Lower Extremities LLE (hip flexion 3+/5, knee flexion 4/5, knee extension 4/5, dorsiflexion 4/5), RLE (hip flexion 3+/5, knee flexion 4/5, knee extension 4/5, dorsiflexion 4/5) Neuromuscular (Tone, Coordination, Reflexes) Patient seems to have intact peripheral vision, has a little difficulty with tracking Sensory Vision: Functional Hearing: Functional Sensation Right Lower Extremit: Intact Sensation Left Lower Extremity: Intact Transfers Roll Left & Right (QC): 6 Sit to Lying (QC): 6 Lying to Sitting/Side of Bed(Q: 6 Sit to Stand (QC): 4 Chair/Xrr-ys-Zbetg Xfer(QC): 4 Toilet Transfer (QC): 4 Car Transfer (QC): 4 Patient performs rolling and supine <-> sit with independence, sit <-> stand and transfers CGA, car transfer CGA. Patient needs frequent cues for positioning during transfers, she tends to sit before turning completely. Gait Does the Patient Walk?: Yes Mode of Locomotion: Walk Anticipated Mode of Locomotion: Walk Walk 10 feet (QC): 4 Walk 50 ft with 2 Turns(QC): 4 Walk 150 ft (QC): 88 Walking 10ft/uneven surface-QC: 4 Distance: 100', 20', 50' Gait Assistive Device: FWW Comments/Gait Description Patient can ambulate 100' with a rolling walker with CGA (including 50' with at least 2 turns of 90 degrees and 10' over an uneven surface), patient needs cues for direction, she tends to drift to the left side. Wheelchair Training Does the Pt Use a Wheelchair?: Yes Wheel 50 ft with 2 turns (QC): 3 Wheel 150 ft (QC): 3 Type of Wheelchair: Manual Stairs #of Steps: 1 1 Step (curb) (QC): 4 4 Steps (QC): 88 12 Steps (QC): 88 Walking Assistive Device: Walker Patient can go up and down 1 step using a rolling walker with CGA, cues for positioning and foot placement Balance Sitting Static: Normal Sitting Dynamic: Normal Standing Static: Fair Standing Dynamic: Fair Picking up an Object (QC): 88 Treatment NuStep level 5 for 10 min Assessment/Needs Patient in therapy gym post tx to continue with OT. Patient has impaired mobility, strength, endurance. She needs CGA for transfers and ambulation. Rehab Potential: Fair PT Short Term Goals Short Term Goals Time Frame: May 23, 2021 Roll Left & Right: 6 Sit to lyin Lying to sitting on side of be: 6 Sit to stand: 4 (SBA) Chair/iwx-an-gdgtn transfer: 4 (SBA) Walk 10 feet: 4 (SBA) Walk 50 feet with two turns: 4 (SBA) Walk 150 feet: 4 (SBA) PT Snf Goals Snf Goals PT Can Sterilizer Goals Time Frame: Jun 06, 2021 Roll Left & Right (QC): 6 Sit to Lying (QC): 6 Lying-Sitting on Side/Bed(QC): 6 Sit to Stand (QC): 5 Chair/Oly-gw-Vytxz Xfer(QC): 5 Toilet Transfer (QC): 5 Car Transfer (QC): 5 Does the Patient Walk: Yes Walk 10 feet (QC): 5 Walk 50ft with 2 Turns (QC): 5 Walk 150 ft (QC): 5 Walking 10ft on Uneven Surface: 4 (SBA) 1 Step (curb) (QC): 4 4 Steps (QC): 4 12 Steps (QC): 4 Picking up an Object (QC): 88 Wheel 50 feet with 2 turns (QC: 9 Wheel 150 feet: 9 PT Plan Problem List Problem List: Activity Tolerance, Functional Strength, Safety, Balance, Gait, Transfer, ROM Treatment/Plan Treatment Plan: Continue Plan of Care Treatment Plan: Education, Functional Activity Grey, Functional Strength, Group Therapy, Gait, Safety, Therapeutic Exercise, Transfers Treatment Duration: Jun 06, 2021 Frequency: At least 5 of 7 days/Wk (IRF) Estimated Hrs Per Day: 1.5 hours per day Patient and/or Family Agrees t: Yes Safety Risks/Education Patient Education: Gait Training, Transfer Techniques, Steps, Correct Positioning, Safety Issues Teaching Recipient: Patient Teaching Methods: Demonstration, Discussion Response to Teaching: Reinforcement Needed Discharge Recommendations Plan Patient will perform bed mobility and transfer training, balance and endurance training, functional strengthening, stair training, gait training, and education, to improve functional mobility and independence at home. Therapy Discharge Recommendati: Scheduled Assistance, Home & Family, Post Acute PT Time/GCodes Time In: 0755 Time Out: 0830 Total Billed Treatment Time: 35 Total Billed Treatment 1 visit EVM 25' EX 10' KEATON CLEVELAND PT May 16, 2021 08:44
[2021-05-16] MEDS: hydrALAZINE (APRESOLINE) 25 MG TAB PO SCH ×3 (08:50→20:33)
[2021-05-16] MEDS: DOCUSATE SODIUM 100 MG (COLACE) CAP PO SCH ×2 (08:50→20:33)
[2021-05-16] MEDS: FOLIC ACID 1 MG TAB PO SCH (08:50)
[2021-05-16] MEDS: ASPIRIN E.C. 81 MG (ECOTRIN) TAB PO SCH (08:50)
[2021-05-16] MEDS: SENNA W/DOCUSATE (SENOKOT S) TABLET PO SCH ×2 (08:51→20:33)
[2021-05-16] MEDS: polyethylene glycoL POWDER 17 GM (MIRALAX) PACK PO SCH ×2 (08:51→20:33)
[2021-05-16] MEDS ORDERED: NON-FORMULARY MEDICATION 1 EA EA (Ubidecarenone (Coq-10) 100 MG) PO SCH (09:00)
[2021-05-16] MEDS: DIVALPROEX EXT RELEASE 500 MG (DEPAKOTE ER) TAB PO SCH (09:06)
--- NOTE | 2021-05-16 09:59 | Occupational Therapy Eval ---
OT Evaluation-General/PLF Medical Diagnosis Admission Date May 15, 2021 at 20:15 Medical Diagnosis: septoplasty Onset Date: May 12, 2021 Therapy Diagnosis Therapy Diagnosis: Debility, decreased ADL skills Precautions Precautions/Isolations: Seizure, Fall Prevention, Standard Precautions Referral Physician: Isabel Queen DO Referral Reason: Activity Tolerance, Self Care, Evaluation/Treatment, Strengthening/ROM Medical History Pertinent Medical History: Arthritis, GERD, HTN Additional Medical History Chronic CSF, chronic kidney disease, renal failure Reviewed History: Yes Social History Home: Single Level Current Living Status: Spouse Entry Into Home: Level Entry ADL-Prior Level of Function SCALE: Activities may be completed with or without assistive devices. 1-Iifdvdtccy-iwlkino completes the activity by him/herself with no assistance from a helper. 5-Set-up or Clean-up Assistance-helper sets up or cleans up; patient completes activity. [place] assists only prior to or following the activity. 4-Supervision or Touching Assistance-helper provides verbal cues and/or touching/steadying and/or contact guard assistance as patient completes activity. Assistance may be provided throughout the activity or intermittently. 3-Partial/Moderate Assistance-helper does LESS THAN HALF the effort. [place] lifts, holds or supports trunk or limbs, but provides less than half the effort. 2-Substantial/Maximal Assistance-helper does MORE THAN HALF the effort. [place] lifts or holds trunk or limbs and provides more than half the effort. 7-Rhsxswkrv-ezqlnp does ALL the effort. Patient does none of the effort to complete the activity. Or, the assistance of 2 or more helpers is required for the patient to complete the activity. If activity was not attempted, code reason: 7-Patient Refused. 9-Not Applicable-not attempted and the patient did not perform the activity before the current illness, exacerbation or injury. 10-Not Attempted due to Environmental Limitations-(lack of equipment, weather restraints, etc.). 88-Not Attempted due to Medical Conditions or Safety Concerns. ADL PLOF Comments Pt. states that she is typically independent and lives with her spouse. She does not typically use a walker or use oxygen, but is currently using both. Pt. lives [place] in [place] and takes care of two horses. Pt. drives. Self Care: Independent Functional Cognition: Unknown DME/Equipment: Bath Chair, Shower DME/Equipment Comments Pt. has a walk in shower and states that she has to hold onto something in there. She states that she doesn't have grab bars, but can't articulate what she uses. She does not have her own walker but states that she is using her husbands. Drive Self: Yes (per pt.) OT Current Status Subjective No pain reported. Appearance Pt. up in gym with PT when OT meets her. Pt. on oxygen. Very pleasant. Becomes SOA with exertion. On 2L. Mental Status/Objective Patient Orientation: Person Attachments: Oxygen Current Hand Dominance: Right Upper Extremity ROM WFL ADL-Treatment Eating (QC): 5 Oral Hygiene (QC): 4 (SBA to brush teeth seated at sink.) Shower/Bathe Self (QC): 4 (CGA in shower.) Upper Body Dressing (QC): 3 (Min assist to pull shirt down.) Lower Body Dressing (QC): 3 (Mod assist overall. Pt. able to thread feet through underwear and pants, but requires some assist to don over hips in stance.) On/Off Footwear (QC): 4 (SBA and increased time.) Toileting Hygiene (QC): 7 Other Treatments Pt. agrees to work with OT. She requires multiple cues throughout session to complete task and sequence appropriately. Pt. SOA and requires brief rest breaks throughout. After showering, pt. transfers to seat at sink and brushes teeth. Pt. has difficulty brushing hair and so OT does this for her. PT assists with partial co-treatment at end of OT session due to extreme fatigue. OT provides VC for oxygen hose and safety, hand placement and endurance breaks while ambulating while PT assists with walker safety education and postures to keep walker in front of pt. and close to body. Please see PT note for distance ambulated. Education OT Patient Education: Correct positioning, Energy conservation, Modified ADL techniques, Progress toward Goal/Update tx plan, Purpose of tx/functional activities, Reviewed precautions, Rehab process, Safety issues, Transfer tech quinn Teaching Recipient: Patient Teaching Methods: Demonstration, Discussion Response to Teaching: Verbalize Understanding, Return Demonstration, Reinforcement Needed OT Short Term Goals Short Term Goals Time Frame: May 23, 2021 Eatin Oral hygiene: 5 Toileting hygiene: 4 Shower/bathe self: 4 Upper body dressin Lower body dressin Putting on/taking off footwear: 4 OT Netsuite Developer Goals Netsuite Developer Goals Time Frame: May 30, 2021 Eating (QC): 6 Oral Hygiene (QC): 6 Toileting Hygiene (QC): 6 Shower/Bathe Self (QC): 5 Upper Body Dressing (QC): 6 Lower Body Dressing (QC): 6 On/Off Footwear (QC): 6 Additional Goals: 1-Demonstrate ADL Tasks, 2-Verbalize Understanding, 3- ImproveStrength/Grey 1=Demonstrate adherence to instructed precautions during ADL tasks. 2=Patient will verbalize/demonstrate understanding of assistive devices/modifications for ADL. 3=Patient will improve strength/tolerance for activity to enable patient to perform ADL's. OT Education/Plan Problem List/Assessment Assessment: Decreased Activ Tolerance, Decreased Safety Aware, Decreased UE Strength, Dependent Transfers, Impaired Cognition, Impaired I ADL's, Impaired Self-Care Skills Discharge Recommendations Plan/Recommendations: Continue POC Therapy Discharge Recommendati: Home & Family, Post Acute OT Comment Discharge equipment to be determined. Treatment Plan/Plan of Care Treatment,Training & Education: Yes Patient would benefit from OT for education, treatment and training to promote independence in ADL's, mobility, safety and/or upper extremity function for ADL's. Plan of Care: ADL Retraining, Functional Mobility, Group Exercise/Act as Ind, UE Funct Exercise/Act Treatment Duration: May 30, 2021 Frequency: At least 5 of 7 days/Wk (IRF) Estimated Hrs Per Day: 1.5 hours per day Agreement: Yes Rehab Potential: Good Time/GCodes Start Time: 08:30 Stop Time: 09:45 Total Time Billed (hr/min): 75 Billed Treatment Time 3465-2103 1, EVM x 15minutes 0296-8933 ADL x 45minutes 2461-1459 FA x 15minutes STEFANIA DUONG OT May 16, 2021 09:59
--- NOTE | 2021-05-16 10:08 | Physical Therapy Daily Note ---
PT Daily Note-Current Subjective Pt working with OT upon arrival. Pt agrees to PT/OT short co-treat then finish PT session. Pain Location: No Pain Reported Mental Status Patient Orientation: Person, Place Attachments: Oxygen (2L) Transfers SCALE: Activities may be completed with or without assistive devices. 4-Wbjeoqlpxb-abmpqaj completes the activity by him/herself with no assistance from a helper. 5-Set-up or Clean-up Assistance-helper sets up or cleans up; patient completes activity. [employer] assists only prior to or following the activity. 4-Supervision or Touching Assistance-helper provides verbal cues and/or touching/steadying and/or contact guard assistance as patient completes activity. Assistance may be provided throughout the activity or intermittently. 3-Partial/Moderate Assistance-helper does LESS THAN HALF the effort. [employer] lifts, holds or supports trunk or limbs, but provides less than half the effort. 2-Substantial/Maximal Assistance-helper does MORE THAN HALF the effort. [employer] lifts or holds trunk or limbs and provides more than half the effort. 9-Dmfdufjsf-cjprvh does ALL the effort. Patient does none of the effort to complete the activity. Or, the assistance of 2 or more helpers is required for the patient to complete the activity. If activity was not attempted, code reason: 7-Patient Refused. 9-Not Applicable-not attempted and the patient did not perform the activity before the current illness, exacerbation or injury. 10-Not Attempted due to Environmental Limitations-(lack of equipment, weather restraints, etc.). 88-Not Attempted due to Medical Conditions or Safety Concerns. Sit to Stand (QC): 5 Weight Bearing Full Weight Bearing Full Weight Bearing Gait Training Does the Patient Walk?: Yes Distance: 150', 250' Walk 10 feet (QC): 5 Walk 50 ft with 2 Turns(QC): 5 Walk 150 ft (QC): 5 Gait Persons Needed: 1 Gait Assistive Device: FWW VC for safety, keeping FWW close to pt and picking up feet instead of shuffling while fatigued. Exercises Seated Therapy Exercises: Ankle pumps, Long arc quads, Hip flexion, Glut set Seated Reps: 15 Treatments Amb. in hallway w/RB as needed. Pt completes Seated EX, taking RB as needed. Pt amb. in hallway then returns to room to rest in recliner with all needs met, call light in hand. Assessment Current Status: Fair Progress Pt is impulsive and fatigues quickly. VC needed for keeping FWW close & picking up feet while walking, helene when fatigued. VC for avoiding "butt diving" to chair when fatigued instead of proper transfer technique. PT Short Term Goals Short Term Goals Time Frame: May 23, 2021 Roll Left & Right: 6 Sit to lyin Lying to sitting on side of be: 6 Sit to stand: 4 (SBA) Chair/vlk-vi-foimo transfer: 4 (SBA) Walk 10 feet: 4 (SBA) Walk 50 feet with two turns: 4 (SBA) Walk 150 feet: 4 (SBA) PT Armature And Rotor Winder Goals Usp Goals PT Usp Goals Time Frame: Jun 06, 2021 Roll Left & Right (QC): 6 Sit to Lying (QC): 6 Lying-Sitting on Side/Bed(QC): 6 Sit to Stand (QC): 5 Chair/Seg-gu-Lteuf Xfer(QC): 5 Toilet Transfer (QC): 5 Car Transfer (QC): 5 Does the Patient Walk: Yes Walk 10 feet (QC): 5 Walk 50ft with 2 Turns (QC): 5 Walk 150 ft (QC): 5 Walking 10ft on Uneven Surface: 4 (SBA) 1 Step (curb) (QC): 4 4 Steps (QC): 4 12 Steps (QC): 4 Picking up an Object (QC): 88 Wheel 50 feet with 2 turns (QC: 9 Wheel 150 feet: 9 PT Plan Problem List Problem List: Activity Tolerance, Safety, Gait, Transfer Treatment/Plan Treatment Plan: Continue Plan of Care Treatment Plan: Education, Functional Activity Grey, Functional Strength, Group Therapy, Gait, Safety, Therapeutic Exercise, Transfers Treatment Duration: Jun 06, 2021 Frequency: At least 5 of 7 days/Wk (IRF) Estimated Hrs Per Day: 1.5 hours per day Patient and/or Family Agrees t: Yes Safety Risks/Education Patient Education: Gait Training, Transfer Techniques, Correct Positioning, Safety Issues Teaching Recipient: Patient Teaching Methods: Demonstration, Discussion Response to Teaching: Reinforcement Needed Time/GCodes Time In: 930 Time Out: 1010 Total Billed Treatment Time: 40 Total Billed Treatment Co-treat w/OT for 15m ([id number]) 1, GT x2 (25m) & EX (15m) TREIBER,JOSH COMPUTER HARDWARE DESIGNER May 16, 2021 10:08
--- NOTE | 2021-05-16 10:42 | ST Cognitive Linguistic Eval ---
Speech Evaluation-General Medical Diagnosis Septoplasty Onset Date: May 12, 2021 Therapy Diagnosis Therapy Diagnosis: Moderate Cognitive Linguistic Impairment Precautions Precautions: Fall Precautions/Isolations: Standard Precautions Referral Referring Physician: Dr. Isabel Queen Reason for Referral: Evaluation/Treatment Medical History Pertinent Medical History: Arthritis, GERD, HTN Current History The patient is a 81 year-old female with a past medical history of HTN, high cholesterol, and Von Hippel-Lindau disease, who presented to [facility] following a septoplasty for a CSF leak. Reviewed History: Yes Social History Current Living Status: Spouse Speech PLF-Current Status Prior Level of Function Per patient, "I was independent, I did it all." Following a chart review, it appears the patient received in-home care, as well as, consistent aide from her . Subjective The patient was seated upright in her recliner, awake and alert, upon entrance by the clinician. The patient greeted the clinician appropriately and was agreeable to participation in the cognitive linguistic treatment session. The patient denied recent changes or concerns with her current cognitive linguistic function, however, the patient appears confused to the clinician on this date. Language Eval: Auditory Comprehends Simple Yes/No Ques: Functional Indent/Objects [place]: Functional Ident/Pics in [place]: Functional Follows 1-Step Commands: Functional Follows Complex Directions: Moderate Follows General Conversations: Moderate Language Eval: Verbal Language Completes Spontaneous Greeting: Functional Produces Auto, Serial Info: Functional Imitates Simple Words/Phrases: Functional Word Finding: Moderate Requests Basic Needs: Functional States Basic Personal Info: Functional Expresses Complex Ideas: Moderate Cognitive Patient Orientation The patient was oriented to self, state, day of the week and year. The patient stated the month was "April." Objective Cognitive Domain Attention: Moderate Memory: Moderate Problem Solving: Moderate Executive Functions: Moderate Visuospatial Skills: Moderate Composite Severity Rating: Moderate Clock Drawing Severity Rating: Moderate Objective Formal/Standardized Tests [facility] Mental Status Examination Results The patient demonstrated a score of +13/30 on the SLUMS correlating to results of "dementia" per SLUMS. Oral Motor/Speech Production The patient does not display dysarthria or apraxia of speech. The patient remains 100% intelligible in known and unknown contexts. Impression The patient demonstrated a result on the SLUMS correlating to a rating of "dementia." Per clinician, the patient displays a moderate neurocognitive deficit in the areas of attention, memory, and executive functioning. The patient displayed the inability to repeat three digits in reverse, complete an accurate clock drawing, or recall details from an immediately presented story. The patient required consistent verbal encouragement for appropriate alertness levels and continued participation. Speech Patient Assess Expression of Ideas/Wants: Frequently (2) Understanding Verbal Content: Sometimes Understands(2) Brief Interview-Mental Status: Yes Repetition of Three Words: Three (3) Temporal Orientation: Year: Correct (3) Temporal Orientation: Month: Accurate within 5 days(2) Temporal Orientation: Day: Correct (1) Recall : Wear to say "Sock": Yes, no cue required (2) Recall : Color: Yes, after cueing (1) Recall : Bed: Yes,after cueing (1) Memory/Recall Ability: Current season, That he or she is in a hsp/hsp unit Speech Short Term Goals Short Term Goals Short Term Goals 1. The patient will display 90% accuracy with functional problem solving and memory exercises with mild clinician cueing. Speech Senior Living Goals Equipment Detailer Goals 1. The patient will display increased cognitive linguistic function for safe return to the least restrictive environment. Speech-Plan Treatment Plan Speech Therapy Treatment Plan: Continue Plan of Care Treatment Duration: May 30, 2021 Frequency: 4 times per week (Four to five times per week.) Estimated Hrs Per Day: .5 hour per day Rehab Potential: Fair Pt/Family Agrees to Plan: Yes Safety Risks/Education Teaching Recipient: Patient Teaching Methods: Discussion Response to Teaching: Verbalize Understanding, Reinforcement Needed Education Topics Provided: Results of SLUMS, Plan of Care, Role of Skilled Speech Pathology Treatment Time Speech Therapy Time In: 10:15 Speech Therapy Time Out: 10:45 Total Billed Time: 30 Billed Treatment Time 1, CONG VICTORIA ELIZ[facility] May 16, 2021 10:42
[2021-05-16] MEDS: SALINE NASAL SPRAY (OCEAN) 45 ML BTL SCH ×5 (12:00→20:20)
[2021-05-16] MEDS: BACITRACIN OINTMENT 28 GM TUBE TP SCH ×2 (12:01→20:20)
[2021-05-16 13:18] VITALS: BP 124/55
[2021-05-16] MEDS: ENOXAPARIN 30 MG/0.3 ML (LOVENOX) SYR SC SCH (13:20)
[2021-05-16 19:42] VITALS: BP 115/66
[2021-05-17] MEDS: SALINE NASAL SPRAY (OCEAN) 45 ML BTL SCH ×8 (00:07→19:44)
[2021-05-17 07:41] VITALS: BP 123/60
[2021-05-17] MEDS: FOLIC ACID 1 MG TAB PO SCH (07:54)
[2021-05-17] MEDS: hydrALAZINE (APRESOLINE) 25 MG TAB PO SCH ×3 (07:54→19:44)
[2021-05-17] MEDS: BACITRACIN OINTMENT 28 GM TUBE TP SCH ×2 (07:55→19:45)
[2021-05-17] MEDS: DIVALPROEX EXT RELEASE 500 MG (DEPAKOTE ER) TAB PO SCH (07:55)
[2021-05-17] MEDS: ASPIRIN E.C. 81 MG (ECOTRIN) TAB PO SCH (07:55)
--- NOTE | 2021-05-17 08:08 | Individualized Plan of Care ---
Individualized Plan of Care Rehab Nursing IPOC Order Admission Date May 15, 2021 at 20:15 Current Orders Orders Admission Order(Inpt,Obs,Sdc) (05/15/21 15:50) Vital Signs: Per Unit Policy ( 08,16,00 (05/15/21 15:50) Mateo Prince 09,21 (05/15/21 15:50) Sequential Compression Device (05/15/21 15:50) Refractory Repairer-Inpt Rehab Con (05/15/21 15:50) Rehab Nursing Orders-Ipoc (05/15/21 15:50) Physical Therapy Rehab Orders (05/15/21 15:50) Occupational Therapy Rehab Ord (05/15/21 15:50) Speech Therapy Rehab Orders (05/15/21 15:50) Cbc With Automated Diff (05/16/21 06:00) Comprehensive Metabolic Panel (05/16/21 06:00) Precautions (Aru) (05/15/21 15:50) Weekly Weight WEEK (05/15/21 15:50) Rehab-Intensity Of Therapy (05/15/21 15:50) Initiate Admission Nursing Pro .admission (05/15/21 15:50) Alprazolam Tablet (Xanax Tablet) (05/15/21 16:00) Calcium Carbonate Chew Tablet (Antacid C (05/15/21 16:00) Diphenhydramine Tablet (Benadryl Tablet) (05/15/21 16:00) Docusate Sodium Capsule (Colace Capsule) (05/15/21 21:00) Docusate Sodium Capsule (Colace Capsule) (05/15/21 16:00) Bisacodyl Suppository (Dulcolax Supposit (05/15/21 16:00) Lactulose Oral Solution (Enulose Oral So (05/15/21 16:00) Na Phos/Na Biphos Enema (Fleet Enema Adriel (05/15/21 16:00) Guaifenesin/Codeine Syrup (Robitussin Ac (05/15/21 16:00) Loperamide Tablet (Imodium Tablet) (05/15/21 16:00) Melatonin Tablet (Melatonin Tablet) (05/15/21 16:00) Polyethylene Glycol Powder Pkt (Miralax (05/15/21 21:00) Ondansetron Oral Dissolve Tab (Zofran (05/15/21 16:00) Senna S Tablet (Senokot S Tablet) (05/15/21 21:00) Acetaminophen Tablet/Caplet (Tylenol T (05/15/21 16:00) Code/Resuscitation (05/15/21 15:50) Sequential Compression Device ONCE (05/15/21 15:50) Initiate Admission Nursing Pro .admission (05/15/21 15:50) Follow-Up Appointment (05/15/21 17:15) Aspirin Enteric Coated Tablet (Ecotrin T (05/16/21 09:00) Atorvastatin Tablet (Lipitor Tablet) (05/16/21 09:00) Bacitracin Ointment (Bacitracin Ointment (05/15/21 21:00) Divalproex Er 24 Hr Tablet (Depakote Er (05/16/21 09:00) Oxycodone Immediate Rel Tablet (Oxyir Ta (05/15/21 18:30) Saline Nasal [place] ([place] Nasal [place]) (05/15/21 21:00) Acetaminophen Tablet/Caplet (Tylenol T (05/15/21 22:30) Folic Acid Tablet (Folic Acid Tablet) (05/16/21 09:00) (Nf) Sodium Chloride/Sodium Bicarb (Sinu (05/15/21 21:00) (Nf) Ubidecarenone (Coq-10) (05/16/21 09:00) Bacitracin Ointment (Bacitracin Ointment (05/16/21 09:00) Saline Nasal [place] ([place] Nasal [place]) (05/16/21 00:00) Hydralazine Tablet (Apresoline Tablet) (05/16/21 09:00) Cho 60g/M 1snack (16-2000 Stevie) (05/16/21 Breakfast) Iron Test (Fe) (05/16/21 06:17) Vitamin B 12 (05/16/21 06:17) Folic Acid (05/16/21 06:17) Communication For Respiratory (05/16/21 08:44) Rt Request For Service (05/16/21 08:46) Patient Visit (05/16/21 ) Pt Eval Moderate Complexity (05/16/21 ) Exercise Therap, Ea 15 Min (05/16/21 ) Patient Visit (05/16/21 ) Gait Training, Ea 15 Min (05/16/21 ) Exercise Therap, Ea 15 Min (05/16/21 ) Enoxaparin Injection (Lovenox Injectio (05/16/21 11:00) Patient Visit (05/16/21 ) Speech Sound Lang Comp (05/16/21 ) Treat. Speech/Lang/Voice (05/16/21 ) Patient Visit (05/17/21 ) Treat. Speech/Lang/Voice (05/17/21 ) Iron Sucrose Injection (Venofer Injectio (05/17/21 12:00) Venous Access Request Order (05/17/21 11:50) Cyanocobalamin Injection (Vitamin B-12 I (05/17/21 12:00) Venous Access Request Order (05/17/21 12:53) Midline Cap Change Q7D (05/17/21 12:53) Midline Dressing Change Q7D (05/17/21 12:53) Patient Visit (05/17/21 ) Gait Training, Ea 15 Min (05/17/21 ) Exercise Therap, Ea 15 Min (05/17/21 ) Rehab Nursing Orders: Ongoing Assess. of Cognitive Status, Ongoing Assess. of Function Status, Bladder Management, Bladder Scan, Bladder Training, Bowel Management, Bowel Training, Disease Management & Educaiton, DVT Prophylaxis, Fall Prevention, Fluid/Electrolyte/Nutrition Mgmt, Infection Prevention, Medication Management & Education, Management of Risks & Complications, Management of Skin Intergrity, Nutrition Management, Pain Management, Patient/Family Support, Safety Management Intensity of Therapy to be met Patient to be seen: Min.3h per day/5 of 7d PT IPOC Problem List: Activity Tolerance, Safety, Gait, Transfer Treatment Plan: Continue Plan of Care Education, Functional Activity Grey, Functional Strength, Group Therapy, Gait, Safety, Therapeutic Exercise, Transfers Treatment Duration: Jun 06, 2021 Frequency: At least 5 of 7 days/Wk (IRF) Estimated Hrs Per Day: 1.5 hours per day OT IPOC Problems: Decreased Activ Tolerance, Decreased Safety Aware, Decreased UE Strength, Dependent Transfers, Impaired Cognition, Impaired I ADL's, Impaired Self-Care Skills OT Treatment, Training and Edu: Yes Plan of Care: ADL Retraining, Functional Mobility, Group Exercise/Act as Ind, UE Funct Exercise/Act Treatment Duration: May 30, 2021 Frequency: At least 5 of 7 days/Wk (IRF) Estimated Hrs Per Day: 1.5 hours per day [facility] Speech Therapy Treatment Plan: Continue Plan of Care Treatment Duration: May 30, 2021 Frequency: 4 times per week (Four to five times per week.) Estimated Hrs Per Day: .5 hour per day Refractory Repairer/Case Mgmt Refractory Repairer/Case Managemen: Discharge Planning Dietitian/Web Press Operator Helper Offset Dietitian/Web Press Operator Helper Offset to monitor nutritional status and make changes and/or recommendations as needed and work with speech pathology on dietary upgrades as the occur. 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
--- NOTE | 2021-05-17 08:08 | PM&R Progress Note ---
Subjective HPI/CC On Admission Date Seen by Provider: May 17, 2021 Time Seen by Provider: 11:00 Subjective/Events-last exam 05/17/2021: Pt doing really well Midline will be placed for IV iron since her iron level is 12 and hemoglobin is low Kidney biopsy was actually not done at so there is no results to obtain and pathology They did mention they would entertain that if needed in the future Review of Systems General: Fatigue, Malaise Neurological: Weakness Objective Exam Vital Signs Vital Signs Date Time Temp Pulse Resp B/P (MAP) Pulse Ox O2 Delivery O2 Flow Rate FiO2 05/17/21 20:47 37.2 55 16 135/60 (85) 100 Nasal Cannula 2.00 Capillary Refill : General Appearance: No Apparent Distress, WD/WN, Chronically ill HEENT: PERRL/EOMI, Normal ENT Inspection, Pharynx Normal Neck: Full Range of Motion, Normal Inspection, Non Tender, Supple, Carotid Bruit Respiratory: Chest Non Tender, Lungs Clear, No Accessory Muscle Use, No Respiratory Distress, Decreased Breath Sounds Cardiovascular: Regular Rate, Rhythm, No Edema, No Gallop, No JVD, No Murmur, Normal Peripheral Pulses Gastrointestinal: Normal Bowel Sounds, No Organomegaly, No Pulsatile Mass, Non Tender, Soft Back: Normal Inspection, No CVA Tenderness, No Vertebral Tenderness Extremity: Normal Capillary Refill, Normal Inspection, Normal Range of Motion, Non Tender, No Calf Tenderness, No Pedal Edema Neurologic/Psychiatric: Alert, Oriented x3, No Motor/Sensory Deficits, Abnormal Gait, Depressed Affect, Motor Weakness (Generalized) Skin: Normal Color, Warm/Dry Lymphatic: No Adenopathy Results/Procedures Lab Patient resulted labs reviewed. FIM Transfers Therapy Code Descriptions/Definitions Functional [place] Measure: 0=Not Assessed/NA 4=Minimal Assistance 1=Total Assistance 5=Supervision or Setup 2=Maximal Assistance 6=Modified [place] 3=Moderate Assistance 7=Complete IndependenceSCALE: Activities may be completed with or without assistive devices. 1-Oytacyewen-xxahlyj completes the activity by him/herself with no assistance from a helper. 5-Set-up or Clean-up Assistance-helper sets up or cleans up; patient completes activity. [place] assists only prior to or following the activity. 4-Supervision or Touching Assistance-helper provides verbal cues and/or touching/steadying and/or contact guard assistance as patient completes activity. Assistance may be provided throughout the activity or intermittently. 3-Partial/Moderate Assistance-helper does LESS THAN HALF the effort. [place] lifts, holds or supports trunk or limbs, but provides less than half the effort. 2-Substantial/Maximal Assistance-helper does MORE THAN HALF the effort. [place] lifts or holds trunk or limbs and provides more than half the effort. 1-Xeaqrnxcj-wkmbkk does ALL the effort. Patient does none of the effort to complete the activity. Or, the assistance of 2 or more helpers is required for the patient to complete the activity. If activity was not attempted, code reason: 7-Patient Refused. 9-Not Applicable-not attempted and the patient did not perform the activity before the current illness, exacerbation or injury. 10-Not Attempted due to Environmental Limitations-(lack of equipment, weather restraints, etc.). 88-Not Attempted due to Medical Conditions or Safety Concerns. Roll Left to Right (QC): 6 Sit to Lying (QC): 6 Sit to Stand (QC): 5 Chair/Ebq-ph-Gedda Xfer(QC): 4 Car Transfer (QC): 4 Gait Training Does the Patient Walk?: Yes Distance: 150', 250' Walk 10 feet (QC): 5 Walk 50 ft with 2 Turns(QC): 5 Walk 150 ft (QC): 5 Walking 10ft/uneven surface-QC: 4 Gait Persons Needed: 1 Gait Assistive Device: FWW Wheelchair Training Does the Pt Use a Wheelchair?: Yes Wheel 50 ft with 2 turns (QC): 3 Wheel 150 ft (QC): 3 Type of Wheelchair: Manual Stair Training #of Steps: 1 1 Step (curb) (QC): 4 4 Steps (QC): 88 12 Steps (QC): 88 Balance Picking up an Object (QC): 88 ADL-Treatment Eating (QC): 5 Oral Hygiene (QC): 4 (SBA to brush teeth seated at sink.) Shower/Bathe Self (QC): 4 (CGA in shower.) Upper Body Dressing (QC): 3 (Min assist to pull shirt down.) Lower Body Dressing (QC): 3 (Mod assist overall. Pt. 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
--- NOTE | 2021-05-17 09:56 | Occupational Ther Daily Note ---
OT Current Status-Daily Note Subjective No pain reported. Appearance Pt. up in chair. Agrees to work with OT. Mental Status/Objective Patient Orientation: Person, Place Attachments: Oxygen ADL-Treatment Therapy Code Descriptions/Definitions Functional [place] Measure: 0=Not Assessed/NA 4=Minimal Assistance 1=Total Assistance 5=Supervision or Setup 2=Maximal Assistance 6=Modified [place] 3=Moderate Assistance 7=Complete IndependenceSCALE: Activities may be completed with or without assistive devices. 7-Thgawarybk-ujnidsd completes the activity by him/herself with no assistance from a helper. 5-Set-up or Clean-up Assistance-helper sets up or cleans up; patient completes activity. [place] assists only prior to or following the activity. 4-Supervision or Touching Assistance-helper provides verbal cues and/or touching/steadying and/or contact guard assistance as patient completes activity. Assistance may be provided throughout the activity or intermittently. 3-Partial/Moderate Assistance-helper does LESS THAN HALF the effort. [place] lifts, holds or supports trunk or limbs, but provides less than half the effort. 2-Substantial/Maximal Assistance-helper does MORE THAN HALF the effort. [place] lifts or holds trunk or limbs and provides more than half the effort. 9-Bwikaaruc-ohxler does ALL the effort. Patient does none of the effort to complete the activity. Or, the assistance of 2 or more helpers is required for the patient to complete the activity. If activity was not attempted, code reason: 7-Patient Refused. 9-Not Applicable-not attempted and the patient did not perform the activity before the current illness, exacerbation or injury. 10-Not Attempted due to Environmental Limitations-(lack of equipment, weather restraints, etc.). 88-Not Attempted due to Medical Conditions or Safety Concerns. Oral Hygiene (QC): 4 (SBA standing at sink to brush teeth.) Shower/Bathe Self (QC): 4 (SBA to sponge bathe seated and standing at chair level. Pt. requires step by step cues to complete all tasks.) Upper Body Dressing (QC): 4 (SBA) Lower Body Dressing (QC): 4 (CGA in stance to don pants over hips.) On/Off Footwear: 3 (Min assist with shoes. SBA to don socks.) Other Treatment After ADLs in room, pt. ambulated with OT to therapy gym. Completed arm bike x 10 minutes with multiple rest breaks at min resistance. Pt. pedals with slow movements. Pt. on 2L oxygen. OT monitors oxygen and it is between 93-95%. PT comes to assist for last bit of session due to pt's fatigue level. Pt. ambulated to therapy laundry area to work on ADL skill of doing laundry. OT facilitated cognitive skill with this as well as safety while performing, and PT facilitated walker safety and endurance training. Pt. unable to complete laundry task, (starting washing machine on her own), stating that she has porter eone who does laundry for her. Pt. sitting up in chair with PT at end of OT session. Education OT Patient Education: Correct positioning, Energy conservation, Exercise program, Modified ADL techniques, Progress toward Goal/Update tx plan, Purpose of tx/functional activities, Reviewed precautions, Rehab process, Safety issues, Transfer techniques Teaching Recipient: Patient Teaching Methods: Demonstration, Discussion Response to Teaching: Verbalize Understanding, Return Demonstration, Reinforcement Needed OT Short Term Goals Short Term Goals Time Frame: May 23, 2021 Eatin Oral hygiene: 5 Toileting hygiene: 4 Shower/bathe self: 4 Upper body dressin Lower body dressin Putting on/taking off footwear: 4 OT Fpc Goals Fpc Goals Time Frame: May 30, 2021 Eating (QC): 6 Oral Hygiene (QC): 6 Toileting Hygiene (QC): 6 Shower/Bathe Self (QC): 5 Upper Body Dressing (QC): 6 Lower Body Dressing (QC): 6 On/Off Footwear (QC): 6 Additional Goals: 1-Demonstrate ADL Tasks, 2-Verbalize Understanding, 3- ImproveStrength/Grey 1=Demonstrate adherence to instructed precautions during ADL tasks. 2=Patient will verbalize/demonstrate understanding of assistive devices/modifications for ADL. 3=Patient will improve strength/tolerance for activity to enable patient to perform ADL's. OT Education/Plan Problem List/Assessment Assessment: Decreased Activ Tolerance, Decreased Safety Aware, Decreased UE Strength, Dependent Transfers, Impaired Bed Mobility, Impaired Cognition, Impaired I ADL's, Impaired Self-Care Skills Discharge Recommendations Plan/Recommendations: Continue POC Therapy Discharge Recommendati: Home & Family, Post Acute OT Treatment Plan/Plan of Care Treatment,Training & Education: Yes Patient would benefit from OT for education, treatment and training to promote independence in ADL's, mobility, safety and/or upper extremity function for ADL's. Plan of Care: ADL Retraining, Functional Mobility, Group Exercise/Act as Ind, UE Funct Exercise/Act Treatment Duration: May 30, 2021 Frequency: At least 5 of 7 days/Wk (IRF) Estimated Hrs Per Day: 1.5 hours per day Agreement: Yes Rehab Potential: Fair Time/GCodes Start Time: 08:30 Stop Time: 09:45 Total Time Billed (hr/min): 75 Billed Treatment Time 1609-4736 1, ADL x 45minutes, Ex x 15minutes [id number] ADL x 45viwncsx-[id number]-hdfuj with PT. Please see above note for designated roles. STEFANIA DUONG OT May 17, 2021 09:56
--- NOTE | 2021-05-17 10:13 | Physical Therapy Daily Note ---
PT Daily Note-Current Subjective Pt up in chair with OT in therapy gym, agreeable to PT treatment. Appearance Following session, pt up in chair with tray, call light and phone within reach. All needs met. Mental Status Patient Orientation: Person, Place Attachments: Oxygen (2L) Transfers SCALE: Activities may be completed with or without assistive devices. 2-Gjrmbgdgcs-cssqdte completes the activity by him/herself with no assistance from a helper. 5-Set-up or Clean-up Assistance-helper sets up or cleans up; patient completes activity. [place] assists only prior to or following the activity. 4-Supervision or Touching Assistance-helper provides verbal cues and/or touching/steadying and/or contact guard assistance as patient completes acti vity. Assistance may be provided throughout the activity or intermittently. 3-Partial/Moderate Assistance-helper does LESS THAN HALF the effort. [place] lifts, holds or supports trunk or limbs, but provides less than half the effort. 2-Substantial/Maximal Assistance-helper does MORE THAN HALF the effort. [place] lifts or holds trunk or limbs and provides more than half the effort. 6-Lizyvrbfh-mcpzhb does ALL the effort. Patient does none of the effort to complete the activity. Or, the assistance of 2 or more helpers is required for the patient to complete the activity. If activity was not attempted, code reason: 7-Patient Refused. 9-Not Applicable-not attempted and the patient did not perform the activity before the current illness, exacerbation or injury. 10-Not Attempted due to Environmental Limitations-(lack of equipment, weather restraints, etc.). 88-Not Attempted due to Medical Conditions or Safety Concerns. Weight Bearing Full Weight Bearing Full Weight Bearing Gait Training Distance: 3 x 150' 1 x 250' Gait Assistive Device: FWW Pt ambulates with FWW, frequent cues to keep walker close. She has poor control of LLE, with L foot slapping the ground. Exercises Seated Therapy Exercises: Ankle pumps, Sit to stand (10), Long arc quads, Hip flexion, Hip abd/add Standing: Heel/toe raises, 3 way Ex=Flex, Abd, Ext NuStep Minutes: 15 NuStep Workload: 5 Treatments Pt up in chair in therapy gym with OT upon arrival, agreeable to co-treat due to pt's fatigue level. Pt. ambulated to therapy laundry area to work on ADL skill of doing laundry. OT facilitated cognitive skill with this as well as safety while performing, and PT facilitated walker safety and endurance training. Pt ambulates 2 x 150' with PT, cueing to keep walker close and prevent walker out in front of her. Completed seated and standing exercises in her room. Pt then had speech therapy treatment from [id number] [phone]: pt seated in chair agreeable to PT treatment. Pt ambulates 150' to therapy gym, and completes 15 minutes on the nustep. Pt with slow stepping with frequent rest breaks, then ambulates to return to room, Assessment Current Status: Good Progress Pt requires frequent cues for safety, but is tolerating treatments well. Will continue to progress dynamic balance and strengthening activities. PT Short Term Goals Short Term Goals Time Frame: May 23, 2021 Roll Left & Right: 6 Sit to lyin Lying to sitting on side of be: 6 Sit to stand: 4 (SBA) Chair/rll-li-sukcy transfer: 4 (SBA) Walk 10 feet: 4 (SBA) Walk 50 feet with two turns: 4 (SBA) Walk 150 feet: 4 (SBA) PT Half-Way Goals Half-Way Goals PT Half-Way Goals Time Frame: Jun 06, 2021 Roll Left & Right (QC): 6 Sit to Lying (QC): 6 Lying-Sitting on Side/Bed(QC): 6 Sit to Stand (QC): 5 Chair/Vwh-tg-Vvqhh Xfer(QC): 5 Toilet Transfer (QC): 5 Car Transfer (QC): 5 Does the Patient Walk: Yes Walk 10 feet (QC): 5 Walk 50ft with 2 Turns (QC): 5 Walk 150 ft (QC): 5 Walking 10ft on Uneven Surface: 4 (SBA) 1 Step (curb) (QC): 4 4 Steps (QC): 4 12 Steps (QC): 4 Picking up an Object (QC): 88 Wheel 50 feet with 2 turns (QC: 9 Wheel 150 feet: 9 PT Plan Problem List Problem List: Activity Tolerance, Functional Strength, Safety, Balance, Gait, Transfer, Bed Mobility, ROM Treatment/Plan Treatment Plan: Continue Plan of Care Treatment Plan: Education, Functional Activity Grey, Functional Strength, Group Therapy, Gait, Safety, Therapeutic Exercise, Transfers Treatment Duration: Jun 06, 2021 Frequency: At least 5 of 7 days/Wk (IRF) Estimated Hrs Per Day: 1.5 hours per day Patient and/or Family Agrees t: Yes Time/GCodes Time In: 930 Time Out: 1115 Total Billed Treatment Time: 75 Total Billed Treatment [id number]: 2 GT (25') 1 EX (20') 3513-1069: EX (30') BELKIS HARLEY PT May 17, 2021 10:13
--- NOTE | 2021-05-17 11:05 | Speech Therapy Daily Note ---
Speech Daily Progress Note Subjective Date Seen by Provider: May 17, 2021 Time Seen by Provider: 10:15 The patient was seated upright in her recliner, awake and alert upon entrance by the clinician. The patient greeted the clinician appropriately and was agreeable to participation in the cognitive linguistic treatment session. Objective Orientation: The patient was oriented to month, day of week, date, year, and city (independently). Safety Problem Solving: The patient was provided specific safety problems which may occur in her home. The patient provided accurate responses to the situations, however, prior to stating the accurate response would reply, "I would call my ." To the clinician, it appears the patient relies on her heavily for overall safety. Additionally, the patient was able to state the use of her call button and the necessity to use the call button if anything is needed in her room. What's Wrong: The patient was provided cards which depicted an image with someth ing "wrong." The patient was asked to identify what was "wrong" in the photo. The patient displayed fair accuracy with the task (80%) with maximum clinician verbal cueing. Assessment Assessment Current Status: Good Progress Treatment Plan Continue Plan of Care Speech Short Term Goals Short Term Goals Short Term Goals 1. The patient will display 90% accuracy with functional problem solving and memory exercises with mild clinician cueing. Speech Horse Racing Manager Goals Jail Goals 1. The patient will display increased cognitive linguistic function for safe return to the least restrictive environment. Speech-Plan Treatment Plan Speech Therapy Treatment Plan: Continue Plan of Care Treatment Duration: May 30, 2021 Frequency: 4 times per week (Four to five times per week.) Estimated Hrs Per Day: .5 hour per day Rehab Potential: Fair Safety Risks/Education Teaching Recipient: Patient Teaching Methods: Discussion Response to Teaching: Verbalize Understanding Education Topics Provided: Functional Safety Problem Solving Time Speech Therapy Time In: 10:15 Speech Therapy Time Out: 10:45 Total Billed Time: 30 Billed Treatment Time 1CONG [facility] May 17, 2021 11:05
[2021-05-17] MEDS ORDERED: CYANOCOBALAMIN INJ 1000 MCG/ML IM NR (12:00)
[2021-05-17] MEDS: ENOXAPARIN 30 MG/0.3 ML (LOVENOX) SYR SC SCH (12:21)
[2021-05-17 12:30] VITALS: BP 108/54
[2021-05-17] MEDS: DOCUSATE SODIUM 100 MG (COLACE) CAP PO SCH ×2 (12:43→19:53)
[2021-05-17] MEDS: polyethylene glycoL POWDER 17 GM (MIRALAX) PACK PO SCH ×2 (12:43→19:53)
[2021-05-17] MEDS: SENNA W/DOCUSATE (SENOKOT S) TABLET PO SCH ×2 (12:43→19:54)
[2021-05-17] MEDS: IRON SUCROSE 200 MG/10 ML (VENOFER) VIAL IV SCH (13:44)
[2021-05-17 20:47] VITALS: BP 135/60
[2021-05-18] MEDS: SALINE NASAL SPRAY (OCEAN) 45 ML BTL SCH ×8 (00:04→20:08)
[2021-05-18 08:00] VITALS: BP 113/60
--- NOTE | 2021-05-18 09:38 | Occupational Ther Daily Note ---
OT Current Status-Daily Note Subjective No pain reported. Appearance Pt. up with PT when OT began treatment. Mental Status/Objective Patient Orientation: Person, Place Attachments: Oxygen ADL-Treatment Therapy Code Descriptions/Definitions Functional [place] Measure: 0=Not Assessed/NA 4=Minimal Assistance 1=Total Assistance 5=Supervision or Setup 2=Maximal Assistance 6=Modified [place] 3=Moderate Assistance 7=Complete IndependenceSCALE: Activities may be completed with or without assistive devices. 7-Epuifjmmxp-oucnvne completes the activity by him/herself with no assistance from a helper. 5-Set-up or Clean-up Assistance-helper sets up or cleans up; patient completes activity. [place] assists only prior to or following the activity. 4-Supervision or Touching Assistance-helper provides verbal cues and/or touching/steadying and/or contact guard assistance as patient completes activity. Assistance may be provided throughout the activity or intermittently. 3-Partial/Moderate Assistance-helper does LESS THAN HALF the effort. [place] lifts, holds or supports trunk or limbs, but provides less than half the effort. 2-Substantial/Maximal Assistance-helper does MORE THAN HALF the effort. [place] lifts or holds trunk or limbs and provides more than half the effort. 2-Prcdecntz-gquiqz does ALL the effort. Patient does none of the effort to complete the activity. Or, the assistance of 2 or more helpers is required for the patient to complete the activity. If activity was not attempted, code reason: 7-Patient Refused. 9-Not Applicable-not attempted and the patient did not perform the activity before the current illness, exacerbation or injury. 10-Not Attempted due to Environmental Limitations-(lack of equipment, weather restraints, etc.). 88-Not Attempted due to Medical Conditions or Safety Concerns. Shower/Bathe Self (QC): 7 Other Treatment PT and OT completed partial co-treatment this date with pt. due to pt's fatigue with other sessions. PT focused on endurance training, standing balance, and walker management while OT worked on UE strengthening, endurance, and safety during environmental management. PT worked on LE exercises as well. PT/OT alternated UE/LE exercises. Pt. utilized 2lb. dumbbells and completed overall 4 UE exercises x 15 reps each in all planes for increased strength. Pt. requires multiple cues for sequencing, and to complete the task appropriately. Tolerated treatment well. Ambulated with walker with CGA and cues for safety. Please see PT note for distance ambulated. Pt. completed pulleys for endurance, and worked on standing balance without walker while batting balloon back and forth. OT assisted with balloon while PT provided SBA and CGA when needed. Pt. tolerated treatment well. PT left session and pt. completed 10 minutes on arm bike at min resistance. Ambulated back to room and all needs were met. Pt. wanting to make a phone call to her . Education OT Patient Education: Correct positioning, Exercise program, Modified ADL techniques, Progress toward Goal/Update tx plan, Purpose of tx/functional activities, Reviewed precautions, Rehab process, Transfer techniques Teaching Recipient: Patient Teaching Methods: Demonstration, Discussion Response to Teaching: Verbalize Understanding, Return Demonstration, Reinforcement Needed OT Short Term Goals Short Term Goals Time Frame: May 23, 2021 Eatin Oral hygiene: 5 Toileting hygiene: 4 Shower/bathe self: 4 Upper body dressin Lower body dressin Putting on/taking off footwear: 4 OT Fpc Goals Plating Tank Operator Goals Time Frame: May 30, 2021 Eating (QC): 6 Oral Hygiene (QC): 6 Toileting Hygiene (QC): 6 Shower/Bathe Self (QC): 5 Upper Body Dressing (QC): 6 Lower Body Dressing (QC): 6 On/Off Footwear (QC): 6 Additional Goals: 1-Demonstrate ADL Tasks, 2-Verbalize Understanding, 3- ImproveStrength/[place] 1=Demonstrate adherence to instructed precautions during ADL tasks. 2=Patient will verbalize/demonstrate understanding of assistive devices/modifications for ADL. 3=Patient will improve strength/tolerance for activity to enable patient to perform ADL's. OT Education/Plan Problem List/Assessment Assessment: Decreased Activ Tolerance, Decreased UE Strength, Dependent Transfers, Impaired I ADL's, Impaired Self-Care Skills Discharge Recommendations Plan/Recommendations: Continue POC Therapy Discharge Recommendati: Home & Family, Post Acute OT Treatment Plan/Plan of Care Treatment,Training & Education: Yes Patient would benefit from OT for education, treatment and training to promote independence in ADL's, mobility, safety and/or upper extremity function for ADL's. Plan of Care: ADL Retraining, Functional Mobility, Group Exercise/Act as Ind, UE Funct Exercise/Act Treatment Duration: May 30, 2021 Frequency: At least 5 of 7 days/Wk (IRF) Estimated Hrs Per Day: 1.5 hours per day Agreement: Yes Rehab Potential: Fair Time/GCodes Start Time: 08:30 Stop Time: 10:00 Total Time Billed (hr/min): 90 Billed Treatment Time 2464-2103 1, Ex x 30minutes, FA x 30minutes -Cotreatment with PT. Please see above note for designated roles. [id number] Ex x 15minutes, FA x 15minutes STEFANIA DUONG OT May 18, 2021 09:38
[2021-05-18] MEDS: polyethylene glycoL POWDER 17 GM (MIRALAX) PACK PO SCH ×2 (10:21→20:14)
[2021-05-18] MEDS: SENNA W/DOCUSATE (SENOKOT S) TABLET PO SCH ×2 (10:41→20:11)
[2021-05-18] MEDS: DOCUSATE SODIUM 100 MG (COLACE) CAP PO SCH ×2 (10:41→20:11)
[2021-05-18] MEDS: hydrALAZINE (APRESOLINE) 25 MG TAB PO SCH ×3 (10:41→20:11)
[2021-05-18] MEDS: FOLIC ACID 1 MG TAB PO SCH (10:41)
[2021-05-18] MEDS: DIVALPROEX EXT RELEASE 500 MG (DEPAKOTE ER) TAB PO SCH (10:41)
[2021-05-18] MEDS: ASPIRIN E.C. 81 MG (ECOTRIN) TAB PO SCH (10:41)
[2021-05-18] MEDS: BACITRACIN OINTMENT 28 GM TUBE TP SCH ×2 (10:42→20:12)
--- NOTE | 2021-05-18 10:47 | Physical Therapy Daily Note ---
PT Daily Note-Current Subjective Pt in bed upon arrival to room, agreeable to PT treatment. No c/o pain voiced throughout session Appearance Following PT session, pt up in therapy gym with OT. Mental Status Patient Orientation: Person, Place, Situation Attachments: Oxygen (2L) Transfers SCALE: Activities may be completed with or without assistive devices. 4-Efscgizkhg-dvchznp completes the activity by him/herself with no assistance from a helper. 5-Set-up or Clean-up Assistance-helper sets up or cleans up; patient completes activity. [place] assists only prior to or following the activity. 4-Supervision or Touching Assistance-helper provides verbal cues and/or touching/steadying and/or contact guard assistance as patient completes activ ity. Assistance may be provided throughout the activity or intermittently. 3-Partial/Moderate Assistance-helper does LESS THAN HALF the effort. [place] lifts, holds or supports trunk or limbs, but provides less than half the effort. 2-Substantial/Maximal Assistance-helper does MORE THAN HALF the effort. [place] lifts or holds trunk or limbs and provides more than half the effort. 8-[place]ppa-kzgtpq does ALL the effort. Patient does none of the effort to complete the activity. Or, the assistance of 2 or more helpers is required for the patient to complete the activity. If activity was not attempted, code reason: 7-Patient Refused. 9-Not Applicable-not attempted and the patient did not perform the activity before the current illness, exacerbation or injury. 10-Not Attempted due to Environmental Limitations-(lack of equipment, weather restraints, etc.). 88-Not Attempted due to Medical Conditions or Safety Concerns. Roll Left & Right (QC): 6 Lying to Sitting/Side of Bed(Q: 6 Sit to Stand (QC): 4 Weight Bearing Full Weight Bearing Full Weight Bearing Gait Training Distance: 250x2, 200;x1, 150;x2 Walk 10 feet (QC): 4 Walk 50 ft with 2 Turns(QC): 4 Walk 150 ft (QC): 4 Gait Assistive Device: FWW CGA for safety with ambulation. Pt lets LLE hit gorund loudly, poor control, unable to correct even with cueing. Pt also lets walker get in front of her, able to correct with cueing but does not maintain. Exercises Seated Therapy Exercises: Ankle pumps, Sit to stand, Long arc quads, Hip flexion, Hamstring Curls, Hip abd/add Seated Reps: 20 Treatments PT and OT completed partial co-treatment this date with pt. due to pt's fatigue with other sessions. PT focused on endurance training, standing balance, and walker management while OT worked on UE strengthening, endurance, and safety during environmental management. PT worked on LE exercises as well. PT/OT alternated UE/LE exercises. Pt completed all bed mobility with independence, and was able to dress with this PT assisting with handing her the clothing. Pt then ambulates to the bathroom and brushes teeth, hair and washes her face. Then pt ambulates in hallway, as listed above, prior to completing exercises in the therapy gym. Assessment Current Status: Good Progress Pt with improvements in overall ambulation endurance this date, she continues to have poor control of LLE. PT Short Term Goals Short Term Goals Time Frame: May 23, 2021 Roll Left & Right: 6 Sit to lyin Lying to sitting on side of be: 6 Sit to stand: 4 (SBA) Chair/gzv-zf-xkwtd transfer: 4 (SBA) Walk 10 feet: 4 (SBA) Walk 50 feet with two turns: 4 (SBA) Walk 150 feet: 4 (SBA) PT Strategic Analyst Goals Residential Goals PT Residential Goals Time Frame: Jun 06, 2021 Roll Left & Right (QC): 6 Sit to Lying (QC): 6 Lying-Sitting on Side/Bed(QC): 6 Sit to Stand (QC): 5 Chair/Abz-dg-Dcahn Xfer(QC): 5 Toilet Transfer (QC): 5 Car Transfer (QC): 5 Does the Patient Walk: Yes Walk 10 feet (QC): 5 Walk 50ft with 2 Turns (QC): 5 Walk 150 ft (QC): 5 Walking 10ft on Uneven Surface: 4 (SBA) 1 Step (curb) (QC): 4 4 Steps (QC): 4 12 Steps (QC): 4 Picking up an Object (QC): 88 Wheel 50 feet with 2 turns (QC: 9 Wheel 150 feet: 9 PT Plan Problem List Problem List: Activity Tolerance, Functional Strength, Safety, Balance, Gait, Transfer, ROM Treatment/Plan Treatment Plan: Continue Plan of Care Treatment Plan: Education, Functional Activity [place], Functional Strength, Group Therapy, Gait, Safety, Therapeutic Exercise, Transfers Treatment Duration: Jun 06, 2021 Frequency: At least 5 of 7 days/Wk (IRF) Estimated Hrs Per Day: 1.5 hours per day Patient and/or Family Agrees t: Yes Time/GCodes Time In: 800 Time Out: 930 Total Billed Treatment Time: 90 Total Billed Treatment 1 visit 800-830: FA x2 (30') 830-930 GT x2 (30') EX x2 (30') - Cotreatment with OT, see noted for designated rolls BELKIS HARLEY PT May 18, 2021 10:47
[2021-05-18] MEDS: ENOXAPARIN 30 MG/0.3 ML (LOVENOX) SYR SC SCH (12:49)
--- NOTE | 2021-05-18 14:36 | PM&R Progress Note ---
Subjective HPI/CC On Admission Date Seen by Provider: May 18, 2021 Time Seen by Provider: 14:30 Subjective/Events-last exam 05/18/2021: Patient doing fairly well Check meds labs Tolerating IV iron infusions Wandering around the unit 05/17/2021: Pt doing really well Midline will be placed for IV iron since her iron level is 12 and hemoglobin is low Kidney biopsy was actually not done at so there is no results to obtain and pathology They did mention they would entertain that if needed in the future Review of Systems General: Fatigue, Malaise Neurological: Confusion Objective Exam Vital Signs Vital Signs Date Time Temp Pulse Resp B/P (MAP) Pulse Ox O2 Delivery O2 Flow Rate FiO2 05/18/21 16:28 98 Room Air 0.00 05/18/21 08:00 36.2 64 16 113/60 (77) Capillary Refill : General Appearance: No Apparent Distress, WD/WN, Chronically ill HEENT: PERRL/EOMI, Normal ENT Inspection, Pharynx Normal Neck: Full Range of Motion, Normal Inspection, Non Tender, Supple, Carotid Bruit Respiratory: Chest Non Tender, Lungs Clear, No Accessory Muscle Use, No Respiratory Distress, Decreased Breath Sounds Cardiovascular: Regular Rate, Rhythm, No Edema, No Gallop, No JVD, No Murmur, Normal Peripheral Pulses Gastrointestinal: Normal Bowel Sounds, No Organomegaly, No Pulsatile Mass, Non Tender, Soft Back: Normal Inspection, No CVA Tenderness, No Vertebral Tenderness Extremity: Normal Capillary Refill, Normal Inspection, Normal Range of Motion, Non Tender, No Calf Tenderness, No Pedal Edema Neurologic/Psychiatric: Alert, Oriented x3, No Motor/Sensory Deficits, Abnormal Gait, Depressed Affect, Motor Weakness (Generalized) Skin: Normal Color, Warm/Dry Lymphatic: No Adenopathy Results/Procedures Lab Patient resulted labs reviewed. FIM Transfers Therapy Code Descriptions/Definitions Functional [place] Measure: 0=Not Assessed/NA 4=Minimal Assistance 1=Total Assistance 5=Supervision or Setup 2=Maximal Assistance 6=Modified [place] 3=Moderate Assistance 7=Complete IndependenceSCALE: Activities may be completed with or without assistive devices. 3-Irucmshvli-pqikxit completes the activity by him/herself with no assistance from a helper. 5-Set-up or Clean-up Assistance-helper sets up or cleans up; patient completes activity. [place] assists only prior to or following the activity. 4-Supervision or Touching Assistance-helper provides verbal cues and/or touching/steadying and/or contact guard assistance as patient completes activity. Assistance may be provided throughout the activity or intermittently. 3-Partial/Moderate Assistance-helper does LESS THAN HALF the effort. [place] lifts, holds or supports trunk or limbs, but provides less than half the effort. 2-Substantial/Maximal Assistance-helper does MORE THAN HALF the effort. [place] lifts or holds trunk or limbs and provides more than half the effort. 4-Ydcqkuaaq-jgoofc does ALL the effort. Patient does none of the effort to complete the activity. Or, the assistance of 2 or more helpers is required for the patient to complete the activity. If activity was not attempted, code reason: 7-Patient Refused. 9-Not Applicable-not attempted and the patient did not perform the activity before the current illness, exacerbation or injury. 10-Not Attempted due to Environmental Limitations-(lack of equipment, weather restraints, etc.). 88-Not Attempted due to Medical Conditions or Safety Concerns. Roll Left to Right (QC): 6 Sit to Lying (QC): 6 Sit to Stand (QC): 4 Chair/Omp-sd-Lclxk Xfer(QC): 4 Car Transfer (QC): 4 Gait Training Does the Patient Walk?: Yes Distance: 250x2, 200;x1, 150;x2 Walk 10 feet (QC): 4 Walk 50 ft with 2 Turns(QC): 4 Walk 150 ft (QC): 4 Walking 10ft/uneven surface-QC: 4 Gait Persons Needed: 1 Gait Assistive Device: FWW Wheelchair Training Does the Pt Use a Wheelchair?: Yes Wheel 50 ft with 2 turns (QC): 3 Wheel 150 ft (QC): 3 Type of Wheelchair: Manual Stair Training #of Steps: 1 1 Step (curb) (QC): 4 4 Steps (QC): 88 12 Steps (QC): 88 Balance Picking up an Object (QC): 88 ADL-Treatment Eating (QC): 5 Oral Hygiene (QC): 4 (SBA standing at sink to brush teeth.) Shower/Bathe Self (QC): 7 Upper Body Dressing (QC): 4 (SBA) Lower Body Dressing (QC): 4 (CGA in stance to don pants over hips.) On/Off Footwear (QC): 3 (Min assist with shoes. 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
[2021-05-18] MEDS: ALPRAZolam 0.25 MG (XANAX) TAB PO PRN (15:49)
[2021-05-18 20:00] VITALS: BP 131/62
[2021-05-18] MEDS: MELATONIN 3 MG TABLET PO PRN (20:11)
[2021-05-19] MEDS: SALINE NASAL SPRAY (OCEAN) 45 ML BTL SCH ×8 (00:18→22:37)
--- NOTE | 2021-05-19 06:40 | PM&R Progress Note ---
Subjective HPI/CC On Admission Date Seen by Provider: May 19, 2021 Time Seen by Provider: 11:30 Subjective/Events-last exam 05/19/2021: Patient doing well Confusion noted Wandering around still Fall risk 05/18/2021: Patient doing fairly well Check meds labs Tolerating IV iron infusions Wandering around the unit 05/17/2021: Pt doing really well Midline will be placed for IV iron since her iron level is 12 and hemoglobin is low Kidney biopsy was actually not done at so there is no results to obtain and pathology They did mention they would entertain that if needed in the future Review of Systems Neurological: Confusion Objective Exam Vital Signs Vital Signs Date Time Temp Pulse Resp B/P (MAP) Pulse Ox O2 Delivery O2 Flow Rate FiO2 05/19/21 12:37 70 128/62 (84) 100 Nasal Cannula 2.00 05/19/21 07:35 36.8 14 Capillary Refill : General Appearance: No Apparent Distress, WD/WN, Chronically ill HEENT: PERRL/EOMI, Normal ENT Inspection, Pharynx Normal Neck: Full Range of Motion, Normal Inspection, Non Tender, Supple, Carotid Bruit Respiratory: Chest Non Tender, Lungs Clear, No Accessory Muscle Use, No Respiratory Distress, Decreased Breath Sounds Cardiovascular: Regular Rate, Rhythm, No Edema, No Gallop, No JVD, No Murmur, Normal Peripheral Pulses Gastrointestinal: Normal Bowel Sounds, No Organomegaly, No Pulsatile Mass, Non Tender, Soft Back: Normal Inspection, No CVA Tenderness, No Vertebral Tenderness Extremity: Normal Capillary Refill, Normal Inspection, Normal Range of Motion, Non Tender, No Calf Tenderness, No Pedal Edema Neurologic/Psychiatric: Alert, Oriented x3, No Motor/Sensory Deficits, Abnormal Gait, Depressed Affect, Motor Weakness (Generalized) Skin: Normal Color, Warm/Dry Lymphatic: No Adenopathy Results/Procedures Lab Patient resulted labs reviewed. FIM Transfers Therapy Code Descriptions/Definitions Functional [place] Measure: 0=Not Assessed/NA 4=Minimal Assistance 1=Total Assistance 5=Supervision or Setup 2=Maximal Assistance 6=Modified [place] 3=Moderate Assistance 7=Complete IndependenceSCALE: Activities may be completed with or without assistive devices. 1-Ywesemstpg-hkoefln completes the activity by him/herself with no assistance from a helper. 5-Set-up or Clean-up Assistance-helper sets up or cleans up; patient completes activity. [place] assists only prior to or following the activity. 4-Supervision or Touching Assistance-helper provides verbal cues and/or touching/steadying and/or contact guard assistance as patient completes activity. Assistance may be provided throughout the activity or intermittently. 3-Partial/Moderate Assistance-helper does LESS THAN HALF the effort. [place] lifts, holds or supports trunk or limbs, but provides less than half the effort. 2-Substantial/Maximal Assistance-helper does MORE THAN HALF the effort. [place] lifts or holds trunk or limbs and provides more than half the effort. 6-Tlohqanvr-cozmau does ALL the effort. Patient does none of the effort to complete the activity. Or, the assistance of 2 or more helpers is required for the patient to complete the activity. If activity was not attempted, code reason: 7-Patient Refused. 9-Not Applicable-not attempted and the patient did not perform the activity before the current illness, exacerbation or injury. 10-Not Attempted due to Environmental Limitations-(lack of equipment, weather restraints, etc.). 88-Not Attempted due to Medical Conditions or Safety Concerns. Roll Left to Right (QC): 6 Sit to Lying (QC): 6 Sit to Stand (QC): 4 Chair/Lpo-fp-Dlxtq Xfer(QC): 4 Car Transfer (QC): 4 Gait Training Does the Patient Walk?: Yes Distance: 250x2, 200;x1, 150;x2 Walk 10 feet (QC): 4 Walk 50 ft with 2 Turns(QC): 4 Walk 150 ft (QC): 4 Walking 10ft/uneven surface-QC: 4 Gait Persons Needed: 1 Gait Assistive Device: FWW Wheelchair Training Does the Pt Use a Wheelchair?: Yes Wheel 50 ft with 2 turns (QC): 3 Wheel 150 ft (QC): 3 Type of Wheelchair: Manual Stair Training #of Steps: 1 1 Step (curb) (QC): 4 4 Steps (QC): 88 12 Steps (QC): 88 Balance Picking up an Object (QC): 88 ADL-Treatment Eating (QC): 5 Oral Hygiene (QC): 4 (SBA standing at sink to brush teeth.) Shower/Bathe Self (QC): 7 Upper Body Dressing (QC): 4 (SBA) Lower Body Dressing (QC): 4 (CGA in stance to don pants over hips.) On/Off Footwear (QC): 3 (Min assist with shoes. 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
[2021-05-19 07:35] VITALS: BP 124/60
[2021-05-19] MEDS: SENNA W/DOCUSATE (SENOKOT S) TABLET PO SCH ×2 (08:17→22:39)
[2021-05-19] MEDS: IRON SUCROSE 200 MG/10 ML (VENOFER) VIAL IV SCH (08:17)
[2021-05-19] MEDS: DOCUSATE SODIUM 100 MG (COLACE) CAP PO SCH ×2 (08:17→22:38)
[2021-05-19] MEDS: FOLIC ACID 1 MG TAB PO SCH (08:18)
[2021-05-19] MEDS: ASPIRIN E.C. 81 MG (ECOTRIN) TAB PO SCH (08:18)
[2021-05-19] MEDS: hydrALAZINE (APRESOLINE) 25 MG TAB PO SCH ×3 (08:18→22:38)
[2021-05-19] MEDS: DIVALPROEX EXT RELEASE 500 MG (DEPAKOTE ER) TAB PO SCH (08:18)
[2021-05-19] MEDS: BACITRACIN OINTMENT 28 GM TUBE TP SCH ×2 (08:19→22:40)
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
--- NOTE | 2021-05-19 10:38 | Occupational Ther Daily Note ---
OT Current Status-Daily Note Subjective Pt in recliner, agreeable to OT Tx. Pt states she would prefer to shower tomorrow after her clothes are washed. Mental Status/Objective Patient Orientation: Person, Place, Situation ADL-Treatment Therapy Code Descriptions/Definitions Functional [place] Measure: 0=Not Assessed/NA 4=Minimal Assistance 1=Total Assistance 5=Supervision or Setup 2=Maximal Assistance 6=Modified [place] 3=Moderate Assistance 7=Complete IndependenceSCALE: Activities may be completed with or without assistive devices. 1-Qvuiefrgfz-dtqhjef completes the activity by him/herself with no assistance from a helper. 5-Set-up or Clean-up Assistance-helper sets up or cleans up; patient completes activity. [place] assists only prior to or following the activity. 4-Supervision or Touching Assistance-helper provides verbal cues and/or touching/steadying and/or contact guard assistance as patient completes activity. Assistance may be provided throughout the activity or intermittently. 3-Partial/Moderate Assistance-helper does LESS THAN HALF the effort. [place] li fts, holds or supports trunk or limbs, but provides less than half the effort. 2-Substantial/Maximal Assistance-helper does MORE THAN HALF the effort. [place] lifts or holds trunk or limbs and provides more than half the effort. 2-Gdmrvdnnd-eheacq does ALL the effort. Patient does none of the effort to complete the activity. Or, the assistance of 2 or more helpers is required for the patient to complete the activity. If activity was not attempted, code reason: 7-Patient Refused. 9-Not Applicable-not attempted and the patient did not perform the activity before the current illness, exacerbation or injury. 10-Not Attempted due to Environmental Limitations-(lack of equipment, weather restraints, etc.). 88-Not Attempted due to Medical Conditions or Safety Concerns. Other Treatment Pt in recliner, agreeable to OT tx with focus on ADLs. Pt unsure if she has any clean clothes, OT unable to locate in her closet. Pt requests to hold off on the shower until tomorrow after her clothes are washed. Pt used FWW to perform functional mobility to therapy gym, [facility]. OT tx focused on increasing BUE strength, activity tolerance, and fine motor strength. Pt completed x15 mins arm bike, 15 Watt resistance, slow pace with 2 rest breaks. Pt then removed beads from moderate resistance theraputty, able to locate all beads without cues. Pt completed pegboard task, placing/removing 1" pegboards into foam board, alternating hands, 1lb wrist weights BUEs. Min cues required in order to maintain alternating pattern. Pt completed peg kassandra activity, requiring pt to match colored pegs together, 1lb wrist weights BUEs. 1 error made during 1st trial, pt required cue. Pt completed 2nd trial without errors. Pt used FWW to return to her room, CGA. Post tx, pt in recliner, call light in reach and all needs met, chair alarm activated. Education OT Patient Education: Correct positioning, Energy conservation, Modified ADL techniques, Progress toward Goal/Update tx plan, Purpose of tx/functional activities, Rehab process Teaching Recipient: Patient Teaching Methods: Discussion Response to Teaching: Verbalize Understanding OT Short Term Goals Short Term Goals Time Frame: May 23, 2021 Eatin Oral hygiene: 5 Toileting hygiene: 4 Shower/bathe self: 4 Upper body dressin Lower body dressin Putting on/taking off footwear: 4 OT Mcfp Goals Mcfp Goals Time Frame: May 30, 2021 Eating (QC): 6 Oral Hygiene (QC): 6 Toileting Hygiene (QC): 6 Shower/Bathe Self (QC): 5 Upper Body Dressing (QC): 6 Lower Body Dressing (QC): 6 On/Off Footwear (QC): 6 Additional Goals: 1-Demonstrate ADL Tasks, 2-Verbalize Understanding, 3- ImproveStrength/Grey 1=Demonstrate adherence to instructed precautions during ADL tasks. 2=Patient will verbalize/demonstrate understanding of assistive devices/modifications for ADL. 3=Patient will improve strength/tolerance for activity to enable patient to perform ADL's. OT Education/Plan Problem List/Assessment Assessment: Decreased Activ Tolerance, Decreased UE Strength, Impaired Funct Balance, Impaired I ADL's, Impaired Self-Care Skills Discharge Recommendations Plan/Recommendations: Continue POC Treatment Plan/Plan of Care Patient would benefit from OT for education, treatment and training to promote independence in ADL's, mobility, safety and/or upper extremity function for ADL's. Plan of Care: ADL Retraining, Functional Mobility, Group Exercise/Act as Ind, UE Funct Exercise/Act Treatment Duration: May 30, 2021 Frequency: At least 5 of 7 days/Wk (IRF) Estimated Hrs Per Day: 1.5 hours per day Agreement: Yes Rehab Potential: Fair Time/GCodes Start Time: 10:15 Stop Time: 11:30 Total Time Billed (hr/min): 75 Billed Treatment Time 1, EX (15'), FA 4 (60') IRINA MORALES OT May 19, 2021 10:38
--- NOTE | 2021-05-19 12:01 | Speech Therapy Daily Note ---
Speech Daily Progress Note Subjective Date Seen by Provider: May 19, 2021 Time Seen by Provider: 09:30 The patient was seated upright in the recliner, alert and awake upon entrance by the clinician. The patient greeted the clinician appropriately and was agreeable to participation in the cognitive linguistic treatment session. The patient currently has her nasal cannula off. The clinician visited with the RN who stated the patient should be wearing the nasal cannula. The RN replaced the nasal cannula throughout the clinician's visit. Objective - Orientation: The patient remains oriented with the use of her in-room white board. The patient was able to state the city, month, day of week, date and year. - Functional Safety: Following review of the patient's chart, the clinician noticed the patient was moving around the floor unassisted throughout the evening. Safety guidelines and practices were reviewed, specifically using the call light to request assistance when necessary. - Telling Time: The patient was provided an analog clock and was asked to state the time (the patient reported consistent use of an analog clock at home). With maximum verbal cueing, the patient displayed 50% accuracy. Assessment Assessment Current Status: Fair Progress Treatment Plan Continue Plan of Care Speech Short Term Goals Short Term Goals Short Term Goals 1. The patient will display 90% accuracy with functional problem solving and memory exercises with mild clinician cueing. Speech Longterm Goals Longterm Goals 1. The patient will display increased cognitive linguistic function for safe return to the least restrictive environment. Speech-Plan Treatment Plan Speech Therapy Treatment Plan: Continue Plan of Care Treatment Duration: May 30, 2021 Frequency: 4 times per week (Four to five times per week.) Estimated Hrs Per Day: .5 hour per day Rehab Potential: Fair Safety Risks/Education Teaching Recipient: Patient Teaching Methods: Discussion Response to Teaching: Reinforcement Needed Education Topics Provided: Functional Safety Protocols Time Speech Therapy Time In: 09:30 Speech Therapy Time Out: 10:00 Total Billed Time: 30 Billed Treatment Time 1CONG ELIZABETH ST May 19, 2021 12:01
[2021-05-19] MEDS: polyethylene glycoL POWDER 17 GM (MIRALAX) PACK PO SCH ×2 (12:31→22:40)
[2021-05-19 12:37] VITALS: BP 128/62
[2021-05-19] MEDS: ENOXAPARIN 30 MG/0.3 ML (LOVENOX) SYR SC SCH (12:39)
[2021-05-19 20:00] VITALS: BP 148/65
[2021-05-19] MEDS: MELATONIN 3 MG TABLET PO PRN (22:39)
[2021-05-19] MEDS: ALPRAZolam 0.25 MG (XANAX) TAB PO PRN (22:39)
[2021-05-20] MEDS: SALINE NASAL SPRAY (OCEAN) 45 ML BTL SCH ×8 (00:35→21:05)
--- NOTE | 2021-05-20 05:28 | PM&R Progress Note ---
Subjective HPI/CC On Admission Date Seen by Provider: May 20, 2021 Time Seen by Provider: 11:00 Subjective/Events-last exam 05/20/21: Patient doing the same Confusion the same Hgb noted on iron infusions 05/19/2021: Patient doing well Confusion noted Wandering around still Fall risk 05/18/2021: Patient doing fairly well Check meds labs Tolerating IV iron infusions Wandering around the unit 05/17/2021: Pt doing really well Midline will be placed for IV iron since her iron level is 12 and hemoglobin is low Kidney biopsy was actually not done at so there is no results to obtain and pathology They did mention they would entertain that if needed in the future Review of Systems General: Fatigue, Malaise Objective Exam Vital Signs Vital Signs Date Time Temp Pulse Resp B/P (MAP) Pulse Ox O2 Delivery O2 Flow Rate FiO2 05/20/21 13:01 82 136/63 (87) 05/20/21 10:23 Nasal Cannula 2.00 05/20/21 08:00 37.2 18 96 Capillary Refill : General Appearance: No Apparent Distress, WD/WN, Chronically ill HEENT: PERRL/EOMI, Normal ENT Inspection, Pharynx Normal Neck: Full Range of Motion, Normal Inspection, Non Tender, Supple, Carotid Br uit Respiratory: Chest Non Tender, Lungs Clear, No Accessory Muscle Use, No Re spiratory Distress, Decreased Breath Sounds Cardiovascular: Regular Rate, Rhythm, No Edema, No Gallop, No JVD, No Murmur, Normal Peripheral Pulses Gastrointestinal: Normal Bowel Sounds, No Organomegaly, No Pulsatile Mass, Non Tender, Soft Back: Normal Inspection, No CVA Tenderness, No Vertebral Tenderness Extremity: Normal Capillary Refill, Normal Inspection, Normal Range of Motion, Non Tender, No Calf Tenderness, No Pedal Edema Neurologic/Psychiatric: Alert, Oriented x3, No Motor/Sensory Deficits, Abnormal Gait, Depressed Affect, Motor Weakness (Generalized) Skin: Normal Color, Warm/Dry Lymphatic: No Adenopathy Results/Procedures Lab Laboratory Tests 05/20/21 07:21 Patient resulted labs reviewed. FIM Transfers Therapy Code Descriptions/Definitions Functional [place] Measure: 0=Not Assessed/NA 4=Minimal Assistance 1=Total Assistance 5=Supervision or Setup 2=Maximal Assistance 6=Modified [place] 3=Moderate Assistance 7=Complete IndependenceSCALE: Activities may be completed with or without assistive devices. 8-Gkmlyxtufl-anrlpkm completes the activity by him/herself with no assistance from a helper. 5-Set-up or Clean-up Assistance-helper sets up or cleans up; patient completes activity. [place] assists only prior to or following the activity. 4-Supervision or Touching Assistance-helper provides verbal cues and/or touching/steadying and/or contact guard assistance as patient completes activity. Assistance may be provided throughout the activity or intermittently. 3-Partial/Moderate Assistance-helper does LESS THAN HALF the effort. [place] lif ts, holds or supports trunk or limbs, but provides less than half the effort. 2-Substantial/Maximal Assistance-helper does MORE THAN HALF the effort. [place] lifts or holds trunk or limbs and provides more than half the effort. 3-Ncizwlgjq-kvktcp does ALL the effort. Patient does none of the effort to complete the activity. Or, the assistance of 2 or more helpers is required for the patient to complete the activity. If activity was not attempted, code reason: 7-Patient Refused. 9-Not Applicable-not attempted and the patient did not perform the activity before the current illness, exacerbation or injury. 10-Not Attempted due to Environmental Limitations-(lack of equipment, weather restraints, etc.). 88-Not Attempted due to Medical Conditions or Safety Concerns. Roll Left to Right (QC): 5 Sit to Lying (QC): 5 Sit to Stand (QC): 4 Chair/Wvd-jb-Kzgwi Xfer(QC): 4 Car Transfer (QC): 4 Gait Training Does the Patient Walk?: Yes Distance: 250x2, 200;x1, 150;x2 Walk 10 feet (QC): 4 Walk 50 ft with 2 Turns(QC): 4 Walk 150 ft (QC): 4 Walking 10ft/uneven surface-QC: 4 Gait Persons Needed: 1 Gait Assistive Device: FWW Wheelchair Training Does the Pt Use a Wheelchair?: Yes Wheel 50 ft with 2 turns (QC): 3 Wheel 150 ft (QC): 3 Type of Wheelchair: Manual Stair Training Stair Training: Handrails/: 2 handrails #of Steps: 4 1 Step (curb) (QC): 4 4 Steps (QC): 4 12 Steps (QC): 88 Stairs: Pattern: Reciprocal Balance Picking up an Object (QC): 88 ADL-Treatment Eating (QC): 5 Oral Hygiene (QC): 4 (SBA standing at sink to brush teeth.) Shower/Bathe Self (QC): 7 Upper Body Dressing (QC): 4 (SBA) Lower Body Dressing (QC): 4 (CGA in stance to don pants over hips.) On/Off Footwear (QC): 3 (Min assist with shoes. 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
[2021-05-20 07:41] LABS: BASOPHILS % (AUTO) 1 % (0-10); EOSINOPHILS # (AUTO) 0.2 10^3/uL (0.0-0.3); EOSINOPHILS % (AUTO) 7 % (0-10); HEMATOCRIT 23 % (35-52); LYMPHOCYTES # (AUTO) 0.5 10^3/uL (1.0-4.0); LYMPHOCYTES % (AUTO) 15 % (12-44); MEAN CORPUSCULAR HGB CONC 30 g/dL (32-36); MEAN CORPUSCULAR VOLUME 82 fL (80-99); MEAN PLATELET VOLUME 9.5 fL (9.0-12.2); MONOCYTES # (AUTO) 0.1 10^3/uL (0.0-1.0); MONOCYTES % (AUTO) 4 % (0-12); NEUTROPHILS # (AUTO) 2.4 10^3/uL (1.8-7.8); NEUTROPHILS % (AUTO) 73 % (42-75); PLATELET COUNT 278 10^3/uL (130-400); WHITE BLOOD COUNT 3.2 10^3/uL (4.3-11.0)
[2021-05-20 07:43] LABS: HEMOGLOBIN 6.9 g/dL (11.5-16.0); MEAN CORPUSCULAR HEMOGLOBIN 24 pg (25-34)
[2021-05-20 08:00] VITALS: BP 117/58
[2021-05-20 08:02] LABS: ALBUMIN 3.1 GM/DL (3.2-4.5); POTASSIUM 4.9 MMOL/L (3.6-5.0)
[2021-05-20] MEDS: ASPIRIN E.C. 81 MG (ECOTRIN) TAB PO SCH (08:02)
[2021-05-20] MEDS: DOCUSATE SODIUM 100 MG (COLACE) CAP PO SCH ×2 (08:03→21:04)
[2021-05-20] MEDS: FOLIC ACID 1 MG TAB PO SCH (08:03)
[2021-05-20] MEDS: DIVALPROEX EXT RELEASE 500 MG (DEPAKOTE ER) TAB PO SCH (08:03)
[2021-05-20] MEDS: polyethylene glycoL POWDER 17 GM (MIRALAX) PACK PO SCH ×2 (08:03→21:44)
[2021-05-20] MEDS: SENNA W/DOCUSATE (SENOKOT S) TABLET PO SCH ×2 (08:03→21:04)
[2021-05-20 08:04] LABS: CALCIUM 9.2 MG/DL (8.5-10.1)
[2021-05-20] MEDS: BACITRACIN OINTMENT 28 GM TUBE TP SCH ×2 (08:04→21:05)
[2021-05-20 08:05] LABS: TOTAL PROTEIN 6.6 GM/DL (6.4-8.2)
[2021-05-20 08:07] LABS: BILIRUBIN,TOTAL 0.3 MG/DL (0.1-1.0)
[2021-05-20 08:09] LABS: CREATININE SERUM 2.12 MG/DL (0.60-1.30)
--- NOTE | 2021-05-20 09:29 | Physical Therapy Daily Note ---
PT Daily Note-Current Subjective Pt sitting in recliner upon arrival. Pt agrees to PT/OT co-treat due increased medical complexity with decreased Hgb this morning. Pain Location: No Pain Reported Mental Status Patient Orientation: Person, Confused, Place Attachments: Oxygen (2L) Transfers SCALE: Activities may be completed with or without assistive devices. 1-Makrghwceg-rgnmbuv completes the activity by him/herself with no assistance from a helper. 5-Set-up or Clean-up Assistance-helper sets up or cleans up; patient completes activity. [place] assists only prior to or following the activity. 4-Supervision or Touching Assistance-helper provides verbal cues and/or touching/steadying and/or contact guard assistance as patient completes activity. Assistance may be provided throughout the activity or intermittently. 3-Partial/Moderate Assistance-helper does LESS THAN HALF the effort. [place] lifts, holds or supports trunk or limbs, but provides less than half the effort. 2-Substantial/Maximal Assistance-helper does MORE THAN HALF the effort. [place] lifts or holds trunk or limbs and provides more than half the effort. 6-Exiutlnbr-abzjam does ALL the effort. Patient does none of the effort to complete the activity. Or, the assistance of 2 or more helpers is required for the patient to complete the activity. If activity was not attempted, code reason: 7-Patient Refused. 9-Not Applicable-not attempted and the patient did not perform the activity before the current illness, exacerbation or injury. 10-Not Attempted due to Environmental Limitations-(lack of equipment, weather restraints, etc.). 88-Not Attempted due to Medical Conditions or Safety Concerns. Sit to Stand (QC): 5 Weight Bearing Full Weight Bearing Full Weight Bearing Gait Training Does the Patient Walk?: Yes Distance: 125', 175' Walk 10 feet (QC): 4 Walk 50 ft with 2 Turns(QC): 4 Walk 150 ft (QC): 4 Gait Persons Needed: 1 Gait Assistive Device: FWW Treatments OT/PT cotreat due to skill of 2 clinicians required which a clinical rehabilitation aide could not perform in order to coordinate UE/LEs, decrease fall risk, focus on higher level balance activities and due to low Hgb. OT focused on ADLs, cues for sequencing and safety, and UE placement, PT focused on LE placement, gross overall movements, transfer/mobility, and dynamic standing balance. Pt in recliner, used FWW to go into bathroom and onto SC. Pt doffed clothes, completed shower, then dried off. Pt transferred to chair right outside of the shower in order to don clothes. 2 LOB in standing while performing pant hike, where pt sat back in the chair abruptly. Education provided with O2 tubing and threading with clothes and education on having pt place NC in nose and around ears herself, max verbal and tactile cues required. Min A to brush hair due to tangles. Pt used FWW to go into therapy gym, "butt diving" into chair prior to getting to chair completely. Education provided on safety aspects with transfers, bringing walker with her throughout entire transfer and waiting until she feels the chair on the back of her legs prior to sitting. Pt completed x3 rounds of balloon batting with OT. 1 round with LUE (RUE supported on walker), 1 round RUE (LUE supported on walker), and 1 round BUE (no walker support), pt had 2 LOB but able to self correct with SBA. Pt encouraged to reach in all plane and laterally flex trunk as needed to reach the balloon in all planes. Pt used FWW to return to her room, cues required for safe stand to sit transfer in recliner. Post tx, pt in recliner, call light in reach and all needs met, chair alarm activated. Assessment Current Status: Fair Progress Pt is confused at times and needs repeated VC for proper transfer instead of "butt diving" as well as positioning nasal canal. PT Short Term Goals Short Term Goals Time Frame: May 23, 2021 Roll Left & Right: 6 Sit to lyin Lying to sitting on side of be: 6 Sit to stand: 4 (SBA) Chair/wed-ot-ifaic transfer: 4 (SBA) Walk 10 feet: 4 (SBA) Walk 50 feet with two turns: 4 (SBA) Walk 150 feet: 4 (SBA) PT Pinsetter Mechanic Helper Goals Custodial Goals PT Custodial Goals Time Frame: Jun 06, 2021 Roll Left & Right (QC): 6 Sit to Lying (QC): 6 Lying-Sitting on Side/Bed(QC): 6 Sit to Stand (QC): 5 Chair/Vus-mb-Aiybm Xfer(QC): 5 Toilet Transfer (QC): 5 Car Transfer (QC): 5 Does the Patient Walk: Yes Walk 10 feet (QC): 5 Walk 50ft with 2 Turns (QC): 5 Walk 150 ft (QC): 5 Walking 10ft on Uneven Surface: 4 (SBA) 1 Step (curb) (QC): 4 4 Steps (QC): 4 12 Steps (QC): 4 Picking up an Object (QC): 88 Wheel 50 feet with 2 turns (QC: 9 Wheel 150 feet: 9 PT Plan Problem List Problem List: Activity Tolerance, Functional Strength, Safety, Balance, Transfer Treatment/Plan Treatment Plan: Continue Plan of Care Treatment Plan: Education, Functional Activity Grey, Functional Strength, Group Therapy, Gait, Safety, Therapeutic Exercise, Transfers Treatment Duration: Jun 06, 2021 Frequency: At least 5 of 7 days/Wk (IRF) Estimated Hrs Per Day: 1.5 hours per day Patient and/or Family Agrees t: Yes Safety Risks/Education Patient Education: Gait Training, Transfer Techniques, Correct Positioning, Safety Issues Teaching Recipient: Patient Teaching Methods: Demonstration, Discussion Response to Teaching: Reinforcement Needed Time/GCodes Time In: 800 Time Out: 930 Total Billed Treatment Time: 90 Total Billed Treatment Co-treat w/OT for 90m 1, FA x4 (65m) & GT x2 (25m) JOSH QUINTANILLA SERVICE COUNSELOR May 20, 2021 09:29
--- NOTE | 2021-05-20 09:30 | Occupational Ther Daily Note ---
OT Current Status-Daily Note Subjective Pt in recliner, agreeable to OT Tx with focus on showering. Pt's nurse reports pt has low Hgb today. Mental Status/Objective Patient Orientation: Person, Place, Situation Attachments: Oxygen (2L) ADL-Treatment Therapy Code Descriptions/Definitions Functional [place] Measure: 0=Not Assessed/NA 4=Minimal Assistance 1=Total Assistance 5=Supervision or Setup 2=Maximal Assistance 6=Modified [place] 3=Moderate Assistance 7=Complete IndependenceSCALE: Activities may be completed with or without assistive devices. 8-Rffddlftyx-pavzhmk completes the activity by him/herself with no assistance from a helper. 5-Set-up or Clean-up Assistance-helper sets up or cleans up; patient completes activity. [place] assists only prior to or following the activity. 4-Supervision or Touching Assistance-helper provides verbal cues and/or touching/steadying and/or contact guard assistance as patient completes a ctivity. Assistance may be provided throughout the activity or intermittently. 3-Partial/Moderate Assistance-helper does LESS THAN HALF the effort. [place] lifts, holds or supports trunk or limbs, but provides less than half the effort. 2-Substantial/Maximal Assistance-helper does MORE THAN HALF the effort. [place] lifts or holds trunk or limbs and provides more than half the effort. 9-Lydtjvvmw-llndcw does ALL the effort. Patient does none of the effort to complete the activity. Or, the assistance of 2 or more helpers is required for the patient to complete the activity. If activity was not attempted, code reason: 7-Patient Refused. 9-Not Applicable-not attempted and the patient did not perform the activity before the current illness, exacerbation or injury. 10-Not Attempted due to Environmental Limitations-(lack of equipment, weather restraints, etc.). 88-Not Attempted due to Medical Conditions or Safety Concerns. Shower/Bathe Self (QC): 4 (SBA, cues for sequencing in order to use wash cloth and soap to wash all parts.) Upper Body Dressing (QC): 3 (Min A with fastening bra clasp. Assistance threading O2 tubing) Lower Body Dressing (QC): 3 (Min A with managing pant up, min A with balance in standing, 2 LOB where pt sat back in the chair abruptly.) On/Off Footwear: 3 (Assist with donning tedhose, pt able to don slip on shoes.) Other Treatment OT/PT cotreat due to skill of 2 clinicians required which a rehab aid could not perform in order to coordinate UE/LEs, decrease fall risk, focus on higher level balance activities and due to low Hgb. OT focused on ADLs, cues for sequencing and safety, and UE placement, PT focused on LE placement, gross overall movements, transfer/mobility, and dynamic standing balance. Pt in recliner, used FWW to go into bathroom and onto SC. Pt doffed clothes, completed shower, then dried off. Pt transferred to chair right outside of the shower in order to don clothes. 2 LOB in standing while performing pant hike, where pt sat back in the chair abruptly. Education provided with O2 tubing and threading with clothes and education on having pt place NC in nose and around ears herself, max verbal and tactile cues required. Min A to brush hair due to tangles. Pt used FWW to go into therapy gym, "butt diving" into chair prior to getting to chair completely. Education provided on safety aspects with transfers, bringing walker with her throughout entire transfer and waiting until she feels the chair on the back of her legs prior to sitting. Pt completed x3 rounds of balloon batting with OT. 1 round with LUE (RUE supported on walker), 1 round RUE (LUE supported on walker), and 1 round BUE (no walker support), pt had 2 LOB but able to self correct with SBA. Pt encouraged to reach in all plane and laterally flex trunk as needed to reach the balloon in all planes. Pt used FWW to return to her room, cues required for safe stand to sit transfer in recliner. Post tx, pt in recliner, call light in reach and all needs met, chair alarm activated. Education OT Patient Education: Correct positioning, Energy conservation, Exercise program, Modified ADL techniques, Progress toward Goal/Update tx plan, Purpose of tx/functional activities, Rehab process Teaching Recipient: Patient Teaching Methods: Discussion Response to Teaching: Verbalize Understanding OT Short Term Goals Short Term Goals Time Frame: May 23, 2021 Eatin Oral hygiene: 5 Toileting hygiene: 4 Shower/bathe self: 4 Upper body dressin Lower body dressin Putting on/taking off footwear: 4 OT Correction Goals Correction Goals Time Frame: May 30, 2021 Eating (QC): 6 Oral Hygiene (QC): 6 Toileting Hygiene (QC): 6 Shower/Bathe Self (QC): 5 Upper Body Dressing (QC): 6 Lower Body Dressing (QC): 6 On/Off Footwear (QC): 6 Additional Goals: 1-Demonstrate ADL Tasks, 2-Verbalize Understanding, 3-ImproveStrength/[place] 1=Demonstrate adherence to instructed precautions during ADL tasks. 2=Patient will verbalize/demonstrate understanding of assistive devices/modifications for ADL. 3=Patient will improve strength/tolerance for activity to enable patient to perform ADL's. OT Education/Plan Problem List/Assessment Assessment: Decreased Activ Tolerance, Decreased Safety Aware, Decreased UE Strength, Impaired Funct Balance, Impaired I ADL's, Impaired Self-Care Skills Discharge Recommendations Plan/Recommendations: Continue POC Treatment Plan/Plan of Care Patient would benefit from OT for education, treatment and training to promote independence in ADL's, mobility, safety and/or upper extremity function for ADL's. Plan of Care: ADL Retraining, Functional Mobility, Group Exercise/Act as Ind, UE Funct Exercise/Act Treatment Duration: May 30, 2021 Frequency: At least 5 of 7 days/Wk (IRF) Estimated Hrs Per Day: 1.5 hours per day Agreement: Yes Rehab Potential: Fair Time/GCodes Start Time: 08:00 Stop Time: 09:30 Total Time Billed (hr/min): 90 Billed Treatment Time 1, ADL 3 (45'), FA 3 (45') IRINA MORALES OT May 20, 2021 09:30
[2021-05-20 09:50] VITALS: BP 121/59
[2021-05-20] MEDS: hydrALAZINE (APRESOLINE) 25 MG TAB PO SCH ×3 (11:00→21:04)
[2021-05-20 13:01] VITALS: BP 136/63
[2021-05-20 20:00] VITALS: BP 131/60
[2021-05-20] MEDS: MELATONIN 3 MG TABLET PO PRN (21:04)
[2021-05-20] MEDS: CATHETER FLUSH 10 ML SYR IV SCH (21:20)
[2021-05-21] MEDS: SALINE NASAL SPRAY (OCEAN) 45 ML BTL SCH ×8 (03:00→21:13)
[2021-05-21] MEDS: CATHETER FLUSH 10 ML SYR IV SCH ×3 (06:00→21:12)
--- NOTE | 2021-05-21 07:47 | PM&R Progress Note ---
Subjective HPI/CC On Admission Date Seen by Provider: May 21, 2021 Time Seen by Provider: 17:00 Subjective/Events-last exam 05/21/2021: Patient still confused Check meds labs No falls No pain 05/20/21: Patient doing the same Confusion the same Hgb noted on iron infusions 05/19/2021: Patient doing well Confusion noted Wandering around still Fall risk 05/18/2021: Patient doing fairly well Check meds labs Tolerating IV iron infusions Wandering around the unit 05/17/2021: Pt doing really well Midline will be placed for IV iron since her iron level is 12 and hemoglobin is low Kidney biopsy was actually not done at so there is no results to obtain and pathology They did mention they would entertain that if needed in the future Review of Systems General: Fatigue, Malaise Objective Exam Vital Signs Vital Signs Date Time Temp Pulse Resp B/P (MAP) Pulse Ox O2 Delivery O2 Flow Rate FiO2 05/21/21 21:00 99 Nasal Cannula 2.00 05/21/21 19:34 37.0 70 22 140/65 (90) Capillary Refill : General Appearance: No Apparent Distress, WD/WN, Chronically ill HEENT: PERRL/EOMI, Normal ENT Inspection, Pharynx Normal Neck: Full Range of Motion, Normal Inspection, Non Tender, Supple, Carotid Bruit Respiratory: Chest Non Tender, Lungs Clear, No Accessory Muscle Use, No Respiratory Distress, Decreased Breath Sounds Cardiovascular: Regular Rate, Rhythm, No Edema, No Gallop, No JVD, No Murmur, Normal Peripheral Pulses Gastrointestinal: Normal Bowel Sounds, No Organomegaly, No Pulsatile Mass, Non Tender, Soft Back: Normal Inspection, No CVA Tenderness, No Vertebral Tenderness Extremity: Normal Capillary Refill, Normal Inspection, Normal Range of Motion, Non Tender, No Calf Tenderness, No Pedal Edema Neurologic/Psychiatric: Alert, Oriented x3, No Motor/Sensory Deficits, Abnormal Gait, Depressed Affect, Motor Weakness (Generalized) Skin: Normal Color, Warm/Dry Lymphatic: No Adenopathy Results/Procedures Lab Patient resulted labs reviewed. FIM Transfers Therapy Code Descriptions/Definitions Functional [place] Measure: 0=Not Assessed/NA 4=Minimal Assistance 1=Total Assistance 5=Supervision or Setup 2=Maximal Assistance 6=Modified [place] 3=Moderate Assistance 7=Complete IndependenceSCALE: Activities may be completed with or without assistive devices. 4-Pscglbboan-aqzbigk completes the activity by him/herself with no assistance from a helper. 5-Set-up or Clean-up Assistance-helper sets up or cleans up; patient completes activity. [place] assists only prior to or following the activity. 4-Supervision or Touching Assistance-helper provides verbal cues and/or touching/steadying and/or contact guard assistance as patient completes activity. Assistance may be provided throughout the activity or intermittently. 3-Partial/Moderate Assistance-helper does LESS THAN HALF the effort. [place] lifts, holds or supports trunk or limbs, but provides less than half the effort. 2-Substantial/Maximal Assistance-helper does MORE THAN HALF the effort. [place] lifts or holds trunk or limbs and provides more than half the effort. 9-Jfqgkkifp-vllhpo does ALL the effort. Patient does none of the effort to complete the activity. Or, the assistance of 2 or more helpers is required for the patient to complete the activity. If activity was not attempted, code reason: 7-Patient Refused. 9-Not Applicable-not attempted and the patient did not perform the activity before the current illness, exacerbation or injury. 10-Not Attempted due to Environmental Limitations-(lack of equipment, weather restraints, etc.). 88-Not Attempted due to Medical Conditions or Safety Concerns. Roll Left to Right (QC): 5 Sit to Lying (QC): 5 Sit to Stand (QC): 5 Chair/Rlo-cf-Odmlj Xfer(QC): 4 Car Transfer (QC): 4 Gait Training Does the Patient Walk?: Yes Distance: 125', 175' Walk 10 feet (QC): 4 Walk 50 ft with 2 Turns(QC): 4 Walk 150 ft (QC): 4 Walking 10ft/uneven surface-QC: 4 Gait Persons Needed: 1 Gait Assistive Device: FWW Wheelchair Training Does the Pt Use a Wheelchair?: Yes Wheel 50 ft with 2 turns (QC): 3 Wheel 150 ft (QC): 3 Type of Wheelchair: Manual Stair Training Stair Training: Handrails/: 2 handrails #of Steps: 4 1 Step (curb) (QC): 4 4 Steps (QC): 4 12 Steps (QC): 88 Stairs: Pattern: Reciprocal Balance Picking up an Object (QC): 88 ADL-Treatment Eating (QC): 5 Oral Hygiene (QC): 4 (SBA standing at sink to brush teeth.) Shower/Bathe Self (QC): 4 (SBA, cues for sequencing in order to use wash cloth and soap to wash all parts.) Upper Body Dressing (QC): 3 (Min A with fastening bra clasp. 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 Chronic kidney disease status post kidney biopsy at on 05/15/2021 Hypertension Hyperlipidemia Anemia receiving iron infusions Plan: Aggressive rehab Monitor kidney function Supportive care Await iron B12 folate levels pending 05/17/21: Midline Iron infusions 05/18/2021: Very impulsive Iron infusions 05/19/2021: Fall risk Supportive care 05/20/21: Monitor closely Iron infusions 05/21/2021: Complete iron infusions Discharge Saturday (1) S/P nasal septoplasty (2) Von Hippel-Lindau disease (3) CSF leak (4) Hypertension (5) Hyperlipidemia (6) Physical debility (7) Debility GONSALO NUNES DO May 21, 2021 07:47
[2021-05-21 07:52] VITALS: BP 139/60
[2021-05-21] MEDS: DIVALPROEX EXT RELEASE 500 MG (DEPAKOTE ER) TAB PO SCH (08:02)
[2021-05-21] MEDS: ASPIRIN E.C. 81 MG (ECOTRIN) TAB PO SCH (08:02)
[2021-05-21] MEDS: hydrALAZINE (APRESOLINE) 25 MG TAB PO SCH ×3 (08:02→21:10)
[2021-05-21] MEDS: FOLIC ACID 1 MG TAB PO SCH (08:03)
[2021-05-21] MEDS: polyethylene glycoL POWDER 17 GM (MIRALAX) PACK PO SCH ×2 (08:04→21:21)
[2021-05-21] MEDS: BACITRACIN OINTMENT 28 GM TUBE TP SCH ×2 (08:04→21:12)
[2021-05-21] MEDS: DOCUSATE SODIUM 100 MG (COLACE) CAP PO SCH ×2 (08:04→21:21)
[2021-05-21] MEDS: IRON SUCROSE 200 MG/10 ML (VENOFER) VIAL IV SCH (08:05)
[2021-05-21] MEDS: SENNA W/DOCUSATE (SENOKOT S) TABLET PO SCH ×2 (08:05→21:21)
[2021-05-21 12:46] VITALS: BP 166/72
[2021-05-21 19:34] VITALS: BP 140/65
[2021-05-21] MEDS: MELATONIN 3 MG TABLET PO PRN (21:10)
[2021-05-22] MEDS: SALINE NASAL SPRAY (OCEAN) 45 ML BTL SCH ×8 (03:00→23:36)
[2021-05-22] MEDS: CATHETER FLUSH 10 ML SYR IV SCH ×3 (06:00→23:38)
[2021-05-22 06:39] LABS: BASOPHILS % (AUTO) 1 % (0-10); EOSINOPHILS # (AUTO) 0.3 10^3/uL (0.0-0.3); EOSINOPHILS % (AUTO) 8 % (0-10); HEMATOCRIT 24 % (35-52); HEMOGLOBIN 7.1 g/dL (11.5-16.0); LYMPHOCYTES # (AUTO) 0.6 10^3/uL (1.0-4.0); LYMPHOCYTES % (AUTO) 16 % (12-44); MEAN CORPUSCULAR HEMOGLOBIN 25 pg (25-34); MEAN CORPUSCULAR HGB CONC 30 g/dL (32-36); MEAN CORPUSCULAR VOLUME 83 fL (80-99); MEAN PLATELET VOLUME 9.9 fL (9.0-12.2); MONOCYTES # (AUTO) 0.2 10^3/uL (0.0-1.0); MONOCYTES % (AUTO) 5 % (0-12); NEUTROPHILS # (AUTO) 2.6 10^3/uL (1.8-7.8); NEUTROPHILS % (AUTO) 70 % (42-75); PLATELET COUNT 290 10^3/uL (130-400); WHITE BLOOD COUNT 3.7 10^3/uL (4.3-11.0)
--- NOTE | 2021-05-22 06:56 | PM&R Progress Note ---
Subjective HPI/CC On Admission Date Seen by Provider: May 22, 2021 Time Seen by Provider: 11:00 Subjective/Events-last exam 05/22/2021: Pt doing well Hemoglobin was 7.1 Creatinine was 2.14 Pt will discharge tomorrow to home 05/21/2021: Patient still confused Check meds labs No falls No pain 05/20/21: Patient doing the same Confusion the same Hgb noted on iron infusions 05/19/2021: Patient doing well Confusion noted Wandering around still Fall risk 05/18/2021: Patient doing fairly well Check meds labs Tolerating IV iron infusions Wandering around the unit 05/17/2021: Pt doing really well Midline will be placed for IV iron since her iron level is 12 and hemoglobin is low Kidney biopsy was actually not done at so there is no results to obtain and pathology They did mention they would entertain that if needed in the future Review of Systems General: Fatigue, Malaise Neurological: Confusion Objective Exam Vital Signs Vital Signs Date Time Temp Pulse Resp B/P (MAP) Pulse Ox O2 Delivery O2 Flow Rate FiO2 05/22/21 23:32 71 155/68 (97) 05/22/21 21:00 99 Nasal Cannula 2.00 05/22/21 20:00 37.3 22 Capillary Refill : General Appearance: No Apparent Distress, WD/WN, Chronically ill HEENT: PERRL/EOMI, Normal ENT Inspection, Pharynx Normal Neck: Full Range of Motion, Normal Inspection, Non Tender, Supple, Carotid Bruit Respiratory: Chest Non Tender, Lungs Clear, No Accessory Muscle Use, No Respiratory Distress, Decreased Breath Sounds Cardiovascular: Regular Rate, Rhythm, No Edema, No Gallop, No JVD, No Murmur, Normal Peripheral Pulses Gastrointestinal: Normal Bowel Sounds, No Organomegaly, No Pulsatile Mass, Non Tender, Soft Back: Normal Inspection, No CVA Tenderness, No Vertebral Tenderness Extremity: Normal Capillary Refill, Normal Inspection, Normal Range of Motion, Non Tender, No Calf Tenderness, No Pedal Edema Neurologic/Psychiatric: Alert, Oriented x3, No Motor/Sensory Deficits, Abnormal Gait, Depressed Affect, Motor Weakness (Generalized) Skin: Normal Color, Warm/Dry Lymphatic: No Adenopathy Results/Procedures Lab Laboratory Tests 05/22/21 06:11 Patient resulted labs reviewed. FIM Transfers Therapy Code Descriptions/Definitions Functional [place] Measure: 0=Not Assessed/NA 4=Minimal Assistance 1=Total Assistance 5=Supervision or Setup 2=Maximal Assistance 6=Modified [place] 3=Moderate Assistance 7=Complete IndependenceSCALE: Activities may be completed with or without assistive devices. 6-Cjpcdzeqrr-rhvgtew completes the activity by him/herself with no assistance from a helper. 5-Set-up or Clean-up Assistance-helper sets up or cleans up; patient completes activity. [place] assists only prior to or following the activity. 4-Supervision or Touching Assistance-helper provides verbal cues and/or touching/steadying and/or contact guard assistance as patient completes activity. Assistance may be provided throughout the activity or intermittently. 3-Partial/Moderate Assistance-helper does LESS THAN HALF the effort. [place] lifts, holds or supports trunk or limbs, but provides less than half the effort. 2-Substantial/Maximal Assistance-helper does MORE THAN HALF the effort. [place] lifts or holds trunk or limbs and provides more than half the effort. 0-Yajpbwiza-iszgid does ALL the effort. Patient does none of the effort to complete the activity. Or, the assistance of 2 or more helpers is required for the patient to complete the activity. If activity was not attempted, code reason: 7-Patient Refused. 9-Not Applicable-not attempted and the patient did not perform the activity before the current illness, exacerbation or injury. 10-Not Attempted due to Environmental Limitations-(lack of equipment, weather restraints, etc.). 88-Not Attempted due to Medical Conditions or Safety Concerns. Roll Left to Right (QC): 5 Sit to Lying (QC): 5 Sit to Stand (QC): 5 Chair/Jkq-ll-Ubsqy Xfer(QC): 4 Car Transfer (QC): 4 Gait Training Does the Patient Walk?: Yes Distance: 125', 175' Walk 10 feet (QC): 4 Walk 50 ft with 2 Turns(QC): 4 Walk 150 ft (QC): 4 Walking 10ft/uneven surface-QC: 4 Gait Persons Needed: 1 Gait Assistive Device: FWW Wheelchair Training Does the Pt Use a Wheelchair?: Yes Wheel 50 ft with 2 turns (QC): 3 Wheel 150 ft (QC): 3 Type of Wheelchair: Manual Stair Training Stair Training: Handrails/: 2 handrails #of Steps: 4 1 Step (curb) (QC): 4 4 Steps (QC): 4 12 Steps (QC): 88 Stairs: Pattern: Reciprocal Balance Picking up an Object (QC): 88 ADL-Treatment Eating (QC): 5 Oral Hygiene (QC): 4 (SBA standing at sink to brush teeth.) Shower/Bathe Self (QC): 4 (SBA, cues for sequencing in order to use wash cloth and soap to wash all parts.) Upper Body Dressing (QC): 3 (Min A with fastening bra clasp. 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 Chronic kidney disease status post kidney biopsy at on 05/15/2021 Hypertension Hyperlipidemia Anemia receiving iron infusions Plan: Aggressive rehab Monitor kidney function Supportive care Await iron B12 folate levels pending 05/17/21: Midline Iron infusions 05/18/2021: Very impulsive Iron infusions 05/19/2021: Fall risk Supportive care 05/20/21: Monitor closely Iron infusions 05/21/2021: Complete iron infusions Discharge Saturday05/22/2021: Discharge tomorrow (1) S/P nasal septoplasty (2) Von Hippel-Lindau disease (3) CSF leak (4) Hypertension (5) Hyperlipidemia (6) Physical debility (7) Debility GOSNALO NUNES DO May 22, 2021 06:56
[2021-05-22 07:05] LABS: ALBUMIN 3.2 GM/DL (3.2-4.5); POTASSIUM 4.8 MMOL/L (3.6-5.0)
[2021-05-22 07:07] LABS: CALCIUM 9.2 MG/DL (8.5-10.1)
[2021-05-22 07:08] LABS: TOTAL PROTEIN 6.8 GM/DL (6.4-8.2)
[2021-05-22 07:10] LABS: BILIRUBIN,TOTAL 0.3 MG/DL (0.1-1.0)
[2021-05-22 07:11] LABS: CREATININE SERUM 2.14 MG/DL (0.60-1.30)
[2021-05-22 07:28] VITALS: BP 121/60
[2021-05-22] MEDS: hydrALAZINE (APRESOLINE) 25 MG TAB PO SCH ×3 (07:29→23:33)
[2021-05-22] MEDS: FOLIC ACID 1 MG TAB PO SCH (07:29)
[2021-05-22] MEDS: SENNA W/DOCUSATE (SENOKOT S) TABLET PO SCH ×2 (07:30→23:00)
[2021-05-22] MEDS: DIVALPROEX EXT RELEASE 500 MG (DEPAKOTE ER) TAB PO SCH (07:30)
[2021-05-22] MEDS: BACITRACIN OINTMENT 28 GM TUBE TP SCH ×2 (07:30→23:37)
[2021-05-22] MEDS: ASPIRIN E.C. 81 MG (ECOTRIN) TAB PO SCH (07:30)
[2021-05-22] MEDS: DOCUSATE SODIUM 100 MG (COLACE) CAP PO SCH ×2 (08:25→23:00)
[2021-05-22] MEDS: polyethylene glycoL POWDER 17 GM (MIRALAX) PACK PO SCH ×2 (08:25→23:00)
--- NOTE | 2021-05-22 09:16 | Physical Therapy Daily Note ---
PT Daily Note-Current Subjective Pt walking to Therapy Gym with OT upon arrival. Pt agrees to continue tx as PT/OT co-treat. Pain Location: No Pain Reported Mental Status Patient Orientation: Person, Confused, Place Attachments: Oxygen Transfers SCALE: Activities may be completed with or without assistive devices. 7-Uuikaddfpm-xmurvqs completes the activity by him/herself with no assistance from a helper. 5-Set-up or Clean-up Assistance-helper sets up or cleans up; patient completes activity. [place] assists only prior to or following the activity. 4-Supervision or Touching Assistance-helper provides verbal cues and/or touching/steadying and/or contact guard assistance as patient completes activity. Assistance may be provided throughout the activity or intermittently. 3-Partial/Moderate Assistance-helper does LESS THAN HALF the effort. [place] lifts, holds or supports trunk or limbs, but provides less than half the effort. 2-Substantial/Maximal Assistance-helper does MORE THAN HALF the effort. [place] lifts or holds trunk or limbs and provides more than half the effort. 9-Xysovwgpt-zityhx does ALL the effort. Patient does none of the effort to complete the activity. Or, the assistance of 2 or more helpers is required for the patient to complete the activity. If activity was not attempted, code reason: 7-Patient Refused. 9-Not Applicable-not attempted and the patient did not perform the activity before the current illness, exacerbation or injury. 10-Not Attempted due to Environmental Limitations-(lack of equipment, weather restraints, etc.). 88-Not Attempted due to Medical Conditions or Safety Concerns. Roll Left & Right (QC): 6 Sit to Lying (QC): 6 Lying to Sitting/Side of Bed(Q: 6 Sit to Stand (QC): 5 Chair/Rfp-xm-Ovnhb Xfer(QC): 5 Toilet Transfer (QC): 5 Car Transfer (QC): 5 Weight Bearing Full Weight Bearing Full Weight Bearing Gait Training Does the Patient Walk?: Yes Distance: 125' Walk 10 feet (QC): 5 Walk 50 ft with 2 Turns(QC): 5 Walk 150 ft (QC): 5 Walking 10ft/uneven surface-QC: 5 Gait Persons Needed: 1 Gait Assistive Device: FWW VC for safety occasionally. Wheelchair Training Does the Pt Use a Wheelchair?: No Stair Training Stair Training: Handrails/: 2 handrails #of Steps: 8 1 Step (curb) (QC): 5 4 Steps (QC): 5 12 Steps (QC): 7 Stairs: Pattern: Reciprocal Balance Picking up an Object (QC): 4 Special Test Comments Pt should use core composer machine tender when completing this task. Treatments ([id number]) OT/PT cotreat due to skill of 2 clinicians required which a gis mapping technician could not perform in order to coordinate UE/LEs, decrease fall risk, focus on higher level balance activities. OT focused on ADLs, cues for sequencing and safety, and UE placement, PT focused on LE placement, gross overall movements, transfer/mobility, and dynamic standing balance. Pt completed functional mobility to therapy gym, SBA, rest break needed once in gym before starting a task. Pt transitioned to standing bars and stood on the [employer] mat to work on standing balance, while completing a functional task of hitting a balloon back and forth x3 rounds to work on activity tolerance using BUE. Pt stands and complete walking across varying surface then 2 sets of stairs before needing to rest. Pt stands and amb. in hallway, completing car transfer on way back to room. Pt resting in recliner with all needs met, call light in hand at end of tx. ([id number]) Pt walking in hallway, taking RB as needed. Pt returns to room to complete bed mobility and picking up an object. Pt resting in recliner with all needs met, call light next to pt at end of tx. Assessment Current Status: Good Progress Pt needs VC at times for remembering to use arm rests for transfers. PT Short Term Goals Short Term Goals Time Frame: May 23, 2021 Roll Left & Right: 6 Sit to lyin Lying to sitting on side of be: 6 Sit to stand: 4 (SBA) Chair/eht-xm-tmueb transfer: 4 (SBA) Walk 10 feet: 4 (SBA) Walk 50 feet with two turns: 4 (SBA) Walk 150 feet: 4 (SBA) PT Customer Expert Goals Customer Expert Goals PT [facility] Goals Time Frame: Jun 06, 2021 Roll Left & Right (QC): 6 Sit to Lying (QC): 6 Lying-Sitting on Side/Bed(QC): 6 Sit to Stand (QC): 5 Chair/Sgs-op-Mufgi Xfer(QC): 5 Toilet Transfer (QC): 5 Car Transfer (QC): 5 Does the Patient Walk: Yes Walk 10 feet (QC): 5 Walk 50ft with 2 Turns (QC): 5 Walk 150 ft (QC): 5 Walking 10ft on Uneven Surface: 4 (SBA) 1 Step (curb) (QC): 4 4 Steps (QC): 4 12 Steps (QC): 4 Picking up an Object (QC): 88 Wheel 50 feet with 2 turns (QC: 9 Wheel 150 feet: 9 PT Plan Problem List Problem List: Activity Tolerance Treatment/Plan Treatment Plan: Continue Plan of Care Treatment Plan: Education, Functional Activity [place], Functional Strength, Group Therapy, Gait, Safety, Therapeutic Exercise, Transfers Treatment Duration: Jun 06, 2021 Frequency: At least 5 of 7 days/Wk (IRF) Estimated Hrs Per Day: 1.5 hours per day Patient and/or Family Agrees t: Yes Safety Risks/Education Patient Education: Transfer Techniques, Steps, Correct Positioning, Safety Issues Teaching Recipient: Patient Teaching Methods: Demonstration, Discussion Response to Teaching: Return Demonstration Time/GCodes Time In: 830 Time Out: 915 Total Billed Treatment Time: 45 Total Billed Treatment Co-treat w/OT for 45m ([id number]) 1, FA x3 (45m) ([id number]) 1, GT (15m) & FA (15m) JOSH QUINTANILLA SCREEN STRETCHER May 22, 2021 09:16
--- NOTE | 2021-05-22 09:20 | Occupational Ther Daily Note ---
OT Current Status-Daily Note Subjective Pt in recliner. Pt agreeable to OT tx. Mental Status/Objective Patient Orientation: Person, Confused, Place Attachments: IV, Oxygen (O2 saturation (3)) ADL-Treatment Therapy Code Descriptions/Definitions Functional [place] Measure: 0=Not Assessed/NA 4=Minimal Assistance 1=Total Assistance 5=Supervision or Setup 2=Maximal Assistance 6=Modified [place] 3=Moderate Assistance 7=Complete IndependenceSCALE: Activities may be completed with or without assistive devices. 3-Ufnkwrpgvj-ibyimmh completes the activity by him/herself with no assistance from a helper. 5-Set-up or Clean-up Assistance-helper sets up or cleans up; patient completes activity. Stanton assists only prior to or following the activity. 4-Supervision or Touching Assistance-helper provides verbal cues and/or touching/steadying and/or contact guard assistance as patient completes activity. Assistance may be provided throughout the activity or intermittently. 3-Partial/Moderate Assistance-helper does LESS THAN HALF the effort. Stanton lifts, holds or supports trunk or limbs, but provides less than half the effort. 2-Substantial/Maximal Assistance-helper does MORE THAN HALF the effort. Stanton lifts or holds trunk or limbs and provides more than half the effort. 3-[id number]-srccfg does ALL the effort. Patient does none of the effort to complete the activity. Or, the assistance of 2 or more helpers is required for the patient to complete the activity. If activity was not attempted, code reason: 7-Patient Refused. 9-Not Applicable-not attempted and the patient did not perform the activity before the current illness, exacerbation or injury. 10-Not Attempted due to Environmental Limitations-(lack of equipment, weather restraints, etc.). 88-Not Attempted due to Medical Conditions or Safety Concerns. Eating (QC): 6 (independent ) Oral Hygiene (QC): 4 (SBA at sink) Bathing Location: L Arm, R Arm, L Upper Leg, R Upper Leg, L Lower Leg (including foot), R Lower Leg (including foot), Chest, Abdomen, Buttocks, Perineal Area Shower/Bathe Self (QC): 4 (SBA) Upper Body Dressing (QC): 3 (min A needed to fasten bra clasp and to thread O2 tubing through.) Lower Body Dressing (QC): 4 (SBA) On/Off Footwear: 5 (setup) Toileting Hygiene (QC): 6 (independent ) Toilet Transfer (QC): 4 (SBA ) Other Treatment [id number]: Pt transitioned from recliner to FWW, SBA, functional mobility to sc. Pt needed min verbal cues for oxygen tubing placement. Pt doffed shirt, bra, pants, briefs and socks, no assistance needed. Pt completed shower, assistance needed to thoroughly clean back. Pt transitioned from sc to chair in bathroom using grab bars, SBA. Pt donned bra, shirt, briefs, pants and socks, min A needed to fasten bra clasp completely and to thread the oxygen tubing through. Pt sat in chair to complete grooming, then stood at sink, FWW, SBA and completed oral hygiene. [id number]: OT/PT cotreat due to skill of 2 clinicians required which a analytical tech could not perform in order to coordinate UE/LEs, decrease fall risk, focus on higher level balance activities. OT focused on ADLs, cues for sequencing and safety, and UE placement, PT focused on LE placement, gross overall movements, transfer/mobility, and dynamic standing balance. Pt completed functional mobility to therapy gym, SBA, rest break needed once in gym before starting task. Pt transitioned to standing bars and stood on the airEx to work on standing balance, while completing a functional task of hitting a balloon back and forth x3 rounds to work on activity tolerance using BUE, rest breaks needed before starting a new round. Pt completed functional mobility over green mat then to the stairs in therapy gym, using FWW, SBA. Pt went up/down stairs x2 times, then sat in chair. Pt transitioned to [facility] and completed the car transfer, then functional mobility back to room. Pt in recliner, chair alarm on, call light in reach and all needs met. Education OT Patient Education: Correct positioning, Energy conservation, Modified ADL techniques, Progress toward Goal/Update tx plan, Purpose of tx/functional activities, Rehab process Teaching Recipient: Patient Teaching Methods: Demonstration, Discussion Response to Teaching: Verbalize Understanding, Return Demonstration, Reinforcement Needed OT Short Term Goals Short Term Goals Time Frame: May 23, 2021 Eatin Oral hygiene: 5 Toileting hygiene: 4 Shower/bathe self: 4 Upper body dressin Lower body dressin Putting on/taking off footwear: 4 OT Process Coordinator Goals [facility] Goals Time Frame: May 30, 2021 Eating (QC): 6 (met) Oral Hygiene (QC): 6 (not met) Toileting Hygiene (QC): 6 (not met) Shower/Bathe Self (QC): 5 (not met) Upper Body Dressing (QC): 6 (not met) Lower Body Dressing (QC): 6 (not met) On/Off Footwear (QC): 6 (not met) Additional Goals: 1-Demonstrate ADL Tasks, 2-Verbalize Understanding, 3- ImproveStrength/Grey 1=Demonstrate adherence to instructed precautions during ADL tasks. 2=Patient will verbalize/demonstrate understanding of assistive devices/modifications for ADL. 3=Patient will improve strength/tolerance for activity to enable patient to perform ADL's. OT Education/Plan Problem List/Assessment Assessment: Decreased Activ Tolerance, Decreased UE Strength, Impaired C oordination, Impaired Funct Balance, Impaired I ADL's, Impaired Self-Care Skills Discharge Recommendations Plan/Recommendations: Continue POC Treatment Plan/Plan of Care Patient would benefit from OT for education, treatment and training to promote independence in ADL's, mobility, safety and/or upper extremity function for ADL 's. Plan of Care: ADL Retraining, Functional Mobility, Group Exercise/Act as Ind, UE Funct Exercise/Act Treatment Duration: May 30, 2021 Frequency: At least 5 of 7 days/Wk (IRF) Estimated Hrs Per Day: 1.5 hours per day Agreement: Yes Rehab Potential: Fair Time/GCodes Start Time: 08:00 Stop Time: 09:15 Total Time Billed (hr/min): 75 Billed Treatment Time OT/PT [place] ([id number]) 1, ADL 2 (30), FA 3 (45) IRINA MORALES OT May 22, 2021 09:20
--- NOTE | 2021-05-22 10:57 | Speech Therapy Daily Note ---
Speech Daily Progress Note Subjective Date Seen by Provider: May 22, 2021 Time Seen by Provider: 09:15 The patient was seated upright in her recliner, awake and alert upon entrance to her room. The patient greeted the clinician appropriately and was agreeable to participation in the cognitive linguistic treatment session. Objective - Orientation: The patient was oriented (with the use of the in-room white board) to month, year, and day of week. The patient stated the date was "the ." The patient remains oriented to season, location, city, and staff members. - Functional Memory Tasks: The patient was provided a short paragraph aloud by the clinician. Following the passage, the patient was asked specific questions regarding the paragraph. Following the initial trial, the patient displayed 53% accuracy (8/15) with mild clinician verbal cueing. Following the second attempt, the patient displayed 100% accuracy (15/15) with mild clinician verbal cueing. The patient visited with the patient regarding the importance of repetition and how repetition aided the patient with increased accuracy. Assessment Assessment Current Status: Fair Progress Treatment Plan Continue Plan of Care Speech Short Term Goals Short Term Goals Short Term Goals 1. The patient will display 90% accuracy with functional problem solving and memory exercises with mild clinician cueing. Speech Snf Goals Snf Goals 1. The patient will display increased cognitive linguistic function for safe return to the least restrictive environment. Speech-Plan Treatment Plan Speech Therapy Treatment Plan: Continue Plan of Care Treatment Duration: May 30, 2021 Frequency: 4 times per week (Four to five times per week.) Estimated Hrs Per Day: .5 hour per day Rehab Potential: Fair Safety Risks/Education Teaching Recipient: Patient Teaching Methods: Discussion Response to Teaching: Reinforcement Needed Education Topics Provided: Functional Memory Strategies Time Speech Therapy Time In: 09:15 Speech Therapy Time Out: 09:45 Total Billed Time: 30 Billed Treatment Time [address] May 22, 2021 10:57
[2021-05-22 12:33] VITALS: BP 129/60
[2021-05-22 20:00] VITALS: BP 131/67
[2021-05-22 23:32] VITALS: BP 155/68
[2021-05-22] MEDS: MELATONIN 3 MG TABLET PO PRN (23:33)
[2021-05-23] MEDS: SALINE NASAL SPRAY (OCEAN) 45 ML BTL SCH ×4 (00:21→07:19)
[2021-05-23] MEDS ORDERED: BACI28.4 TP (05:40)
[2021-05-23] MEDS ORDERED: SODI44SP2 (05:40)
[2021-05-23] MEDS: CATHETER FLUSH 10 ML SYR IV SCH (05:40)
--- NOTE | 2021-05-23 05:41 | D/C HH Face to Face Order ---
D/C Face to Face Orders Reconcile Patient Problems Problems Reviewed?: Yes Instructions for Patient Via [facility], Patient Instructions/FollowUp: PCP 1 week Physician to follow Patient: PCP Discharge Diet for Home: No Restrictions Patient Problems: CSF leak Patient Data-Allergies,Ht & Wt Patient Allergies: Coded Allergies: No Known Allergies (Verified Allergy, Unknown, 05/15/21) Home Health Need/Face to Face Date of Face to Face: May 23, 2021 Clinical Findings: Muscle weakness, Unsteady gait I have seen Pt [id number]: Yes Discharged To: Home Diagnosis/Conditions: CSF leak Patient is Homebound due to: CognItive deficits, Muscle weakness Homebound Status Due to the above stated illness, injury or surgical procedure (medical con dition or diagnosis) and associated clinical findings, the patient is homebound because of his/her inability to leave home except with aid of a supportive device and/or person AND leaving the home requires a considerable and taxing effort or is medically contraindicated. Pt req the following assistanc: Walker Home Health Nursing Orders Home Health Services Order: Nursing Services, Meter Reader Inspector-Evaluate & Treat, Physical Therapy-Evaluate & Treat Home Health Infusion Therapy Line Start Date: May 17, 2021 Certify Stmt I certify that this patient is under my care and that I, a nurse practitioner or a physician; a senior sales assistant working with me, had a face to face encounter that - meets the physician face to face encounter requirements with this patient as dated. GONSALO NUNES DO May 23, 2021 05:41
--- NOTE | 2021-05-23 05:41 | Discharge Summary ---
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 Chronic kidney disease status post kidney biopsy at on 05/15/2021 Hypertension Hyperlipidemia Anemia receiving iron infusions Plan: Aggressive rehab Monitor kidney function Supportive care Await iron B12 folate levels pending 05/17/21: Midline Iron infusions 05/18/2021: Very impulsive Iron infusions 05/19/2021: Fall risk Supportive care 05/20/21: Monitor closely Iron infusions 05/21/2021: Complete iron infusions Discharge Saturday05/22/2021: Discharge tomorrow (1) S/P nasal septoplasty (2) Von Hippel-Lindau disease (3) CSF leak (4) Hypertension (5) Hyperlipidemia (6) Physical debility (7) Debility Discharge Summary Discharge Physical Examination Allergies: Coded Allergies: No Known Allergies (Verified Allergy, Unknown, 05/15/21) Vitals & I&Os Vital Signs Date Time Temp Pulse Resp B/P (MAP) Pulse Ox O2 Delivery O2 Flow Rate FiO2 05/23/21 10:45 37.0 70 16 159/70 100 Nasal Cannula 2.00 General Appearance: Alert, Oriented X3 Respiratory: Clear to Auscultation Cardiovascular: Regular Rate Psych/Mental Status: Mental Status NL Hospital Course Was the Problem List Reviewed?: Yes Pt had an uneventful 9 day hospital course after she was admitted from after sphenoid surgery due to chronic CSF leak. Overall she did very well, remained confused but that was back to her baseline. She was able to eat and drink and ambulate with a walker. She was deemed stable for discharge on home care. Labs (last 24 hrs) Laboratory Tests 05/15/21 21:08: Glucometer 169H 05/16/21 05:25: Glucometer 135H 05/16/21 05:44: White Blood Count 6.9, Red Blood Count 2.96L, Hemoglobin 7.3L, Hematocrit 24L, Mean Corpuscular Volume 82, Mean Corpuscular Hemoglobin 25, Mean Corpuscular Hemoglobin Concent 30L, Red Cell Distribution Width 17.4H, Platelet Count 293, Mean Platelet Volume 9.8, Immature Granulocyte % (Auto) 0, Neutrophils (%) (Auto) 84H, Lymphocytes (%) (Auto) 8L, Monocytes (%) (Auto) 4, Eosinophils (%) (Auto) 3, Basophils (%) (Auto) 0, Neutrophils # (Auto) 5.7, Lymphocytes # (Auto) 0.6L, Monocytes # (Auto) 0.3, Eosinophils # (Auto) 0.2, Basophils # (Auto) 0.0, Immature Granulocyte # (Auto) 0.0, Sodium Level 132L, Potassium Level 4.5, Chloride Level 99, Carbon Dioxide Level 20L, Anion Gap 13, Blood Urea Nitrogen 37H, Creatinine 2.19H, Estimat Glomerular Filtration Rate 22, BUN/Creatinine Ratio 17, Glucose Level 145H, Calcium Level 9.3, Corrected Calcium 9.9, Iron Level 12L, Total Bilirubin 0.6, Aspartate Amino Transf (AST/SGOT) 11, Alanine Aminotransferase (ALT/SGPT) 7, Alkaline Phosphatase 48, Total Protein 7.2, Albumin 3.3, Vitamin B12 Level 826, Folate 14.8 05/16/21 11:34: Glucometer 103 05/16/21 16:09: Glucometer 156H 05/16/21 20:16: Glucometer 187H 05/17/21 05:26: Glucometer 134H 05/17/21 11:59: Glucometer 101 05/17/21 16:02: Glucometer 148H 05/17/21 20:00: Glucometer 178H 05/18/21 05:09: Glucometer 127H 05/18/21 11:36: Glucometer 104 05/19/21 10:15: Glucometer 122H 05/20/21 07:21: White Blood Count 3.2L, Red Blood Count 2.82L, Hemoglobin 6.9*L, Hematocrit 23L, Mean Corpuscular Volume 82, Mean Corpuscular Hemoglobin 24L, Mean Corpuscular Hemoglobin Concent 30L, Red Cell Distribution Width 16.9H, Platelet Count 278, Mean Platelet Volume 9.5, Immature Granulocyte % (Auto) 1, Neutrophils (%) (Auto) 73, Lymphocytes (%) (Auto) 15, Monocytes (%) (Auto) 4, Eosinophils (%) (Auto) 7, Basophils (%) (Auto) 1, Neutrophils # (Auto) 2.4, Lymphocytes # (Auto) 0.5L, Monocytes # (Auto) 0.1, Eosinophils # (Auto) 0.2, Basophils # (Auto) 0.0, Immature Granulocyte # (Auto) 0.0, Sodium Level 137, Potassium Level 4.9, Chloride Level 105, Carbon Dioxide Level 21, Anion Gap 11, Blood Urea Nitrogen 40H, Creatinine 2.12H, Estimat Glomerular Filtration Rate 23, BUN/Creatinine Ratio 19, Glucose Level 112H, Calcium Level 9.2, Corrected Calcium 9.9, Total Bilirubin 0.3, Aspartate Amino Transf (AST/SGOT) 8, Alanine Aminotransferase (ALT/SGPT) 10, Alkaline Phosphatase 49, Total Protein 6.6, Albumin 3.1L 05/22/21 06:11: White Blood Count 3.7L, Red Blood Count 2.86L, Hemoglobin 7.1L, Hematocrit 24L, Mean Corpuscular Volume 83, Mean Corpuscular Hemoglobin 25, Mean Corpuscular Hemoglobin Concent 30L, Red Cell Distribution Width 16.6H, Platelet Count 290, Mean Platelet Volume 9.9, Immature Granulocyte % (Auto) 1, Neutrophils (%) (Auto) 70, Lymphocytes (%) (Auto) 16, Monocytes (%) (Auto) 5, Eosinophils (%) (Auto) 8, Basophils (%) (Auto) 1, Neutrophils # (Auto) 2.6, Lymphocytes # (Auto) 0.6L, Monocytes # (Auto) 0.2, Eosinophils # (Auto) 0.3, Basophils # (Auto) 0.0, Immature Granulocyte # (Auto) 0.0, Sodium Level 136, Potassium Level 4.8, Chloride Level 104, Carbon Dioxide Level 22, Anion Gap 10, Blood Urea Nitrogen 43H, Creatinine 2.14H, Estimat Glomerular Filtration Rate 23, BUN/Creatinine Ratio 20, Glucose Level 120H, Calcium Level 9.2, Corrected Calcium 9.8, Total Bilirubin 0.3, Aspartate Amino Transf (AST/SGOT) 14, Alanine Aminotransferase (ALT/SGPT) 9, Alkaline Phosphatase 49, Total Protein 6.8, Albumin 3.2 Pending Labs Laboratory Tests 05/15/21 21:08: Glucometer 169 05/16/21 05:25: Glucometer 135 05/16/21 05:44: White Blood Count 6.9, Red Blood Count 2.96, Hemoglobin 7.3, Hematocrit 24, Mean Corpuscular Volume 82, Mean Corpuscular Hemoglobin 25, Mean Corpuscular H emoglobin Concent 30, Red Cell Distribution Width 17.4, Platelet Count 293, Mean Platelet Volume 9.8, Immature Granulocyte % (Auto) 0, Neutrophils (%) (Auto) 84, Lymphocytes (%) (Auto) 8, Monocytes (%) (Auto) 4, Eosinophils (%) (Auto) 3, Basophils (%) (Auto) 0, Neutrophils # (Auto) 5.7, Lymphocytes # (Auto) 0.6, Monocytes # (Auto) 0.3, Eosinophils # (Auto) 0.2, Basophils # (Auto) 0.0, Immature Granulocyte # (Auto) 0.0, Sodium Level 132, Potassium Level 4.5, Chloride Level 99, Carbon Dioxide Level 20, Anion Gap 13, Blood Urea Nitrogen 37, Creatinine 2.19, Estimat Glomerular Filtration Rate 22, BUN/Creatinine Ratio 17, Glucose Level 145, Calcium Level 9.3, Corrected Calcium 9.9, Iron Level 12, Total Bilirubin 0.6, Aspartate Amino Transf (AST/SGOT) 11, Alanine Aminotransferase (ALT/SGPT) 7, Alkaline Phosphatase 48, Total Protein 7.2, Albumin 3.3, Vitamin B12 Level 826, Folate 14.8 05/16/21 11:34: Glucometer 103 05/16/21 16:09: Glucometer 156 05/16/21 20:16: Glucometer 187 05/17/21 05:26: Glucometer 134 05/17/21 11:59: Glucometer 101 05/17/21 16:02: Glucometer 148 05/17/21 20:00: Glucometer 178 05/18/21 05:09: Glucometer 127 05/18/21 11:36: Glucometer 104 05/19/21 10:15: Glucometer 122 05/20/21 07:21: White Blood Count 3.2, Red Blood Count 2.82, Hemoglobin 6.9, Hematocrit 23, Mean Corpuscular Volume 82, Mean Corpuscular Hemoglobin 24, Mean Corpuscular Hemoglobin Concent 30, Red Cell Distribution Width 16.9, Platelet Count 278, Mean Platelet Volume 9.5, Immature Granulocyte % (Auto) 1, Neutrophils (%) (Auto) 73, Lymphocytes (%) (Auto) 15, Monocytes (%) (Auto) 4, Eosinophils (%) (Auto) 7, Basophils (%) (Auto) 1, Neutrophils # (Auto) 2.4, Lymphocytes # (Auto) 0.5, Monocytes # (Auto) 0.1, Eosinophils # (Auto) 0.2, Basophils # (Auto) 0.0, Immature Granulocyte # (Auto) 0.0, Sodium Level 137, Potassium Level 4.9, Chlo ride Level 105, Carbon Dioxide Level 21, Anion Gap 11, Blood Urea Nitrogen 40, Creatinine 2.12, Estimat Glomerular Filtration Rate 23, BUN/Creatinine Ratio 19, Glucose Level 112, Calcium Level 9.2, Corrected Calcium 9.9, Total Bilirubin 0.3, Aspartate Amino Transf (AST/SGOT) 8, Alanine Aminotransferase (ALT/SGPT) 10, Alkaline Phosphatase 49, Total Protein 6.6, Albumin 3.1 05/22/21 06:11: White Blood Count 3.7, Red Blood Count 2.86, Hemoglobin 7.1, Hematocrit 24, Mean Corpuscular Volume 83, Mean Corpuscular Hemoglobin 25, Mean Corpuscular Hemoglobin Concent 30, Red Cell Distribution Width 16.6, Platelet Count 290, Mean Platelet Volume 9.9, Immature Granulocyte % (Auto) 1, Neutrophils (%) (Auto) 70, Lymphocytes (%) (Auto) 16, Monocytes (%) (Auto) 5, Eosinophils (%) (Auto) 8, Basophils (%) (Auto) 1, Neutrophils # (Auto) 2.6, Lymphocytes # (Auto) 0.6, Monocytes # (Auto) 0.2, Eosinophils # (Auto) 0.3, Basophils # (Auto) 0.0, Immature Granulocyte # (Auto) 0.0, Sodium Level 136, Potassium Level 4.8, Chloride Level 104, Carbon Dioxide Level 22, Anion Gap 10, Blood Urea Nitrogen 43, Creatinine 2.14, Estimat Glomerular Filtration Rate 23, BUN/Creatinine Ratio 20, Glucose Level 120, Calcium Level 9.2, Corrected Calcium 9.8, Total Bilirubin 0.3, Aspartate Amino Transf (AST/SGOT) 14, Alanine Aminotransferase (ALT/SGPT) 9, Alkaline Phosphatase 49, Total Protein 6.8, Albumin 3.2 Discharge Home Medications: Active Scripts Active Bacitracin 28.4 Gm Oint...g. 0 Each TP BID Deep Sea (Sodium Chloride) 44 Ml Ruby 0 Ml NA Q3HR Reported Hydralazine HCl 100 Mg Tablet 100 Mg PO TID Folic Acid 0.4 Mg Tablet 0.4 Mg PO DAILY Depakote ER (Divalproex Sodium) 500 Mg Tab.er.24h 500 Mg PO DAILY Coq-10 (Ubidecarenone) 100 Mg Capsule 100 Mg PO DAILY Atorvastatin Calcium 20 Mg Tablet 20 Mg PO DAILY Aspirin EC (Aspirin) 81 Mg Tablet.dr 81 Mg PO DAILY Tylenol (Acetaminophen) 325 Mg Capsule 650 Mg PO Q4H PRN Instructions to patient/family Please see electronic discharge instructions given to patient. Diagnosis/Problems Diagnosis/Problems (1) S/P nasal septoplasty (2) Von Hippel-Lindau disease (3) CSF leak (4) Hypertension (5) Hyperlipidemia (6) Physical debility (7) Debility GONSALO NUNES DO May 23, 2021 05:41
[2021-05-23] MEDS: DIVALPROEX EXT RELEASE 500 MG (DEPAKOTE ER) TAB PO SCH (07:18)
[2021-05-23] MEDS: ASPIRIN E.C. 81 MG (ECOTRIN) TAB PO SCH (07:18)
[2021-05-23] MEDS: FOLIC ACID 1 MG TAB PO SCH (07:18)
[2021-05-23] MEDS: hydrALAZINE (APRESOLINE) 25 MG TAB PO SCH (07:18)
[2021-05-23] MEDS: BACITRACIN OINTMENT 28 GM TUBE TP SCH (07:19)
[2021-05-23] MEDS: IRON SUCROSE 200 MG/10 ML (VENOFER) VIAL IV SCH (07:19)
[2021-05-23 07:29] VITALS: BP 159/70
--- NOTE | 2021-05-23 08:13 | Therapy Team Discharge Summary ---
Therapy Discharge Summary Discharge Recommendations Date of Discharge Occupational Therapy Pt admitted to ARU with debility s/p septoplasty. At PLOF, pt was independent with ADLs and functional mobility, no AD. Upon initial evaluation, pt required set up assistance wtih eating, SBA oral care, CGA showering, min A upper body dressing, mod A lower body dressing, and SBA footwear. OT txs focused on increasing BUE Strength and activity tolerance, and increasing safety and independence with ADLs and functional mobility. At discharge, pt was independent with eating and toileting, SBA oral care, showering, and lower body dressing, min A upper body dressing and set up footwear. Pt made functional progress towards goals, but only attained LTG for eating and toileting. Pt to discharge from facility, d/c from OT. Decreased Activ Tolerance, Decreased UE Strength, Impaired Coordination, Impaired Funct Balance, Impaired I ADL's, Impaired Self-Care Skills PT Research & Insights Executive Goals Mcc Goals PT Research & Insights Executive Goals Time Frame: Jun 06, 2021 Roll Left to Right (QC): 6 Sit to Lying (QC): 6 Lying-Sitting on Side/Bed(QC): 6 Sit to Stand (QC): 5 Chair/Tsj-ui-Djbnx Xfer(QC): 5 Car Transfer (QC): 5 Does the Patient Walk: Yes Walk 10 feet (QC): 5 Walk 10ft-Uneven Surface(QC): 4 (SBA) Walk 50ft with 2 Turns (QC): 5 Walk 150 ft (QC): 5 Wheel 50 feet with 2 turns (QC: 9 1 Step (curb) (QC): 4 4 Steps (QC): 4 12 Steps (QC): 4 Picking up an Object (QC): 88 OT Mcc Goals Research & Insights Executive Goals Time Frame: May 30, 2021 Eating (FIM): 6 Eating (QC): 6 (met) Oral Hygiene (QC): 6 (not met) Shower/Bathe Self (QC): 5 (not met) Upper Body Dressing (QC): 6 (not met) Lower Body Dressing (QC): 6 (not met) On/Off Footwear (QC): 6 (not met) Toileting(FIM): 6 Toileting Hygiene (QC): 6 (met) Toilet/Commode Transfer (QC): 5 Additional Goals: 1-Demonstrate ADL Tasks, 2-Verbalize Understanding, 3- ImproveStrength/Grey 1=Demonstrate adherence to instructed precautions during ADL tasks. 2=Patient will verbalize/demonstrate understanding of assistive devices/modifications for ADL. 3=Patient will improve strength/tolerance for activity to enable patient to perform ADL's. Speech Research [employer] Insights Executive Goals Research & Insights Executive Goals 1. The patient will display increased cognitive linguistic function for safe return to the least restrictive environment. IRINA MORALES OT May 23, 2021 08:13
--- NOTE | 2021-05-23 08:15 | Therapy Team Discharge Summary ---
Therapy Discharge Summary Discharge Recommendations Date of Discharge Occupational Therapy Decreased Activ Tolerance, Decreased UE Strength, Impaired Coordination, Impaired Funct Balance, Impaired I ADL's, Impaired Self-Care Skills Speech-Language Pathology The patient will discharge from skilled speech pathology services on 05/23/21. The patient has displayed improvement with cognitive abilities, however, remains confused at this time. While cognitive short term specific goals were not met, exterminator helper termite goals were met as overall improvement was present and the patient displayed use of memory strategies with high accuracy and efficiency (repetition). PT Hospice Massage Therapist Goals Hospice Massage Therapist Goals PT Snf Goals Time Frame: Jun 06, 2021 Roll Left to Right (QC): 6 Sit to Lying (QC): 6 Lying-Sitting on Side/Bed(QC): 6 Sit to Stand (QC): 5 Chair/Evv-tm-Gpiit Xfer(QC): 5 Car Transfer (QC): 5 Does the Patient Walk: Yes Walk 10 feet (QC): 5 Walk 10ft-Uneven Surface(QC): 4 (SBA) Walk 50ft with 2 Turns (QC): 5 Walk 150 ft (QC): 5 Wheel 50 feet with 2 turns (QC: 9 1 Step (curb) (QC): 4 4 Steps (QC): 4 12 Steps (QC): 4 Picking up an Object (QC): 88 OT Snf Goals Hospice Massage Therapist Goals Time Frame: May 30, 2021 Eating (FIM): 6 Eating (QC): 6 (met) Oral Hygiene (QC): 6 (not met) Shower/Bathe Self (QC): 5 (not met) Upper Body Dressing (QC): 6 (not met) Lower Body Dressing (QC): 6 (not met) On/Off Footwear (QC): 6 (not met) Toileting(FIM): 6 Toileting Hygiene (QC): 6 (met) Toilet/Commode Transfer (QC): 5 Additional Goals: 1-Demonstrate ADL Tasks, 2-Verbalize Understanding, 3- ImproveStrength/Grey 1=Demonstrate adherence to instructed precautions during ADL tasks. 2=Patient will verbalize/demonstrate understanding of assistive devices/modifications for ADL. 3=Patient will improve strength/tolerance for activity to enable patient to perform ADL's. Speech Snf Goals Snf Goals 1. The patient will display increased cognitive linguistic function for safe return to the least restrictive environment. MET ANDREW,ANA ST May 23, 2021 08:15
[2021-05-23 10:45] VITALS: BP 159/70
--- NOTE | 2021-05-23 11:43 | Therapy Team Discharge Summary ---
Therapy Discharge Summary Discharge Recommendations Date of Discharge May 23, 2021 at 10:45 Physical Therapy Patient came to rehab following a septoplasty. Upon evaluation patient performed rolling and supine <-> sit with independence, sit <-> stand and transfers CGA, car transfer CGA, ambulated 100' with a rolling walker with CGA (including 50' with at least 2 turns of 90 degrees and 10' over an uneven surface), propelled a manual WC 150' with min assist, and and went up and down 1 step using a rolling walker with CGA. Patient has been performing bed mobility and transfer training, balance and endurance training, functional strengthening, stair training, gait training, and education. Patient has made fair progress and has met all of her long term care pharmacist goals except for stairs. Now, patient performs rolling and supine <-> sit with independence, sit <-> stand and transfers with setup, car transfer with setup, ambulates 150' with a rolling walker with setup (including 50' with at least 2 turns of 90 degrees and 10' over an uneven surface), can go up and down 8 steps using 2 handrails with setup, and can citrus picker an object from the floor with CGA using a cop examiner. Patient has been discharged from this facility and will be discharged from PT at this time. Occupational Therapy Decreased Activ Tolerance, Decreased UE Strength, Impaired Coordination, Impaired Funct Balance, Impaired I ADL's, Impaired Self-Care Skills PT Employee Training Specialist Goals Employee Training Specialist Goals PT Employee Training Specialist Goals Time Frame: Jun 06, 2021 Roll Left to Right (QC): 6 Sit to Lying (QC): 6 Lying-Sitting on Side/Bed(QC): 6 Sit to Stand (QC): 5 Chair/Vgd-sc-Rsygc Xfer(QC): 5 Car Transfer (QC): 5 Does the Patient Walk: Yes Walk 10 feet (QC): 5 Walk 10ft-Uneven Surface(QC): 4 (SBA) Walk 50ft with 2 Turns (QC): 5 Walk 150 ft (QC): 5 Wheel 50 feet with 2 turns (QC: 9 1 Step (curb) (QC): 4 4 Steps (QC): 4 12 Steps (QC): 4 Picking up an Object (QC): 88 OT Employee Training Specialist Goals Employee Training Specialist Goals Time Frame: May 30, 2021 Eating (FIM): 6 Eating (QC): 6 (met) Oral Hygiene (QC): 6 (not met) Shower/Bathe Self (QC): 5 (not met) Upper Body Dressing (QC): 6 (not met) Lower Body Dressing (QC): 6 (not met) On/Off Footwear (QC): 6 (not met) Toileting(FIM): 6 Toileting Hygiene (QC): 6 (met) Toilet/Commode Transfer (QC): 5 Additional Goals: 1-Demonstrate ADL Tasks, 2-Verbalize Understanding, 3- ImproveStrength/Grey 1=Demonstrate adherence to instructed precautions during ADL tasks. 2=Patient will verbalize/demonstrate understanding of assistive devices/modifications for ADL. 3=Patient will improve strength/tolerance for activity to enable patient to perform ADL's. Speech Nursing Home Goals Nursing Home Goals 1. The patient will display increased cognitive linguistic function for safe return to the least restrictive environment. MET KEATON [place] PT May 23, 2021 11:43
== END 2021-05-23 10:45 | disposition home health service (06) | DRG 948 ==
PROVIDERS: ADMIT Internal Medicine; ATTEND Internal Medicine
DX: R53.81 Other malaise (principal); Q85.8 Other phakomatoses, not elsewhere classified; I12.9 Hypertensive chronic kidney disease with stage 1 through stage 4 chronic kidney disease, or unspecified chronic kidney disease; N18.9 Chronic kidney disease, unspecified; E78.00 Pure hypercholesterolemia, unspecified; E78.5 Hyperlipidemia, unspecified; K21.9 Gastro-esophageal reflux disease without esophagitis; M19.91 Primary osteoarthritis, unspecified site; F41.9 Anxiety disorder, unspecified; D64.9 Anemia, unspecified; Z79.82 Long term (current) use of aspirin
CPT/HCPCS: 36410; 36415; 76937; 80053; 82607; 82746; 82947; 83540; 85025; 94760; 94761